=== PATIENT | male | born 1950 | race Caucasian/White ===

== ENCOUNTER → 2017-05-16 | Outpatient (CLI) | payer OTHER ==
[2016-06-11 16:04] VITALS: BP 134/67
--- NOTE | 2017-05-17 09:17 | MRI ---
STUDY: MRI OF THE LUMBAR SPINE HISTORY: Other intervertebral disc disorders lumbar region. Chronic low back pain. Comparison: None. Technique: Multiplanar multi-sequence MRI of the lumbar spine was performed. Sagittal T1, sagittal T 2, and STIR images, axial T1, and axial T2 images were obtained. Findings: Sagittal images: Vertebral body heights and alignment are within normal limits. Marrow signal is age-appropriate. Ther e is degenerative endplate change identified, with Modic type 1 change at the opposing endplates of L 5/S1. There is multilevel degenerative disc disease, most notable at L4/5 and L5/S1. The conus medul rachel is normal appearance terminating at the level of L1/2. Axial images: T12 -- L1: There is bilateral facet arthropathy and ligamentum flavum infolding. The central canal an d neural foramina are adequate. L1 -- L2: There is a shallow disc bulge, bilateral facet arthropathy and ligamentum flavum infolding. Central canal and neural foramina are adequate. L2 -- L3: There is a broad-based disc bulge, bilateral facet arthropathy and ligamentum flavum infold ing. The combination of these findings results in moderate central canal stenosis. There is moderate right neural foraminal stenosis. Left neural foramen is adequate. L3 -- L4: There is a broad-based disc bulge, bilateral facet arthropathy and ligamentum flavum infold ing. The combination of these findings results in mild central canal stenosis. There is moderate to s evere right neural foraminal stenosis. Left neural foramen is adequate. L4 -- L5: There is a broad-based disc bulge asymmetric to the left, with superimposed disc extrusion into the left lateral recess. There is bilateral facet arthropathy and ligamentum flavum infolding. O verall, this results in mild spinal stenosis. However, there is effacement of the left lateral recess , and likely contact with the traversing L5 nerve root in the left lateral recess. There is moderate right and moderate to severe left neural foraminal stenosis at this level. L5 -- S1: There is a shallow disc bulge, bilateral facet arthropathy and ligamentum flavum infolding. The central canal is adequate. There is moderate left neural foraminal stenosis. The right neural fo ramen is adequate. IMPRESSION: 1. Multilevel lumbar spondylosis, probably most severe at L4/5. 2. Disc bulge with extruded disc material in the left lateral recess at L4/5. 3. Moderate spinal stenosis at L2/3. 4. Mild spinal stenosis at L3/4 and L4/5. Effacement of the left lateral recess at L4/5. 5. Multilevel neural foraminal stenosis as described, probably most severe at L4/5 on the left. Reported By:
== END | disposition home or self-care (01) ==
LOC: RAD 09:19
PROVIDERS: ATTEND Internal Medicine
DX: M51.86 Other intervertebral disc disorders, lumbar region (principal); M47.896 Other spondylosis, lumbar region; M51.26 Other intervertebral disc displacement, lumbar region; M48.061 Spinal stenosis, lumbar region without neurogenic claudication
CPT/HCPCS: 72148

== ENCOUNTER 2017-06-30 10:50 | Day surgery (SDC) | payer OTHER ==
[2017-06-30] MEDS ORDERED: NS 1000 ML 1,000 ML ONE (11:32)
[2017-06-30] MEDS ORDERED: DIPRIVAN VIAL 20 ML ONE (11:53)
[2017-06-30] MEDS ORDERED: DIPRIVAN VIAL 10 ML ONE (12:05)
[2017-06-30 12:31] VITALS: BP 164/77
== END 2017-06-30 12:35 | disposition home or self-care (01) ==
LOC: SURG1 10:50
PROVIDERS: ATTEND Internal Medicine Gastroenterology
PROC: 0DBL8ZX Excision of Transverse Colon, Via Natural or Artificial Opening Endoscopic, Diagnostic (ICD-10-PCS; principal; 2017-06-30 14:15)
PROC: 0DJD8ZZ Inspection of Lower Intestinal Tract, Via Natural or Artificial Opening Endoscopic (ICD-10-PCS; principal; 2017-06-30 14:15)
PROC: 0DBM8ZX Excision of Descending Colon, Via Natural or Artificial Opening Endoscopic, Diagnostic (ICD-10-PCS; principal; 2017-06-30 14:15)
PROC: 0DBN8ZX Excision of Sigmoid Colon, Via Natural or Artificial Opening Endoscopic, Diagnostic (ICD-10-PCS; principal; 2017-06-30 14:15)
PROC: 0DBP8ZX Excision of Rectum, Via Natural or Artificial Opening Endoscopic, Diagnostic (ICD-10-PCS; principal; 2017-06-30 14:15)
DX: Z12.11 Encounter for screening for malignant neoplasm of colon (principal); Z80.0 Family history of malignant neoplasm of digestive organs; K63.5 Polyp of colon; K57.30 Diverticulosis of large intestine without perforation or abscess without bleeding; K64.0 First degree hemorrhoids; D12.5 Benign neoplasm of sigmoid colon; D12.4 Benign neoplasm of descending colon; D12.3 Benign neoplasm of transverse colon
CPT/HCPCS: A4217; J3490

== ENCOUNTER → 2017-08-30 | Outpatient (CLI) | payer OTHER ==
--- NOTE | 2017-08-30 12:38 | MRI ---
MRI SPINE CERVICAL WITHOUT CONTRAST CLINICAL HISTORY: 66-year-old male with chronic low back and neck pain. COMPARISON: None. Technique: Multiplanar, multisequence MRI images of the cervical spine were obtained without the adm inistration of intravenous contrast. FINDINGS: Straightening of the cervical lordosis as imaged. Subtle degenerative retrolisthesis C3 on C4 and C5 on C6. Encephalomalacia within the inferior aspect of the left cerebellar hemisphere. Verte bral body heights are preserved with mixed type 1 and type 2 endplate changes C5-C6. Loss of disc spa ce C5-C6 with associated signal loss. Remaining disc height and signal are preserved. Cord signal is normal. The visualized posterior fossa structures are normal. C2-C3: No significant central canal or neural foraminal stenosis. C3-C4: Broad-based disc osteophyte with a central and right central component narrows canal 9.6 mm. N o cord contour deformity or signal change. Uncovertebral and facet joint hypertrophy combine to produ ce mild bilateral neural foraminal stenosis. C4-C5: Broad-based disc osteophyte complex narrows canal at 10.4 mm. No cord contour deformity or sig nal change. Uncovertebral and facet joint hypertrophy combine to produce mild right neural foraminal stenosis. C5-C6: Large left central disc osteophyte complex produces partial effacement of the subarachnoid spa jose with flattening of the left ventral cord without cord signal change. Uncovertebral joint hypertro phy with spurring produces moderate to severe left neural foraminal stenosis. C6-C7: Large left central disc osteophyte complex with subtle flattening of the left ventral cord wit hout signal change. Central canal remains widely patent. Uncovertebral and facet joint hypertrophy co mbine to produce [id number] right and moderate to severe left neural foraminal stenosis. C7-T1: No central canal or neural foraminal stenosis. Abnormal loss of expected flow void within the left vertebral artery from C4-C5 intervertebral disc s pace distally. IMPRESSION: 1. Multilevel disc degeneration and spondyloarthropathy with cord contour deformity without signal ch ana at multiple levels. Multilevel significant neural foraminal stenosis. This is most severe from C 5-C7. 2. See level by level descriptions above. 3. Abnormal loss of the expected flow void within the left vertebral artery as described, further cor relation with CTA neck is recommended for definitive evaluation. Slow flowing blood can have this [place] earance. 4. Encephalomalacia inferior aspect left cerebral hemisphere. Reported By:
--- NOTE | 2017-08-30 15:49 | CT ---
HISTORY: Lower back pain, history chronic fracture Study: CT lumbar spine without contrast Comparison: Lumbar MRI 05/16/2017 Technique: Multiple axial images of the lumbar spine without the administration of IV contrast. Sag ittal and coronal reformats were performed and reviewed. Dose reduction techniques including Automat ed Exposure Control (AEC) and adjustment of mA and kV were utilized. Findings: Lumbar alignment is within normal limits. Multilevel spondylosis and degenerative disc space narrowin g is present with vacuum phenomenon at L4-L5. There is multilevel facet arthropathy also noted. There is broad-based disc bulge at L2 and L3 are moderate bilateral lateral recess narrowing and foraminal narrowing. There is a broad-based disc bulge facet hypertrophy changes at L3-L4 resulting in moderat e bilateral lateral recess and foraminal narrowing, worse on the right. There is a broad-based disc b ulge at L4-5 and facet hypertrophy resulting moderate to severe bilateral foraminal and lateral reces s stenosis. There is extruded disc material on the left inferiorly at this level. No evidence of acut e fracture. Extensive atherosclerotic plaque is seen in the aorta and branch vessels including segmen jennifer renal arteries bilaterally. The paraspinal soft tissues appear intact IMPRESSION: 1. Multilevel discogenic degenerative changes and facet arthropathy as described resulting in moderat e lateral recess and foraminal stenosis at L2-L3 and L3-L4 and moderate to severe lateral recess and foraminal stenosis at L4-5. Extruded disc material is seen inferiorly on the left at L4-5. Reported By:
== END | disposition home or self-care (01) | DRG 74 ==
LOC: RAD 08:31
PROVIDERS: ATTEND Neurological Surgery
DX: M54.12 Radiculopathy, cervical region (principal); M54.16 Radiculopathy, lumbar region; M50.322 Other cervical disc degeneration at C5-C6 level; M51.36 Other intervertebral disc degeneration, lumbar region; M48.061 Spinal stenosis, lumbar region without neurogenic claudication; M48.02 Spinal stenosis, cervical region; G93.89 Other specified disorders of brain
CPT/HCPCS: 72050; 72110; 72131; 72141

== ENCOUNTER 2019-07-25 08:30 | Inpatient (IN) ==
[2019-07-24 18:36] LABS: BILIRUBIN,URINE NEGATIVE (NEGATIVE); BLOOD/HEMOGLOBIN,URINE NEGATIVE (NEGATIVE); GLUCOSE, URINE NEGATIVE (NEGATIVE); KETONES,URINE NEGATIVE (NEGATIVE); LEUKOCYTE ESTERASE ,URINE NEGATIVE (NEGATIVE); NITRITES,URINE NEGATIVE (NEGATIVE); PROTEIN,URINE 1+ (NEGATIVE); UROBILINOGEN,URINE NORMAL (NORMAL)
[2019-07-24 18:40] LABS: AMORPHOUS SEDIMENT,UR TRACE /HPF (NEGATIVE); APPEARANCE,URINE CLEAR (CLEAR); BACTERIA,URINE NEGATIVE /HPF (NEGATIVE); COLOR,URINE YELLOW (YELLOW); RBC,URINE NONE SEEN /HPF (0-3); SQUAMOUS EPITHELIAL CELL,UR NEGATIVE /HPF (NEGATIVE)
[2019-07-24] MEDS: NS 1000 ML 1,000 ML IV SCH (18:50)
[2019-07-24 19:07] LABS: BASOPHILS # (AUTO) 0.2 X10^3/uL (0.0-0.1); BASOPHILS % (AUTO) 2.2 % (0.2-1.0); EOSINOPHILS # (AUTO) 0.2 x10^3/uL (0.0-0.2); EOSINOPHILS % (AUTO) 2.1 % (0.9-2.9); HEMATOCRIT 39.5 % (42.0-54.0); HEMOGLOBIN 13.3 g/dL (13.5-18.0); LYMPHOCYTES # (AUTO) 2.2 X10^3/uL (1.3-2.9); LYMPHOCYTES % (AUTO) 20.3 % (21.0-51.0); MEAN CORPUSCULAR HEMOGLOBIN 31.7 pg (27.0-34.0); MEAN CORPUSCULAR HGB CONC 33.7 g/dL (33.0-35.0); MEAN CORPUSCULAR VOLUME 94.1 fL (80.0-100.0); MEAN PLATELET VOLUME 8.5 fL (7.4-11.0); MONOCYTES # (AUTO) 0.7 x10^3/uL (0.3-0.8); MONOCYTES % (AUTO) 6.4 % (0.0-13.0); NEUTROPHILS # (AUTO) 7.4 x10^3/uL (2.2-4.8); PLATELET COUNT 343 X10^3/uL (150.0-450.0); RED CELL DISTRIBUTION WIDTH 15.7 % (11.6-16.5); WHITE BLOOD COUNT 10.7 X10^3/uL (3.6-10.0)
[2019-07-24 19:23] LABS: ALBUMIN 3.3 g/dL (3.4-5.0); CALCIUM 8.8 mg/dL (8.5-10.1); CARBON DIOXIDE 31.9 mmol/L (21-32); COR CA(FOR HYPOALB) 9.4 mg/dL (8.5-10.1); CREATININE 1.54 mg/dL (0.70-1.30); TOTAL PROTEIN 7.7 g/dL (6.4-8.2)
[2019-07-24 20:25] VITALS: BMI 30.5
[2019-07-24] MEDS: KLOR-CON PO PRN (21:46)
[2019-07-25] MEDS: NS 1000 ML 1,000 ML IV SCH ×3 (06:04→20:25)
--- NOTE | 2019-07-25 06:34 | RAD ---
HISTORYSOBSTUDYPortable AP chestCOMPARISONJanuary 2019FINDINGSThere is moderate cardiomegaly. There is a new infiltrate at the left lung base laterally with elevation of the left hemidiaphragm. There is been prior sternotomy for bypass grafting surgery with a prosthetic valve is well. The right lung is grossly clear. There ventral surgical traci over the anterior chest.IMPRESSION1. Increased heart size status post recent CABG and prosthetic valve surgery2. Infiltrate at the left lung base laterally that may represent a pneumoniaElectronically signed by: AZRA OCASIO (Jul 25, 2019 06:32:36)
[2019-07-25 06:38] LABS: BASOPHILS # (AUTO) 0.1 X10^3/uL (0.0-0.1); BASOPHILS % (AUTO) 0.7 % (0.2-1.0); EOSINOPHILS # (AUTO) 0.2 x10^3/uL (0.0-0.2); EOSINOPHILS % (AUTO) 2.6 % (0.9-2.9); HEMATOCRIT 35.8 % (42.0-54.0); HEMOGLOBIN 11.9 g/dL (13.5-18.0); LYMPHOCYTES % (AUTO) 23.1 % (21.0-51.0); MEAN CORPUSCULAR HEMOGLOBIN 31.6 pg (27.0-34.0); MEAN CORPUSCULAR HGB CONC 33.3 g/dL (33.0-35.0); MEAN CORPUSCULAR VOLUME 94.6 fL (80.0-100.0); MEAN PLATELET VOLUME 8.5 fL (7.4-11.0); MONOCYTES # (AUTO) 0.6 x10^3/uL (0.3-0.8); MONOCYTES % (AUTO) 7.4 % (0.0-13.0); NEUTROPHILS # (AUTO) 5.7 x10^3/uL (2.2-4.8); NEUTROPHILS % (AUTO) 66.2 % (42.0-75.0); PLATELET COUNT 290 X10^3/uL (150.0-450.0); RED BLOOD COUNT 3.78 X10^6/uL (4.7-6.0); RED CELL DISTRIBUTION WIDTH 15.8 % (11.6-16.5); WHITE BLOOD COUNT 8.6 X10^3/uL (3.6-10.0)
[2019-07-25 07:00] LABS: ALBUMIN 2.6 g/dL (3.4-5.0); CALCIUM 7.9 mg/dL (8.5-10.1); CARBON DIOXIDE 28.1 mmol/L (21-32); CREATININE 1.49 mg/dL (0.70-1.30); TOTAL PROTEIN 6.3 g/dL (6.4-8.2)
[~2019-07-25 08:30] MED LIST: K-RIDER 10 MEQ/NS 100 ML 10 MEQ/100 ML BAG IV PRN; MICRO K EXTEN CAP 10 MEQ PO PRN; POTASSIUM CHL 40 MEQ/NS 0.45% 500 ML IV PRN; POTASSIUM CHL 60 MEQ/NS 0.45% 500 ML IV PRN; POTASSIUM CHLORIDE LIQ 20 MEQ UDC PO PRN; ROXICODONE TAB 5 MG PO PRN
[2019-07-25] MEDS: ELIQUIS PO SCH ×2 (09:35→20:20)
[2019-07-25] MEDS: KLOR-CON PO PRN (09:35)
[2019-07-25] MEDS: LEVAQUIN PREMIX IV 750 MG 750 MG/150 ML BAG IV SCH (11:30)
[2019-07-25] MEDS: FORTAZ or TAZICEF VIAL INJ 1 G in NS 100 ML IV + SPIKE MINIBAG* 100 ML IV SCH ×3 (11:30→21:05)
--- NOTE | 2019-07-25 11:41 | DR.H&P ---
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 HE RETURNED HOME FROM THE HOSPITAL ON 07/23/19. SINCE RETURNING HOME, PATIENT REPORTS FEELING SEVERELY WEAK, SHORT OF BREATH, AND ALSO REPORTS A COUGH. THERE IS A SURGICAL DRESSING NOTED TO CHEST WITHOUT SIGNS OR SX INFECTION NOTED. ON ARRIVAL, VITALS WERE 98.9-86-18-99%-176/86. LABS WERE OBTAINED. ABNORMAL LAB VALUES INCLUDE THE FOLLOWING: WBC 10.7, RBC 4.20, HGB 13.3, HCT 39.5, POTASSIUM 3.0, CREATININE 1.54, GLUCOSE 119, TOTAL BILI 1.10, AST 69, ALT 100, ALK PHOS 133, ALBUMIN 3.3. URINALYSIS IS UNREMARKABLE. A CHEST XRAY WAS OBTAINED THIS MORNING AND REVEALED: 1. Increased heart size status post recent CABG and prosthetic valve surgery. 2. Infiltrate at the left lung base laterally that may represent a pneumonia. HE IS CURRENTLY RECEIVING NORMAL SALINE AT 50 ML/HR AND THE POTASSIUM AND MAGNESIUM PROTOCOLS. TODAY, WILL START IV FORTAZ, IV LEVAQUIN, AND RESPIRATORY TREATMENTS. PHYSICAL THERAPY WILL EVALUATE AND WORK WITH PATIENT TODAY. OTHERWISE, WE WILL FOLLOW UP WITH AM LABS AND CHEST XRAY AND CONTINUE TO MONITOR. - Past Medical History Past Medical History: Angina, NH, Hypertension, Dyslipidemia, Depression, Anxiety, Hypothyroidism, COPD, Asthma, GERD, Arthritis Additional Medical History: NH 2012 - Past Surgical History Surgical History: Angioplasty/Stents, Appendectomy, CABG/Valve Surgery Additional Surgical History: 7 CARDIAC STENTS - Family History Family Medical History: Diabetes Mellitus, Cancer, NH, Coronary Artery Disease, Sudden Cardiac , Hypertension - Social History Does patient currently use any type of tobacco product: No Have you used tobacco products in the last 12 months: No Type of Tobacco Use: None Alcohol Use: None Drug Use: None - Medications Home Medications: fluoxetine [From Prozac] Allergy (Verified 07/24/19 20:27) CONTINUE taking the following medications amiodarone 200 mg PO DAILY 07/24/19 [History] apixaban [Eliquis] 5 mg PO BID 02/04/20 [History] bumetanide 1 mg PO DAILY 07/24/19 [History] docusate sodium 100 mg PO BID 07/24/19 [History] - Review of Systems Constitutional: Weakness Eyes: No Symptoms Reported ENT: No Symptoms Reported Respiratory: Cough, Shortness of Breath, SOB with Excertion Cardiovascular: No Symptoms Reported Gastrointestinal: No Symptoms Reported Genitourinary: No Symptoms Reported Musculoskeletal: No Symptoms Reported Skin: Wound (DRESSING TO CHEST. NO SIGNS OR SX INFECTION NOTED ) Neurological: Weakness - Physical Exam Vital Signs: Temperature 99.4 F Pulse Rate [Left Brachial] 82 Respiratory Rate 22 Blood Pressure [Right Calf] 111/58 Blood Pressure [Left Arm] 176/86 Blood Pressure [Right Arm] 134/64 Blood Pressure 94/60 O2 Sat by Pulse Oximetry 96 Oriented: Normal Eyes: Normal Ear: Normal Nose: Normal Throat: Normal Respiratory: Diminished Throughout Cardiovascular: Normal. negative: S3, S4, Murmur : Normal Auscultation: Bowel Sounds: Normal Palpation: Normal Tenderness: Normal Skin: Wound (SURGICAL WOUND TO CHEST. DRESSING DRY AND INTACT WITH NO S/SX INFECTION NOTED ) Musculoskeletal: Normal Psychiatric: Normal Mood Description: Calm Affect: Normal Speech Pattern: Clear - Assessment/Plan (1) Pneumonia Qualifiers: Laterality: left Lung location: lower lobe of lung Status: Acute Plan: IV FORTAZ, IV LEVAQUIN, RESPIRATORY TX, SUPPLEMENTAL OXYGEN, CONTINUE TO MONITOR (2) Generalized weakness Status: Acute (3) Status post coronary artery bypass graft Status: Acute - Allergies Allergies/Adverse Reactions: Allergies Allergy/AdvReac Type Severity Reaction Status Date / Time fluoxetine [From Prozac] Allergy Verified 07/24/19 20:27
[2019-07-25] MEDS: XOPENEX 1.25 MG/3 ML NEBULE NEB SCH (17:08)
[2019-07-25] MEDS: CORDARONE TAB 200 MG PO SCH (18:35)
[2019-07-25] MEDS: COLACE CAP 100 MG PO SCH (20:20)
[2019-07-26] MEDS: XOPENEX 1.25 MG/3 ML NEBULE NEB SCH ×4 (00:39→16:50)
[2019-07-26] MEDS ORDERED: RESTORIL CAP 15 MG PO ONE (01:47)
[2019-07-26] MEDS: RESTORIL CAP 15 MG PO PRN ×2 (01:53→22:00)
[2019-07-26] MEDS: FORTAZ or TAZICEF VIAL INJ 1 G in NS 100 ML IV + SPIKE MINIBAG* 100 ML IV SCH ×4 (05:50→22:04)
[2019-07-26] MEDS: NS 1000 ML 1,000 ML IV SCH ×3 (05:51→22:02)
[2019-07-26 06:40] LABS: ALANINE AMINOTRANSFERASE 115 Units/L (12-78); ALBUMIN 2.3 g/dL (3.4-5.0); ALKALINE PHOSPHATASE 118 Units/L (46-116); ASPARTATE AMINO TRANSFERASE 72 Units/L (15-37); BLOOD UREA NITROGEN 11 mg/dL (7-18); CALCIUM 7.7 mg/dL (8.5-10.1); CARBON DIOXIDE 22.7 mmol/L (21-32); CHLORIDE 105 mmol/L (98-107); COR CA(FOR HYPOALB) 9.1 mg/dL (8.5-10.1); COR NA(FOR HYPERGLY) 137 mmol/L (136-145); CREATININE 1.24 mg/dL (0.70-1.30); SODIUM 137 mmol/L (136-145); TOTAL PROTEIN 5.9 g/dL (6.4-8.2); eGFR NON BLACK RACES > 60 (>60)
[2019-07-26 06:48] LABS: BASOPHILS % (AUTO) 0.5 % (0.2-1.0); EOSINOPHILS # (AUTO) 0.1 x10^3/uL (0.0-0.2); EOSINOPHILS % (AUTO) 1.4 % (0.9-2.9); HEMATOCRIT 32.3 % (42.0-54.0); HEMOGLOBIN 10.8 g/dL (13.5-18.0); LYMPHOCYTES # (AUTO) 1.4 X10^3/uL (1.3-2.9); LYMPHOCYTES % (AUTO) 16.3 % (21.0-51.0); MEAN CORPUSCULAR HEMOGLOBIN 31.6 pg (27.0-34.0); MEAN CORPUSCULAR HGB CONC 33.3 g/dL (33.0-35.0); MEAN CORPUSCULAR VOLUME 94.6 fL (80.0-100.0); MEAN PLATELET VOLUME 8.7 fL (7.4-11.0); MONOCYTES # (AUTO) 0.7 x10^3/uL (0.3-0.8); MONOCYTES % (AUTO) 7.9 % (0.0-13.0); NEUTROPHILS # (AUTO) 6.3 x10^3/uL (2.2-4.8); NEUTROPHILS % (AUTO) 73.9 % (42.0-75.0); PLATELET COUNT 254 X10^3/uL (150.0-450.0); RED BLOOD COUNT 3.42 X10^6/uL (4.7-6.0); RED CELL DISTRIBUTION WIDTH 15.5 % (11.6-16.5); WHITE BLOOD COUNT 8.6 X10^3/uL (3.6-10.0)
--- NOTE | 2019-07-26 07:25 | RAD ---
HISTORYsob, generalized weakness, post cabgSTUDYPortable AP chestCOMPARISONYesterday July 25FINDINGSThere is unchanged cardiomegaly status post CABG and prostatic valve. The previously demonstrated infiltrate at the left lung base laterally has improved. There is minimal vascular congestion. No effusion is suggested.IMPRESSIONUnchanged cardiomegaly and minimal vascular congestionImproving infiltrate at the left lung baseElectronically signed by: AZRA OCASIO (Jul 26, 2019 07:24:37)
[2019-07-26] MEDS: ELIQUIS PO SCH ×2 (09:42→22:01)
[2019-07-26] MEDS: COLACE CAP 100 MG PO SCH ×2 (09:42→22:00)
[2019-07-26] MEDS: BUMEX TAB 1 MG PO SCH (09:42)
[2019-07-26] MEDS: CORDARONE TAB 200 MG PO SCH (09:43)
[2019-07-26] MEDS: K-DUR TAB 20 MEQ PO PRN (09:43)
[2019-07-26] MEDS: LEVAQUIN PREMIX IV 750 MG 750 MG/150 ML BAG IV SCH (09:43)
[2019-07-26] MEDS ORDERED: TYLENOL 325 MG TAB PO PRN (16:17)
[2019-07-26] MEDS ORDERED: ULTRAM ONE (16:46)
[2019-07-26] MEDS: ULTRAM PO PRN (17:01)
--- NOTE | 2019-07-26 18:46 | PCM.PROG ---
Progress Note - Progress Note for Day of Date of Exam: 07/26/19 - Subjective Subjective: IS BEING TREATED FOR PNEUMONIA AND GENERALIZED WEAKNESS. HE IS STATUS POST CABG. TODAY, HE IS ALERT AND ORIENTED, LYING IN BED ON MORNING ROUNDS. HE REPORTS SHORTNESS OF BREATH AND COUGH THIS MORNING. HE DENIES CHEST PAIN. ON EXAMIANTION, HEART IS REGULAR IN RATE AND RHYTHM. BILATERAL LUNGS ARE NOTED WITH DIMINISHED LUNG SOUNDS THROUGHOUT. ABDOMEN IS ROUND, SOFT, AND NON- TENDER WITH NORMAL BOWEL SOUNDS NOTED IN ALL QUADRANTS. THERE IS A DRESSING NOTED TO CHEST. DRESSING IS DRY AND INTACT WITH NO SIGNS OR SX INFECTION NOTED. HIS VITALS THIS MORNING ARE: 98.0-84-18-97%-139/74. LABS WERE OBTAINED. ABNORMAL LAB VALUES INCLUDE THE FOLLOWING: RBC 3.42, HGB 10.8, HCT 32.3, POTASSIUM 3.4, GLUCOSE 114, CALCIUM 7.7, AST 72, ALT 115, ALK PHOS 118, TOTAL PROTEIN 5.9, ALBUMIN 2.3. BLOOD AND SPUTUM CULTURES ARE PENDING. A CHEST XRAY WAS OBTAINED THIS MORNING AND REVEALED: Unchanged cardiomegaly and minimal vascular congestion. Improving infiltrate at the left lung base. HE IS CURRENTLY RECEIVING IV FORTAZ, IV LEVAQUIN, RESPIRATORY TX, SUPPLEMENTAL OXYGEN, THE POTASSIUM AND MAGNESIUM PROTOCOLS, AND HOME MEDICATIONS WERE RESUMED. WE WILL CONTINUE WITH CURRENT PLAN OF CARE TODAY. OTHERWISE, WE WILL FOLLOW UP WITH AM LABS AND CONTINUE TO MONITOR. - Past Medical Family Social History Past Med/Fam/Surg Hx: No changes since H&P Allergies: Allergies fluoxetine [From Prozac] Allergy (Verified 07/24/19 20:27) - Review of Systems ROS: No change since H&P - Vital Signs and I&O's Vital Signs: Temperature 99.1 F Pulse Rate [Right Brachial] 94 Pulse Rate [Left Brachial] 87 Pulse Rate 90 Respiratory Rate 18 Blood Pressure [Right Calf] 111/58 Blood Pressure [Left Arm] 176/86 Blood Pressure [Right Arm] 152/81 Blood Pressure 94/60 O2 Sat by Pulse Oximetry 100 Intake and Output: Intake & Output 07/24/19 07/25/19 07/26/19 07/27/19 11:59 11:59 11:59 11:59 Intake Total 890 / 890 1950 / 1950 1100 / 1100 Output Total 150 / 150 425 / 425 Balance 740 / 740 1525 / 1525 1100 / 1100 - Physical Exam Oriented: Normal Eyes: Normal Ear: Normal Nose: Normal Throat: Normal Respiratory: Generalized, Diminished Cardiovascular: Normal. negative: S3, S4, Murmur : Normal Auscultation: Bowel Sounds: Normal Palpation: Normal Tenderness: Normal Skin: Wound (SURGICAL WOUND TO CHEST. DRESSING DRY AND INTACT WITH NO S/SX INFECTION NOTED ) Musculoskeletal: Normal Psychiatric: Normal Mood Description: Calm Affect: Normal Speech Pattern: Clear, Appropriate - Laboratory and Diagnostics Result Diagrams: 07/26/19 05:53 07/26/19 05:53 Labs: 07/25/19 11:19 Sputum - Expectorated Sputum Sputum Culture - Preliminary 07/25/19 11:19 Sputum - Expectorated Sputum - Final Laboratory WBC 8.6 X10^3/uL (3.6-10.0) 07/26/19 05:53 RBC 3.42 X10^6/uL (4.7-6.0) L 07/26/19 05:53 Hgb 10.8 g/dL (13.5-18.0) L 07/26/19 05:53 Hct 32.3 % (42.0-54.0) L 07/26/19 05:53 MCV 94.6 fL (80.0-100.0) 07/26/19 05:53 MCH 31.6 pg (27.0-34.0) 07/26/19 05:53 MCHC 33.3 g/dL (33.0-35.0) 07/26/19 05:53 RDW 15.5 % (11.6-16.5) 07/26/19 05:53 Plt Count 254 X10^3/uL (150.0-450.0) 07/26/19 05:53 MPV 8.7 fL (7.4-11.0) 07/26/19 05:53 Neut % (Auto) 73.9 % (42.0-75.0) 07/26/19 05:53 Lymph % (Auto) 16.3 % (21.0-51.0) L 07/26/19 05:53 [place] % (Auto) 7.9 % (0.0-13.0) 07/26/19 05:53 Eos % (Auto) 1.4 % (0.9-2.9) 07/26/19 05:53 Baso % (Auto) 0.5 % (0.2-1.0) 07/26/19 05:53 Neut # (Auto) 6.3 x10^3/uL (2.2-4.8) H 07/26/19 05:53 Lymph # (Auto) 1.4 X10^3/uL (1.3-2.9) 07/26/19 05:53 [place] # (Auto) 0.7 x10^3/uL (0.3-0.8) 07/26/19 05:53 Eos # (Auto) 0.1 x10^3/uL (0.0-0.2) 07/26/19 05:53 Baso # (Auto) 0.0 X10^3/uL (0.0-0.1) 07/26/19 05:53 Absolute Nucleated RBC 0.0 /100WBC 07/26/19 05:53 Sodium 137 mmol/L (136-145) 07/26/19 05:53 Corrected Sodium 137 mmol/L (136-145) 07/26/19 05:53 Potassium 3.4 mmol/L (3.5-5.1) L 07/26/19 05:53 Chloride 105 mmol/L (98-107) 07/26/19 05:53 Carbon Dioxide 22.7 mmol/L (21-32) 07/26/19 05:53 BUN 11 mg/dL (7-18) 07/26/19 05:53 Creatinine 1.24 mg/dL (0.70-1.30) 07/26/19 05:53 Est GFR (MDRD) Af Amer > 60 (>60) 07/26/19 05:53 Est GFR (MDRD) Non-Af > 60 (>60) 07/26/19 05:53 Glucose 114 mg/dL (65-99) H 07/26/19 05:53 Calcium 7.7 mg/dL (8.5-10.1) L 07/26/19 05:53 Corrected Calcium 9.1 mg/dL (8.5-10.1) 07/26/19 05:53 Magnesium 2.1 mg/dL (1.7-2.9) 07/24/19 18:48 Total Bilirubin 0.60 mg/dL (0.2-1.0) 07/26/19 05:53 AST 72 Units/L (15-37) H 07/26/19 05:53 ALT 115 Units/L (12-78) H 07/26/19 05:53 Alkaline Phosphatase 118 Units/L (46-116) H 07/26/19 05:53 Total Protein 5.9 g/dL (6.4-8.2) L 07/26/19 05:53 Albumin 2.3 g/dL (3.4-5.0) L 07/26/19 05:53 Globulin 3.6 g/dL (2.5-4.5) 07/26/19 05:53 Albumin/Globulin Ratio 0.6 Ratio (1.1-2.1) L 07/26/19 05:53 Specimen Type Clean catch urine 07/24/19 18:20 Urine Color Yellow (YELLOW) 07/24/19 18:20 Urine Appearance Clear (CLEAR) 07/24/19 18:20 Urine pH 7.0 (5.0 - 8.0) 07/24/19 18:20 Ur Specific [place] 1.010 (1.000-1.030) 07/24/19 18:20 Urine Protein 1+ (NEGATIVE) 07/24/19 18:20 Urine Glucose (UA) Negative (NEGATIVE) 07/24/19 18:20 Urine Ketones Negative (NEGATIVE) 07/24/19 18:20 Urine Occult Blood Negative (NEGATIVE) 07/24/19 18:20 Urine Nitrite Negative (NEGATIVE) 07/24/19 18:20 Urine Bilirubin Negative (NEGATIVE) 07/24/19 18:20 Urine Urobilinogen Normal (NORMAL) 07/24/19 18:20 Ur Leukocyte Esterase Negative (NEGATIVE) 07/24/19 18:20 Urine RBC None seen /HPF (0-3) 07/24/19 18:20 Urine WBC None seen /HPF (0-5) 07/24/19 18:20 Ur Squamous Epith Cells Negative /HPF (NEGATIVE) 07/24/19 18:20 Amorphous Sediment Trace /HPF (NEGATIVE) 07/24/19 18:20 Urine Bacteria Negative /HPF (NEGATIVE) 07/24/19 18:20 Ur Culture Indicated? No/not indicated 07/24/19 18:20 - Plan (1) Pneumonia Status: Acute Qualifiers: Laterality: left Lung location: lower lobe of lung Plan: IV FORTAZ, IV LEVAQUIN, RESPIRATORY TX, SUPPLEMENTAL OXYGEN, CONTINUE TO MONITOR (2) Generalized weakness Status: Acute (3) Status post coronary artery bypass graft Status: Acute
[2019-07-27] MEDS: XOPENEX 1.25 MG/3 ML NEBULE NEB SCH ×4 (01:10→17:47)
[2019-07-27] MEDS: FORTAZ or TAZICEF VIAL INJ 1 G in NS 100 ML IV + SPIKE MINIBAG* 100 ML IV SCH ×3 (05:47→21:36)
[2019-07-27 06:31] LABS: BASOPHILS % (AUTO) 0.5 % (0.2-1.0); EOSINOPHILS # (AUTO) 0.2 x10^3/uL (0.0-0.2); EOSINOPHILS % (AUTO) 2.5 % (0.9-2.9); HEMATOCRIT 32.7 % (42.0-54.0); LYMPHOCYTES # (AUTO) 1.8 X10^3/uL (1.3-2.9); LYMPHOCYTES % (AUTO) 21.7 % (21.0-51.0); MEAN CORPUSCULAR HEMOGLOBIN 31.7 pg (27.0-34.0); MEAN CORPUSCULAR HGB CONC 33.5 g/dL (33.0-35.0); MEAN CORPUSCULAR VOLUME 94.4 fL (80.0-100.0); MEAN PLATELET VOLUME 8.3 fL (7.4-11.0); MONOCYTES # (AUTO) 0.8 x10^3/uL (0.3-0.8); MONOCYTES % (AUTO) 9.2 % (0.0-13.0); NEUTROPHILS # (AUTO) 5.5 x10^3/uL (2.2-4.8); NEUTROPHILS % (AUTO) 66.1 % (42.0-75.0); PLATELET COUNT 230 X10^3/uL (150.0-450.0); RED BLOOD COUNT 3.46 X10^6/uL (4.7-6.0); RED CELL DISTRIBUTION WIDTH 15.2 % (11.6-16.5); WHITE BLOOD COUNT 8.3 X10^3/uL (3.6-10.0)
[2019-07-27 06:38] LABS: ALANINE AMINOTRANSFERASE 87 Units/L (12-78); ALBUMIN 2.3 g/dL (3.4-5.0); ALKALINE PHOSPHATASE 118 Units/L (46-116); ASPARTATE AMINO TRANSFERASE 40 Units/L (15-37); BLOOD UREA NITROGEN 8 mg/dL (7-18); CALCIUM 7.7 mg/dL (8.5-10.1); CARBON DIOXIDE 23.5 mmol/L (21-32); CHLORIDE 104 mmol/L (98-107); COR CA(FOR HYPOALB) 9.1 mg/dL (8.5-10.1); COR NA(FOR HYPERGLY) 138 mmol/L (136-145); CREATININE 1.17 mg/dL (0.70-1.30); SODIUM 137 mmol/L (136-145); TOTAL PROTEIN 5.9 g/dL (6.4-8.2); eGFR NON BLACK RACES > 60 (>60)
--- NOTE | 2019-07-27 07:30 | RAD ---
HISTORYsobSTUDYPortable AP chestCOMPARISONFebruary 2019FINDINGSThere is moderate cardiomegaly status post CABG as before. The right lung is grossly clear. The left hemidiaphragm remains obscured with increased retrocardiac density at the left lower lobe.IMPRESSIONPersistent cardiomegaly. Persistent impression of left lower lobe retrocardiac density.Electronically signed by: AZRA OCASIO (Jul 27, 2019 07:28:34)
[2019-07-27] MEDS: COLACE CAP 100 MG PO SCH ×2 (09:53→20:04)
[2019-07-27] MEDS: BUMEX TAB 1 MG PO SCH (09:53)
[2019-07-27] MEDS: LEVAQUIN PREMIX IV 750 MG 750 MG/150 ML BAG IV SCH (09:53)
[2019-07-27] MEDS: CORDARONE TAB 200 MG PO SCH (09:54)
[2019-07-27] MEDS: ELIQUIS PO SCH ×2 (09:54→20:04)
--- NOTE | 2019-07-27 10:56 | PCM.PROG ---
Progress Note - Progress Note for Day of Date of Exam: 07/27/19 - Subjective Subjective: IS BEING TREATED FOR PNEUMONIA AND GENERALIZED WEAKNESS. HE IS STATUS POST CABG. TODAY, HE IS ALERT AND ORIENTED, LYING IN BED ON MORNING ROUNDS. HE REPORTS SHORTNESS OF BREATH AND COUGH THIS MORNING. HE DENIES CHEST PAIN. ON EXAMIANTION, HEART IS REGULAR IN RATE AND RHYTHM. BILATERAL LUNGS ARE NOTED WITH DIMINISHED LUNG SOUNDS THROUGHOUT. ABDOMEN IS ROUND, SOFT, AND NON- TENDER WITH NORMAL BOWEL SOUNDS NOTED IN ALL QUADRANTS. THERE IS A DRESSING NOTED TO CHEST. DRESSING IS DRY AND INTACT WITH NO SIGNS OR SX INFECTION NOTED. HIS VITALS THIS MORNING ARE: 98.9-92-20-95%-136/72. LABS WERE OBTAINED. ABNORMAL LAB VALUES INCLUDE THE FOLLOWING: RBC 3.46, HGB 11.0, HCT 32.7, POTASSIUM 3.1, GLUCOSE 122, CALCIUM 7.7, AST 40, ALT 87, ALK PHOS 118, TOTAL PROTEIN 5.9, ALBUMIN 2.3. BLOOD AND SPUTUM CULTURES ARE PENDING. A CHEST XRAY WAS OBTAINED THIS MORNING AND REVEALED: Persistent cardiomegaly. Persistent impression of left lower lobe retrocardiac density. HE IS CURRENTLY RECEIVING IV FORTAZ, IV LEVAQUIN, RESPIRATORY TX, SUPPLEMENTAL OXYGEN, THE POTASSIUM AND MAGNESIUM PROTOCOLS, AND HOME MEDICATIONS WERE RESUMED. WE WILL CONTINUE WITH CURRENT PLAN OF CARE TODAY. OTHERWISE, WE WILL FOLLOW UP WITH AM LABS AND CONTINUE TO MONITOR. - Past Medical Family Social History Past Med/Fam/Surg Hx: No changes since H&P Allergies: Allergies fluoxetine [From Prozac] Allergy (Verified 07/24/19 20:27) - Review of Systems ROS: No change since H&P - Vital Signs and I&O's Vital Signs: Temperature 98.9 F Pulse Rate [Right Brachial] 92 Pulse Rate [Left Brachial] 87 Pulse Rate 90 Respiratory Rate 20 Blood Pressure [Right Calf] 111/58 Blood Pressure [Left Arm] 176/86 Blood Pressure [Right Arm] 136/72 Blood Pressure 94/60 O2 Sat by Pulse Oximetry 95 Intake and Output: Intake & Output 07/24/19 07/25/19 07/26/19 07/27/19 11:59 11:59 11:59 11:59 Intake Total 890 / 890 1950 / 1950 1530 / 1530 Output Total 150 / 150 425 / 425 700 / 700 Balance 740 / 740 1525 / 1525 830 / 830 - Physical Exam Oriented: Normal Eyes: Normal Ear: Normal Nose: Normal Throat: Normal Respiratory: Generalized, Diminished Cardiovascular: Normal. negative: S3, S4, Murmur : Normal Auscultation: Bowel Sounds: Normal Tenderness: Normal Skin: Wound (SURGICAL WOUND TO CHEST. DRESSING DRY AND INTACT WITH NO S/SX INFECTION NOTED ) Musculoskeletal: Normal Psychiatric: Normal Mood Description: Calm Affect: Normal Speech Pattern: Clear, Appropriate - Laboratory and Diagnostics Result Diagrams: 07/27/19 05:35 07/27/19 05:35 Labs: 07/25/19 10:51 Blood Blood Culture - Preliminary 07/25/19 10:45 Blood Blood Culture - Preliminary 07/25/19 11:19 Sputum - Expectorated Sputum Sputum Culture - Final 07/25/19 11:19 Sputum - Expectorated Sputum - Final Laboratory WBC 8.3 X10^3/uL (3.6-10.0) 07/27/19 05:35 RBC 3.46 X10^6/uL (4.7-6.0) L 07/27/19 05:35 Hgb 11.0 g/dL (13.5-18.0) L 07/27/19 05:35 Hct 32.7 % (42.0-54.0) L 07/27/19 05:35 MCV 94.4 fL (80.0-100.0) 07/27/19 05:35 MCH 31.7 pg (27.0-34.0) 07/27/19 05:35 MCHC 33.5 g/dL (33.0-35.0) 07/27/19 05:35 RDW 15.2 % (11.6-16.5) 07/27/19 05:35 Plt Count 230 X10^3/uL (150.0-450.0) 07/27/19 05:35 MPV 8.3 fL (7.4-11.0) 07/27/19 05:35 Neut % (Auto) 66.1 % (42.0-75.0) 07/27/19 05:35 Lymph % (Auto) 21.7 % (21.0-51.0) 07/27/19 05:35 [place] % (Auto) 9.2 % (0.0-13.0) 07/27/19 05:35 Eos % (Auto) 2.5 % (0.9-2.9) 07/27/19 05:35 Baso % (Auto) 0.5 % (0.2-1.0) 07/27/19 05:35 Neut # (Auto) 5.5 x10^3/uL (2.2-4.8) H 07/27/19 05:35 Lymph # (Auto) 1.8 X10^3/uL (1.3-2.9) 07/27/19 05:35 [place] # (Auto) 0.8 x10^3/uL (0.3-0.8) 07/27/19 05:35 Eos # (Auto) 0.2 x10^3/uL (0.0-0.2) 07/27/19 05:35 Baso # (Auto) 0.0 X10^3/uL (0.0-0.1) 07/27/19 05:35 Absolute Nucleated RBC 0.0 /100WBC 07/27/19 05:35 Sodium 137 mmol/L (136-145) 07/27/19 05:35 Corrected Sodium 138 mmol/L (136-145) 07/27/19 05:35 Potassium 3.1 mmol/L (3.5-5.1) L 07/27/19 05:35 Chloride 104 mmol/L (98-107) 07/27/19 05:35 Carbon Dioxide 23.5 mmol/L (21-32) 07/27/19 05:35 BUN 8 mg/dL (7-18) 07/27/19 05:35 Creatinine 1.17 mg/dL (0.70-1.30) 07/27/19 05:35 Est GFR (MDRD) Af Amer > 60 (>60) 07/27/19 05:35 Est GFR (MDRD) Non-Af > 60 (>60) 07/27/19 05:35 Glucose 122 mg/dL (65-99) H 07/27/19 05:35 Calcium 7.7 mg/dL (8.5-10.1) L 07/27/19 05:35 Corrected Calcium 9.1 mg/dL (8.5-10.1) 07/27/19 05:35 Magnesium 2.1 mg/dL (1.7-2.9) 07/24/19 18:48 Total Bilirubin 0.50 mg/dL (0.2-1.0) 07/27/19 05:35 AST 40 Units/L (15-37) H 07/27/19 05:35 ALT 87 Units/L (12-78) H 07/27/19 05:35 Alkaline Phosphatase 118 Units/L (46-116) H 07/27/19 05:35 Total Protein 5.9 g/dL (6.4-8.2) L 07/27/19 05:35 Albumin 2.3 g/dL (3.4-5.0) L 07/27/19 05:35 Globulin 3.6 g/dL (2.5-4.5) 07/27/19 05:35 Albumin/Globulin Ratio 0.6 Ratio (1.1-2.1) L 07/27/19 05:35 Specimen Type Clean catch urine 07/24/19 18:20 Urine Color Yellow (YELLOW) 07/24/19 18:20 Urine Appearance Clear (CLEAR) 07/24/19 18:20 Urine pH 7.0 (5.0 - 8.0) 07/24/19 18:20 Ur Specific [place] 1.010 (1.000-1.030) 07/24/19 18:20 Urine Protein 1+ (NEGATIVE) 07/24/19 18:20 Urine Glucose (UA) Negative (NEGATIVE) 07/24/19 18:20 Urine Ketones Negative (NEGATIVE) 07/24/19 18:20 Urine Occult Blood Negative (NEGATIVE) 07/24/19 18:20 Urine Nitrite Negative (NEGATIVE) 07/24/19 18:20 Urine Bilirubin Negative (NEGATIVE) 07/24/19 18:20 Urine Urobilinogen Normal (NORMAL) 07/24/19 18:20 Ur Leukocyte Esterase Negative (NEGATIVE) 07/24/19 18:20 Urine RBC None seen /HPF (0-3) 07/24/19 18:20 Urine WBC None seen /HPF (0-5) 07/24/19 18:20 Ur Squamous Epith Cells Negative /HPF (NEGATIVE) 07/24/19 18:20 Amorphous Sediment Trace /HPF (NEGATIVE) 07/24/19 18:20 Urine Bacteria Negative /HPF (NEGATIVE) 07/24/19 18:20 Ur Culture Indicated? No/not indicated 07/24/19 18:20 - Plan (1) Pneumonia Status: Acute Qualifiers: Laterality: left Lung location: lower lobe of lung Plan: IV FORTAZ, IV LEVAQUIN, RESPIRATORY TX, SUPPLEMENTAL OXYGEN, CONTINUE TO MONITOR (2) Generalized weakness Status: Acute (3) Status post coronary artery bypass graft Status: Acute
[2019-07-27] MEDS: NS 1000 ML 1,000 ML IV SCH (11:35)
[2019-07-27] MEDS: KLOR-CON PO PRN (18:06)
[2019-07-27] MEDS: RESTORIL CAP 15 MG PO PRN (22:53)
[2019-07-27] MEDS: ULTRAM PO PRN (22:53)
[2019-07-28] MEDS: NS 1000 ML 1,000 ML IV SCH ×3 (00:31→14:01)
[2019-07-28] MEDS: XOPENEX 1.25 MG/3 ML NEBULE NEB SCH ×4 (00:50→16:59)
[2019-07-28] MEDS: FORTAZ or TAZICEF VIAL INJ 1 G in NS 100 ML IV + SPIKE MINIBAG* 100 ML IV SCH ×3 (05:08→21:09)
--- NOTE | 2019-07-28 06:22 | RAD ---
HISTORYSOBSTUDYAP [id number]/2020FINDINGSContinued cardiomegaly with clear right lung. Persistent left lower lobe density consistent with airspace disease. There is no evidence for developing extrapulmonary air or large pleural effusion.IMPRESSIONNo change. Stable cardiomegaly and left lower lobe opacity consi stent with pneumonia/atelectasis.Electronically signed by: JEREMY OLGUIN (Jul 28, 2019 06:20:59)
[2019-07-28] MEDS ORDERED: MILK OF MAGNESIA PO PRN (06:44)
[2019-07-28 06:52] LABS: BASOPHILS % (AUTO) 0.6 % (0.2-1.0); EOSINOPHILS # (AUTO) 0.3 x10^3/uL (0.0-0.2); EOSINOPHILS % (AUTO) 3.7 % (0.9-2.9); HEMATOCRIT 33.5 % (42.0-54.0); HEMOGLOBIN 11.2 g/dL (13.5-18.0); LYMPHOCYTES # (AUTO) 2.1 X10^3/uL (1.3-2.9); LYMPHOCYTES % (AUTO) 27.1 % (21.0-51.0); MEAN CORPUSCULAR HEMOGLOBIN 31.6 pg (27.0-34.0); MEAN CORPUSCULAR HGB CONC 33.4 g/dL (33.0-35.0); MEAN CORPUSCULAR VOLUME 94.5 fL (80.0-100.0); MEAN PLATELET VOLUME 8.7 fL (7.4-11.0); MONOCYTES # (AUTO) 0.7 x10^3/uL (0.3-0.8); MONOCYTES % (AUTO) 8.7 % (0.0-13.0); NEUTROPHILS # (AUTO) 4.6 x10^3/uL (2.2-4.8); NEUTROPHILS % (AUTO) 59.9 % (42.0-75.0); PLATELET COUNT 249 X10^3/uL (150.0-450.0); RED BLOOD COUNT 3.55 X10^6/uL (4.7-6.0); RED CELL DISTRIBUTION WIDTH 15.4 % (11.6-16.5); WHITE BLOOD COUNT 7.7 X10^3/uL (3.6-10.0)
[2019-07-28 07:05] LABS: ALANINE AMINOTRANSFERASE 85 Units/L (12-78); ALBUMIN 2.2 g/dL (3.4-5.0); ALKALINE PHOSPHATASE 118 Units/L (46-116); ASPARTATE AMINO TRANSFERASE 43 Units/L (15-37); BLOOD UREA NITROGEN 8 mg/dL (7-18); CALCIUM 8.1 mg/dL (8.5-10.1); CHLORIDE 104 mmol/L (98-107); COR CA(FOR HYPOALB) 9.5 mg/dL (8.5-10.1); CREATININE 1.18 mg/dL (0.70-1.30); SODIUM 140 mmol/L (136-145); eGFR NON BLACK RACES > 60 (>60)
[2019-07-28] MEDS: BUMEX TAB 1 MG PO SCH (08:46)
[2019-07-28] MEDS: ELIQUIS PO SCH ×2 (08:46→20:23)
[2019-07-28] MEDS: CORDARONE TAB 200 MG PO SCH (08:46)
[2019-07-28] MEDS: COLACE CAP 100 MG PO SCH ×2 (08:46→20:23)
[2019-07-28] MEDS: LEVAQUIN PREMIX IV 750 MG 750 MG/150 ML BAG IV SCH (08:47)
[2019-07-28] MEDS: RESTORIL CAP 15 MG PO PRN (20:23)
[2019-07-28] MEDS: ULTRAM PO PRN (20:24)
[2019-07-29] MEDS: XOPENEX 1.25 MG/3 ML NEBULE NEB SCH ×4 (00:30→17:01)
[2019-07-29] MEDS: FORTAZ or TAZICEF VIAL INJ 1 G in NS 100 ML IV + SPIKE MINIBAG* 100 ML IV SCH ×3 (05:13→21:30)
[2019-07-29] MEDS: NS 1000 ML 1,000 ML IV SCH ×3 (05:14→20:36)
[2019-07-29] MEDS: ULTRAM PO PRN ×2 (05:30→20:34)
--- NOTE | 2019-07-29 06:10 | RAD ---
HISTORYPNEUMONIASTUDYCHEST, 1 [id number]/08/2020FINDINGSStable cardiomegaly and left base opacities with probable left pleural effusion. Right lung grossly clear. No visible pneumothorax.IMPRESSIONContinued left base opacity with probable developing left pleural effusion.Electronically signed by: Ezequiel Ellis (Jul 29, 2019 06:09:04)
[2019-07-29 07:16] LABS: BASOPHILS # (AUTO) 0.1 X10^3/uL (0.0-0.1); BASOPHILS % (AUTO) 0.7 % (0.2-1.0); EOSINOPHILS # (AUTO) 0.1 x10^3/uL (0.0-0.2); EOSINOPHILS % (AUTO) 1.7 % (0.9-2.9); HEMATOCRIT 34.8 % (42.0-54.0); HEMOGLOBIN 11.7 g/dL (13.5-18.0); LYMPHOCYTES # (AUTO) 1.4 X10^3/uL (1.3-2.9); LYMPHOCYTES % (AUTO) 18.2 % (21.0-51.0); MEAN CORPUSCULAR HGB CONC 33.7 g/dL (33.0-35.0); MEAN CORPUSCULAR VOLUME 95.1 fL (80.0-100.0); MEAN PLATELET VOLUME 8.5 fL (7.4-11.0); MONOCYTES # (AUTO) 0.5 x10^3/uL (0.3-0.8); MONOCYTES % (AUTO) 7.3 % (0.0-13.0); NEUTROPHILS # (AUTO) 5.3 x10^3/uL (2.2-4.8); NEUTROPHILS % (AUTO) 72.1 % (42.0-75.0); PLATELET COUNT 248 X10^3/uL (150.0-450.0); RED BLOOD COUNT 3.66 X10^6/uL (4.7-6.0); RED CELL DISTRIBUTION WIDTH 15.4 % (11.6-16.5); WHITE BLOOD COUNT 7.4 X10^3/uL (3.6-10.0)
[2019-07-29 07:30] LABS: ALANINE AMINOTRANSFERASE 76 Units/L (12-78); ALBUMIN 2.4 g/dL (3.4-5.0); ALKALINE PHOSPHATASE 128 Units/L (46-116); ASPARTATE AMINO TRANSFERASE 36 Units/L (15-37); BLOOD UREA NITROGEN 9 mg/dL (7-18); CALCIUM 8.4 mg/dL (8.5-10.1); CARBON DIOXIDE 27.6 mmol/L (21-32); CHLORIDE 101 mmol/L (98-107); COR CA(FOR HYPOALB) 9.7 mg/dL (8.5-10.1); COR NA(FOR HYPERGLY) 137 mmol/L (136-145); SODIUM 137 mmol/L (136-145); TOTAL PROTEIN 6.5 g/dL (6.4-8.2); eGFR NON BLACK RACES 58 (>60)
[2019-07-29] MEDS: LEVAQUIN PREMIX IV 750 MG 750 MG/150 ML BAG IV SCH (08:55)
[2019-07-29] MEDS: CORDARONE TAB 200 MG PO SCH (08:56)
[2019-07-29] MEDS: COLACE CAP 100 MG PO SCH ×2 (08:56→20:33)
[2019-07-29] MEDS: BUMEX TAB 1 MG PO SCH (08:57)
[2019-07-29] MEDS: ELIQUIS PO SCH ×2 (08:57→20:34)
[2019-07-29] MEDS: K-DUR TAB 20 MEQ PO PRN (08:57)
[2019-07-29] MEDS: MAGNESIUM SULFATE 1 GRAM/100 mL PREMIX 1 GM/100 ML BAG IV PRN ×2 (10:36→11:35)
--- NOTE | 2019-07-29 14:10 | PCM.PROG ---
Progress Note - Progress Note for Day of Date of Exam: 07/28/19 - Subjective Subjective: IS BEING TREATED FOR PNEUMONIA AND GENERALIZED WEAKNESS. HE IS STATUS POST CABG. TODAY, HE IS ALERT AND ORIENTED, LYING IN BED ON MORNING ROUNDS. HE REPORTS SHORTNESS OF BREATH AND COUGH THIS MORNING. HE DENIES CHEST PAIN. ON EXAMIANTION, HEART IS REGULAR IN RATE AND RHYTHM. BILATERAL LUNGS ARE NOTED WITH DIMINISHED LUNG SOUNDS THROUGHOUT. ABDOMEN IS ROUND, SOFT, AND NON- TENDER WITH NORMAL BOWEL SOUNDS NOTED IN ALL QUADRANTS. THERE IS A DRESSING NOTED TO CHEST. DRESSING IS DRY AND INTACT WITH NO SIGNS OR SX INFECTION NOTED. HIS VITALS THIS MORNING ARE: 99.8-90-20-94%-122/61. LABS WERE OBTAINED. ABNORMAL LAB VALUES INCLUDE THE FOLLOWING: RBC 3.55, HGB 11.2, HCT 33.5, POTASSIUM 3.3, GLUCOSE 104, CALCIUM 8.1, AST 43, ALT 85, ALK PHOS 118, TOTAL PROTEIN 6.0, ALBUMIN 2.2. BLOOD AND SPUTUM CULTURES ARE PENDING. A CHEST XRAY WAS OBTAINED THIS MORNING AND REVEALED: No change. Stable cardiomegaly and left lower lobe opacity consistent with pneumonia/atelectasis. HE IS CURRENTLY RECEIVING IV FORTAZ, IV LEVAQUIN, RESPIRATORY TX, SUPPLEMENTAL OXYGEN, THE POTASSIUM AND MAGNESIUM PROTOCOLS, AND HOME MEDICATIONS WERE RESUMED. WE WILL CONTINUE WITH CURRENT PLAN OF CARE TODAY. OTHERWISE, WE WILL FOLLOW UP WITH AM LABS AND CONTINUE TO MONITOR. - Past Medical Family Social History Past Med/Fam/Surg Hx: No changes since H&P Allergies: Allergies fluoxetine [From Prozac] Allergy (Verified 07/24/19 20:27) - Review of Systems ROS: No change since H&P - Vital Signs and I&O's Vital Signs: Temperature 98.4 F Pulse Rate [Right Brachial] 87 Pulse Rate [Left Brachial] 87 Pulse Rate 85 Respiratory Rate 20 Blood Pressure [Right Calf] 111/58 Blood Pressure [Left Arm] 130/69 Blood Pressure [Right Arm] 124/71 Blood Pressure 94/60 O2 Sat by Pulse Oximetry 95 Intake and Output: Intake & Output 07/27/19 07/28/19 07/29/19 07/30/19 11:59 11:59 11:59 11:59 Intake Total 1530 / 1530 1700 / 1700 1540 / 1540 Output Total 700 / 700 2420 / 2420 1974 Balance 830 / 830 -720 / -720 -435 / -435 - Physical Exam Oriented: Normal Eyes: Normal Ear: Normal Nose: Normal Throat: Normal Respiratory: Generalized, Diminished Cardiovascular: Normal. negative: S3, S4, Murmur : Normal Auscultation: Bowel Sounds: Normal Tenderness: Normal Skin: Wound (SURGICAL WOUND TO CHEST. DRESSING DRY AND INTACT WITH NO S/SX INFECTION NOTED ) Musculoskeletal: Normal Psychiatric: Normal Mood Description: Calm Affect: Normal Speech Pattern: Clear, Appropriate - Laboratory and Diagnostics Result Diagrams: 07/29/19 06:05 07/29/19 06:05 Labs: 07/25/19 10:51 Blood Blood Culture - Preliminary 07/25/19 10:45 Blood Blood Culture - Preliminary 07/25/19 11:19 Sputum - Expectorated Sputum Sputum Culture - Final 07/25/19 11:19 Sputum - Expectorated Sputum - Final Laboratory WBC 7.4 X10^3/uL (3.6-10.0) 07/29/19 06:05 RBC 3.66 X10^6/uL (4.7-6.0) L 07/29/19 06:05 Hgb 11.7 g/dL (13.5-18.0) L 07/29/19 06:05 Hct 34.8 % (42.0-54.0) L 07/29/19 06:05 MCV 95.1 fL (80.0-100.0) 07/29/19 06:05 MCH 32.0 pg (27.0-34.0) 07/29/19 06:05 MCHC 33.7 g/dL (33.0-35.0) 07/29/19 06:05 RDW 15.4 % (11.6-16.5) 07/29/19 06:05 Plt Count 248 X10^3/uL (150.0-450.0) 07/29/19 06:05 MPV 8.5 fL (7.4-11.0) 07/29/19 06:05 Neut % (Auto) 72.1 % (42.0-75.0) 07/29/19 06:05 Lymph % (Auto) 18.2 % (21.0-51.0) L 07/29/19 06:05 [place] % (Auto) 7.3 % (0.0-13.0) 07/29/19 06:05 Eos % (Auto) 1.7 % (0.9-2.9) 07/29/19 06:05 Baso % (Auto) 0.7 % (0.2-1.0) 07/29/19 06:05 Neut # (Auto) 5.3 x10^3/uL (2.2-4.8) H 07/29/19 06:05 Lymph # (Auto) 1.4 X10^3/uL (1.3-2.9) 07/29/19 06:05 [place] # (Auto) 0.5 x10^3/uL (0.3-0.8) 07/29/19 06:05 Eos # (Auto) 0.1 x10^3/uL (0.0-0.2) 07/29/19 06:05 Baso # (Auto) 0.1 X10^3/uL (0.0-0.1) 07/29/19 06:05 Absolute Nucleated RBC 0.0 /100WBC 07/29/19 06:05 Sodium 137 mmol/L (136-145) 07/29/19 06:05 Corrected Sodium 137 mmol/L (136-145) 07/29/19 06:05 Potassium 3.9 mmol/L (3.5-5.1) 07/29/19 06:05 Chloride 101 mmol/L (98-107) 07/29/19 06:05 Carbon Dioxide 27.6 mmol/L (21-32) 07/29/19 06:05 BUN 9 mg/dL (7-18) 07/29/19 06:05 Creatinine 1.30 mg/dL (0.70-1.30) 07/29/19 06:05 Est GFR (MDRD) Af Amer > 60 (>60) 07/29/19 06:05 Est GFR (MDRD) Non-Af 58 (>60) L 07/29/19 06:05 Glucose 118 mg/dL (65-99) H 07/29/19 06:05 Calcium 8.4 mg/dL (8.5-10.1) L 07/29/19 06:05 Corrected Calcium 9.7 mg/dL (8.5-10.1) 07/29/19 06:05 Magnesium 1.7 mg/dL (1.7-2.9) 07/29/19 06:05 Total Bilirubin 0.70 mg/dL (0.2-1.0) 07/29/19 06:05 AST 36 Units/L (15-37) 07/29/19 06:05 ALT 76 Units/L (12-78) 07/29/19 06:05 Alkaline Phosphatase 128 Units/L (46-116) H 07/29/19 06:05 Total Protein 6.5 g/dL (6.4-8.2) 07/29/19 06:05 Albumin 2.4 g/dL (3.4-5.0) L 07/29/19 06:05 Globulin 4.1 g/dL (2.5-4.5) 07/29/19 06:05 Albumin/Globulin Ratio 0.6 Ratio (1.1-2.1) L 07/29/19 06:05 Specimen Type Clean catch urine 07/24/19 18:20 Urine Color Yellow (YELLOW) 07/24/19 18:20 Urine Appearance Clear (CLEAR) 07/24/19 18:20 Urine pH 7.0 (5.0 - 8.0) 07/24/19 18:20 Ur Specific [place] 1.010 (1.000-1.030) 07/24/19 18:20 Urine Protein 1+ (NEGATIVE) 07/24/19 18:20 Urine Glucose (UA) Negative (NEGATIVE) 07/24/19 18:20 Urine Ketones Negative (NEGATIVE) 07/24/19 18:20 Urine Occult Blood Negative (NEGATIVE) 07/24/19 18:20 Urine Nitrite Negative (NEGATIVE) 07/24/19 18:20 Urine Bilirubin Negative (NEGATIVE) 07/24/19 18:20 Urine Urobilinogen Normal (NORMAL) 07/24/19 18:20 Ur Leukocyte Esterase Negative (NEGATIVE) 07/24/19 18:20 Urine RBC None seen /HPF (0-3) 07/24/19 18:20 Urine WBC None seen /HPF (0-5) 07/24/19 18:20 Ur Squamous Epith Cells Negative /HPF (NEGATIVE) 07/24/19 18:20 Amorphous Sediment Trace /HPF (NEGATIVE) 07/24/19 18:20 Urine Bacteria Negative /HPF (NEGATIVE) 07/24/19 18:20 Ur Culture Indicated? No/not indicated 07/24/19 18:20 - Plan (1) Pneumonia Status: Acute Qualifiers: Laterality: left Lung location: lower lobe of lung Plan: IV FORTAZ, IV LEVAQUIN, RESPIRATORY TX, SUPPLEMENTAL OXYGEN, CONTINUE TO MONITOR (2) Generalized weakness Status: Acute (3) Status post coronary artery bypass graft Status: Acute
[2019-07-29] MEDS: RESTORIL CAP 15 MG PO PRN (20:34)
[2019-07-29] MEDS: MILK OF MAGNESIA PO SCH (20:34)
--- NOTE | 2019-07-29 22:33 | PCM.PROG ---
Progress Note - Progress Note for Day of Date of Exam: 07/29/19 - Subjective Subjective: IS BEING TREATED FOR PNEUMONIA AND GENERALIZED WEAKNESS. HE IS STATUS POST CABG. TODAY, HE IS ALERT AND ORIENTED, LYING IN BED ON MORNING ROUNDS. HE REPORTS SHORTNESS OF BREATH AND COUGH THIS MORNING. HE DENIES CHEST PAIN. ON EXAMIANTION, HEART IS REGULAR IN RATE AND RHYTHM. BILATERAL LUNGS ARE NOTED WITH DIMINISHED LUNG SOUNDS THROUGHOUT. ABDOMEN IS ROUND, SOFT, AND NON- TENDER WITH NORMAL BOWEL SOUNDS NOTED IN ALL QUADRANTS. THERE IS A DRESSING NOTED TO CHEST. DRESSING IS DRY AND INTACT WITH NO SIGNS OR SX INFECTION NOTED. HIS VITALS THIS MORNING ARE: 99.6-90-20-94%-121/75. LABS WERE OBTAINED. ABNORMAL LAB VALUES INCLUDE THE FOLLOWING: RBC 3.66, HGB 11.7, HCT 34.8, GLUCOSE 118, CALCIUM 8.4, ALK PHOS 128, ALBUMIN 2.4. BLOOD AND SPUTUM CULTURES ARE PENDING. A CHEST XRAY WAS OBTAINED THIS MORNING AND REVEALED: Continued left base opacity with probable developing left pleural effusion. HE IS CURRENTLY RECEIVING IV FORTAZ, IV LEVAQUIN, RESPIRATORY TX, SUPPLEMENTAL OXYGEN, THE POTASSIUM AND MAGNESIUM PROTOCOLS, AND HOME MEDICATIONS WERE RESUMED. WE WILL CONTINUE WITH RRENT PLAN OF CARE TODAY. OTHERWISE, WE WILL FOLLOW UP WITH AM LABS AND CONTINUE TO MONITOR. - Past Medical Family Social History Past Med/Fam/Surg Hx: No changes since H&P Allergies: Allergies fluoxetine [From Prozac] Allergy (Verified 07/24/19 20:27) - Review of Systems ROS: No change since H&P - Vital Signs and I&O's Vital Signs: Temperature 99.1 F Pulse Rate [Right Brachial] 91 Pulse Rate [Left Brachial] 87 Pulse Rate 87 Respiratory Rate 18 Blood Pressure [Right Calf] 111/58 Blood Pressure [Left Arm] 130/69 Blood Pressure [Right Arm] 124/70 Blood Pressure 94/60 O2 Sat by Pulse Oximetry 95 Intake and Output: Intake & Output 07/27/19 07/28/19 07/29/19 07/30/19 11:59 11:59 11:59 11:59 Intake Total 1530 / 1530 1700 / 1700 1540 / 1540 600 / 600 Output Total 700 / 700 2420 / 2420 1974 / 1974 1575 / 1575 Balance 830 / 830 -720 / -720 -435 / -435 -975 / -975 - Physical Exam Oriented: Normal Eyes: Normal Ear: Normal Nose: Normal Throat: Normal Respiratory: Generalized, Diminished Cardiovascular: Normal. negative: S3, S4, Murmur : Normal Auscultation: Bowel Sounds: Normal Tenderness: Normal Skin: Wound (SURGICAL WOUND TO CHEST. DRESSING DRY AND INTACT WITH NO S/SX INFECTION NOTED ) Musculoskeletal: Normal Psychiatric: Normal Mood Description: Calm Affect: Normal Speech Pattern: Clear, Appropriate - Laboratory and Diagnostics Result Diagrams: 07/29/19 06:05 07/29/19 06:05 Labs: 07/25/19 10:51 Blood Blood Culture - Preliminary 07/25/19 10:45 Blood Blood Culture - Preliminary 07/25/19 11:19 Sputum - Expectorated Sputum Sputum Culture - Final 07/25/19 11:19 Sputum - Expectorated Sputum - Final Laboratory WBC 7.4 X10^3/uL (3.6-10.0) 07/29/19 06:05 RBC 3.66 X10^6/uL (4.7-6.0) L 07/29/19 06:05 Hgb 11.7 g/dL (13.5-18.0) L 07/29/19 06:05 Hct 34.8 % (42.0-54.0) L 07/29/19 06:05 MCV 95.1 fL (80.0-100.0) 07/29/19 06:05 MCH 32.0 pg (27.0-34.0) 07/29/19 06:05 MCHC 33.7 g/dL (33.0-35.0) 07/29/19 06:05 RDW 15.4 % (11.6-16.5) 07/29/19 06:05 Plt Count 248 X10^3/uL (150.0-450.0) 07/29/19 06:05 MPV 8.5 fL (7.4-11.0) 07/29/19 06:05 Neut % (Auto) 72.1 % (42.0-75.0) 07/29/19 06:05 Lymph % (Auto) 18.2 % (21.0-51.0) L 07/29/19 06:05 [place] % (Auto) 7.3 % (0.0-13.0) 07/29/19 06:05 Eos % (Auto) 1.7 % (0.9-2.9) 07/29/19 06:05 Baso % (Auto) 0.7 % (0.2-1.0) 07/29/19 06:05 Neut # (Auto) 5.3 x10^3/uL (2.2-4.8) H 07/29/19 06:05 Lymph # (Auto) 1.4 X10^3/uL (1.3-2.9) 07/29/19 06:05 [place] # (Auto) 0.5 x10^3/uL (0.3-0.8) 07/29/19 06:05 Eos # (Auto) 0.1 x10^3/uL (0.0-0.2) 07/29/19 06:05 Baso # (Auto) 0.1 X10^3/uL (0.0-0.1) 07/29/19 06:05 Absolute Nucleated RBC 0.0 /100WBC 07/29/19 06:05 Sodium 137 mmol/L (136-145) 07/29/19 06:05 Corrected Sodium 137 mmol/L (136-145) 07/29/19 06:05 Potassium 3.9 mmol/L (3.5-5.1) 07/29/19 06:05 Chloride 101 mmol/L (98-107) 07/29/19 06:05 Carbon Dioxide 27.6 mmol/L (21-32) 07/29/19 06:05 BUN 9 mg/dL (7-18) 07/29/19 06:05 Creatinine 1.30 mg/dL (0.70-1.30) 07/29/19 06:05 Est GFR (MDRD) Af Amer > 60 (>60) 07/29/19 06:05 Est GFR (MDRD) Non-Af 58 (>60) L 07/29/19 06:05 Glucose 118 mg/dL (65-99) H 07/29/19 06:05 Calcium 8.4 mg/dL (8.5-10.1) L 07/29/19 06:05 Corrected Calcium 9.7 mg/dL (8.5-10.1) 07/29/19 06:05 Magnesium 1.7 mg/dL (1.7-2.9) 07/29/19 06:05 Total Bilirubin 0.70 mg/dL (0.2-1.0) 07/29/19 06:05 AST 36 Units/L (15-37) 07/29/19 06:05 ALT 76 Units/L (12-78) 07/29/19 06:05 Alkaline Phosphatase 128 Units/L (46-116) H 07/29/19 06:05 Total Protein 6.5 g/dL (6.4-8.2) 07/29/19 06:05 Albumin 2.4 g/dL (3.4-5.0) L 07/29/19 06:05 Globulin 4.1 g/dL (2.5-4.5) 07/29/19 06:05 Albumin/Globulin Ratio 0.6 Ratio (1.1-2.1) L 07/29/19 06:05 Specimen Type Clean catch urine 07/24/19 18:20 Urine Color Yellow (YELLOW) 07/24/19 18:20 Urine Appearance Clear (CLEAR) 07/24/19 18:20 Urine pH 7.0 (5.0 - 8.0) 07/24/19 18:20 Ur Specific [place] 1.010 (1.000-1.030) 07/24/19 18:20 Urine Protein 1+ (NEGATIVE) 07/24/19 18:20 Urine Glucose (UA) Negative (NEGATIVE) 07/24/19 18:20 Urine Ketones Negative (NEGATIVE) 07/24/19 18:20 Urine Occult Blood Negative (NEGATIVE) 07/24/19 18:20 Urine Nitrite Negative (NEGATIVE) 07/24/19 18:20 Urine Bilirubin Negative (NEGATIVE) 07/24/19 18:20 Urine Urobilinogen Normal (NORMAL) 07/24/19 18:20 Ur Leukocyte Esterase Negative (NEGATIVE) 07/24/19 18:20 Urine RBC None seen /HPF (0-3) 07/24/19 18:20 Urine WBC None seen /HPF (0-5) 07/24/19 18:20 Ur Squamous Epith Cells Negative /HPF (NEGATIVE) 07/24/19 18:20 Amorphous Sediment Trace /HPF (NEGATIVE) 07/24/19 18:20 Urine Bacteria Negative /HPF (NEGATIVE) 07/24/19 18:20 Ur Culture Indicated? No/not indicated 07/24/19 18:20 - Plan (1) Pneumonia Status: Acute Qualifiers: Laterality: left Lung location: lower lobe of lung Plan: IV FORTAZ, IV LEVAQUIN, RESPIRATORY TX, SUPPLEMENTAL OXYGEN, CONTINUE TO MONITOR (2) Generalized weakness Status: Acute (3) Status post coronary artery bypass graft Status: Acute
[2019-07-30] MEDS: XOPENEX 1.25 MG/3 ML NEBULE NEB SCH ×2 (00:30→05:15)
[2019-07-30] MEDS: FORTAZ or TAZICEF VIAL INJ 1 G in NS 100 ML IV + SPIKE MINIBAG* 100 ML IV SCH (05:06)
[2019-07-30] MEDS: NS 1000 ML 1,000 ML IV SCH (05:07)
[2019-07-30 06:14] LABS: BASOPHILS % (AUTO) 0.6 % (0.2-1.0); EOSINOPHILS # (AUTO) 0.1 x10^3/uL (0.0-0.2); EOSINOPHILS % (AUTO) 1.9 % (0.9-2.9); HEMATOCRIT 32.9 % (42.0-54.0); HEMOGLOBIN 11.2 g/dL (13.5-18.0); LYMPHOCYTES # (AUTO) 1.5 X10^3/uL (1.3-2.9); MEAN CORPUSCULAR HEMOGLOBIN 31.7 pg (27.0-34.0); MEAN CORPUSCULAR HGB CONC 33.9 g/dL (33.0-35.0); MEAN CORPUSCULAR VOLUME 93.6 fL (80.0-100.0); MEAN PLATELET VOLUME 8.2 fL (7.4-11.0); MONOCYTES # (AUTO) 0.6 x10^3/uL (0.3-0.8); MONOCYTES % (AUTO) 8.7 % (0.0-13.0); NEUTROPHILS # (AUTO) 4.5 x10^3/uL (2.2-4.8); NEUTROPHILS % (AUTO) 66.8 % (42.0-75.0); PLATELET COUNT 232 X10^3/uL (150.0-450.0); RED BLOOD COUNT 3.52 X10^6/uL (4.7-6.0); RED CELL DISTRIBUTION WIDTH 15.4 % (11.6-16.5); WHITE BLOOD COUNT 6.7 X10^3/uL (3.6-10.0)
--- NOTE | 2019-07-30 06:26 | RAD ---
HISTORYFollow-up pneumoniaSTUDYCHEST, 1 VIEWCOMPARISON07/29/2019FINDINGSPatient is status post median sternotomy, CABG, and valve replacement. The heart is enlarged. No congestive heart failure is noted. The right lung and left upper lung [place] are clear. There is slightly improved aeration of the left lower lobe but there is still persistent increased density in the left lower lobe obscuring the left hemidiaphragm. This could be on the basis of atelectasis, effusion, infiltrate or combination. Bony thorax is unremarkableIMPRESSIONContinued cardiomegaly without congestive heart failureContinued increased density retrocardiac area left lower lobe. Differential diagnosis as aboveElectronically signed by: HAYES WATSON (Jul 30, 2019 06:25:02)
[2019-07-30 06:31] LABS: ALANINE AMINOTRANSFERASE 55 Units/L (12-78); ALBUMIN 2.2 g/dL (3.4-5.0); ALKALINE PHOSPHATASE 117 Units/L (46-116); ASPARTATE AMINO TRANSFERASE 27 Units/L (15-37); BLOOD UREA NITROGEN 10 mg/dL (7-18); CALCIUM 8.1 mg/dL (8.5-10.1); CARBON DIOXIDE 25.5 mmol/L (21-32); CHLORIDE 101 mmol/L (98-107); COR CA(FOR HYPOALB) 9.5 mg/dL (8.5-10.1); COR NA(FOR HYPERGLY) 135 mmol/L (136-145); CREATININE 1.15 mg/dL (0.70-1.30); MAGNESIUM 2.1 mg/dL (1.7-2.9); SODIUM 134 mmol/L (136-145); TOTAL PROTEIN 6.1 g/dL (6.4-8.2); eGFR NON BLACK RACES > 60 (>60)
[2019-07-30] MEDS: LEVAQUIN PREMIX IV 750 MG 750 MG/150 ML BAG IV SCH (09:43)
[2019-07-30] MEDS: MILK OF MAGNESIA PO SCH (09:44)
[2019-07-30] MEDS: BUMEX TAB 1 MG PO SCH (09:44)
[2019-07-30] MEDS: ELIQUIS PO SCH (09:44)
[2019-07-30] MEDS: COLACE CAP 100 MG PO SCH (09:44)
[2019-07-30] MEDS: CORDARONE TAB 200 MG PO SCH (09:49)
[2019-07-30 12:20] VITALS: BP 135/72
== END 2019-07-30 13:40 | DRG 195 ==
LOC: MED/SURG
PROVIDERS: ADMIT Internal Medicine; ATTEND Internal Medicine
DX: Z95.1 Presence of aortocoronary bypass graft; J44.9 Chronic obstructive pulmonary disease, unspecified; I10 Essential (primary) hypertension; R06.02 Shortness of breath; J18.9 Pneumonia, unspecified organism; E78.2 Mixed hyperlipidemia; K21.9 Gastro-esophageal reflux disease without esophagitis; E03.8 Other specified hypothyroidism; R53.1 Weakness
CPT/HCPCS: 36415; 71010; 71045; 80053; 81001; 83735; 84132; 85025; 87040; 87070; 87205; 94640; 94760; 97110; 97112; 97162; 97166; 97530; 97535; A4216; A4222; G0378; J0713; J1956; J3475; J7030; J7050

== ENCOUNTER 2020-03-17 11:23 | Observation (INO) ==
--- NOTE | 2020-03-17 12:07 | DR.SOBA ---
HPI Time Seen Time Seen by Provider: 03/17/20 11:47 Primary Care Physician Primary Care Physician: VIKI Complaints Chief Complaint Doctors Comments: Significant cardiac History, CABG, Stent, [place],CHF Chief Complaint:: PT C/O INCREASING SHORTNESS OF BREATH OVER THAT PAST 3 DAYS, WITH FEVER AND COUGH. PT STATES HE IS HAVING PAIN IN HIS ABD EPIGASTRIC AREA COVID-19 Coronavirus risk:travel/contact w/high risk person: No Has patient experienced Coronavirus symptoms: Yes Coronavirus symptoms experienced: Fever, Coughing and Shortness of Breath Reviewed Nurses Notes Reviewed: Yes Source History Provided: Patient Mode of Arrival Mode of Arrival: Ambulatory Timing Onset of Chief Complaint: 03/14/20 Duration Duration: Days Context Onset:: At Rest PE Risk Factors:: None History of:: COPD, CHF and Anxiety Currently on:: Neither Prehospital Care:: Furosemide Modifying Factors Worsens:: Exertion and Anxiety Improves:: Nothing Associated Signs and Symptoms Associated Signs and Symptoms: Fever, Cough and Anxiety If Chest Pain Quality: denies Sharp, Stabbing, Squeezing, Pressure like, Heavy, Crushing, Burning, Aching, Pleuritic and Other If Cough Cough: Productive PMH PMH Past Medical History: Yes Past Medical History: Angina, Anxiety, Arthritis, Asthma, COPD, Depression, Dyslipidemia, GERD, Hypertension, Hypothyroidism and [place] Past Surgical History: Yes Surgical History: Angioplasty/Stents, Appendectomy and CABG/Valve Surgery Past Surgical History Comment: CHF Family History History of Family Medical Conditions: Yes Family Medical History: Diabetes Mellitus, Cancer, [place], Coronary Artery Disease, Sudden Cardiac and Hypertension Social History Does patient currently use any type of tobacco product: Yes Have you used tobacco products in the last 12 months: Yes Type of Tobacco Use: Cigarettes Does any household member use tobacco: Yes Alcohol Use: None Do you use any recreational Drugs:: No Lives With: Family Lives Where: Home Travel Risk Coronavirus risk:travel/contact w/high risk person: No Has patient experienced Coronavirus symptoms: Yes Coronavirus symptoms experienced: Fever, Coughing and Shortness of Breath Infectious screening In the last 2 months have you had wt loss of >10#?: NO Have you had fever, night sweats or hemotysis?: No Have you traveled outside the country in the last 6 months?: No Isolation: Droplet ROS Review of Systems Constitutional: No Symptoms Reported Eyes: No Symptoms Reported ENTM: No Symptoms Reported Respiratoy: Productive Cough and Short of Breath Cardiovascular: No Symptoms Reported Gastrointestinal/Abdominal: Abdominal Pain; negative Diarrhea and Vomiting Genitourinary: No Symptoms Reported Neurological: No Symptoms Reported Musculoskeletal: No Symptoms Reported Integumentary: No Symptoms Reported Hematologic/Lymphatic: No Symptoms Reported Psychiatric: Anxiety and Depression All Other Systems: Reviewed and Negative PE Vital Signs Vitals: Temperature 99.4 F Pulse Rate 100 Respiratory Rate 22 Blood Pressure [Right Calf] 111/58 Blood Pressure [Left Arm] 132/78 Blood Pressure 141/79 O2 Sat by Pulse Oximetry 93 General Limitations: No Limitations General Appearance: Alert, In No Apparent Distress and Anxious Head Head Exam: Normal Inspection, Atraumatic and Normocephalic Eyes Eye exam: Normal Appearance and EOMI ENT ENT Exam: Normal Exam and Normal Oropharynx Neck Neck Exam: Normal Inspection, Full ROM and Trachea Midline Chest Chest Inspection: Normal Inspection Respiratory Respiratory Exam: Normal Lung Sounds Bilat; negative Accessory Muscle Use Respiratory Exam: Bilateral: Clear to Auscultation Cardiovascular Cardiovascular Exam: Tachycardia Abdominal Exam Abdominal Exam: Normal Inspection, Normal Bowel Sounds, Soft and Distention; negative Tenderness and Guarding Extremities Extremities Exam: Normal Inspection and Full ROM Back Back Exam: Normal Inspection and Full ROM Neurologic Neurological Exam: Alert, Oriented X3, CN II-XII Intact and Normal Gait Psychiatric Psychiatric Exam: Normal Affect Skin Skin Exam: Normal Color COURSE Consultation Called: 13:46 Call Returned: 13:46 Consultation Comments: case discussed with DR. Araiza admit on Covid19 protocol with Remdesivir, Convalescent plasma and IV steroids ROR Labs Reviewed Result Diagrams: 03/17/20 12:20 03/17/20 12:20 Laboratory: WBC 6.9 X10^3/uL (3.6-10.0) 03/17/20 12:20 RBC 3.84 X10^6/uL (4.7-6.0) L 03/17/20 12:20 Hgb 12.2 g/dL (13.5-18.0) L 03/17/20 12:20 Hct 36.4 % (42.0-54.0) L 03/17/20 12:20 MCV 94.9 fL (80.0-100.0) 03/17/20 12:20 MCH 31.9 pg (27.0-34.0) 03/17/20 12:20 MCHC 33.6 g/dL (33.0-35.0) 03/17/20 12:20 RDW 13.4 % (11.6-16.5) 03/17/20 12:20 Plt Count 194 X10^3/uL (150.0-450.0) 03/17/20 12:20 MPV 8.0 fL (7.4-11.0) 03/17/20 12:20 Neut % (Auto) 64.3 % (42.0-75.0) 03/17/20 12:20 Lymph % (Auto) 23.3 % (21.0-51.0) 03/17/20 12:20 [place] % (Auto) 8.1 % (0.0-13.0) 03/17/20 12:20 Eos % (Auto) 3.8 % (0.9-2.9) H 03/17/20 12:20 Baso % (Auto) 0.5 % (0.2-1.0) 03/17/20 12:20 Neut # (Auto) 4.5 x10^3/uL (2.2-4.8) 03/17/20 12:20 Lymph # (Auto) 1.6 X10^3/uL (1.3-2.9) 03/17/20 12:20 [place] # (Auto) 0.6 x10^3/uL (0.3-0.8) 03/17/20 12:20 Eos # (Auto) 0.3 x10^3/uL (0.0-0.2) H 03/17/20 12:20 Baso # (Auto) 0.0 X10^3/uL (0.0-0.1) 03/17/20 12:20 Absolute Nucleated RBC 0.0 /100WBC 03/17/20 12:20 Sodium 137 mmol/L (136-145) 03/17/20 12:20 Corrected Sodium TNP 03/17/20 12:20 Potassium 3.6 mmol/L (3.5-5.1) 03/17/20 12:20 Chloride 101 mmol/L (98-107) 03/17/20 12:20 Carbon Dioxide 29.9 mmol/L (21-32) 03/17/20 12:20 BUN 9 mg/dL (7-18) 03/17/20 12:20 Creatinine 1.20 mg/dL (0.70-1.30) 03/17/20 12:20 Est GFR (MDRD) Af Amer > 60 (>60) 03/17/20 12:20 Est GFR (MDRD) Non-Af > 60 (>60) 03/17/20 12:20 Glucose 109 mg/dL (65-99) H 03/17/20 12:20 Calcium 9.1 mg/dL (8.5-10.1) 03/17/20 12:20 Corrected Calcium 9.8 mg/dL (8.5-10.1) 03/17/20 12:20 Ferritin 125 ng/mL (26-388) 03/17/20 12:12 Total Bilirubin 1.00 mg/dL (0.2-1.0) 03/17/20 12:20 AST 16 Units/L (15-37) 03/17/20 12:20 ALT 17 Units/L (12-78) 03/17/20 12:20 Alkaline Phosphatase 149 Units/L (46-116) H 03/17/20 12:20 Creatine Kinase 25 Units/L (39-308) L 03/17/20 12:20 CK-MB (CK-2) < 1.0 ng/mL (0-4.0) 03/17/20 12:20 CK/CKMB % Calc 4.0 % (<4) 03/17/20 12:20 Troponin I < 0.02 ng/mL (0-1.5) 03/17/20 12:20 C-Reactive Protein 53.60 mg/L (0-3.0) H 03/17/20 12:12 B-Natriuretic Peptide 508 pg/mL (0-79) H* 03/17/20 12:20 Total Protein 7.7 g/dL (6.4-8.2) 03/17/20 12:20 Albumin 3.1 g/dL (3.4-5.0) L 03/17/20 12:20 Globulin 4.6 g/dL (2.5-4.5) H 03/17/20 12:20 Albumin/Globulin Ratio 0.7 Ratio (1.1-2.1) L 03/17/20 12:20 SARS-CoV-2 (PCR) Negative (NEGATIVE) 03/17/20 13:57 XRAY XRAY Interpreted by: Radiologist X-ray Results: chest: borderline cardiomegaly, interstitial opacities Opioid Opioid Risk Tool Age (Jensen box if 16-45): No History of Preadolescent Sexual Abuse: No Total: 0 Total Score Risk Category: Low Risk Copyright: Jose CANO predicting aberrant behaviors
[2020-03-17 12:31] LABS: BASOPHILS % (AUTO) 0.5 % (0.2-1.0); EOSINOPHILS # (AUTO) 0.3 x10^3/uL (0.0-0.2); EOSINOPHILS % (AUTO) 3.8 % (0.9-2.9); HEMATOCRIT 36.4 % (42.0-54.0); HEMOGLOBIN 12.2 g/dL (13.5-18.0); LYMPHOCYTES # (AUTO) 1.6 X10^3/uL (1.3-2.9); LYMPHOCYTES % (AUTO) 23.3 % (21.0-51.0); MEAN CORPUSCULAR HEMOGLOBIN 31.9 pg (27.0-34.0); MEAN CORPUSCULAR HGB CONC 33.6 g/dL (33.0-35.0); MEAN CORPUSCULAR VOLUME 94.9 fL (80.0-100.0); MONOCYTES # (AUTO) 0.6 x10^3/uL (0.3-0.8); MONOCYTES % (AUTO) 8.1 % (0.0-13.0); NEUTROPHILS # (AUTO) 4.5 x10^3/uL (2.2-4.8); NEUTROPHILS % (AUTO) 64.3 % (42.0-75.0); PLATELET COUNT 194 X10^3/uL (150.0-450.0); RED BLOOD COUNT 3.84 X10^6/uL (4.7-6.0); RED CELL DISTRIBUTION WIDTH 13.4 % (11.6-16.5); WHITE BLOOD COUNT 6.9 X10^3/uL (3.6-10.0)
--- NOTE | 2020-03-17 12:41 | RAD ---
HISTORYSOB, FEVER/COUGHSTUDYCHEST, 1 [id number] view of the chestFINDINGSPost median sternotomy and valve replacement. Cardiac silhouette is borderline in size. There are bilateral interstitial opacities with lower lobe airspace opacities. Small pleural effusions. No pneumothorax.IMPRESSIONBorderline cardiomegaly with airspace and interstitial opacities that may represent atypical pneumonia given the indication. Small pleural effusions.Electronically signed by: Rashad Herring (Mar 17, 2020 12:40:38)
[2020-03-17 12:48] LABS: BLOOD UREA NITROGEN 9 mg/dL (7-18); CALCIUM 9.1 mg/dL (8.5-10.1); CARBON DIOXIDE 29.9 mmol/L (21-32); CHLORIDE 101 mmol/L (98-107); SODIUM 137 mmol/L (136-145); TROPONIN I < 0.02 ng/mL (0-1.5); eGFR NON BLACK RACES > 60 (>60)
[2020-03-17 12:53] LABS: ALANINE AMINOTRANSFERASE 17 Units/L (12-78); ALBUMIN 3.1 g/dL (3.4-5.0); ALKALINE PHOSPHATASE 149 Units/L (46-116); ASPARTATE AMINO TRANSFERASE 16 Units/L (15-37); COR CA(FOR HYPOALB) 9.8 mg/dL (8.5-10.1); CREATINE KINASE 25 Units/L (39-308); CREATINE KINASE MB < 1.0 ng/mL (0-4.0); TOTAL PROTEIN 7.7 g/dL (6.4-8.2)
[2020-03-17] MEDS ORDERED: TUSSIONEX PENNKINETIC SUSP PO PRN (15:24)
[2020-03-17] MEDS ORDERED: NS 1/2 1000 ML IV 1,000 ML IV ONE (15:51)
[2020-03-17] MEDS ORDERED: LEVAQUIN PREMIX IV 750 MG 750 MG/150 ML BAG IV ONE (15:52)
[2020-03-17] MEDS: NS 1/2 1000 ML IV 1,000 ML IV SCH (16:01)
[2020-03-17] MEDS: LEVAQUIN PREMIX IV 750 MG 750 MG/150 ML BAG IV SCH (16:01)
[2020-03-17] MEDS ORDERED: LASIX IVP ONE (16:06)
[2020-03-17 17:06] VITALS: BMI 27.1
[2020-03-17] MEDS: DUONEB 0.5 MG/3 MG (3 mL) NEB SCH (17:19)
[2020-03-17] MEDS: ROBITUSSIN DM PO SCH ×2 (17:48→21:13)
[2020-03-17] MEDS ORDERED: XANAX PO PRN (17:57)
[2020-03-17] MEDS ORDERED: DUONEB 0.5 MG/3 MG (3 mL) NEB SCH (18:00)
[2020-03-17] MEDS: PERCOCET TAB 5/325 MG PO SCH (21:15)
[2020-03-18] MEDS ORDERED: SALINE 0.9% 3 ML NEB TX ONE (00:01)
[2020-03-18] MEDS: DUONEB 0.5 MG/3 MG (3 mL) NEB SCH ×4 (00:28→18:15)
[2020-03-18] MEDS ORDERED: NS 1/2 1000 ML IV 1,000 ML IV ONE (06:19)
[2020-03-18 06:36] LABS: BASOPHILS % (AUTO) 0.5 % (0.2-1.0); EOSINOPHILS # (AUTO) 0.2 x10^3/uL (0.0-0.2); EOSINOPHILS % (AUTO) 2.6 % (0.9-2.9); HEMATOCRIT 34.1 % (42.0-54.0); HEMOGLOBIN 11.7 g/dL (13.5-18.0); LYMPHOCYTES % (AUTO) 25.7 % (21.0-51.0); MEAN CORPUSCULAR HEMOGLOBIN 32.2 pg (27.0-34.0); MEAN CORPUSCULAR HGB CONC 34.4 g/dL (33.0-35.0); MEAN CORPUSCULAR VOLUME 93.5 fL (80.0-100.0); MEAN PLATELET VOLUME 7.8 fL (7.4-11.0); MONOCYTES # (AUTO) 0.6 x10^3/uL (0.3-0.8); MONOCYTES % (AUTO) 8.3 % (0.0-13.0); NEUTROPHILS # (AUTO) 4.9 x10^3/uL (2.2-4.8); NEUTROPHILS % (AUTO) 62.9 % (42.0-75.0); PLATELET COUNT 186 X10^3/uL (150.0-450.0); RED BLOOD COUNT 3.65 X10^6/uL (4.7-6.0); RED CELL DISTRIBUTION WIDTH 13.4 % (11.6-16.5); WHITE BLOOD COUNT 7.8 X10^3/uL (3.6-10.0)
[2020-03-18 06:54] LABS: ALANINE AMINOTRANSFERASE 14 Units/L (12-78); ALBUMIN 2.8 g/dL (3.4-5.0); ALKALINE PHOSPHATASE 131 Units/L (46-116); ASPARTATE AMINO TRANSFERASE 17 Units/L (15-37); BLOOD UREA NITROGEN 10 mg/dL (7-18); CALCIUM 8.7 mg/dL (8.5-10.1); CARBON DIOXIDE 26.6 mmol/L (21-32); CHLORIDE 101 mmol/L (98-107); COR CA(FOR HYPOALB) 9.7 mg/dL (8.5-10.1); CREATININE 1.04 mg/dL (0.70-1.30); SODIUM 136 mmol/L (136-145); TOTAL PROTEIN 7.1 g/dL (6.4-8.2); eGFR NON BLACK RACES > 60 (>60)
[2020-03-18] MEDS ORDERED: K-DUR TAB 20 MEQ PO PRN (07:36)
[2020-03-18] MEDS ORDERED: POTASSIUM CHL 60 MEQ/NS 0.45% 500 ML IV PRN (07:36)
[2020-03-18] MEDS ORDERED: KLOR-CON PO PRN (07:36)
[2020-03-18] MEDS ORDERED: MAGNESIUM SULFATE 1 GRAM/100 mL PREMIX 1 GM/100 ML BAG IV PRN (07:36)
[2020-03-18] MEDS ORDERED: POTASSIUM CHLORIDE LIQ 20 MEQ UDC PO PRN (07:36)
[2020-03-18] MEDS ORDERED: MICRO K EXTEN CAP 10 MEQ PO PRN (07:36)
[2020-03-18] MEDS ORDERED: K-RIDER 10 MEQ/NS 100 ML 10 MEQ/100 ML BAG IV PRN (07:36)
[2020-03-18] MEDS ORDERED: POTASSIUM CHL 40 MEQ/NS 0.45% 500 ML IV PRN (07:36)
[2020-03-18] MEDS: NS 1/2 1000 ML IV 1,000 ML IV SCH (08:49)
[2020-03-18] MEDS: LEVAQUIN PREMIX IV 750 MG 750 MG/150 ML BAG IV SCH (08:50)
[2020-03-18] MEDS: PERCOCET TAB 5/325 MG PO SCH ×2 (08:50→21:17)
[2020-03-18] MEDS: ROBITUSSIN DM PO SCH ×4 (08:51→21:19)
[2020-03-18] MEDS: VSL#3 PO SCH (08:51)
--- NOTE | 2020-03-18 11:19 | DR.H&P ---
H&P - History & Physical for Day of: H&P Date: 03/17/20 - Chief Complaint Chief Complaint: SOB, FEVER, COUGH, EPIGASTRIC PAIN - History of Present Illness History of Present Illness: IS A 69 YEAR OLD PATIENT OF OURS. HE PRESENTED TO THE ER WITH COMPLAINTS OF INCREASING SHORTNESS OF BREATH, FEVER, COUGH, AND EPIGASTRIC PAIN. PATIENT REPORTED THAT SYMPTOMS STARTED 3-4 DAYS PRIOR TO ARRIVAL AND HAVE PROGRESSIVELY GOTTEN WORSE. HE REPORTS THAT FEVER HAS GOTTEN HIGH 102 DEGREES. HE DENIES CHEST PAIN, NAUSEA, VOMITING, OR DIARRHEA. EPIGASTRIC PAIN IS DESCRIBED DULL. HE REPORTS THAT COUGH HAS BEEN PRODUCTIVE WITH THICK, YELLOW SPUTUM. HE DENIES OUTPATIENT TREATMENT FOR THESE SYMPTOMS. HIS PAST MEDICAL HISTORY INCLUDES CAD, CABG, STENT, TX, COPD, DYSLIPIDEMIA, GERD, HTN, CHF, AND ANXIETY/DEPRESSION. ON EXAMINATION, AUSC ULTATION OF LUNG RUEDA REVEALED SCATTERED WHEEZING. ON ARRIVAL TO THE ER, VITALS WERE 99.4-100-22-93%-141/79. LABS WERE OBTAINED. ABNORMAL LAB VALUES INCLUDE THE FOLLOWING: RBC 3.84, HGB 12.2, HCT 36.4, CRP 53.60, GLUCOSE 109, ALK PHOS 149, CREATINE KINASE 25, BNP 508, ALBUMIN 3.1, GLOBULIN 4.6. COVID-19 NEGATIVE. BLOOD CULTURES WERE SET UP. A CHEST XRAY WAS OBTAINED AND REVEALED: Borderline cardiomegaly with airspace and interstitial opacities that may represent atypical pneumonia given the indication. Small pleural effusions. AN EKG WAS OBTAINED AND REVEALED: ATRIAL FIBRILLATION WITH HR 90. HE WAS GIVEN A DUONEB IN THE ER WITHOUT SIGNIFICANT IMPROVEMENT IN SYMPTOMS. HE WAS ADMITTED TO THE HOSPITAL FOR FURTHER EVALUATION AND TREATMENT OF PNEUMONIA. HE WAS STARTED ON 1/2NS AT 75 ML/HR, LEVAQUIN 750MG IV DAILY, DUONEBS Q6H, TUSSIONEX 5ML PO Q12H PRN, SUPPLEMENTAL OXYGEN, THE POTASSIUM AND MAGNESIUM PROTOCOLS, AND HIS HOME MEDICATIONS WERE RESUMED. OTHERWISE, WE PLAN TO FOLLOW UP WITH AM LABS AND CHEST XRAY AND CONTINUE TO MONITOR. TIME SPENT ON CLINICAL ASSESSMENT, REVIEWING LABS AND IMAGING, DECISION MAKING, AND DOCUMENTATION GREATER THAN 74 MINUTES. - Past Medical History Past Medical History: Angina, [place], Hypertension, Dyslipidemia, Depression, Anxiety, Hypothyroidism, COPD, Asthma, GERD, Arthritis Additional Medical History: [place] 2012 - Past Surgical History Surgical History: Angioplasty/Stents, Appendectomy, CABG/Valve Surgery Additional Surgical History: 7 CARDIAC STENTS - Family History Family Medical History: Diabetes Mellitus, Cancer, [place], Coronary Artery Disease, Sudden Cardiac , Hypertension - Social History Does patient currently use any type of tobacco product: Yes Have you used tobacco products in the last 12 months: Yes Type of Tobacco Use: Cigarettes Does any household member use tobacco: Yes Alcohol Use: None Drug Use: None - Medications Home Medications: fluoxetine [From Prozac] Allergy (Verified 07/24/19 20:27) CONTINUE taking the following medications alprazolam [Xanax] 1 mg PO QID 03/17/20 [History] furosemide [Lasix] 20 mg PO BID 03/17/20 [History] levothyroxine 88 mcg PO DAILY 03/17/20 [History] oxycodone 10 mg PO BID PRN 03/17/20 [History] phentermine 37.5 mg PO QAM 03/17/20 [History] potassium chloride 20 meq PO DAILY 03/17/20 [History] - Review of Systems Constitutional: See HPI, Fever, Chills, Weakness Eyes: No Symptoms Reported ENT: No Symptoms Reported Respiratory: See HPI, Cough, Shortness of Breath, Sputum, Wheezing Cardiovascular: No Symptoms Reported Gastrointestinal: No Symptoms Reported Genitourinary: No Symptoms Reported Musculoskeletal: No Symptoms Reported Skin: No Symptoms Reported Neurological: Weakness - Physical Exam Vital Signs: Temperature 98.2 F Pulse Rate [Left Brachial] 98 Pulse Rate 95 Respiratory Rate 21 Blood Pressure [Right Calf] 111/58 Blood Pressure [Left Arm] 116/74 Blood Pressure 141/79 O2 Sat by Pulse Oximetry 94 Oriented: Normal Eyes: Normal Ear: Normal Nose: Normal Throat: Normal Respiratory: Wheezes Throughout Cardiovascular: Normal : Normal Auscultation: Bowel Sounds: Normal Palpation: Normal Tenderness: Normal Skin: Normal Musculoskeletal: Normal Psychiatric: Normal Mood Description: Calm Affect: Normal Speech Pattern: Clear - Assessment/Plan (1) Pneumonia Qualifiers: Pneumonia type: due to unspecified organism Laterality: unspecified laterality Lung location: unspecified part of lung Qualified Code(s): J18.9 - Pneumonia, unspecified organism Status: Acute Plan: ADMIT, 1/2NS AT 75 ML/HR, LEVAQUIN 750MG IV DAILY, DUONEBS Q6H, TUSSIONEX 5ML PO Q12H PRN, SUPPLEMENTAL OXYGEN, THE POTASSIUM AND MAGNESIUM PROTOCOLS, AND HIS HOME MEDICATIONS WERE RESUMED - Allergies Allergies/Adverse Reactions: Allergies Allergy/AdvReac Type Severity Reaction Status Date / Time fluoxetine [From [facility]] Allergy Verified 07/24/19 20:27
[2020-03-18] MEDS: ELIQUIS PO SCH ×2 (11:22→21:18)
[2020-03-18] MEDS: COREG TAB 6.25 MG PO SCH ×2 (11:22→21:18)
[2020-03-18] MEDS: CYMBALTA PO SCH (11:22)
[2020-03-18] MEDS: LASIX PO SCH ×2 (11:23→21:18)
[2020-03-18] MEDS: SYNTHROID 88 mcg TAB PO SCH (11:23)
[2020-03-18] MEDS: NEURONTIN CAP 300 MG PO SCH ×2 (13:42→21:19)
[2020-03-19] MEDS: DUONEB 0.5 MG/3 MG (3 mL) NEB SCH ×3 (00:20→12:00)
[2020-03-19] MEDS ORDERED: NS 1/2 1000 ML IV 1,000 ML IV ONE (02:12)
[2020-03-19] MEDS: NS 1/2 1000 ML IV 1,000 ML IV SCH ×2 (02:19→10:55)
[2020-03-19] MEDS: NEURONTIN CAP 300 MG PO SCH (05:07)
--- NOTE | 2020-03-19 05:23 | RAD ---
HISTORYSOBSTUDYCHEST, 1 [id number] trachea is midline. The cardiac silhouette is stable accounting for difference in inspiration. Medial right lung base airspace opacity more pronounced on current exam. No pneumothorax.. The bony thorax is unchanged.IMPRESSIONMore confluent medial right lung base airspace opacities, concerning for infiltrate/pneumonia.Electronically signed by: Loretta Badillo (Mar 19, 2020 05:23:10)
[2020-03-19 06:00] LABS: ABG ALLEN TEST POS; ABG BASE EXCESS 4.5 mmol/L (-2.0-2.0); ABG HCO3 29.2 mmol/L (22-26); FRACTIONATED INSPIRED OXYGEN 28
[2020-03-19 06:42] LABS: BASOPHILS % (AUTO) 0.6 % (0.2-1.0); EOSINOPHILS # (AUTO) 0.3 x10^3/uL (0.0-0.2); EOSINOPHILS % (AUTO) 5.2 % (0.9-2.9); HEMATOCRIT 32.8 % (42.0-54.0); HEMOGLOBIN 11.3 g/dL (13.5-18.0); LYMPHOCYTES # (AUTO) 1.6 X10^3/uL (1.3-2.9); LYMPHOCYTES % (AUTO) 25.1 % (21.0-51.0); MEAN CORPUSCULAR HEMOGLOBIN 32.1 pg (27.0-34.0); MEAN CORPUSCULAR HGB CONC 34.5 g/dL (33.0-35.0); MEAN PLATELET VOLUME 8.2 fL (7.4-11.0); MONOCYTES # (AUTO) 0.6 x10^3/uL (0.3-0.8); MONOCYTES % (AUTO) 8.8 % (0.0-13.0); NEUTROPHILS # (AUTO) 3.8 x10^3/uL (2.2-4.8); NEUTROPHILS % (AUTO) 60.3 % (42.0-75.0); PLATELET COUNT 175 X10^3/uL (150.0-450.0); RED BLOOD COUNT 3.53 X10^6/uL (4.7-6.0); RED CELL DISTRIBUTION WIDTH 13.2 % (11.6-16.5); WHITE BLOOD COUNT 6.4 X10^3/uL (3.6-10.0)
[2020-03-19 06:56] LABS: ALANINE AMINOTRANSFERASE 14 Units/L (12-78); ALBUMIN 2.8 g/dL (3.4-5.0); ALKALINE PHOSPHATASE 123 Units/L (46-116); ASPARTATE AMINO TRANSFERASE 12 Units/L (15-37); BLOOD UREA NITROGEN 10 mg/dL (7-18); CALCIUM 8.5 mg/dL (8.5-10.1); CARBON DIOXIDE 26.1 mmol/L (21-32); CHLORIDE 101 mmol/L (98-107); COR CA(FOR HYPOALB) 9.5 mg/dL (8.5-10.1); CREATININE 1.08 mg/dL (0.70-1.30); SODIUM 137 mmol/L (136-145); TOTAL PROTEIN 7.3 g/dL (6.4-8.2); eGFR NON BLACK RACES > 60 (>60)
[2020-03-19 08:27] VITALS: BP 128/70
[2020-03-19] MEDS ORDERED: MICRO K EXTEN CAP 10 MEQ PO SCH (09:00)
[2020-03-19] MEDS: LEVAQUIN PREMIX IV 750 MG 750 MG/150 ML BAG IV SCH (09:29)
[2020-03-19] MEDS: VSL#3 PO SCH (09:30)
[2020-03-19] MEDS: LASIX PO SCH (09:30)
[2020-03-19] MEDS: SYNTHROID 88 mcg TAB PO SCH (09:31)
[2020-03-19] MEDS: PERCOCET TAB 5/325 MG PO SCH (09:32)
[2020-03-19] MEDS: ROBITUSSIN DM PO SCH (09:32)
[2020-03-19] MEDS: CYMBALTA PO SCH (09:33)
[2020-03-19] MEDS: ELIQUIS PO SCH (09:33)
[2020-03-19] MEDS: COREG TAB 6.25 MG PO SCH (09:33)
== END 2020-03-19 16:30 | disposition home or self-care (01) ==
LOC: MED/SURG 11:30 → ER 11:30 → MED/SURG 16:22
PROVIDERS: ADMIT Internal Medicine; ATTEND Internal Medicine
DX: F41.8 Other specified anxiety disorders; R13.11 Dysphagia, oral phase; K21.9 Gastro-esophageal reflux disease without esophagitis; Z20.828 Contact with and (suspected) exposure to other viral communicable diseases; I25.10 Atherosclerotic heart disease of native coronary artery without angina pectoris; E03.8 Other specified hypothyroidism; E78.2 Mixed hyperlipidemia; J90 Pleural effusion, not elsewhere classified; J18.8 Other pneumonia, unspecified organism; R10.13 Epigastric pain; R79.82 Elevated C-reactive protein (CRP); R06.02 Shortness of breath; J44.9 Chronic obstructive pulmonary disease, unspecified; I10 Essential (primary) hypertension; I48.91 Unspecified atrial fibrillation

== ENCOUNTER 2022-07-17 09:25 | Observation (INO) ==
--- NOTE | 2022-07-17 09:42 | DR.GENAD ---
HPI Time Seen Time Seen by Provider: 07/17/22 09:40 HPI Comment HPI Comment: PATIENT IS 71YR OLD MALE IN ER WITH SOB, CHEST PAIN THAT STARTED TIMES 2 DAYS. HISTORY CHF, CAD, COPD, HTN AND DM. PMH PMH Past Medical History: COPD, Coronary Artery Disease, Dyslipidemia, Hypertension and [place] Past Surgical History: Yes Surgical History: Angioplasty/Stents, Appendectomy and CABG/Valve Surgery Family History Family Medical History: Diabetes Mellitus, Cancer, [place] and Coronary Artery Disease Social History Do you use any recreational Drugs:: No ROS Review of Systems Constitutional: Weakness and Fatigue; negative Fever Eyes: Other (LIGALLY BLIND RIGHT EYE.) ENTM: Nose Congestion; negative Nose Discharge Respiratoy: Moist Cough and Short of Breath; negative Wheezing Cardiovascular: Chest Pain Gastrointestinal/Abdominal: negative Abdominal Pain, Diarrhea or Vomiting Genitourinary: No Symptoms Reported; negative Dysuria Neurological: Weakness; negative Headache or Dizziness Musculoskeletal: negative No Symptoms Reported or Muscle Pain Integumentary: No Symptoms Reported; negative Rash or Juandice Hematologic/Lymphatic: No Symptoms Reported and Easy Bruising Endocrine: Increased Thirst and Increased Urine Psychiatric: No Symptoms Reported All Other Systems: Reviewed and Negative PE Vital Signs Vitals: Temperature 98.3 F Pulse Rate 86 Respiratory Rate 26 Blood Pressure [Right Calf] 111/58 Blood Pressure [Left Arm] 176/82 Blood Pressure [Right Arm] 135/72 Blood Pressure 161/89 O2 Sat by Pulse Oximetry 99 General Limitations: No Limitations General Appearance: Alert and In Distress Head Head Exam: Normal Inspection, Atraumatic and Normocephalic Eyes Eye exam: PERRL, EOMI and Other (BLINDNESS RIGHT EYE.); negative Scleral Icterus or Conjunctival Injection ENT ENT Exam: Normal Exam, Normal Oropharynx, Normal External Ear Exam and TM's Normal Bilaterally TM/Canal Exam: Bilateral: Normal Throat Exam: negative Tonsillar Erythema, Tonsillomegaly or Tonsillar Exudate Neck Neck Exam: Normal Inspection and Trachea Midline; negative Tenderness Chest Chest Inspection: Normal Inspection and Symmetric Chest Wall Rise; negative Tenderness Respiratory Respiratory Exam: Respiratory Distress (ON EXERTION.); negative Accessory Muscle Use or Chest Wall Tenderness Respiratory Exam: Bilateral: Rhonchi Cardiovascular Cardiovascular Exam: Regular Rate, Normal Rhythm and Normal Heart Sounds; negative Systolic Murmur or Diastolic Murmur Abdominal Exam Abdominal Exam: Normal Inspection, Normal Bowel Sounds and Soft; negative Tenderness Extremities Extremities Exam: Normal Inspection and Normal Capillary Refill Back Back Exam: Normal Inspection; negative (R) CVA Tenderness or (L) CVA Tenderness Neurologic Neurological Exam: Alert and Oriented X3; negative Motor Sensory Deficit Psychiatric Psychiatric Exam: Normal Affect and Normal Mood Skin Skin Exam: Intact MDM Differential Diagnosis Differential Diagnosis: CHEST PAIN, HYPERGLYCEMIA, DKA, CHF, PNEUMONIA COURSE Treatment Treatment: SEE ORDERS DONE WHILE PATIENT WAS IN ER. Education/Counseling Education/Counseling: Patient Educated On: Diagnosis ROR Labs Reviewed Result Diagrams: 07/17/22 10:26 07/17/22 10: Laboratory: WBC 5.8 X10^3/uL (3.6-10.0) 07/17/22 10: RBC 3.39 X10^6/uL (4.7-6.0) L 07/17/22 10: Hgb 8.3 g/dL (13.5-18.0) L 07/17/22 10: Hct 26.5 % (42.0-54.0) L 07/17/22 10: MCV 78.2 fL (80.0-100.0) L 07/17/22 10: MCH 24.6 pg (27.0-34.0) L 07/17/22 10: MCHC 31.5 g/dL (33.0-35.0) L 07/17/22 10: RDW 18.3 % (11.6-16.5) H 07/17/22 10: Plt Count 295 X10^3/uL (150.0-450.0) 07/17/22 10: MPV 7.8 fL (7.4-11.0) 07/17/22 10: Neut % (Auto) 73.3 % (42.0-75.0) 07/17/22 10: Lymph % (Auto) 18.2 % (21.0-51.0) L 07/17/22 10: [place] % (Auto) 6.9 % (0.0-13.0) 07/17/22 10: Eos % (Auto) 0.7 % (0.9-2.9) L 07/17/22 10: Baso % (Auto) 0.9 % (0.2-1.0) 07/17/22 10: Neut # (Auto) 4.2 x10^3/uL (2.2-4.8) 07/17/22 10:26 Lymph # (Auto) 1.1 X10^3/uL (1.3-2.9) L 07/17/22 10:26 [place] # (Auto) 0.4 x10^3/uL (0.3-0.8) 07/17/22 10:26 Eos # (Auto) 0.0 x10^3/uL (0.0-0.2) 07/17/22 10:26 Baso # (Auto) 0.1 X10^3/uL (0.0-0.1) 07/17/22 10:26 Absolute Nucleated RBC 0.0 /100WBC 07/17/22 10:26 Sodium 134 mmol/L (136-145) L 07/17/22 10:26 Corrected Sodium 139 mmol/L (136-145) 07/17/22 10:26 Potassium 4.5 mmol/L (3.5-5.1) 07/17/22 10:26 Chloride 99 mmol/L (98-107) 07/17/22 10:26 Carbon Dioxide 29.4 mmol/L (21-32) 07/17/22 10:26 BUN 21 mg/dL (7-18) H 07/17/22 10:26 Creatinine 1.13 mg/dL (0.70-1.30) 07/17/22 10:26 Est GFR (MDRD) Af Amer > 60 (>60) 07/17/22 10:26 Est GFR (MDRD) Non-Af > 60 (>60) 07/17/22 10:26 Glucose 305 mg/dL (65-99) H 07/17/22 10:26 Calcium 8.3 mg/dL (8.5-10.1) L 07/17/22 10:26 Corrected Calcium 9.3 mg/dL (8.5-10.1) 07/17/22 10:26 Total Bilirubin 1.10 mg/dL (0.2-1.0) H 07/17/22 10:26 AST 28 Units/L (15-37) 07/17/22 10:26 ALT 27 Units/L (12-78) 07/17/22 10:26 Alkaline Phosphatase 151 Units/L (46-116) H 07/17/22 10:26 Creatine Kinase 31 Units/L (39-308) L 07/17/22 10:26 Troponin I High Sens 22.5 ng/L (4.0-60.0) 07/17/22 10:26 B-Natriuretic Peptide 3070 pg/mL (0-79) H* 07/17/22 10:26 Total Protein 7.2 g/dL (6.4-8.2) 07/17/22 10:26 Albumin 2.8 g/dL (3.4-5.0) L 07/17/22 10:26 Globulin 4.4 g/dL (2.5-4.5) 07/17/22 10:26 Albumin/Globulin Ratio 0.6 Ratio (1.1-2.1) L 07/17/22 10:26 Acetone, Semi-Quant Negative (NEGATIVE) 07/17/22 10:26 EKG Rate: 86 [place]: Normal Rhythm: NSR Block: None Hypertrophy: LVH ST: Nonsp (PROLONG QT.) Opioid Opioid Risk Tool Age (Jensen box if 16-45): No History of Preadolescent Sexual Abuse: No Total: 0 Total Score Risk Category: Low Risk Copyright: Jose CANO predicting aberrant behaviors Discharge Plan Diagnosis Discharge Problem: CHF (congestive heart failure), Chest pain, SOB (shortness of breath), Hyperglycemia, Anemia Discharge Plan Patient Disposition: 09 ADMITTED INPATIENT Condition: Stable Orders to Discharge Patient Discharge Orders: Transfer (Routine); Ordered 07/17/22 Ordered By: SCOTT DE JESUS
--- NOTE | 2022-07-17 09:50 | EKG ---
Test Reason : chest pain Blood Pressure : */* mmHG Vent. Rate : 86 BPM Atrial Rate : 86 BPM P-R Int : 214 ms QRS Dur : 94 ms QT Int : 402 ms P-R-T Axes : 51 68 38 degrees QTc Int : 481 ms Sinus rhythm with 1st degree AV block Minimal voltage criteria for LVH, may be normal variant ( [place] product ) Nonspecific T wave abnormality Prolonged QT Abnormal ECG When compared with ECG of 09-MAY-2022 15:48, [place] interval has increased Nonspecific T wave abnormality has replaced inverted T waves in Inferior leads Nonspecific T wave abnormality has replaced inverted T waves in Lateral leads QT has lengthened Confirmed by Jean Yanez ([id number]) on 07/17/2022 3:11:47 PM Referred By: Confirmed By: Jean Yanez
[2022-07-17 09:51] VITALS: BMI 20.2
[2022-07-17 10:37] LABS: BASOPHILS # (AUTO) 0.1 X10^3/uL (0.0-0.1); BASOPHILS % (AUTO) 0.9 % (0.2-1.0); EOSINOPHILS % (AUTO) 0.7 % (0.9-2.9); HEMATOCRIT 26.5 % (42.0-54.0); HEMOGLOBIN 8.3 g/dL (13.5-18.0); LYMPHOCYTES # (AUTO) 1.1 X10^3/uL (1.3-2.9); LYMPHOCYTES % (AUTO) 18.2 % (21.0-51.0); MEAN CORPUSCULAR HEMOGLOBIN 24.6 pg (27.0-34.0); MEAN CORPUSCULAR HGB CONC 31.5 g/dL (33.0-35.0); MEAN CORPUSCULAR VOLUME 78.2 fL (80.0-100.0); MEAN PLATELET VOLUME 7.8 fL (7.4-11.0); MONOCYTES # (AUTO) 0.4 x10^3/uL (0.3-0.8); MONOCYTES % (AUTO) 6.9 % (0.0-13.0); NEUTROPHILS # (AUTO) 4.2 x10^3/uL (2.2-4.8); NEUTROPHILS % (AUTO) 73.3 % (42.0-75.0); RED BLOOD COUNT 3.39 X10^6/uL (4.7-6.0); RED CELL DISTRIBUTION WIDTH 18.3 % (11.6-16.5); WHITE BLOOD COUNT 5.8 X10^3/uL (3.6-10.0)
--- NOTE | 2022-07-17 10:45 | RAD ---
HISTORYsob, chest pain substernal epigastric copd chf, diabetes, dyslipidemia, htn, [place].brstents x 7, appendix, CABG/valve replacementSTUDYChest one viewCOMPARISONChest one view from 05/09/2022.FINDINGSSupport devices: None.Heart/mediastinum: There is mild cardiomegaly with sternotomy changes and a prosthetic mitral valve.Lungs: Generalized bilateral pulmonary opacities are seen. No significant pleural effusion. No pneumothorax.Additional findings: None.IMPRESSIONMild cardiomegaly with probable pulmonary edema/atelectasis.Electronically signed by: Marty Mooney (Jul 17, 2022 10:43:52)
[2022-07-17 10:51] LABS: ALANINE AMINOTRANSFERASE 27 Units/L (12-78); ALBUMIN 2.8 g/dL (3.4-5.0); ALKALINE PHOSPHATASE 151 Units/L (46-116); ASPARTATE AMINO TRANSFERASE 28 Units/L (15-37); BLOOD UREA NITROGEN 21 mg/dL (7-18); CALCIUM 8.3 mg/dL (8.5-10.1); CARBON DIOXIDE 29.4 mmol/L (21-32); CHLORIDE 99 mmol/L (98-107); COR CA(FOR HYPOALB) 9.3 mg/dL (8.5-10.1); COR NA(FOR HYPERGLY) 139 mmol/L (136-145); CREATINE KINASE 31 Units/L (39-308); CREATININE 1.13 mg/dL (0.70-1.30); SODIUM 134 mmol/L (136-145); TOTAL PROTEIN 7.2 g/dL (6.4-8.2); eGFR NON BLACK RACES > 60 (>60)
[2022-07-17 10:52] LABS: SERUM ACETONE NEGATIVE (NEGATIVE)
[2022-07-17] MEDS ORDERED: LASIX IVP ONE ×2 (12:05→12:10)
[2022-07-17] MEDS: MICRO K EXTEN CAP 10 MEQ PO SCH (15:00)
[2022-07-17] MEDS: NovoLIN R (or HumuLIN R) SC PRN (15:36)
[2022-07-17] MEDS: LASIX IVP SCH (17:20)
[2022-07-17] MEDS: DIAMOX PO SCH (20:15)
[2022-07-17] MEDS: ELIQUIS PO SCH (20:16)
[2022-07-17] MEDS: ZANAFLEX PO SCH (20:16)
[2022-07-17] MEDS: BUSPAR PO SCH (20:16)
[2022-07-17] MEDS: COREG TAB 12.5 MG PO SCH (20:16)
[2022-07-17] MEDS: LANTUS SC SCH (20:17)
[2022-07-17] MEDS: SNACK - Diabetic Appropriate PO SCH (20:17)
[2022-07-17] MEDS: XALATAN OP SCH (20:18)
[2022-07-17] MEDS: ROXICODONE TAB 5 MG PO PRN (20:20)
[2022-07-17] MEDS ORDERED: LANTUS SC SCH (21:00)
[2022-07-18 05:17] LABS: BASOPHILS % (AUTO) 0.7 % (0.2-1.0); EOSINOPHILS # (AUTO) 0.3 x10^3/uL (0.0-0.2); EOSINOPHILS % (AUTO) 4.9 % (0.9-2.9); HEMATOCRIT 26.3 % (42.0-54.0); HEMOGLOBIN 8.3 g/dL (13.5-18.0); LYMPHOCYTES % (AUTO) 30.5 % (21.0-51.0); MEAN CORPUSCULAR HEMOGLOBIN 24.3 pg (27.0-34.0); MEAN CORPUSCULAR HGB CONC 31.4 g/dL (33.0-35.0); MEAN CORPUSCULAR VOLUME 77.5 fL (80.0-100.0); MEAN PLATELET VOLUME 8.3 fL (7.4-11.0); MONOCYTES # (AUTO) 0.5 x10^3/uL (0.3-0.8); NEUTROPHILS # (AUTO) 3.7 x10^3/uL (2.2-4.8); NEUTROPHILS % (AUTO) 56.9 % (42.0-75.0); WHITE BLOOD COUNT 6.5 X10^3/uL (3.6-10.0)
[2022-07-18 05:31] LABS: ALANINE AMINOTRANSFERASE 25 Units/L (12-78); ALBUMIN 2.6 g/dL (3.4-5.0); ALKALINE PHOSPHATASE 127 Units/L (46-116); ASPARTATE AMINO TRANSFERASE 22 Units/L (15-37); BLOOD UREA NITROGEN 23 mg/dL (7-18); CALCIUM 8.1 mg/dL (8.5-10.1); CARBON DIOXIDE 33.3 mmol/L (21-32); CHLORIDE 100 mmol/L (98-107); COR CA(FOR HYPOALB) 9.2 mg/dL (8.5-10.1); CREATININE 1.29 mg/dL (0.70-1.30); MAGNESIUM 1.9 mg/dL (2.0-2.9); SODIUM 140 mmol/L (136-145); TOTAL PROTEIN 6.9 g/dL (6.4-8.2); eGFR NON BLACK RACES 58 (>60)
[2022-07-18] MEDS ORDERED: K-RIDER 10 MEQ/NS 100 ML 10 MEQ/100 ML BAG IV PRN (05:52)
[2022-07-18] MEDS ORDERED: POTASSIUM CHL 40 MEQ/NS 0.45% 500 ML IV PRN (05:52)
[2022-07-18] MEDS ORDERED: MICRO K EXTEN CAP 10 MEQ PO PRN (05:52)
[2022-07-18] MEDS ORDERED: KLOR-CON PO PRN (05:52)
[2022-07-18] MEDS ORDERED: POTASSIUM CHL 60 MEQ/NS 0.45% 500 ML IV PRN (05:52)
[2022-07-18] MEDS ORDERED: POTASSIUM CHLORIDE LIQ 20 MEQ UDC PO PRN (05:52)
[2022-07-18] MEDS: MAGNESIUM SULFATE 1 GRAM/100 mL PREMIX 1 G/100 ML BAG IV PRN ×2 (06:34→12:06)
[2022-07-18] MEDS: MICRO K EXTEN CAP 10 MEQ PO SCH (08:34)
[2022-07-18] MEDS: SYNTHROID 50 mcg TAB PO SCH (08:34)
[2022-07-18] MEDS: CYMBALTA PO SCH (08:34)
[2022-07-18] MEDS: DIAMOX PO SCH ×2 (08:35→20:27)
[2022-07-18] MEDS: ELIQUIS PO SCH ×2 (08:35→20:26)
[2022-07-18] MEDS: BUSPAR PO SCH ×2 (08:36→20:26)
[2022-07-18] MEDS: ZANAFLEX PO SCH ×2 (08:36→20:26)
[2022-07-18] MEDS: MOBIC TAB 15 MG PO SCH (08:36)
[2022-07-18] MEDS: COREG TAB 12.5 MG PO SCH ×2 (08:37→20:26)
[2022-07-18] MEDS: HumaLOG SC SCH (08:38)
[2022-07-18] MEDS: LASIX IVP SCH ×2 (08:39→16:38)
[2022-07-18] MEDS: LANTUS SC SCH ×2 (08:39→20:27)
[2022-07-18] MEDS: ALPHAGAN 0.2% OPHTH SOLN OP SCH ×2 (08:43→13:11)
[2022-07-18] MEDS ORDERED: PATIENT'S HOME MEDICATION (Meloxicam 7.5 mg tablet) PO SCH (09:00)
[2022-07-18] MEDS ORDERED: HumaLOG SC SCH (09:00)
[2022-07-18] MEDS: K-DUR TAB 20 MEQ PO PRN (12:05)
[2022-07-18] MEDS: NovoLIN R (or HumuLIN R) SC PRN (16:48)
[2022-07-18] MEDS: SNACK - Diabetic Appropriate PO SCH (20:25)
[2022-07-18] MEDS: XALATAN OP SCH (20:28)
[2022-07-19 06:13] LABS: BASOPHILS % (AUTO) 0.8 % (0.2-1.0); EOSINOPHILS # (AUTO) 0.3 x10^3/uL (0.0-0.2); EOSINOPHILS % (AUTO) 6.6 % (0.9-2.9); HEMATOCRIT 23.9 % (42.0-54.0); HEMOGLOBIN 7.4 g/dL (13.5-18.0); LYMPHOCYTES # (AUTO) 1.7 X10^3/uL (1.3-2.9); LYMPHOCYTES % (AUTO) 31.6 % (21.0-51.0); MEAN CORPUSCULAR HEMOGLOBIN 24.4 pg (27.0-34.0); MEAN CORPUSCULAR HGB CONC 30.9 g/dL (33.0-35.0); MEAN CORPUSCULAR VOLUME 79.1 fL (80.0-100.0); MEAN PLATELET VOLUME 8.1 fL (7.4-11.0); MONOCYTES # (AUTO) 0.5 x10^3/uL (0.3-0.8); NEUTROPHILS # (AUTO) 2.7 x10^3/uL (2.2-4.8); RED BLOOD COUNT 3.02 X10^6/uL (4.7-6.0); RED CELL DISTRIBUTION WIDTH 17.6 % (11.6-16.5); WHITE BLOOD COUNT 5.2 X10^3/uL (3.6-10.0)
[2022-07-19 06:25] LABS: ALANINE AMINOTRANSFERASE 26 Units/L (12-78); ALBUMIN 2.5 g/dL (3.4-5.0); ALKALINE PHOSPHATASE 123 Units/L (46-116); ASPARTATE AMINO TRANSFERASE 24 Units/L (15-37); BLOOD UREA NITROGEN 24 mg/dL (7-18); CALCIUM 7.8 mg/dL (8.5-10.1); CARBON DIOXIDE 28.5 mmol/L (21-32); CHLORIDE 103 mmol/L (98-107); CREATININE 1.29 mg/dL (0.70-1.30); SODIUM 137 mmol/L (136-145); TOTAL PROTEIN 6.3 g/dL (6.4-8.2); eGFR NON BLACK RACES 58 (>60)
[2022-07-19] MEDS: SYNTHROID 50 mcg TAB PO SCH (09:16)
[2022-07-19] MEDS: K-DUR TAB 20 MEQ PO PRN (09:16)
[2022-07-19] MEDS: CYMBALTA PO SCH (09:16)
[2022-07-19] MEDS: BUSPAR PO SCH ×2 (09:17→20:49)
[2022-07-19] MEDS: ZANAFLEX PO SCH ×2 (09:17→20:49)
[2022-07-19] MEDS: COREG TAB 12.5 MG PO SCH ×2 (09:17→20:50)
[2022-07-19] MEDS: MOBIC TAB 15 MG PO SCH (09:17)
[2022-07-19] MEDS: DIAMOX PO SCH ×2 (09:17→21:37)
[2022-07-19] MEDS: ELIQUIS PO SCH ×2 (09:17→20:50)
[2022-07-19] MEDS: LASIX IVP SCH ×2 (09:17→16:45)
[2022-07-19] MEDS: HumaLOG SC SCH (09:18)
[2022-07-19] MEDS: LANTUS SC SCH ×2 (09:19→21:48)
[2022-07-19] MEDS: MICRO K EXTEN CAP 10 MEQ PO SCH (09:20)
[2022-07-19] MEDS: ALPHAGAN 0.2% OPHTH SOLN OP SCH (09:20)
[2022-07-19] MEDS: PROVENTIL NEB TX 0.083% 2.5MG/ 3ML NEB PRN ×2 (09:30→20:20)
--- NOTE | 2022-07-19 11:34 | DR.H&P ---
H&P - History & Physical for Day of: H&P Date: 07/17/22 - Chief Complaint Chief Complaint: SHORTNESS OF BREATH, CHEST PAIN, WEAKNESS - History of Present Illness History of Present Illness: IS A 71 YEAR OLD PATIENT OF OURS. HE PRESENTED TO THE EMERGENCY ROOM WITH COMPLAINTS OF WORSENING SHORTNESS OF BREATH, CHEST PAIN, AND GENERALIZED WEAKNESS. PATIENT REPORTS THAT SYMPTOMS STARTED TWO DAYS PRIOR TO ARRIVAL. HE DESCRIBES CHEST PAIN PRESSURE-LIKE, INTERMITTENT, AND RATED IT A 3/10 ON ARRIVAL. HE REPORTS THAT SHORTNESS OF BREATH IS PRESENT AT REST, BUT GETS WORSE WITH EXERTION. HIS PMH INCLUDES: CHF, CAD, COPD, HTN, DM II, DYSLIPIDEMIA, AR, CARDIAC STENTS, APPENDECTOMY, CABG. HE IS ALSO BLIND IN THE RIGHT EYE. ON ARRIVAL TO THE ER, HIS VITALS WERE: 98.3-88-21-93%-189/92. HE WAS PLACED ON OXYGEN VIA NASAL CANNULA AT 2 LPM. LABS WERE OBTAINED. WBC 5.8, RBC 3.39, HGB 8.3, HCT 26.5, PLT COUNT 295, SODIUM 134, POTASSIUM 4.5, CHLORIDE 99, BUN 21, CREATININE 1.13, GLUCOSE 305, CALCIUM 8.3, IRON 26, TRANSFERRIN 327, FERRITIN 93, TOTAL BILI 1.10, AST 28, ALT 27, ALK PHOS 151, CREATINE KINASE 31, BNP 3070, TOTAL PROTEIN 7.2, ALBUMIN 2.8, B12 645, FOLATE 15.9. SERUM ACETONES NEGATIVE. A CHEST XRAY WAS OBTAINED AND REVEALED: Mild cardiomegaly with probable pulmonary edema/atelectasis. EKG REVEALED: SINUS RHYTHM WITH 1ST DEGREE AV BLOCK. HR 86 BPM. IN THE ER, HE WAS GIVEN LASIX 40MG IV X 1 DOSE. HE WAS ADMITTED TO THE HOSPITAL OBSERVATION STATUS FOR FURTHER EVALUATION AND TREATMENT OF CHF, CHEST PAIN, SHORTNESS OF BREATH, HYPERGLYCEMIA, AND ANEMIA. HE WAS STARTED ON LASIX 20MG IV BID, OTBS ACHS, HUMULIN R SLIDING SCALE, THE POTASSIUM AND MAGNESIUM PROTOCOLS. HIS HOME MEDICATIONS OF DIAMOX, PROVENTIL NEBS PRN, ELIQUIS, ALPHAGAN, BUSPAR, COREG, CYMBALTA, XALATAN EYE DROPS, SYNTHROID, ROXICODONE PRN, LYRICA, AND ZANAFLEX WERE RESUMED. WE PLAN TO FOLLOW-UP WITH AM LABS AND CHEST XRAY AND CONTINUE TO MONITOR. TIME SPENT ON CLINICAL ASSESSMENT, REVIWING LABS AND IMAGING, DECISION MAKING, AND DOCUMENTATION GREATER THAN 75 MINUTES. - Past Medical History Past Medical History: CHF, COPD, Coronary Artery Disease, Diabetes, Dyslipidemia, Hypertension, AR Additional Medical History: AR 2012 - Past Surgical History Surgical History: Appendectomy, CABG/Valve Surgery Additional Surgical History: 7 CARDIAC STENTS - Family History Family Medical History: Diabetes Mellitus, Cancer, AR, Coronary Artery Disease, Heart Failure, Sudden Cardiac , Hypertension - Social History Does patient currently use any type of tobacco product: Yes Have you used tobacco products in the last 12 months: Yes Type of Tobacco Use: Cigarettes How many years tobacco product used: 50 Does any household member use tobacco: Yes Alcohol Use: None Drug Use: None - Medications Home Medications: fluoxetine [From Prozac] Allergy (Verified 07/17/22 09:52) CONTINUE taking the following medications acetazolamide 250 mg tablet 1 tab PO BID 07/17/22 [History] brimonidine 0.2 % eye drops 1 drp ophthalmic (eye) DAILY 07/17/22 [History] buspirone 15 mg tablet 2 tab PO BID 07/17/22 [History] carvedilol 12.5 mg tablet 1 tab PO BID 07/17/22 [History] insulin glargine 100 unit/mL subcutaneous solution (Lantus U-100 Insulin) 15 unit subcut BID 07/17/22 [History] insulin lispro 100 unit/mL subcutaneous solution 4 unit subcut DAILY 07/17/22 [History] latanoprost 0.005 % eye drops 1 drp ophthalmic (eye) QPM 07/17/22 [History] levothyroxine 50 mcg tablet 1 tab PO QDAY 07/17/22 [History] meloxicam 7.5 mg tablet 1 tab PO QDAY 07/17/22 [History] oxycodone 10 mg tablet 1 tab PO TID PRN 07/17/22 [History] pregabalin 25 mg capsule 1 cap PO BID 07/17/22 [History] tizanidine 4 mg tablet 1 tab PO BID 07/17/22 [History] - Review of Systems Constitutional: Weakness Eyes: No Symptoms Reported ENT: No Symptoms Reported Respiratory: Shortness of Breath, SOB with Excertion Cardiovascular: [place]ness Gastrointestinal: No Symptoms Reported. denies: Nausea, Vomiting, Diarrhea, Constipation, Melena, Hematochezia Genitourinary: No Symptoms Reported Musculoskeletal: No Symptoms Reported Skin: No Symptoms Reported Neurological: Weakness - Physical Exam Vital Signs: Temperature 97.8 F Pulse Rate [Radial] 66 Pulse Rate 78 Respiratory Rate 16 Blood Pressure [Right Calf] 111/58 Blood Pressure [Left Arm] 138/70 Blood Pressure [Right Arm] 115/57 Blood Pressure 173/94 O2 Sat by Pulse Oximetry 98 Oriented: Normal Eyes: Normal Ear: Normal Nose: Normal Throat: Normal Respiratory: Diminished Throughout Cardiovascular: Normal : Normal Auscultation: Bowel Sounds: Normal Palpation: Normal Tenderness: Normal Skin: Normal Musculoskeletal: Normal Psychiatric: Normal Mood Description: Calm Affect: Normal Speech Pattern: Clear - Assessment/Plan (1) Congestive heart failure Qualifiers: Heart failure type: unspecified Heart failure chronicity: acute on chronic Qualified Code(s): I50.9 - Heart failure, unspecified Status: Acute Plan: ADMIT, SUPPLEMENTAL OXYGEN, LASIX 20MG IV BID, OTBS ACHS, HUMULIN R SLIDING SCALE, THE POTASSIUM AND MAGNESIUM PROTOCOLS. RESUME HOME MEDS. MONITOR LABS AND CHEST XRAY (2) Chest pain Qualifiers: Chest pain type: unspecified Qualified Code(s): R07.9 - Chest pain, unspecified Status: Acute (3) SOB (shortness of breath) Status: Acute (4) Hyperglycemia Status: Acute (5) Anemia Qualifiers: Anemia type: iron deficiency Iron deficiency anemia type: unspecified iron deficiency Qualified Code(s): D50.9 - Iron deficiency anemia, unspecified Status: Acute (6) Generalized weakness Status: Acute (7) CAD (coronary artery disease) Qualifiers: Coronary Disease-Associated Artery/Lesion type: [place] artery [place] vs. transplanted heart: [place] heart Associated angina: with stable angina Qualified Code(s): I25.118 - Atherosclerotic heart disease of [place] coronary artery with other forms of angina pectoris Status: Chronic (8) GERD (gastroesophageal reflux disease) Qualifiers: Esophagitis presence: esophagitis presence not specified Qualified Code(s): K21.9 - Gastro-esophageal reflux disease without esophagitis Status: Chronic (9) HTN (hypertension) Qualifiers: Hypertension type: primary hypertension Qualified Code(s): I10 - Essential (primary) hypertension Status: Chronic (10) Hyperlipidemia Qualifiers: Hyperlipidemia type: mixed hyperlipidemia Qualified Code(s): E78.2 - Mixed hyperlipidemia Status: Chronic - Allergies Allergies/Adverse Reactions: Allergies Allergy/AdvReac Type Severity Reaction Status Date / Time fluoxetine [From Prozac] Allergy Verified 07/17/22 09:52
[2022-07-19] MEDS ORDERED: GLUTOSE 15 GEL ORAL PO ONE (13:13)
[2022-07-19] MEDS: GLUTOSE 15 GEL ORAL PO PRN (13:18)
--- NOTE | 2022-07-19 15:35 | RAD ---
HISTORYCOPD EXACERBATIONSTUDYCHEST x-ray, 1 VIEWCOMPARISONX-ray 07/17/2022FINDINGSWorsening moderate bilateral pleural effusions are seen. There is persistent cardiomegaly but pulmonary vasculature appears less prominent than prior study. No pulmonary edema is seen. No evidence of pneumothorax is seen.IMPRESSIONWorsening moderate pleural effusions are seen. Persistent cardiomegaly is seen.Electronically signed by: Denver Mc (Jul 19, 2022 15:34:40)
[2022-07-19] MEDS: SNACK - Diabetic Appropriate PO SCH (20:48)
[2022-07-19] MEDS: XALATAN OP SCH (20:53)
[2022-07-19] MEDS: ROXICODONE TAB 5 MG PO PRN (22:43)
[2022-07-20 06:22] LABS: BASOPHILS % (AUTO) 0.5 % (0.2-1.0); EOSINOPHILS # (AUTO) 0.4 x10^3/uL (0.0-0.2); EOSINOPHILS % (AUTO) 4.9 % (0.9-2.9); HEMATOCRIT 27.8 % (42.0-54.0); HEMOGLOBIN 8.5 g/dL (13.5-18.0); LYMPHOCYTES # (AUTO) 1.6 X10^3/uL (1.3-2.9); LYMPHOCYTES % (AUTO) 20.6 % (21.0-51.0); MEAN CORPUSCULAR HEMOGLOBIN 24.3 pg (27.0-34.0); MEAN CORPUSCULAR HGB CONC 30.5 g/dL (33.0-35.0); MEAN CORPUSCULAR VOLUME 79.7 fL (80.0-100.0); MONOCYTES # (AUTO) 0.6 x10^3/uL (0.3-0.8); MONOCYTES % (AUTO) 7.6 % (0.0-13.0); NEUTROPHILS # (AUTO) 5.3 x10^3/uL (2.2-4.8); NEUTROPHILS % (AUTO) 66.4 % (42.0-75.0); RED BLOOD COUNT 3.49 X10^6/uL (4.7-6.0); RED CELL DISTRIBUTION WIDTH 17.7 % (11.6-16.5)
[2022-07-20 06:28] LABS: ALANINE AMINOTRANSFERASE 28 Units/L (12-78); ALBUMIN 2.9 g/dL (3.4-5.0); ALKALINE PHOSPHATASE 135 Units/L (46-116); ASPARTATE AMINO TRANSFERASE 29 Units/L (15-37); BLOOD UREA NITROGEN 25 mg/dL (7-18); CALCIUM 8.2 mg/dL (8.5-10.1); CARBON DIOXIDE 25.3 mmol/L (21-32); CHLORIDE 103 mmol/L (98-107); COR CA(FOR HYPOALB) 9.1 mg/dL (8.5-10.1); CREATININE 1.29 mg/dL (0.70-1.30); SODIUM 136 mmol/L (136-145); TOTAL PROTEIN 7.2 g/dL (6.4-8.2); eGFR NON BLACK RACES 58 (>60)
--- NOTE | 2022-07-20 08:13 | RAD ---
HISTORYCHF, CHEST PAIN, SOBSTUDYSingle-view [id number] trachea is midline. The cardiac silhouette is enlarged with a tortuous thoracic aorta. Prior changes of median sternotomy and valvular replacement are noted. The lungs are clear without focal infiltrate or effusion. The bony thorax is unremarkable.IMPRESSIONNo acute cardiopulmonary disease.Electronically signed by: BECK HERNANDEZ (Jul 20, 2022 08:11:33)
[2022-07-20] MEDS: COREG TAB 12.5 MG PO SCH ×2 (08:54→21:27)
[2022-07-20] MEDS: MICRO K EXTEN CAP 10 MEQ PO SCH (08:54)
[2022-07-20] MEDS: ELIQUIS PO SCH ×2 (08:56→21:27)
[2022-07-20] MEDS: CYMBALTA PO SCH (08:56)
[2022-07-20] MEDS: LASIX IVP SCH ×2 (08:59→16:29)
[2022-07-20] MEDS: ALPHAGAN 0.2% OPHTH SOLN OP SCH (09:03)
[2022-07-20] MEDS: DIAMOX PO SCH ×2 (09:03→21:35)
[2022-07-20] MEDS: BUSPAR PO SCH ×2 (09:03→21:27)
[2022-07-20] MEDS: SYNTHROID 50 mcg TAB PO SCH (09:03)
[2022-07-20] MEDS: LANTUS SC SCH ×2 (09:04→21:30)
[2022-07-20] MEDS: ZANAFLEX PO SCH ×2 (09:04→21:29)
--- NOTE | 2022-07-20 12:06 | PCM.PROG ---
Progress Note - Progress Note for Day of Date of Exam: 07/18/22 - Subjective Subjective: IS CURRENTLY OBSERVATION STATUS FOR TREATMENT OF CONGESTIVE HEART FAILURE, CHEST PAIN RULE OUT ACUTE [place], SHORTNESS OF BREATH, ANEMIA, AND GENERALIZED WEAKNESS. HE HAS A PMH OF DM II, CAD, GERD, HTN, AND HYPERLIPIDEMIA. ON EXAMINATION TODAY, PATIENT IS ALERT AND ORIENTED, LYING IN B ED ON MORNING ROUNDS. HE DENIES CHEST PAIN THIS MORNING, BUT CONTINUES WITH COMPLAINTS OF SHORTNESS OF BREATH AND GENERALIZED WEAKNESS. ON EXAMINATION, HEART IS REGULAR IN RATE AND RHYTHM. BILATERAL LUNGS ARE NOTED WITH DIMINISHED LUNG SOUNDS THROUGHOUT. ABDOMEN IS FLAT, SOFT, AND NON-TENDER WITH NORMAL BOWEL SOUNDS NOTED IN ALL QUADRANTS. TRACE LOWER EXTREMITY EDEMA NOTED. HIS VITALS THIS MORNING ARE: 97.9-67-18-99%-116/58. HE IS CURRENTLY UTILIZING OXYGEN VIA NASAL CANNULA AT 2 LPM. LABS WERE OBTAINED. WBC 6.5, RBC 3.40, HGB 8.3, HCT 26.3, PLT COUNT 299, SODIUM 140, POTASSIUM 3.1, CHLORIDE 100, CARBON DIOXIDE 33.3, BUN 23, CREATININE 1.29, GLUCOSE 86, CALCIUM 8.1, MAGNESIUM 1.9, TOTAL BILI 0.80, AST 22, ALT 25, ALK PHOS 127, BNP 2200, TOTAL PROTEIN 6.9, ALBUMIN 2.6. CARDIAC ENZYMES HAVE BEEN WITHIN NORMAL LIMITS. HE IS CURRENTLY RECEIVING LASIX 20MG IV BID, OTBS ACHS, HUMULIN R SLIDING SCALE, THE POTASSIUM AND MAGNESIUM PROTOCOLS. HIS HOME MEDICATIONS OF DIAMOX, PROVENTIL NEBS PRN, E LIQUIS, ALPHAGAN, BUSPAR, COREG, CYMBALTA, XALATAN EYE DROPS, SYNTHROID, ROXICODONE PRN, LYRICA, AND ZANAFLEX WERE RESUMED. WE WILL CONTINUE WITH CURRENT PLAN OF CARE TODAY. OTHERWISE, WE WILL FOLLOW-UP WITH AM LABS AND CHEST XRAY AND CONTINUE TO MONITOR. TIME SPENT ON CLINICAL ASSESSMENT, REVIWING LABS AND IMAGING, DECISION MAKING, AND DOCUMENTATION GREATER THAN 45 MINUTES. - Past Medical Family Social History Past Med/Fam/Surg Hx: No changes since H&P Allergies: Allergies fluoxetine [From Prozac] Allergy (Verified 07/17/22 09:52) - Review of Systems ROS: No change since H&P - Vital Signs and I&O's Vital Signs: Temperature 97.7 F Pulse Rate [Radial] 68 Pulse Rate 59 Respiratory Rate 20 Blood Pressure [Right Calf] 111/58 Blood Pressure [Left Arm] 127/63 Blood Pressure [Right Arm] 141/66 Blood Pressure 173/94 O2 Sat by Pulse Oximetry 100 Intake and Output: Intake & Output 07/18/22 07/19/22 07/20/22 07/21/22 11:59 11:59 11:59 11:59 Intake Total 652 / 652 1505 / 1505 830 / 830 Output Total 300 / 300 2250 / 2250 1999 / 1999 Balance 352 / 352 -745 / -745 -1170 / -1170 - Physical Exam Oriented: Normal Eyes: Normal Ear: Normal Nose: Normal Throat: Normal Respiratory: Generalized, Diminished Cardiovascular: Edema (TRACE LOWER EXTREMITY EDEMA ) : Normal Auscultation: Bowel Sounds: Normal Palpation: Normal Tenderness: Normal Skin: Normal Musculoskeletal: Normal Psychiatric: Normal Mood Description: Calm Affect: Normal Speech Pattern: Clear, Appropriate - Laboratory and Diagnostics Result Diagrams: 07/20/22 05:51 07/20/22 05:51 Labs: Laboratory WBC 8.0 X10^3/uL (3.6-10.0) 07/20/22 05:51 RBC 3.49 X10^6/uL (4.7-6.0) L 07/20/22 05:51 Hgb 8.5 g/dL (13.5-18.0) L 07/20/22 05:51 Hct 27.8 % (42.0-54.0) L 07/20/22 05:51 MCV 79.7 fL (80.0-100.0) L 07/20/22 05:51 MCH 24.3 pg (27.0-34.0) L 07/20/22 05:51 MCHC 30.5 g/dL (33.0-35.0) L 07/20/22 05:51 RDW 17.7 % (11.6-16.5) H 07/20/22 05:51 Plt Count 258 X10^3/uL (150.0-450.0) 07/20/22 05:51 MPV 8.0 fL (7.4-11.0) 07/20/22 05:51 Neut % (Auto) 66.4 % (42.0-75.0) 07/20/22 05:51 Lymph % (Auto) 20.6 % (21.0-51.0) L 07/20/22 05:51 [place] % (Auto) 7.6 % (0.0-13.0) 07/20/22 05:51 Eos % (Auto) 4.9 % (0.9-2.9) H 07/20/22 05:51 Baso % (Auto) 0.5 % (0.2-1.0) 07/20/22 05:51 Neut # (Auto) 5.3 x10^3/uL (2.2-4.8) H 07/20/22 05:51 Lymph # (Auto) 1.6 X10^3/uL (1.3-2.9) 07/20/22 05:51 [place] # (Auto) 0.6 x10^3/uL (0.3-0.8) 07/20/22 05:51 Eos # (Auto) 0.4 x10^3/uL (0.0-0.2) H 07/20/22 05:51 Baso # (Auto) 0.0 X10^3/uL (0.0-0.1) 07/20/22 05:51 Absolute Nucleated RBC 0.0 /100WBC 07/20/22 05:51 Sodium 136 mmol/L (136-145) 07/20/22 05:51 Corrected Sodium TNP 07/20/22 05:51 Potassium 3.5 mmol/L (3.5-5.1) 07/20/22 05:51 Chloride 103 mmol/L (98-107) 07/20/22 05:51 Carbon Dioxide 25.3 mmol/L (21-32) 07/20/22 05:51 BUN 25 mg/dL (7-18) H 07/20/22 05:51 Creatinine 1.29 mg/dL (0.70-1.30) 07/20/22 05:51 Est GFR (MDRD) Af Amer > 60 (>60) 07/20/22 05:51 Est GFR (MDRD) Non-Af 58 (>60) L 07/20/22 05:51 Glucose 53 mg/dL (65-99) L 07/20/22 05:51 POC Glucose (mg/dL) 231 mg/dL (65-99) H 07/20/22 11:38 Calcium 8.2 mg/dL (8.5-10.1) L 07/20/22 05:51 Corrected Calcium 9.1 mg/dL (8.5-10.1) 07/20/22 05:51 Magnesium 2.3 mg/dL (2.0-2.9) 07/19/22 05:39 Iron 26 ug/dL (50-175) L 07/17/22 12:36 Transferrin 327 mg/dL (202-364) 07/17/22 12:36 Ferritin 93 ng/mL (26-388) 07/17/22 12:36 Total Bilirubin 0.50 mg/dL (0.2-1.0) 07/20/22 05:51 AST 29 Units/L (15-37) 07/20/22 05:51 ALT 28 Units/L (12-78) 07/20/22 05:51 Alkaline Phosphatase 135 Units/L (46-116) H 07/20/22 05:51 Creatine Kinase 32 Units/L (39-308) L 07/17/22 22:10 Troponin I High Sens 30.8 ng/L (4.0-60.0) 07/17/22 22:10 B-Natriuretic Peptide 741 pg/mL (0-79) H* 07/20/22 05:51 Total Protein 7.2 g/dL (6.4-8.2) 07/20/22 05:51 Albumin 2.9 g/dL (3.4-5.0) L 07/20/22 05:51 Globulin 4.3 g/dL (2.5-4.5) 07/20/22 05:51 Albumin/Globulin Ratio 0.7 Ratio (1.1-2.1) L 07/20/22 05:51 Vitamin B12 645 pg/mL (193-986) 07/17/22 12:36 Folate 15.9 ng/mL (>8.6) 07/17/22 12:36 Acetone, Semi-Quant Negative (NEGATIVE) 07/17/22 10:26 - Plan (1) Congestive heart failure Status: Acute Qualifiers: Heart failure type: unspecified Heart failure chronicity: acute on chronic Qualified Code(s): I50.9 - Heart failure, unspecified Plan: SUPPLEMENTAL OXYGEN, LASIX 20MG IV BID, OTBS ACHS, HUMULIN R SLIDING SCALE, THE POTASSIUM AND MAGNESIUM PROTOCOLS. RESUME HOME MEDS. MONITOR LABS AND CHEST XRAY (2) Chest pain Status: Acute Qualifiers: Chest pain type: unspecified Qualified Code(s): R07.9 - Chest pain, unspecified (3) SOB (shortness of breath) Status: Acute (4) Hyperglycemia Status: Acute (5) Anemia Status: Acute Qualifiers: Anemia type: iron deficiency Iron deficiency anemia type: unspecified iron deficiency Qualified Code(s): D50.9 - Iron deficiency anemia, unspecified (6) Generalized weakness Status: Acute (7) CAD (coronary artery disease) Status: Chronic Qualifiers: Coronary Disease-Associated Artery/Lesion type: [place] artery [place] vs. transplanted heart: [place] heart Associated angina: with stable angina Qualified Code(s): I25.118 - Atherosclerotic heart disease of [place] coronary artery with other forms of angina pectoris (8) GERD (gastroesophageal reflux disease) Status: Chronic Qualifiers: Esophagitis presence: esophagitis presence not specified Qualified Code(s): K21.9 - Gastro-esophageal reflux disease without esophagitis (9) HTN (hypertension) Status: Chronic Qualifiers: Hypertension type: primary hypertension Qualified Code(s): I10 - Essential (primary) hypertension (10) Hyperlipidemia Status: Chronic Qualifiers: Hyperlipidemia type: mixed hyperlipidemia Qualified Code(s): E78.2 - Mixed hyperlipidemia
--- NOTE | 2022-07-20 12:40 | PCM.PROG ---
Progress Note - Progress Note for Day of Date of Exam: 07/19/22 - Subjective Subjective: IS CURRENTLY OBSERVATION STATUS FOR TREATMENT OF CONGESTIVE HEART FAILURE, CHEST PAIN RULE OUT ACUTE [place], SHORTNESS OF BREATH, ANEMIA, AND GENERALIZED WEAKNESS. HE HAS A PMH OF DM II, CAD, GERD, HTN, AND HYPERLIPIDEMIA. ON EXAMINATION TODAY, PATIENT IS ALERT AND ORIENTED, LYING IN B ED ON MORNING ROUNDS. HE DENIES CHEST PAIN THIS MORNING, BUT CONTINUES WITH COMPLAINTS OF SHORTNESS OF BREATH AND GENERALIZED WEAKNESS. ON EXAMINATION, HEART IS REGULAR IN RATE AND RHYTHM. BILATERAL LUNGS ARE NOTED WITH DIMINISHED LUNG SOUNDS THROUGHOUT. ABDOMEN IS FLAT, SOFT, AND NON-TENDER WITH NORMAL BOWEL SOUNDS NOTED IN ALL QUADRANTS. TRACE LOWER EXTREMITY EDEMA NOTED. HIS VITALS THIS MORNING ARE: 97.8-66-16-100%-138/70. HE IS CURRENTLY UTILIZING OXYGEN VIA NASAL CANNULA AT 2 LPM. LABS WERE OBTAINED. WBC 5.2, RBC 3.02, HGB 7.4, HCT 23.9, PLT COUNT 247, SODIUM 137, POTASSIUM 3.3, CHLORIDE 103, BUN 24, CREATININE 1.29, GLUCOSE 107, CALCIUM 7.8, TOTAL BILI 0.5, AST 24, ALT 26, ALK PHOS 123, BNP 616, TOTAL PROTEIN 6.3, ALBUMIN 2.5. HE IS CURRENTLY RECEIVING LASIX 20MG IV BID, OTBS ACHS, HUMULIN R SLIDING SCALE, THE POTASSIUM AND MAGNESIUM PROTOCOLS. HIS HOME MEDICATIONS OF DIAMOX, PROVENTIL NEBS PRN, ELIQUIS, ALPHAGAN, BUSPAR, COREG, CYMBALTA, XALATAN EYE DROPS, SYNTHROID, ROXICODONE PRN, LYRICA, AND ZANAFLEX WERE RESUMED. WE WILL CONTINUE WITH CURRENT PLAN OF CARE TODAY AND OBTAIN A STOOL FOR OCCULT BLOOD. OTHERWISE, WE WILL FOLLOW-UP WITH AM LABS AND CHEST XRAY AND CONTINUE TO MONITOR. TIME SPENT ON CLINICAL ASSESSMENT, REVIWING LABS AND IMAGING, DECISION MAKING, AND DOCUMENTATION GREATER THAN 45 MINUTES. - Past Medical Family Social History Past Med/Fam/Surg Hx: No changes since H&P Allergies: Allergies fluoxetine [From Prozac] Allergy (Verified 07/17/22 09:52) - Review of Systems ROS: No change since H&P - Vital Signs and I&O's Vital Signs: Temperature 97.9 F Pulse Rate [Radial] 69 Pulse Rate 59 Respiratory Rate 18 Blood Pressure [Right Calf] 111/58 Blood Pressure [Left Arm] 127/63 Blood Pressure [Right Arm] 126/59 Blood Pressure 173/94 O2 Sat by Pulse Oximetry 100 Intake and Output: Intake & Output 07/18/22 07/19/22 07/20/22 07/21/22 11:59 11:59 11:59 11:59 Intake Total 652 / 652 1505 / 1505 830 / 830 Output Total 300 / 300 2250 / 2250 1999 Balance 352 / 352 -745 / -745 -1170 / -1170 - Physical Exam Oriented: Normal Eyes: Normal Ear: Normal Nose: Normal Throat: Normal Respiratory: Generalized, Diminished Cardiovascular: Edema (TRACE LOWER EXTREMITY EDEMA ) : Normal Auscultation: Bowel Sounds: Normal Tenderness: Normal Skin: Normal Musculoskeletal: Normal Psychiatric: Normal Mood Description: Calm Affect: Normal Speech Pattern: Clear, Appropriate - Laboratory and Diagnostics Result Diagrams: 07/20/22 05:51 07/20/22 05:51 Labs: Laboratory WBC 8.0 X10^3/uL (3.6-10.0) 07/20/22 05:51 RBC 3.49 X10^6/uL (4.7-6.0) L 07/20/22 05:51 Hgb 8.5 g/dL (13.5-18.0) L 07/20/22 05:51 Hct 27.8 % (42.0-54.0) L 07/20/22 05:51 MCV 79.7 fL (80.0-100.0) L 07/20/22 05:51 MCH 24.3 pg (27.0-34.0) L 07/20/22 05:51 MCHC 30.5 g/dL (33.0-35.0) L 07/20/22 05:51 RDW 17.7 % (11.6-16.5) H 07/20/22 05:51 Plt Count 258 X10^3/uL (150.0-450.0) 07/20/22 05:51 MPV 8.0 fL (7.4-11.0) 07/20/22 05:51 Neut % (Auto) 66.4 % (42.0-75.0) 07/20/22 05:51 Lymph % (Auto) 20.6 % (21.0-51.0) L 07/20/22 05:51 [place] % (Auto) 7.6 % (0.0-13.0) 07/20/22 05:51 Eos % (Auto) 4.9 % (0.9-2.9) H 07/20/22 05:51 Baso % (Auto) 0.5 % (0.2-1.0) 07/20/22 05:51 Neut # (Auto) 5.3 x10^3/uL (2.2-4.8) H 07/20/22 05:51 Lymph # (Auto) 1.6 X10^3/uL (1.3-2.9) 07/20/22 05:51 [place] # (Auto) 0.6 x10^3/uL (0.3-0.8) 07/20/22 05:51 Eos # (Auto) 0.4 x10^3/uL (0.0-0.2) H 07/20/22 05:51 Baso # (Auto) 0.0 X10^3/uL (0.0-0.1) 07/20/22 05:51 Absolute Nucleated RBC 0.0 /100WBC 07/20/22 05:51 Sodium 136 mmol/L (136-145) 07/20/22 05:51 Corrected Sodium TNP 07/20/22 05:51 Potassium 3.5 mmol/L (3.5-5.1) 07/20/22 05:51 Chloride 103 mmol/L (98-107) 07/20/22 05:51 Carbon Dioxide 25.3 mmol/L (21-32) 07/20/22 05:51 BUN 25 mg/dL (7-18) H 07/20/22 05:51 Creatinine 1.29 mg/dL (0.70-1.30) 07/20/22 05:51 Est GFR (MDRD) Af Amer > 60 (>60) 07/20/22 05:51 Est GFR (MDRD) Non-Af 58 (>60) L 07/20/22 05:51 Glucose 53 mg/dL (65-99) L 07/20/22 05:51 POC Glucose (mg/dL) 231 mg/dL (65-99) H 07/20/22 11:38 Calcium 8.2 mg/dL (8.5-10.1) L 07/20/22 05:51 Corrected Calcium 9.1 mg/dL (8.5-10.1) 07/20/22 05:51 Magnesium 2.3 mg/dL (2.0-2.9) 07/19/22 05:39 Iron 26 ug/dL (50-175) L 07/17/22 12:36 Transferrin 327 mg/dL (202-364) 07/17/22 12:36 Ferritin 93 ng/mL (26-388) 07/17/22 12:36 Total Bilirubin 0.50 mg/dL (0.2-1.0) 07/20/22 05:51 AST 29 Units/L (15-37) 07/20/22 05:51 ALT 28 Units/L (12-78) 07/20/22 05:51 Alkaline Phosphatase 135 Units/L (46-116) H 07/20/22 05:51 Creatine Kinase 32 Units/L (39-308) L 07/17/22 22:10 Troponin I High Sens 30.8 ng/L (4.0-60.0) 07/17/22 22:10 B-Natriuretic Peptide 741 pg/mL (0-79) H* 07/20/22 05:51 Total Protein 7.2 g/dL (6.4-8.2) 07/20/22 05:51 Albumin 2.9 g/dL (3.4-5.0) L 07/20/22 05:51 Globulin 4.3 g/dL (2.5-4.5) 07/20/22 05:51 Albumin/Globulin Ratio 0.7 Ratio (1.1-2.1) L 07/20/22 05:51 Vitamin B12 645 pg/mL (193-986) 07/17/22 12:36 Folate 15.9 ng/mL (>8.6) 07/17/22 12:36 Acetone, Semi-Quant Negative (NEGATIVE) 07/17/22 10:26 - Plan (1) Congestive heart failure Status: Acute Qualifiers: Heart failure type: unspecified Heart failure chronicity: acute on chronic Qualified Code(s): I50.9 - Heart failure, unspecified Plan: SUPPLEMENTAL OXYGEN, LASIX 20MG IV BID, OTBS ACHS, HUMULIN R SLIDING SCALE, THE POTASSIUM AND MAGNESIUM PROTOCOLS. RESUME HOME MEDS. MONITOR LABS AND CHEST XRAY (2) Chest pain Status: Acute Qualifiers: Chest pain type: unspecified Qualified Code(s): R07.9 - Chest pain, unspecified (3) SOB (shortness of breath) Status: Acute (4) Hyperglycemia Status: Acute (5) Anemia Status: Acute Qualifiers: Anemia type: iron deficiency Iron deficiency anemia type: unspecified iron deficiency Qualified Code(s): D50.9 - Iron deficiency anemia, unspecified (6) Generalized weakness Status: Acute (7) CAD (coronary artery disease) Status: Chronic Qualifiers: Coronary Disease-Associated Artery/Lesion type: [place] artery [place] vs. transplanted heart: [place] heart Associated angina: with stable angina Qualified Code(s): I25.118 - Atherosclerotic heart disease of [place] coronary artery with other forms of angina pectoris (8) GERD (gastroesophageal reflux disease) Status: Chronic Qualifiers: Esophagitis presence: esophagitis presence not specified Qualified Code(s): K21.9 - Gastro-esophageal reflux disease without esophagitis (9) HTN (hypertension) Status: Chronic Qualifiers: Hypertension type: primary hypertension Qualified Code(s): I10 - Essential (primary) hypertension (10) Hyperlipidemia Status: Chronic Qualifiers: Hyperlipidemia type: mixed hyperlipidemia Qualified Code(s): E78.2 - Mixed hyperlipidemia
[2022-07-20] MEDS: SNACK - Diabetic Appropriate PO SCH (20:00)
[2022-07-20] MEDS: PROVENTIL NEB TX 0.083% 2.5MG/ 3ML NEB PRN (20:55)
[2022-07-20] MEDS: ROXICODONE TAB 5 MG PO PRN (21:26)
[2022-07-20] MEDS: FLOMAX PO SCH (21:27)
[2022-07-20] MEDS: XALATAN OP SCH (21:30)
[2022-07-21] MEDS: GLUTOSE 15 GEL ORAL PO PRN (04:29)
[2022-07-21 04:49] LABS: BASOPHILS # (AUTO) 0.1 X10^3/uL (0.0-0.1); BASOPHILS % (AUTO) 1.5 % (0.2-1.0); EOSINOPHILS # (AUTO) 0.3 x10^3/uL (0.0-0.2); EOSINOPHILS % (AUTO) 3.9 % (0.9-2.9); HEMATOCRIT 27.2 % (42.0-54.0); HEMOGLOBIN 8.3 g/dL (13.5-18.0); LYMPHOCYTES # (AUTO) 1.7 X10^3/uL (1.3-2.9); MEAN CORPUSCULAR HEMOGLOBIN 24.2 pg (27.0-34.0); MEAN CORPUSCULAR HGB CONC 30.6 g/dL (33.0-35.0); MEAN CORPUSCULAR VOLUME 79.2 fL (80.0-100.0); MEAN PLATELET VOLUME 7.9 fL (7.4-11.0); MONOCYTES # (AUTO) 0.5 x10^3/uL (0.3-0.8); MONOCYTES % (AUTO) 7.1 % (0.0-13.0); NEUTROPHILS # (AUTO) 4.1 x10^3/uL (2.2-4.8); NEUTROPHILS % (AUTO) 61.5 % (42.0-75.0); RED BLOOD COUNT 3.43 X10^6/uL (4.7-6.0); RED CELL DISTRIBUTION WIDTH 17.8 % (11.6-16.5); WHITE BLOOD COUNT 6.6 X10^3/uL (3.6-10.0)
[2022-07-21 05:03] LABS: ALANINE AMINOTRANSFERASE 28 Units/L (12-78); ALBUMIN 2.9 g/dL (3.4-5.0); ALKALINE PHOSPHATASE 134 Units/L (46-116); ASPARTATE AMINO TRANSFERASE 21 Units/L (15-37); BLOOD UREA NITROGEN 23 mg/dL (7-18); CALCIUM 8.1 mg/dL (8.5-10.1); CARBON DIOXIDE 29.2 mmol/L (21-32); CHLORIDE 104 mmol/L (98-107); SODIUM 140 mmol/L (136-145); TOTAL PROTEIN 7.2 g/dL (6.4-8.2); eGFR NON BLACK RACES 53 (>60)
[2022-07-21] MEDS: PROVENTIL NEB TX 0.083% 2.5MG/ 3ML NEB PRN (08:35)
[2022-07-21] MEDS: LASIX IVP SCH ×2 (08:59→16:30)
[2022-07-21] MEDS: K-DUR TAB 20 MEQ PO PRN (09:00)
[2022-07-21] MEDS: CYMBALTA PO SCH (09:00)
[2022-07-21] MEDS: ELIQUIS PO SCH ×2 (09:00→21:03)
[2022-07-21] MEDS: BUSPAR PO SCH ×2 (09:01→21:00)
[2022-07-21] MEDS: COREG TAB 12.5 MG PO SCH ×2 (09:01→21:03)
[2022-07-21] MEDS: SYNTHROID 50 mcg TAB PO SCH (09:01)
[2022-07-21] MEDS: MICRO K EXTEN CAP 10 MEQ PO SCH (09:01)
[2022-07-21] MEDS: ZANAFLEX PO SCH ×2 (09:01→21:04)
[2022-07-21] MEDS: ALPHAGAN 0.2% OPHTH SOLN OP SCH (09:02)
[2022-07-21] MEDS: DIAMOX PO SCH ×2 (09:07→21:05)
[2022-07-21] MEDS: NovoLIN R (or HumuLIN R) SC PRN (11:38)
--- NOTE | 2022-07-21 12:36 | PCM.PROG ---
Progress Note - Progress Note for Day of Date of Exam: 07/20/22 - Subjective Subjective: IS CURRENTLY OBSERVATION STATUS FOR TREATMENT OF CONGESTIVE HEART FAILURE, CHEST PAIN RULE OUT ACUTE CT, SHORTNESS OF BREATH, ANEMIA, AND GENERALIZED WEAKNESS. HE HAS A PMH OF DM II, CAD, GERD, HTN, AND HYPERLIPIDEMIA. ON EXAMINATION TODAY, PATIENT IS ALERT AND ORIENTED, LYING IN B ED ON MORNING ROUNDS. HE DENIES CHEST PAIN AT THE PRESENT TIME, BUT DOES REPORT HAVING AN EPISODE EARLIER THIS MORNING. HE CONTINUES WITH COMPLAINTS OF SHORTNESS OF BREATH AND GENERALIZED WEAKNESS, BUT DOES REPORT SLIGHT IMPROVEMENT IN SYMPTOMS TODAY. HE REPORTS DIFFICULTY URINATING THIS MORNING. ON EXAMINATION, HEART IS REGULAR IN RATE AND RHYTHM. BILATERAL LUNGS ARE NOTED WITH DIMINISHED LUNG SOUNDS THROUGHOUT. ABDOMEN IS FLAT, SOFT, AND NON-TENDER WITH NORMAL BOWEL SOUNDS NOTED IN ALL QUADRANTS. TRACE LOWER EXTREMITY EDEMA NOTED. HIS VITALS THIS MORNING ARE: 97.7-68-20-100%-141/66. HE IS CURRENTLY UTILIZING OXYGEN VIA NASAL CANNULA AT 2 LPM. LABS WERE OBTAINED. WBC 8.0, RBC 3.49, HGB 8.5, HCT 27.8, PLT COUNT 258, SODIUM 136, POTASSIUM 3.5, CHLORIDE 103, BUN 25, CREATININE 1.29, GLUCOSE 53, CALCIUM 8.2, AST 29, ALT 28, ALK PHOS 135, BNP 741, TOTAL PROTEIN 7.2, ALBUMIN 2.9. HE IS CURRENTLY RECEIVING LASIX 20MG IV BID, OTBS ACHS, HUMULIN R SLIDING SCALE, THE POTASSIUM AND MAGNESIUM PROTOCOLS. HIS HOME MEDICATIONS OF DIAMOX, PROVENTIL NEBS PRN, ELIQUIS, ALPHAGAN, BUSPAR, COREG, CYMBALTA, XALATAN EYE DROPS, SYNTHROID, ROXICODONE PRN, LYRICA, AND ZANAFLEX WERE RESUMED. WE WILL CONTINUE WITH CURRENT PLAN OF CARE TODAY AND ADD FLOMAX 0.4MG PO HS. OTHERWISE, WE WILL FOLLOW-UP WITH AM LABS AND CHEST XRAY AND CONTINUE TO MONITOR. TIME SPENT ON CLINICAL ASSESSMENT, REVIWING LABS AND LUCI GING, DECISION MAKING, AND DOCUMENTATION GREATER THAN 45 MINUTES. - Past Medical Family Social History Past Med/Fam/Surg Hx: No changes since H&P Allergies: Allergies fluoxetine [From Prozac] Allergy (Verified 07/17/22 09:52) - Review of Systems ROS: No change since H&P - Vital Signs and I&O's Vital Signs: Temperature 97.9 F Pulse Rate [Radial] 65 Pulse Rate 70 Respiratory Rate 18 Blood Pressure [Right Calf] 111/58 Blood Pressure [Left Arm] 127/63 Blood Pressure [Right Arm] 120/60 Blood Pressure 173/94 O2 Sat by Pulse Oximetry 100 Intake and Output: Intake & Output 07/19/22 07/20/22 07/21/22 07/22/22 11:59 11:59 11:59 11:59 Intake Total 1505 / 1505 830 / 830 1540 / 1540 Output Total 2250 / 2250 1999 2340 / 2340 Balance -745 / -745 -1170 / -1170 -800 / -800 - Physical Exam Oriented: Normal Eyes: Normal Ear: Normal Nose: Normal Throat: Normal Respiratory: Generalized, Diminished Cardiovascular: Edema (TRACE LOWER EXTREMITY EDEMA ) : Normal Auscultation: Bowel Sounds: Normal Palpation: Normal Tenderness: Normal Skin: Normal Musculoskeletal: Normal Psychiatric: Normal Mood Description: Calm Affect: Normal Speech Pattern: Clear, Appropriate - Laboratory and Diagnostics Result Diagrams: 07/21/22 04:30 07/21/22 04:30 Labs: Laboratory WBC 6.6 X10^3/uL (3.6-10.0) 07/21/22 04:30 RBC 3.43 X10^6/uL (4.7-6.0) L 07/21/22 04:30 Hgb 8.3 g/dL (13.5-18.0) L 07/21/22 04:30 Hct 27.2 % (42.0-54.0) L 07/21/22 04:30 MCV 79.2 fL (80.0-100.0) L 07/21/22 04:30 MCH 24.2 pg (27.0-34.0) L 07/21/22 04:30 MCHC 30.6 g/dL (33.0-35.0) L 07/21/22 04:30 RDW 17.8 % (11.6-16.5) H 07/21/22 04:30 Plt Count 308 X10^3/uL (150.0-450.0) 07/21/22 04:30 MPV 7.9 fL (7.4-11.0) 07/21/22 04:30 Neut % (Auto) 61.5 % (42.0-75.0) 07/21/22 04:30 Lymph % (Auto) 26.0 % (21.0-51.0) 07/21/22 04:30 [place] % (Auto) 7.1 % (0.0-13.0) 07/21/22 04:30 Eos % (Auto) 3.9 % (0.9-2.9) H 07/21/22 04:30 Baso % (Auto) 1.5 % (0.2-1.0) H 07/21/22 04:30 Neut # (Auto) 4.1 x10^3/uL (2.2-4.8) 07/21/22 04:30 Lymph # (Auto) 1.7 X10^3/uL (1.3-2.9) 07/21/22 04:30 [place] # (Auto) 0.5 x10^3/uL (0.3-0.8) 07/21/22 04:30 Eos # (Auto) 0.3 x10^3/uL (0.0-0.2) H 07/21/22 04:30 Baso # (Auto) 0.1 X10^3/uL (0.0-0.1) 07/21/22 04:30 Absolute Nucleated RBC 0.0 /100WBC 07/21/22 04:30 Sodium 140 mmol/L (136-145) 07/21/22 04:30 Corrected Sodium TNP 07/21/22 04:30 Potassium 3.3 mmol/L (3.5-5.1) L 07/21/22 04:30 Chloride 104 mmol/L (98-107) 07/21/22 04:30 Carbon Dioxide 29.2 mmol/L (21-32) 07/21/22 04:30 BUN 23 mg/dL (7-18) H 07/21/22 04:30 Creatinine 1.40 mg/dL (0.70-1.30) H 07/21/22 04:30 Est GFR (MDRD) Af Amer > 60 (>60) 07/21/22 04:30 Est GFR (MDRD) Non-Af 53 (>60) L 07/21/22 04:30 Glucose 41 mg/dL (65-99) L* 07/21/22 04:30 POC Glucose (mg/dL) 244 mg/dL (65-99) H 07/21/22 11:03 Calcium 8.1 mg/dL (8.5-10.1) L 07/21/22 04:30 Corrected Calcium 9.0 mg/dL (8.5-10.1) 07/21/22 04:30 Magnesium 2.3 mg/dL (2.0-2.9) 07/19/22 05:39 Iron 26 ug/dL (50-175) L 07/17/22 12:36 Transferrin 327 mg/dL (202-364) 07/17/22 12:36 Ferritin 93 ng/mL (26-388) 07/17/22 12:36 Total Bilirubin 0.50 mg/dL (0.2-1.0) 07/21/22 04:30 AST 21 Units/L (15-37) 07/21/22 04:30 ALT 28 Units/L (12-78) 07/21/22 04:30 Alkaline Phosphatase 134 Units/L (46-116) H 07/21/22 04:30 Creatine Kinase 32 Units/L (39-308) L 07/17/22 22:10 Troponin I High Sens 30.8 ng/L (4.0-60.0) 07/17/22 22:10 B-Natriuretic Peptide 1270 pg/mL (0-79) H* 07/21/22 04:30 Total Protein 7.2 g/dL (6.4-8.2) 07/21/22 04:30 Albumin 2.9 g/dL (3.4-5.0) L 07/21/22 04:30 Globulin 4.3 g/dL (2.5-4.5) 07/21/22 04:30 Albumin/Globulin Ratio 0.7 Ratio (1.1-2.1) L 07/21/22 04:30 Vitamin B12 645 pg/mL (193-986) 07/17/22 12:36 Folate 15.9 ng/mL (>8.6) 07/17/22 12:36 Acetone, Semi-Quant Negative (NEGATIVE) 07/17/22 10:26 - Plan (1) Congestive heart failure Status: Acute Qualifiers: Heart failure type: unspecified Heart failure chronicity: acute on chronic Qualified Code(s): I50.9 - Heart failure, unspecified Plan: SUPPLEMENTAL OXYGEN, LASIX 20MG IV BID, FLOMAX 0.4MG PO HS, OTBS ACHS, HUMULIN R SLIDING SCALE, THE POTASSIUM AND MAGNESIUM PROTOCOLS. RESUME HOME MEDS. MONITOR LABS AND CHEST XRAY (2) Chest pain Status: Acute Qualifiers: Chest pain type: unspecified Qualified Code(s): R07.9 - Chest pain, unspecified (3) SOB (shortness of breath) Status: Acute (4) Hyperglycemia Status: Acute (5) Anemia Status: Acute Qualifiers: Anemia type: iron deficiency Iron deficiency anemia type: unspecified iron deficiency Qualified Code(s): D50.9 - Iron deficiency anemia, unspecified (6) Generalized weakness Status: Acute (7) CAD (coronary artery disease) Status: Chronic Qualifiers: Coronary Disease-Associated Artery/Lesion type: [place] artery [place] vs. transplanted heart: [place] heart Associated angina: with stable angina Qualified Code(s): I25.118 - Atherosclerotic heart disease of [place] coronary artery with other forms of angina pectoris (8) GERD (gastroesophageal reflux disease) Status: Chronic Qualifiers: Esophagitis presence: esophagitis presence not specified Qualified Code(s): K21.9 - Gastro-esophageal reflux disease without esophagitis (9) HTN (hypertension) Status: Chronic Qualifiers: Hypertension type: primary hypertension Qualified Code(s): I10 - Essential (primary) hypertension (10) Hyperlipidemia Status: Chronic Qualifiers: Hyperlipidemia type: mixed hyperlipidemia Qualified Code(s): E78.2 - Mixed hyperlipidemia
--- NOTE | 2022-07-21 14:23 | RAD ---
HISTORYCHEST PAIN, SOB, CHFSTUDYCHEST, 1 VIEWCOMPARISONChest x-ray 07/20/2022FINDINGSThere are post sternotomy surgical changes with CABG and valvular replacement. The heart is stable in size. The pulmonary vasculature is within normal limits. The lungs appear clear. No pneumothorax, pleural effusion, or focal consolidation. No acute osseous abnormality.IMPRESSIONNo acute cardiopulmonary findings .Electronically signed by: Derrell Narvaez (Jul 21, 2022 14:21:52)
[2022-07-21] MEDS: FLOMAX PO SCH (21:05)
[2022-07-21] MEDS: XALATAN OP SCH (22:26)
[2022-07-21] MEDS: SNACK - Diabetic Appropriate PO SCH (22:27)
[2022-07-22 06:44] LABS: BASOPHILS % (AUTO) 0.8 % (0.2-1.0); EOSINOPHILS # (AUTO) 0.4 x10^3/uL (0.0-0.2); HEMATOCRIT 25.8 % (42.0-54.0); HEMOGLOBIN 8.2 g/dL (13.5-18.0); LYMPHOCYTES # (AUTO) 1.8 X10^3/uL (1.3-2.9); LYMPHOCYTES % (AUTO) 31.8 % (21.0-51.0); MEAN CORPUSCULAR HEMOGLOBIN 24.7 pg (27.0-34.0); MEAN CORPUSCULAR HGB CONC 31.6 g/dL (33.0-35.0); MEAN PLATELET VOLUME 7.9 fL (7.4-11.0); MONOCYTES # (AUTO) 0.6 x10^3/uL (0.3-0.8); MONOCYTES % (AUTO) 10.5 % (0.0-13.0); NEUTROPHILS # (AUTO) 2.8 x10^3/uL (2.2-4.8); NEUTROPHILS % (AUTO) 49.9 % (42.0-75.0); RED CELL DISTRIBUTION WIDTH 17.6 % (11.6-16.5); WHITE BLOOD COUNT 5.5 X10^3/uL (3.6-10.0)
--- NOTE | 2022-07-22 06:58 | RAD ---
HISTORYCHF, SOBSTUDYCHEST, 1 [id number]/01/2023.TECHNIQUEPA or AP view of the chestFINDINGSCardiac valve noted. Status post median sternotomy and CABG. External wires noted. Cardiac and mediastinal contours are within normal limits. No consolidation or segmental lung collapse. Blunted costophrenic sulci. No pneumothorax.IMPRESSIONBlunted costophrenic sulci can be seen with small pleural effusions or pleuro-parynchemal scarring.Electronically signed by: Rashad Herring (Jul 22, 2022 06:57:11)
[2022-07-22 07:18] LABS: ALANINE AMINOTRANSFERASE 29 Units/L (12-78); ALKALINE PHOSPHATASE 140 Units/L (46-116); ASPARTATE AMINO TRANSFERASE 28 Units/L (15-37); BLOOD UREA NITROGEN 23 mg/dL (7-18); CALCIUM 8.3 mg/dL (8.5-10.1); CARBON DIOXIDE 24.9 mmol/L (21-32); CHLORIDE 104 mmol/L (98-107); COR CA(FOR HYPOALB) 9.1 mg/dL (8.5-10.1); CREATININE 1.33 mg/dL (0.70-1.30); SODIUM 139 mmol/L (136-145); TOTAL PROTEIN 7.4 g/dL (6.4-8.2); eGFR NON BLACK RACES 56 (>60)
[2022-07-22] MEDS ORDERED: LANTUS SC SCH (09:00)
[2022-07-22 09:35] VITALS: BP 141/70
[2022-07-22] MEDS: SYNTHROID 50 mcg TAB PO SCH (09:44)
[2022-07-22] MEDS: COREG TAB 12.5 MG PO SCH (09:46)
[2022-07-22] MEDS: ALPHAGAN 0.2% OPHTH SOLN OP SCH (09:46)
[2022-07-22] MEDS: BUSPAR PO SCH (09:47)
[2022-07-22] MEDS: ZANAFLEX PO SCH (09:47)
[2022-07-22] MEDS: CYMBALTA PO SCH (09:47)
[2022-07-22] MEDS: DIAMOX PO SCH (09:48)
[2022-07-22] MEDS: MICRO K EXTEN CAP 10 MEQ PO SCH (09:48)
[2022-07-22] MEDS: ELIQUIS PO SCH (09:48)
[2022-07-22] MEDS: LASIX IVP SCH (09:48)
--- NOTE | 2022-07-22 12:29 | PCM.PROG ---
Progress Note - Progress Note for Day of Date of Exam: 07/21/22 - Subjective Subjective: IS CURRENTLY OBSERVATION STATUS FOR TREATMENT OF CONGESTIVE HEART FAILURE, CHEST PAIN RULE OUT ACUTE [place], SHORTNESS OF BREATH, ANEMIA, AND GENERALIZED WEAKNESS. HE HAS A PMH OF DM II, CAD, GERD, HTN, AND HYPERLIPIDEMIA. ON EXAMINATION TODAY, PATIENT IS ALERT AND ORIENTED, LYING IN B ED ON MORNING ROUNDS. HE DENIES CHEST PAIN AT THE PRESENT TIME. HE CONTINUES WITH COMPLAINTS OF SHORTNESS OF BREATH AND GENERALIZED WEAKNESS, BUT DOES REPORT SLIGHT IMPROVEMENT IN SYMPTOMS TODAY. STAFF REPORTS THAT PATIENT HAS HAD A FEW RUNS OF V-TACH ON THE [employer]. ON EXAMINATION, HEART IS REGULAR IN RATE AND RHYTHM. BILATERAL LUNGS ARE NOTED WITH DIMINISHED LUNG SOUNDS THROUGHOUT. ABDOMEN IS FLAT, SOFT, AND NON-TENDER WITH NORMAL BOWEL SOUNDS NOTED IN ALL QUADRANTS. TRACE LOWER EXTREMITY EDEMA NOTED. HIS VITALS THIS MORNING ARE: 98.1-68-18-100%-136/64. HE IS CURRENTLY UTILIZING OXYGEN VIA NASAL CANNULA AT 3 LPM. LABS WERE OBTAINED. WBC 6.6, RBC 3.43, HGB 8.3, HCT 27.2, SODIUM 140, POTASSIUM 3.3, BUN 23, CREATININE 1.40, GLUCOSE 41, AST 21, ALT 28, ALK PHOS 134, BNP 1270, TOTAL PROTEIN 7.2, ALBUMIN 2.9. HE WAS GIVEN GLUCOSE GEL AND GLUCOSE INCREASED TO 86g/dL. A CHEST XRAY WAS OBTAINED AND REVEALED: There are post sternotomy surgical changes with CABG and valvular replacement. The heart is stable in size. The pulmonary vasculature is within normal limits. The lungs appear clear. No pneumothorax, pleural effusion, or focal consolidation. No acute osseous abnormality. 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 HE IS CURRENTLY RECEIVING LASIX 20MG IV BID, FLOMAX 0.4MG HS, OTBS ACHS, HUMULIN R SLIDING SCALE, THE POTASSIUM AND MAGNESIUM PROTOCOLS. HIS HOME MEDICATIONS OF DIAMOX, PROVENTIL NEBS PRN, ELIQUIS, ALPHAGAN, BUSPAR, COREG, CYMBALTA, XALATAN EYE DROPS, SYNTHROID, ROXICODONE PRN, LYRICA, AND ZANAFLEX WERE RESUMED. WE WILL HOLD HIS LANTUS DUE TO HYPOGLYCEMIA. OTHERWISE, WE WILL CONTINUE WITH CURRENT PLAN OF CARE. WE WILL FOLLOW-UP WITH AM LABS AND CHEST XRAY AND CONTINUE TO MONITOR. TIME SPENT ON CLINICAL ASSESSMENT, REVIWING LABS AND IMAGING, DECISION MAKING, AND DOCUMENTATION GREATER THAN 45 MINUTES. - Past Medical Family Social History Past Med/Fam/Surg Hx: No changes since H&P Allergies: Allergies fluoxetine [From Prozac] Allergy (Verified 07/17/22 09:52) - Review of Systems ROS: No change since H&P - Vital Signs and I&O's Vital Signs: Temperature 99.1 F Pulse Rate [Radial] 76 Pulse Rate 80 Respiratory Rate 18 Blood Pressure [Right Calf] 111/58 Blood Pressure [Left Arm] 127/63 Blood Pressure [Right Arm] 141/70 Blood Pressure 173/94 O2 Sat by Pulse Oximetry 97 Intake and Output: Intake & Output 07/20/22 07/21/22 07/22/22 07/23/22 11:59 11:59 11:59 11:59 Intake Total 830 / 830 1540 / 1540 1030 / 1030 Output Total 1999 2340 / 2340 1400 / 1400 Balance -1170 / -1170 -800 / -800 -370 / -370 - Physical Exam Oriented: Normal Eyes: Normal Ear: Normal Nose: Normal Throat: Normal Respiratory: Generalized, Diminished Cardiovascular: Edema (TRACE LOWER EXTREMITY EDEMA ) : Normal Auscultation: Bowel Sounds: Normal Palpation: Normal Tenderness: Normal Skin: Normal Musculoskeletal: Normal Psychiatric: Normal Mood Description: Calm Affect: Normal Speech Pattern: Clear, Appropriate - Laboratory and Diagnostics Result Diagrams: 07/22/22 06:14 07/22/22 06:14 Labs: Laboratory WBC 5.5 X10^3/uL (3.6-10.0) 07/22/22 06:14 RBC 3.30 X10^6/uL (4.7-6.0) L 07/22/22 06:14 Hgb 8.2 g/dL (13.5-18.0) L 07/22/22 06:14 Hct 25.8 % (42.0-54.0) L 07/22/22 06:14 MCV 78.0 fL (80.0-100.0) L 07/22/22 06:14 MCH 24.7 pg (27.0-34.0) L 07/22/22 06:14 MCHC 31.6 g/dL (33.0-35.0) L 07/22/22 06:14 RDW 17.6 % (11.6-16.5) H 07/22/22 06:14 Plt Count 247 X10^3/uL (150.0-450.0) 07/22/22 06:14 MPV 7.9 fL (7.4-11.0) 07/22/22 06:14 Neut % (Auto) 49.9 % (42.0-75.0) 07/22/22 06:14 Lymph % (Auto) 31.8 % (21.0-51.0) 07/22/22 06:14 [place] % (Auto) 10.5 % (0.0-13.0) 07/22/22 06:14 Eos % (Auto) 7.0 % (0.9-2.9) H 07/22/22 06:14 Baso % (Auto) 0.8 % (0.2-1.0) 07/22/22 06:14 Neut # (Auto) 2.8 x10^3/uL (2.2-4.8) 07/22/22 06:14 Lymph # (Auto) 1.8 X10^3/uL (1.3-2.9) 07/22/22 06:14 [place] # (Auto) 0.6 x10^3/uL (0.3-0.8) 07/22/22 06:14 Eos # (Auto) 0.4 x10^3/uL (0.0-0.2) H 07/22/22 06:14 Baso # (Auto) 0.0 X10^3/uL (0.0-0.1) 07/22/22 06:14 Absolute Nucleated RBC 0.0 /100WBC 07/22/22 06:14 Sodium 139 mmol/L (136-145) 07/22/22 06:14 Corrected Sodium TNP 07/22/22 06:14 Potassium 4.0 mmol/L (3.5-5.1) 07/22/22 06:14 Chloride 104 mmol/L (98-107) 07/22/22 06:14 Carbon Dioxide 24.9 mmol/L (21-32) 07/22/22 06:14 BUN 23 mg/dL (7-18) H 07/22/22 06:14 Creatinine 1.33 mg/dL (0.70-1.30) H 07/22/22 06:14 Est GFR (MDRD) Af Amer > 60 (>60) 07/22/22 06:14 Est GFR (MDRD) Non-Af 56 (>60) L 07/22/22 06:14 Glucose 70 mg/dL (65-99) 07/22/22 06:14 POC Glucose (mg/dL) 109 mg/dL (65-99) H 07/22/22 04:19 Calcium 8.3 mg/dL (8.5-10.1) L 07/22/22 06:14 Corrected Calcium 9.1 mg/dL (8.5-10.1) 07/22/22 06:14 Magnesium 1.9 mg/dL (2.0-2.9) L 07/22/22 06:14 Iron 26 ug/dL (50-175) L 07/17/22 12:36 Transferrin 327 mg/dL (202-364) 07/17/22 12:36 Ferritin 93 ng/mL (26-388) 07/17/22 12:36 Total Bilirubin 0.60 mg/dL (0.2-1.0) 07/22/22 06:14 AST 28 Units/L (15-37) 07/22/22 06:14 ALT 29 Units/L (12-78) 07/22/22 06:14 Alkaline Phosphatase 140 Units/L (46-116) H 07/22/22 06:14 Creatine Kinase 32 Units/L (39-308) L 07/17/22 22:10 Troponin I High Sens 30.8 ng/L (4.0-60.0) 07/17/22 22:10 B-Natriuretic Peptide 1130 pg/mL (0-79) H* 07/22/22 06:14 Total Protein 7.4 g/dL (6.4-8.2) 07/22/22 06:14 Albumin 3.0 g/dL (3.4-5.0) L 07/22/22 06:14 Globulin 4.4 g/dL (2.5-4.5) 07/22/22 06:14 Albumin/Globulin Ratio 0.7 Ratio (1.1-2.1) L 07/22/22 06:14 Vitamin B12 645 pg/mL (193-986) 07/17/22 12:36 Folate 15.9 ng/mL (>8.6) 07/17/22 12:36 Acetone, Semi-Quant Negative (NEGATIVE) 07/17/22 10:26 - Plan (1) Congestive heart failure Status: Acute Qualifiers: Heart failure type: unspecified Heart failure chronicity: acute on chronic Qualified Code(s): I50.9 - Heart failure, unspecified Plan: SUPPLEMENTAL OXYGEN, LASIX 20MG IV BID, FLOMAX 0.4MG PO HS, OTBS ACHS, HUMULIN R SLIDING SCALE, THE POTASSIUM AND MAGNESIUM PROTOCOLS. RESUME HOME MEDS. MONITOR LABS AND CHEST XRAY (2) Chest pain Status: Acute Qualifiers: Chest pain type: unspecified Qualified Code(s): R07.9 - Chest pain, unspecified (3) SOB (shortness of breath) Status: Acute (4) Hyperglycemia Status: Acute (5) Anemia Status: Acute Qualifiers: Anemia type: iron deficiency Iron deficiency anemia type: unspecified iron deficiency Qualified Code(s): D50.9 - Iron deficiency anemia, unspecified (6) Generalized weakness Status: Acute (7) CAD (coronary artery disease) Status: Chronic Qualifiers: Coronary Disease-Associated Artery/Lesion type: [place] artery [place] vs. transplanted heart: [place] heart Associated angina: with stable angina Qualified Code(s): I25.118 - Atherosclerotic heart disease of [place] coronary artery with other forms of angina pectoris (8) GERD (gastroesophageal reflux disease) Status: Chronic Qualifiers: Esophagitis presence: esophagitis presence not specified Qualified Code(s): K21.9 - Gastro-esophageal reflux disease without esophagitis (9) HTN (hypertension) Status: Chronic Qualifiers: Hypertension type: primary hypertension Qualified Code(s): I10 - Essential (primary) hypertension (10) Hyperlipidemia Status: Chronic Qualifiers: Hyperlipidemia type: mixed hyperlipidemia Qualified Code(s): E78.2 - Mixed hyperlipidemia
== END 2022-07-22 11:30 | disposition home health service (06) ==
LOC: ER 09:25 → MED/SURG 09:25
PROVIDERS: ADMIT Family Medicine; ATTEND Internal Medicine

== ENCOUNTER 2022-08-06 07:41 | Observation (INO) ==
[2022-08-06 08:09] VITALS: BMI 20.7
--- NOTE | 2022-08-06 08:19 | DR.SOBA ---
HPI Time Seen Time Seen by Provider: 08/06/22 08:16 Primary Care Physician Primary Care Physician: VIKI Complaints Chief Complaint Doctors Comments: cough with occasional sob and epigastric pain when he coughs for 2-3 weeks. Was seen by pcp yesterday and stated that he was supposed to get oxygen delivered to his home yesterday. Chief Complaint:: PT C/O SHORTNESS OF BREATH. PATIENT STATES HE HAS BEEN HAVING EPISODES OF SOB ON AND OFF OVER THE PAST FEW WEEKS, BUT THIS MORNING HE SEEMED IF HE COUD NOT CATCH HIS BREATH. PATIENT WAS SEEN BY PCP YESTERDAY. PATIENTS COLOR IS NOTED TO YELLOW. O2 IN PLACE AT 2LPM COVID-19 Coronavirus risk:travel/contact w/high risk person: No Has patient experienced Coronavirus symptoms: No Source History Provided: Patient and EMS Mode of Arrival Mode of Arrival: EMS Timing Onset of Chief Complaint: 08/06/22 PMH PMH Past Medical History: Yes Past Medical History: CHF, COPD, Coronary Artery Disease, Diabetes, Dyslipidemia, Hypertension and GA Past Surgical History: Yes Surgical History: Appendectomy and CABG/Valve Surgery Family History History of Family Medical Conditions: Yes Family Medical History: Diabetes Mellitus, Cancer, [place], Coronary Artery Disease, Heart Failure, Sudden Cardiac and Hypertension Social History Does patient currently use any type of tobacco product: Yes Have you used tobacco products in the last 12 months: Yes Type of Tobacco Use: Cigarettes Does any household member use tobacco: Yes Alcohol Use: None Do you use any recreational Drugs:: No Lives With: Family Lives Where: Home Travel Risk Coronavirus risk:travel/contact w/high risk person: No Has patient experienced Coronavirus symptoms: No Infectious screening In the last 2 months have you had wt loss of >10#?: NO Have you had fever, night sweats or hemotysis?: No Have you traveled outside the country in the last 6 months?: No Isolation: Standard ROS Review of Systems Constitutional: Malaise and Other (SOB WITH HYPOXIA FOR 2 WEEKS) Eyes: No Symptoms Reported ENTM: No Symptoms Reported Respiratoy: Non-Productive Cough and Short of Breath Cardiovascular: No Symptoms Reported Gastrointestinal/Abdominal: Abdominal Pain (EPIGASTRIUM) Genitourinary: No Symptoms Reported Neurological: No Symptoms Reported Musculoskeletal: No Symptoms Reported Integumentary: No Symptoms Reported Hematologic/Lymphatic: No Symptoms Reported Endocrine: No Symptoms Reported Psychiatric: No Symptoms Reported PE Vital Signs Vitals: Temperature 98.0 F Pulse Rate 97 Respiratory Rate 23 Blood Pressure [Right Calf] 111/58 Blood Pressure [Left Arm] 127/63 Blood Pressure [Right Arm] 141/70 Blood Pressure 180/96 O2 Sat by Pulse Oximetry 100 General Limitations: No Limitations General Appearance: Lethargic and In Distress (MILD DISTRESS) Head Head Exam: Normal Inspection, Atraumatic and Normocephalic Eyes Eye exam: Normal Appearance, PERRL and EOMI ENT ENT Exam: Normal Exam Neck Neck Exam: Normal Inspection, Full ROM and Trachea Midline Chest Chest Inspection: Normal Inspection and Symmetric Chest Wall Rise Respiratory Respiratory Exam: Normal Lung Sounds Bilat Respiratory Exam: Bilateral: Clear to Auscultation Cardiovascular Cardiovascular Exam: Regular Rate and Normal Rhythm Abdominal Exam Abdominal Exam: Normal Inspection and Normal Bowel Sounds Extremities Extremities Exam: Normal Inspection and Full ROM Back Back Exam: Normal Inspection and Full ROM Neurologic Neurological Exam: Alert, Oriented X3 and CN II-XII Intact Psychiatric Psychiatric Exam: Normal Affect Skin Skin Exam: Warm and Dry MDM Differential Diagnosis Differential Diagnosis: CHF, Pneumonia, URI and Other (PE) COURSE Treatment Treatment: PATIENT HAD LABS DONE AND HAD LOW H/H 8.2/26.3 BUT OTHE LABS WERE NORMAL EXCEPT D-DIMER OF 1.04 THAT WAS ELEVTED. HAD CTA OF CHEST THAT SHOWED BILATER PLEURAL EFFUSIONS AND SMALL PE'S IN FIGHT LOWER LOBE. DR DREW WAS CALLED AND HE WANTED THE THE PATIENT ADMITTED ON HEPARIN PROTOCHOL. ROR Labs Reviewed Laboratory Results Reviewed?: Yes Result Diagrams: 08/06/22 08:33 08/06/22 08:33 Laboratory: WBC 7.5 X10^3/uL (3.6-10.0) 08/06/22 08:33 RBC 3.41 X10^6/uL (4.7-6.0) L 08/06/22 08:33 Hgb 8.2 g/dL (13.5-18.0) L 08/06/22 08:33 Hct 26.3 % (42.0-54.0) L 08/06/22 08:33 MCV 77.3 fL (80.0-100.0) L 08/06/22 08:33 MCH 24.0 pg (27.0-34.0) L 08/06/22 08:33 MCHC 31.0 g/dL (33.0-35.0) L 08/06/22 08:33 RDW 18.3 % (11.6-16.5) H 08/06/22 08:33 Plt Count 232 X10^3/uL (150.0-450.0) 08/06/22 08:33 MPV 8.3 fL (7.4-11.0) 08/06/22 08:33 Neut % (Auto) 70.8 % (42.0-75.0) 08/06/22 08:33 Lymph % (Auto) 18.9 % (21.0-51.0) L 08/06/22 08:33 [place] % (Auto) 7.7 % (0.0-13.0) 08/06/22 08:33 Eos % (Auto) 1.6 % (0.9-2.9) 08/06/22 08:33 Baso % (Auto) 1.0 % (0.2-1.0) 08/06/22 08:33 Neut # (Auto) 5.3 x10^3/uL (2.2-4.8) H 08/06/22 08:33 Lymph # (Auto) 1.4 X10^3/uL (1.3-2.9) 08/06/22 08:33 [place] # (Auto) 0.6 x10^3/uL (0.3-0.8) 08/06/22 08:33 Eos # (Auto) 0.1 x10^3/uL (0.0-0.2) 08/06/22 08:33 Baso # (Auto) 0.1 X10^3/uL (0.0-0.1) 08/06/22 08:33 Absolute Nucleated RBC 0.0 /100WBC 08/06/22 08:33 PT 19.9 SECONDS (11.8-14.3) 08/06/22 08:33 INR Target Range - 08/06/22 08:33 INR 1.76 (0.8-1.3) H 08/06/22 08:33 APTT 34.3 SECONDS (22.9-36.5) 08/06/22 08:33 PTT Comment - 08/06/22 08:33 D-Dimer 1.04 ug/ml (0.0-0.57) H 08/06/22 08:33 Sample Site Rbra 08/06/22 09:03 ABG pH 7.470 (7.35-7.45) H 08/06/22 09:03 ABG pCO2 33.0 mmHg (35.0-45.0) L 08/06/22 09:03 ABG pO2 71.0 mmHg (80.0-100.0) L 08/06/22 09:03 ABG HCO3 24.0 mmol/L (22-26) 08/06/22 09:03 ABG O2 Saturation 95.0 % (90-100) 08/06/22 09:03 ABG Base Excess 0.8 mmol/L (-2.0-2.0) 08/06/22 09:03 [place] Test N/a 08/06/22 09:03 A-a Gradient 37.0 mmHg 08/06/22 09:03 FiO2 21.0 08/06/22 09:03 Blood Gas Comments Pt ciera well elj 08/06/22 09:03 Sodium 134 mmol/L (136-145) L 08/06/22 08:33 Corrected Sodium 137 mmol/L (136-145) 08/06/22 08:33 Potassium 4.9 mmol/L (3.5-5.1) 08/06/22 08:33 Chloride 101 mmol/L (98-107) 08/06/22 08:33 Carbon Dioxide 23.4 mmol/L (21-32) 08/06/22 08:33 BUN 29 mg/dL (7-18) H 08/06/22 08:33 Creatinine 1.30 mg/dL (0.70-1.30) 08/06/22 08:33 Est GFR (MDRD) Af Amer > 60 (>60) 08/06/22 08:33 Est GFR (MDRD) Non-Af 58 (>60) L 08/06/22 08:33 Glucose 224 mg/dL (65-99) H 08/06/22 08:33 Calcium 9.1 mg/dL (8.5-10.1) 08/06/22 08:33 Corrected Calcium 9.7 mg/dL (8.5-10.1) 08/06/22 08:33 Total Bilirubin 1.00 mg/dL (0.2-1.0) 08/06/22 08:33 AST 41 Units/L (15-37) H 08/06/22 08:33 ALT 57 Units/L (12-78) 08/06/22 08:33 Alkaline Phosphatase 146 Units/L (46-116) H 08/06/22 08:33 Total Protein 7.1 g/dL (6.4-8.2) 08/06/22 08:33 Albumin 3.2 g/dL (3.4-5.0) L 08/06/22 08:33 Globulin 3.9 g/dL (2.5-4.5) 08/06/22 08:33 Albumin/Globulin Ratio 0.8 Ratio (1.1-2.1) L 08/06/22 08:33 Amylase 33 Units/L (25-115) 08/06/22 08:33 Lipase 27 Units/L (73-393) L 08/06/22 08:33 Opioid Opioid Risk Tool Age (Jensen box if 16-45): No History of Preadolescent Sexual Abuse: No Total: 0 Total Score Risk Category: Low Risk Copyright: Jose CANO predicting aberrant behaviors Discharge Plan Diagnosis Discharge Problem: Pulmonary embolism, Pleural effusion Discharge Plan Patient Disposition: 09 ADMITTED INPATIENT Condition: Stable Prescriptions: No Action latanoprost 0.005 % drops 1 drp OPHTHALMIC (EYE) QPM carvedilol 12.5 mg tablet 1 tab PO BID insulin glargine [Lantus U-100 Insulin] 100 unit/mL solution 15 unit SUBCUT BID Label Comments: [NO ORIGINAL SIG] tizanidine 4 mg tablet 1 tab PO BID acetazolamide 250 mg tablet 1 tab PO BID meloxicam 7.5 mg tablet 1 tab PO QDAY levothyroxine 50 mcg tablet 1 tab PO QDAY brimonidine 0.2 % drops 1 drp OPHTHALMIC (EYE) DAILY Label Comments: [NO ORIGINAL SIG] insulin lispro 100 unit/mL solution 4 unit subcut AC Label Comments: PT STATES THAT SOMETIMES HE TAKES THIS AND SOMETIMES HE DOESNT buspirone 15 mg tablet 2 tab PO BID pregabalin 25 mg capsule 1 cap PO BID oxycodone 10 mg tablet 1 tab PO TID PRN tamsulosin 0.4 mg Capsule 0.4 mg PO QPM Qty: 30 3RF Rx Instructions: TAKE ONE CAPSULE AT BEDTIME potassium chloride 20 mEq Tablet Extended Release 20 meq PO QDAY Qty: 30 3RF Rx Instructions: TAKE ONE TABLET DAILY furosemide 40 mg tablet 40 mg PO BID PRN Rx Instructions: TAKE ONE TABLET TWICE A DAY aspirin 81 mg Tablet,Delayed Release (Dr/Ec) 81 mg PO QDAY dorzolamide-timolol 22.3-6.8 mg/mL drops 1 drp OPHTHALMIC (EYE) TID Label Comments: [NO ORIGINAL SIG] zolpidem 5 mg tablet 1 tab PO QPM PRN Eliquis 5 mg Tablet 5 mg PO BID duloxetine 30 mg Capsule,Delayed Release(Dr/Ec) 30 mg PO DAILY Health Concerns: Post Hospitalization: new medications and changes needed to prevent readmission or further decline. Pt educated and given instructions on all concerns. Plan of Treatment: Continue with present treatment and follow up plan. Pt is to keep follow up appointment as instructed and take medications as ordered. Orders to Discharge Patient Discharge Orders: Transfer (Routine); Ordered 08/06/22 Ordered By: Sage Roy Follow ups/Referrals Follow ups/Referrals: Derian Drew [Primary Care Provider] - 3 days
[2022-08-06 08:41] LABS: BASOPHILS # (AUTO) 0.1 X10^3/uL (0.0-0.1); HEMOGLOBIN 8.2 g/dL (13.5-18.0); MEAN CORPUSCULAR VOLUME 77.3 fL (80.0-100.0)
[2022-08-06 08:44] LABS: EOSINOPHILS # (AUTO) 0.1 x10^3/uL (0.0-0.2); EOSINOPHILS % (AUTO) 1.6 % (0.9-2.9); HEMATOCRIT 26.3 % (42.0-54.0); LYMPHOCYTES # (AUTO) 1.4 X10^3/uL (1.3-2.9); LYMPHOCYTES % (AUTO) 18.9 % (21.0-51.0); MEAN PLATELET VOLUME 8.3 fL (7.4-11.0); MONOCYTES # (AUTO) 0.6 x10^3/uL (0.3-0.8); MONOCYTES % (AUTO) 7.7 % (0.0-13.0); NEUTROPHILS # (AUTO) 5.3 x10^3/uL (2.2-4.8); NEUTROPHILS % (AUTO) 70.8 % (42.0-75.0); RED BLOOD COUNT 3.41 X10^6/uL (4.7-6.0); RED CELL DISTRIBUTION WIDTH 18.3 % (11.6-16.5); WHITE BLOOD COUNT 7.5 X10^3/uL (3.6-10.0)
[2022-08-06 08:52] LABS: ALANINE AMINOTRANSFERASE 57 Units/L (12-78); ALBUMIN 3.2 g/dL (3.4-5.0); ALKALINE PHOSPHATASE 146 Units/L (46-116); AMYLASE 33 Units/L (25-115); ASPARTATE AMINO TRANSFERASE 41 Units/L (15-37); BLOOD UREA NITROGEN 29 mg/dL (7-18); CALCIUM 9.1 mg/dL (8.5-10.1); CARBON DIOXIDE 23.4 mmol/L (21-32); CHLORIDE 101 mmol/L (98-107); COR CA(FOR HYPOALB) 9.7 mg/dL (8.5-10.1); COR NA(FOR HYPERGLY) 137 mmol/L (136-145); LIPASE 27 Units/L (73-393); SODIUM 134 mmol/L (136-145); TOTAL PROTEIN 7.1 g/dL (6.4-8.2); eGFR NON BLACK RACES 58 (>60)
[2022-08-06 09:11] LABS: ABG BASE EXCESS 0.8 mmol/L (-2.0-2.0)
--- NOTE | 2022-08-06 09:51 | RAD ---
HISTORYSOB WITH COUGHSTUDYCHEST, 1 [id number]/10/2023.TECHNIQUEPA or AP view of the chestFINDINGSStatus post median sternotomy and CABG. Cardiac valve prosthesis noted cardiac silhouette the within normal limits. Multiple external wires noted. There are hazy and interstitial right worse than left base pulmonary opacities blunted costophrenic sulci. No pneumothorax.IMPRESSIONHazy and interstitial bibasilar opacities may represent pulmonary edema or pneumonia. Recommend follow up imaging to document resolution after appropriate treatment.blunted costophrenic sulci can be seen with small pleural effusions or pleuro-parynchemal scarring.Electronically signed by: Rashad Herring (Aug 06, 2022 09:50:27)
--- NOTE | 2022-08-06 10:15 | CT ---
CTA CHESTCLINICAL INDICATION: SOBPROCEDURE: Non gated axial images of the chest were obtained with intravenous contrast according to pulmonary embolism protocol. MIPS were reconstructed Dose reduction techniques including Automated Exposure Control (AEC) and adjustment of mA and kV were utlized.COMPARISON:February 19, 2022FINDINGS:Filling defects can be seen within right lower lobe pulmonary arteries posteriorly no evidence of right heart strain. Severe coronary calcification.The heart is normal in size . No pericardial effusion. Extensive mediastinal adenopathy. Severe emphysema. Moderate sized bilateral pleural effusions..Airways are patent . No suspicious pulmonary nodules or masses .Limited images of the upper abdomen are unremarkable.No aggressive osseous lesions.IMPRESSION:1. Small PEs in the right lower lobe without evidence of right heart strain.2. Moderate-sized bilateral pleural effusions.3. Extensive mediastinal adenopathy appears to be unchanged from prior. Correlate with history.Electronically signed by: PUNEET WOODS (Aug 06, 2022 10:13:23)
[2022-08-06] MEDS ORDERED: HEPARIN SODIUM INJ 5000 UNITS IVP ONE (11:50)
[2022-08-06] MEDS ORDERED: HEPARIN SODIUM INJ 5000 UNITS ONE (11:57)
[2022-08-06] MEDS ORDERED: HEPARIN SODIUM IN D5W 25,000 UNITS/500 ML BAG ONE (11:58)
[2022-08-06 12:01] LABS: INR 1.76 (0.8-1.3)
[2022-08-06] MEDS: HEPARIN SODIUM IN D5W 25,000 UNITS/500 ML BAG IV PRN (12:21)
[2022-08-06] MEDS ORDERED: AMBIEN PO PRN (13:13)
[2022-08-06] MEDS ORDERED: LASIX PO PRN (13:13)
[2022-08-06] MEDS: COSOPT OPTH OP SCH ×2 (14:15→21:12)
[2022-08-06] MEDS: HumaLOG SC SCH (17:26)
[2022-08-06 20:10] LABS: BILIRUBIN,URINE NEGATIVE (NEGATIVE); BLOOD/HEMOGLOBIN,URINE 1+ (NEGATIVE); GLUCOSE, URINE 3+ (NEGATIVE); KETONES,URINE NEGATIVE (NEGATIVE); LEUKOCYTE ESTERASE ,URINE NEGATIVE (NEGATIVE); NITRITES,URINE NEGATIVE (NEGATIVE); PROTEIN,URINE 3+ (NEGATIVE); UROBILINOGEN,URINE NORMAL (NORMAL)
[2022-08-06 20:18] LABS: APPEARANCE,URINE CLEAR (CLEAR); COLOR,URINE YELLOW (YELLOW)
[2022-08-06 20:19] LABS: BACTERIA,URINE TRACE /HPF (NEGATIVE); HYALINE CASTS, URINE FEW /LPF (NEGATIVE); RBC,URINE 0-2 /HPF (0-3); SQUAMOUS EPITHELIAL CELL,UR RARE /HPF (NEGATIVE); TRANSITIONAL EPI CELLS,URINE FEW /HPF (NEGATIVE)
[2022-08-06] MEDS: BUSPAR PO SCH (21:10)
[2022-08-06] MEDS: COREG TAB 12.5 MG PO SCH (21:11)
[2022-08-06] MEDS: FLOMAX PO SCH (21:11)
[2022-08-06] MEDS: XALATAN OP SCH (21:11)
[2022-08-06] MEDS: SNACK - Diabetic Appropriate PO SCH (21:13)
[2022-08-06] MEDS: LANTUS SC SCH (21:17)
[2022-08-07] MEDS ORDERED: HEPARIN SODIUM INJ 5000 UNITS IVP ONE (01:47)
[2022-08-07] MEDS ORDERED: HEPARIN SODIUM INJ 5000 UNITS ONE (01:49)
[2022-08-07 05:24] LABS: BASOPHILS % (AUTO) 0.6 % (0.2-1.0); EOSINOPHILS # (AUTO) 0.1 x10^3/uL (0.0-0.2); EOSINOPHILS % (AUTO) 1.8 % (0.9-2.9); HEMATOCRIT 23.5 % (42.0-54.0); HEMOGLOBIN 7.3 g/dL (13.5-18.0); LYMPHOCYTES # (AUTO) 1.4 X10^3/uL (1.3-2.9); LYMPHOCYTES % (AUTO) 19.8 % (21.0-51.0); MEAN CORPUSCULAR HGB CONC 31.1 g/dL (33.0-35.0); MEAN PLATELET VOLUME 8.5 fL (7.4-11.0); MONOCYTES # (AUTO) 0.4 x10^3/uL (0.3-0.8); MONOCYTES % (AUTO) 6.4 % (0.0-13.0); NEUTROPHILS % (AUTO) 71.4 % (42.0-75.0); RED BLOOD COUNT 3.05 X10^6/uL (4.7-6.0); RED CELL DISTRIBUTION WIDTH 18.2 % (11.6-16.5); WHITE BLOOD COUNT 6.9 X10^3/uL (3.6-10.0)
[2022-08-07 05:37] LABS: ALANINE AMINOTRANSFERASE 52 Units/L (12-78); ALBUMIN 2.7 g/dL (3.4-5.0); ALKALINE PHOSPHATASE 115 Units/L (46-116); ASPARTATE AMINO TRANSFERASE 31 Units/L (15-37); BLOOD UREA NITROGEN 24 mg/dL (7-18); CALCIUM 8.4 mg/dL (8.5-10.1); CARBON DIOXIDE 27.2 mmol/L (21-32); CHLORIDE 105 mmol/L (98-107); COR CA(FOR HYPOALB) 9.4 mg/dL (8.5-10.1); COR NA(FOR HYPERGLY) 140 mmol/L (136-145); CREATININE 1.16 mg/dL (0.70-1.30); SODIUM 139 mmol/L (136-145); TOTAL PROTEIN 6.1 g/dL (6.4-8.2); eGFR NON BLACK RACES > 60 (>60)
[2022-08-07] MEDS: COSOPT OPTH OP SCH ×3 (05:55→21:01)
[2022-08-07] MEDS: HumaLOG SC SCH ×3 (06:18→16:32)
[2022-08-07] MEDS: CYMBALTA PO SCH (08:11)
[2022-08-07] MEDS: BUSPAR PO SCH ×2 (08:11→21:00)
[2022-08-07] MEDS: K-DUR TAB 20 MEQ PO SCH (08:11)
[2022-08-07] MEDS: COREG TAB 12.5 MG PO SCH ×2 (08:12→20:58)
[2022-08-07] MEDS: SYNTHROID 50 mcg TAB PO SCH (08:12)
[2022-08-07] MEDS: LANTUS SC SCH ×2 (08:12→20:59)
[2022-08-07] MEDS: ALPHAGAN 0.2% OPHTH SOLN OP SCH (08:13)
[2022-08-07] MEDS: FLOMAX PO SCH (20:58)
[2022-08-07] MEDS: XALATAN OP SCH (20:58)
[2022-08-07] MEDS: HEPARIN SODIUM IN D5W 25,000 UNITS/500 ML BAG IV PRN (21:00)
[2022-08-07] MEDS: SNACK - Diabetic Appropriate PO SCH (21:01)
[2022-08-07] MEDS: ROXICODONE TAB 5 MG PO PRN (23:58)
[2022-08-08 03:24] LABS: BASOPHILS % (AUTO) 0.4 % (0.2-1.0); EOSINOPHILS # (AUTO) 0.2 x10^3/uL (0.0-0.2); EOSINOPHILS % (AUTO) 2.4 % (0.9-2.9); HEMATOCRIT 22.8 % (42.0-54.0); HEMOGLOBIN 7.2 g/dL (13.5-18.0); LYMPHOCYTES # (AUTO) 1.1 X10^3/uL (1.3-2.9); MEAN CORPUSCULAR HEMOGLOBIN 24.1 pg (27.0-34.0); MEAN CORPUSCULAR HGB CONC 31.5 g/dL (33.0-35.0); MEAN CORPUSCULAR VOLUME 76.3 fL (80.0-100.0); MEAN PLATELET VOLUME 8.4 fL (7.4-11.0); MONOCYTES # (AUTO) 0.6 x10^3/uL (0.3-0.8); MONOCYTES % (AUTO) 9.2 % (0.0-13.0); RED BLOOD COUNT 2.99 X10^6/uL (4.7-6.0); RED CELL DISTRIBUTION WIDTH 18.5 % (11.6-16.5)
[2022-08-08 03:31] LABS: ALANINE AMINOTRANSFERASE 64 Units/L (12-78); ALBUMIN 2.7 g/dL (3.4-5.0); ALKALINE PHOSPHATASE 119 Units/L (46-116); ASPARTATE AMINO TRANSFERASE 39 Units/L (15-37); BLOOD UREA NITROGEN 21 mg/dL (7-18); CALCIUM 8.1 mg/dL (8.5-10.1); CARBON DIOXIDE 25.6 mmol/L (21-32); CHLORIDE 103 mmol/L (98-107); COR CA(FOR HYPOALB) 9.1 mg/dL (8.5-10.1); COR NA(FOR HYPERGLY) 137 mmol/L (136-145); CREATININE 1.13 mg/dL (0.70-1.30); SODIUM 135 mmol/L (136-145); TOTAL PROTEIN 6.1 g/dL (6.4-8.2); eGFR NON BLACK RACES > 60 (>60)
[2022-08-08] MEDS: HumaLOG SC SCH ×3 (06:09→17:11)
[2022-08-08] MEDS: COSOPT OPTH OP SCH ×3 (06:10→22:01)
[2022-08-08] MEDS: CYMBALTA PO SCH (08:20)
[2022-08-08] MEDS: SYNTHROID 50 mcg TAB PO SCH (08:20)
[2022-08-08] MEDS: BUSPAR PO SCH ×2 (08:20→21:53)
[2022-08-08] MEDS: K-DUR TAB 20 MEQ PO SCH (08:20)
[2022-08-08] MEDS: COREG TAB 12.5 MG PO SCH ×2 (08:20→21:54)
[2022-08-08] MEDS: LANTUS SC SCH ×2 (08:21→21:59)
[2022-08-08] MEDS: ALPHAGAN 0.2% OPHTH SOLN OP SCH (08:25)
[2022-08-08] MEDS ORDERED: NS 100 ML IV 100 ML with VENOFER 400 MG IV ONE ×2 (10:09)
[2022-08-08] MEDS: ELIQUIS PO SCH ×2 (10:32→21:54)
[2022-08-08] MEDS ORDERED: NS 100 ML IV 100 ML ONE (10:40)
[2022-08-08] MEDS ORDERED: NS 250 ML IV 250 ML IV ONE (10:42)
[2022-08-08] MEDS: SNACK - Diabetic Appropriate PO SCH (20:25)
[2022-08-08] MEDS: FLOMAX PO SCH (21:54)
[2022-08-08] MEDS: XALATAN OP SCH (21:56)
[2022-08-08] MEDS ORDERED: D50W ABBOJECT SYR ONE (23:55)
[2022-08-09] MEDS ORDERED: D50W ABBOJECT SYR IV ONE ×2 (00:08→01:11)
[2022-08-09] MEDS ORDERED: D50W ABBOJECT SYR ONE (01:12)
[2022-08-09] MEDS: COSOPT OPTH OP SCH ×3 (05:47→21:00)
[2022-08-09] MEDS: HumaLOG SC SCH (05:49)
[2022-08-09 06:03] LABS: BASOPHILS % (AUTO) 0.3 % (0.2-1.0); EOSINOPHILS # (AUTO) 0.1 x10^3/uL (0.0-0.2); EOSINOPHILS % (AUTO) 0.9 % (0.9-2.9); HEMATOCRIT 24.7 % (42.0-54.0); HEMOGLOBIN 7.6 g/dL (13.5-18.0); LYMPHOCYTES # (AUTO) 0.9 X10^3/uL (1.3-2.9); LYMPHOCYTES % (AUTO) 15.3 % (21.0-51.0); MEAN CORPUSCULAR HEMOGLOBIN 23.9 pg (27.0-34.0); MEAN CORPUSCULAR HGB CONC 30.7 g/dL (33.0-35.0); MEAN CORPUSCULAR VOLUME 77.8 fL (80.0-100.0); MEAN PLATELET VOLUME 8.6 fL (7.4-11.0); MONOCYTES # (AUTO) 0.5 x10^3/uL (0.3-0.8); MONOCYTES % (AUTO) 8.6 % (0.0-13.0); NEUTROPHILS # (AUTO) 4.6 x10^3/uL (2.2-4.8); NEUTROPHILS % (AUTO) 74.9 % (42.0-75.0); RED BLOOD COUNT 3.17 X10^6/uL (4.7-6.0); RED CELL DISTRIBUTION WIDTH 18.2 % (11.6-16.5); WHITE BLOOD COUNT 6.2 X10^3/uL (3.6-10.0)
[2022-08-09 06:22] LABS: ALANINE AMINOTRANSFERASE 92 Units/L (12-78); ALBUMIN 2.9 g/dL (3.4-5.0); ALKALINE PHOSPHATASE 126 Units/L (46-116); ASPARTATE AMINO TRANSFERASE 52 Units/L (15-37); BLOOD UREA NITROGEN 18 mg/dL (7-18); CALCIUM 8.4 mg/dL (8.5-10.1); CHLORIDE 104 mmol/L (98-107); COR CA(FOR HYPOALB) 9.3 mg/dL (8.5-10.1); CREATININE 1.12 mg/dL (0.70-1.30); SODIUM 137 mmol/L (136-145); TOTAL PROTEIN 6.5 g/dL (6.4-8.2); eGFR NON BLACK RACES > 60 (>60)
[2022-08-09] MEDS: SYNTHROID 50 mcg TAB PO SCH (08:47)
[2022-08-09] MEDS: CYMBALTA PO SCH (08:48)
[2022-08-09] MEDS: ELIQUIS PO SCH ×2 (08:48→20:49)
[2022-08-09] MEDS: K-DUR TAB 20 MEQ PO SCH (08:48)
[2022-08-09] MEDS: COREG TAB 12.5 MG PO SCH ×2 (08:48→20:51)
[2022-08-09] MEDS: BUSPAR PO SCH ×2 (08:48→20:50)
[2022-08-09] MEDS: LANTUS SC SCH ×3 (08:51→21:00)
[2022-08-09] MEDS ORDERED: NovoLIN R (or HumuLIN R) SUBCUT PRN (08:55)
[2022-08-09] MEDS: ALPHAGAN 0.2% OPHTH SOLN OP SCH (09:27)
[2022-08-09] MEDS: LASIX IVP SCH ×2 (10:22→17:29)
--- NOTE | 2022-08-09 10:54 | DR.H&P ---
H&P - History & Physical for Day of: H&P Date: 08/06/22 - Chief Complaint Chief Complaint: SHORTNESS OF BREATH, COUGH, EPIGASTRIC PAIN WITH COUGH - History of Present Illness History of Present Illness: IS A 71 YEAR OLD PATIENT OF OURS. HE PRESENTED TO THE EMERGENCY ROOM WITH COMPLAINTS OF WORSENING SHORTNESS OF BREATH, COUGH, AND EPIGASTRIC PAIN. HE REPORTS THAT EPIGASTRIC PAIN HAS BEEN WORSE WHEN HE COUGHS FOR THE PAST 2-3 WEEKS. HE WAS SEEN IN THE OFFICE LAST WEEK AND HOME OXYGEN WAS SET UP. HE DENIES CHEST PAIN. HE DESCRIBES EPIGASTRIC PAIN PRESSURE. HE RATED PAIN A 4/10. HE REPORTS THAT SHORTNESS OF BREATH IS PRESENT AT REST, BUT GETS WORSE WITH EXERTION. HIS PMH INCLUDES: CHF, CAD, COPD, HTN, DM II, DYSLIPIDEMIA, UT, CARDIAC STENTS, APPENDECTOMY, CABG. HE IS ALSO BLIND IN THE RIGHT EYE. ON ARRIVAL TO THE ER, HIS VITALS WERE: 98.0-99-22-98%-165/82. LABS WERE OBTAINED. WBC 7.5, RBC 3.41, HGB 8.2, HCT 26.3, PLT COUNT 232, D-DIMER 1.04, INR 1.76, PTT 74.4, SODIUM 134, POTASSIUM 4.9, CHLORIDE 101, CARBON DIOXIDE 23.4, BUN 29, CREATININE 1.30, GLUCOSE 224, CALCIUM 9.1, TOTAL BILI 1.00, AST 41, ALT 57, ALK PHOS 146, TOTAL PROTEIN 7.1, ALBUMIN 3.2, AMYLASE 33, LIPASE 27. AN ABG WAS OBTAINED AND REVEALED: PH 7.470, PC02 33, P02 71, HC03 24.0, 02 SAT 95, BASE EXCESS 0.8, A-A GRADIENT 37.0, FI02 21.0. URINALYSIS WAS UNREMARKABLE. A CHEST XRAY WAS OBTAINED AND REVEALED: Hazy and interstitial bibasilar opacities may represent pulmonary edema or pneumonia. Recommend follow up imaging to document resolution after appropriate treatment.blunted costophrenic sulci can be seen with small pleural effusions or pleuro-parynchemal scarring. A CHEST CTA WAS OBTAINED AND REVEALED: 1. Small PEs in the right lower lobe without evidence of right heart strain. 2. Moderate- sized bilateral pleural effusions. 3. Extensive mediastinal adenopathy appears to be unchanged from prior. Correlate with history. PATIENT HAD BEEN ON ELIQUIS 5MG BID AT HOME. IN THE ER, HE WAS STARTED ON A HEPARIN DRIP. PRIOR TO DRIP, HE WAS GIVEN A BOLUS OF 3800 UNITS. HE WAS ADMITTED TO THE HOSPITAL OBSERVATION STATUS FOR FURTHER EVALUATION AND TREATMENT OF PULMONARY EMBOLISM, PULMONARY EDEMA, BILATERAL PLEURAL EFFUSIONS, HYPONATREMIA, AND ANEMIA. IN ADDITION TO THE HEPARIN DRIP, HE WAS STARTED ON OTBS ACHS, HUMULIN R SLIDING SCALE, LANTUS 12 UNITS BID, HUMALOG, AND HIS HOME MEDICATIONS WERE RESUMED. HOME MEDICATIONS INCLUDE: AMBIEN 5MG AT HS PRN, FLOMAX, LYRICA, K-DUR, ROXICODONE TID PRN, SYNTHROID, XALATAN, LASIX 40MG BID PRN, CYMBALTA, COSOPT DROPS, COREG, BUSPAR, AND ALPHAGAN. OTHERWISE, WE PLAN TO FOLLOW-UP WITH AM LABS AND CONTINUE TO MONITOR. TIME SPENT ON CLINICAL ASSESSMENT, REVIWING LABS AND IMAGING, DECISION MAKING, AND DOCUMENTATION GREATER THAN 75 MINUTES. - Past Medical History Past Medical History: UT, Coronary Artery Disease, Hypertension, Dyslipidemia, Diabetes, COPD, CHF Additional Medical History: UT 2012 - Past Surgical History Surgical History: Appendectomy, CABG/Valve Surgery Additional Surgical History: 7 CARDIAC STENTS - Family History Family Medical History: Diabetes Mellitus, Cancer, [place], Coronary Artery Disease, Hypertension - Social History Does patient currently use any type of tobacco product: Yes Have you used tobacco products in the last 12 months: Yes Type of Tobacco Use: Cigarettes How many years tobacco product used: 60 Does any household member use tobacco: Yes Alcohol Use: None Drug Use: None - Medications Home Medications: fluoxetine [From Prozac] Allergy (Verified 07/17/22 09:52) CONTINUE taking the following medications apixaban 5 mg tablet (Eliquis) 5 mg PO BID 08/06/22 [History] aspirin 81 mg tablet,delayed release 81 mg PO QDAY 08/06/22 [History] dorzolamide 22.3 mg-timolol 6.8 mg/mL eye drops 1 drp ophthalmic (eye) TID 08/06/22 [History] furosemide 40 mg tablet 40 mg PO BID PRN 08/06/22 [History] zolpidem 5 mg tablet 1 tab PO QPM PRN 08/06/22 [History] - Review of Systems Constitutional: Weakness Eyes: No Symptoms Reported ENT: No Symptoms Reported Respiratory: See HPI, Cough, Shortness of Breath, SOB with Excertion Cardiovascular: No Symptoms Reported Gastrointestinal: Abdominal Pain (EPIGASTRIC PAIN ) Genitourinary: No Symptoms Reported Musculoskeletal: No Symptoms Reported Skin: No Symptoms Reported Neurological: Weakness - Physical Exam Vital Signs: Temperature 97.6 F Pulse Rate [Left Radial] 69 Pulse Rate 66 Respiratory Rate 18 Blood Pressure [Right Calf] 111/58 Blood Pressure [Left Arm] 127/63 Blood Pressure [Right Arm] 117/65 Blood Pressure 156/78 O2 Sat by Pulse Oximetry 100 Oriented: Normal Eyes: Normal Ear: Normal Nose: Normal Throat: Normal Respiratory: Diminished Throughout Cardiovascular: Normal : Normal Auscultation: Bowel Sounds: Normal Palpation: Normal Tenderness: Epigastric, Mild. negative: Rebound, Guarding, Rigidity Skin: Normal Musculoskeletal: Normal Psychiatric: Normal Mood Description: Calm Affect: Normal Speech Pattern: Clear - Assessment/Plan (1) Pulmonary embolism Qualifiers: Pulmonary embolism type: unspecified Chronicity: acute Acute cor pulmonale presence: without acute cor pulmonale Qualified Code(s): I26.99 - Other pulmonary embolism without acute cor pulmonale Status: Acute Plan: ADMIT, SUPPLEMENTAL OXYGEN, HEPARIN DRIP, OTBS ACHS, HUMULIN R SLIDING SCALE, LANTUS 12 UNITS BID, HUMALOG, AND HIS HOME MEDICATIONS WERE RESUMED. (2) Pleural effusion Status: Acute (3) Pulmonary edema Qualifiers: Chronicity: acute Qualified Code(s): J81.0 - Acute pulmonary edema Status: Acute (4) Anemia Qualifiers: Anemia type: iron deficiency Iron deficiency anemia type: unspecified iron deficiency Qualified Code(s): D50.9 - Iron deficiency anemia, unspecified Status: Acute (5) Acute hyponatremia Status: Acute (6) DM II (diabetes mellitus, type II), controlled Qualifiers: Diabetes mellitus [employer] insulin use: without half-way use Diabetes mellitus complication status: with hyperglycemia Qualified Code(s): E11.65 - Type 2 diabetes mellitus with hyperglycemia Status: Chronic (7) CAD (coronary artery disease) Qualifiers: Coronary Disease-Associated Artery/Lesion type: [place] artery [place] vs. transplanted heart: [place] heart Associated angina: with stable angina Qualified Code(s): I25.118 - Atherosclerotic heart disease of [place] coronary artery with other forms of angina pectoris Status: Chronic (8) CHF (congestive heart failure) Qualifiers: Heart failure type: unspecified Heart failure chronicity: unspecified Qualified Code(s): I50.9 - Heart failure, unspecified Status: Chronic (9) Depression Qualifiers: Depression Type: major depressive disorder Major depression recurrence: single episode Active/Remission status: currently active Major depression episode severity: moderate Qualified Code(s): F32.1 - Major depressive disorder, single episode, moderate Status: Chronic (10) Hypothyroidism Qualifiers: Hypothyroidism type: acquired Qualified Code(s): E03.9 - Hypothyroidism, unspecified Status: Chronic (11) GERD (gastroesophageal reflux disease) Qualifiers: Esophagitis presence: esophagitis presence not specified Qualified Code(s): K21.9 - Gastro-esophageal reflux disease without esophagitis Status: Chronic (12) HTN (hypertension) Qualifiers: Hypertension type: primary hypertension Qualified Code(s): I10 - Essential (primary) hypertension Status: Chronic - Allergies Allergies/Adverse Reactions: Allergies Allergy/AdvReac Type Severity Reaction Status Date / Time fluoxetine [From Prozac] Allergy Verified 07/17/22 09:52
[2022-08-09] MEDS: ROXICODONE TAB 5 MG PO PRN (18:48)
[2022-08-09] MEDS: FLOMAX PO SCH (20:49)
[2022-08-09] MEDS: SNACK - Diabetic Appropriate PO SCH (20:53)
[2022-08-09] MEDS: XALATAN OP SCH (20:53)
[2022-08-10] MEDS ORDERED: ZOFRAN INJ 4 MG VIAL IVP PRN (04:46)
[2022-08-10] MEDS: COSOPT OPTH OP SCH ×3 (05:08→21:08)
[2022-08-10 05:32] LABS: BASOPHILS # (AUTO) 0.1 X10^3/uL (0.0-0.1); EOSINOPHILS # (AUTO) 0.4 x10^3/uL (0.0-0.2); EOSINOPHILS % (AUTO) 4.9 % (0.9-2.9); HEMATOCRIT 25.8 % (42.0-54.0); LYMPHOCYTES # (AUTO) 1.8 X10^3/uL (1.3-2.9); MEAN CORPUSCULAR HEMOGLOBIN 23.9 pg (27.0-34.0); MEAN CORPUSCULAR VOLUME 77.2 fL (80.0-100.0); MEAN PLATELET VOLUME 8.5 fL (7.4-11.0); MONOCYTES # (AUTO) 0.9 x10^3/uL (0.3-0.8); MONOCYTES % (AUTO) 9.8 % (0.0-13.0); NEUTROPHILS # (AUTO) 5.7 x10^3/uL (2.2-4.8); NEUTROPHILS % (AUTO) 64.3 % (42.0-75.0); RED BLOOD COUNT 3.35 X10^6/uL (4.7-6.0); RED CELL DISTRIBUTION WIDTH 18.4 % (11.6-16.5); WHITE BLOOD COUNT 8.9 X10^3/uL (3.6-10.0)
[2022-08-10 05:37] LABS: ALANINE AMINOTRANSFERASE 85 Units/L (12-78); ALBUMIN 3.1 g/dL (3.4-5.0); ALKALINE PHOSPHATASE 139 Units/L (46-116); ASPARTATE AMINO TRANSFERASE 47 Units/L (15-37); BLOOD UREA NITROGEN 16 mg/dL (7-18); CALCIUM 8.4 mg/dL (8.5-10.1); CARBON DIOXIDE 33.2 mmol/L (21-32); CHLORIDE 102 mmol/L (98-107); COR CA(FOR HYPOALB) 9.1 mg/dL (8.5-10.1); CREATININE 1.23 mg/dL (0.70-1.30); SODIUM 138 mmol/L (136-145); TOTAL PROTEIN 7.1 g/dL (6.4-8.2); eGFR NON BLACK RACES > 60 (>60)
--- NOTE | 2022-08-10 06:09 | RAD ---
HISTORYSOB, PULMONARY EMBOLISM, PULMONARY EDEMASTUDYCHEST, 1 [id number]/17/2023FINDINGSThe cardiomediastinal silhouette is stable. Similar post sternotomy and valve replacement changes. Bilateral airspace opacities and effusions. No pneumothorax or effusion. The bony thorax appears intact.IMPRESSIONBilateral pleural parenchymal opacities. Continued follow-up recommended.Electronically signed by: HAYES WATSON (Aug 10, 2022 06:08:56)
--- NOTE | 2022-08-10 08:31 | RAD ---
HISTORYShortness of breath, pulmonary embolusSTUDYChest AP [id number]/20/23, CTA chest 06 August 2022FINDINGSPatient is rotated to the left. Patient is status post median sternotomy, CABG and valve replacement. The heart is enlarged. No congestive heart failure is noted. Lungs appear free of acute infiltrates. Left pleural effusion is likely present. Bony thorax is unremarkable.IMPRESSIONCardiomegaly without congestive heart failureNo definite acute infiltratesLeft pleural effusion unchangedElectronically signed by: HAYES WATSON (Aug 10, 2022 08:29:57)
[2022-08-10] MEDS: ELIQUIS PO SCH ×2 (08:56→20:33)
[2022-08-10] MEDS: LASIX IVP SCH ×2 (08:56→16:36)
[2022-08-10] MEDS: COREG TAB 12.5 MG PO SCH ×2 (08:57→20:32)
[2022-08-10] MEDS: CYMBALTA PO SCH (08:57)
[2022-08-10] MEDS: SYNTHROID 50 mcg TAB PO SCH (08:57)
[2022-08-10] MEDS: BUSPAR PO SCH ×2 (08:57→20:33)
[2022-08-10] MEDS: K-DUR TAB 20 MEQ PO SCH (08:57)
[2022-08-10] MEDS: ALPHAGAN 0.2% OPHTH SOLN OP SCH (09:00)
--- NOTE | 2022-08-10 19:49 | PCM.PROG ---
Progress Note - Progress Note for Day of Date of Exam: 08/09/22 - Subjective Subjective: IS CURRENTLY OBSERVATION STATUS FOR TREATMENT OF PULMONARY EMBOLISM, PLEURAL EFFUSION, PULMONARY EDEMA, ANEMIA, ACUTE HYPONATREMIA, DM II. HE HAS A PMH OF DM II, CHF, DEPRESSION, HYPOTHYROIDISM, GERD, HTN. TODAY, HE IS ALERT AND ORIENTED, LYING IN BED ON MORNING ROUNDS. HE CONTINUES TO COMPLAIN OF SHORTNESS OF BREATH, COUGH, FATIGUE, AND WEAKNESS. HE DENIES EPIGASTRIC PAIN THIS MORNING. HE WAS PLACED ON A HEPARIN DRIP ON ADMISSION, BUT WAS TRANSITIONED TO ELIQUIS OVER THE WEEKEND. HIS BLOOD GLUCOSE DROPPED TO 58 g/dL THIS MORNING. ON EXAMINATION, HE IS UTILIZING OXYGEN VIA NA YIN CANNULA AT 2-3 LPM. SATURATIONS HAVE REMAINED IN THE 90s. HEART IS REGULAR IN RATE AND RHYTHM. BILATERAL LUNGS ARE NOTED WITH DIMINISHED LUNG SOUNDS THROUGHOUT. ABDOMEN IS FLAT, SOFT, AND NON-TENDER WITH NORMAL BOWEL SOUNDS NOTED IN ALL QUADRANTS. TRACE LOWER EXTREMITY EDEMA IS NOTED. HIS VITALS THIS MORNING ARE: 97.6-69-18-100%-117/65. LABS WERE OBTAINED. WBC 6.2, RBC 3.17, HGB 7.6, HCT 24.7, PLT COUNT 164, SODIUM 137, POTASSIUM 4.0, CHLORIDE 104, BUN 18, CREATININE 1.12, GLUCOSE 85, CALCIUM 8.4, AST 52, ALT 92, ALK PHOS 126, BNP 2710, TOTAL PROTEIN 6.5, ALBUMIN 2.9. A CHEST XRAY WAS OBTAINED AND REVEALED: The cardiomediastinal silhouette is stable. Similar post sternotomy and valve rep lacement changes. Bilateral airspace opacities and effusions. No pneumothorax or effusion. The bony thorax appears intact. HE IS CURRENTLY RECEIVING ELIQUIS OTBS ACHS, HUMULIN R SLIDING SCALE, LANTUS 12 UNITS BID, MG BID, HUMALOG, AND HIS HOME MEDICATIONS WERE RESUMED. HOME MEDICATIONS INCLUDE: AMBIEN 5MG AT HS PRN, FLOMAX, LYRICA, K-DUR, ROXICODONE TID PRN, SYNTHROID, XALATAN, LASIX 40MG BID PRN, CYMBALTA, COSOPT DROPS, COREG, BUSPAR, AND ALPHAGAN. TODAY, WE WILL CHANGE LASIX TO 40MG IV BID. WE WILL DECREASE LANTUS TO 9 UNITS BID AND CHANGE HUMALOG TO HUMULIN R SLIDING SCALE. OTHERWISE, WE WILL CONTINUE WITH CURRENT PLAN OF CARE TODAY. WE WILL FOLLOW-UP WITH AM LABS AND CHEST XRAY AND CONTINUE TO MONITOR. TIME SPENT ON CLINICAL ASSESSMENT, REVIEWING LABS AND IMAGING, DECISION MAKING, AND DOCUMENTATION GREATER THAN 45 MINUTES. - Past Medical Family Social History Past Med/Fam/Surg Hx: No changes since H&P Allergies: Allergies fluoxetine [From Prozac] Allergy (Verified 07/17/22 09:52) - Review of Systems ROS: No change since H&P - Vital Signs and I&O's Vital Signs: Temperature 98.6 F Pulse Rate [Right Brachial] 73 Pulse Rate [Left Radial] 70 Pulse Rate 76 Respiratory Rate 20 Blood Pressure [Right Calf] 111/58 Blood Pressure [Left Arm] 127/63 Blood Pressure [Right Arm] 142/71 Blood Pressure 156/78 O2 Sat by Pulse Oximetry 98 Intake and Output: Intake & Output 08/08/22 08/09/22 08/10/22 08/11/22 11:59 11:59 11:59 11:59 Intake Total 1307 / 1307 1450 / 1450 1810 / 1810 700 / 700 Output Total 950 / 950 600 / 600 5825 / 5825 Balance 357 / 357 850 / 850 -4015 / -4015 700 / 700 - Physical Exam Oriented: Normal Eyes: Normal Ear: Normal Nose: Normal Throat: Normal Respiratory: Generalized, Diminished Cardiovascular: Normal : Normal Auscultation: Bowel Sounds: Normal Palpation: Normal Tenderness: Normal. negative: Rebound, Guarding, Rigidity Skin: Normal Musculoskeletal: Normal Psychiatric: Normal Mood Description: Calm Affect: Normal Speech Pattern: Clear, Appropriate - Laboratory and Diagnostics Result Diagrams: 08/10/22 05:13 08/10/22 05:13 Labs: Laboratory WBC 8.9 X10^3/uL (3.6-10.0) 08/10/22 05:13 RBC 3.35 X10^6/uL (4.7-6.0) L 08/10/22 05:13 Hgb 8.0 g/dL (13.5-18.0) L 08/10/22 05:13 Hct 25.8 % (42.0-54.0) L 08/10/22 05:13 MCV 77.2 fL (80.0-100.0) L 08/10/22 05:13 MCH 23.9 pg (27.0-34.0) L 08/10/22 05:13 MCHC 31.0 g/dL (33.0-35.0) L 08/10/22 05:13 RDW 18.4 % (11.6-16.5) H 08/10/22 05:13 Plt Count 232 X10^3/uL (150.0-450.0) 08/10/22 05:13 MPV 8.5 fL (7.4-11.0) 08/10/22 05:13 Neut % (Auto) 64.3 % (42.0-75.0) 08/10/22 05:13 Lymph % (Auto) 20.0 % (21.0-51.0) L 08/10/22 05:13 [place] % (Auto) 9.8 % (0.0-13.0) 08/10/22 05:13 Eos % (Auto) 4.9 % (0.9-2.9) H 08/10/22 05:13 Baso % (Auto) 1.0 % (0.2-1.0) 08/10/22 05:13 Neut # (Auto) 5.7 x10^3/uL (2.2-4.8) H 08/10/22 05:13 Lymph # (Auto) 1.8 X10^3/uL (1.3-2.9) 08/10/22 05:13 [place] # (Auto) 0.9 x10^3/uL (0.3-0.8) H 08/10/22 05:13 Eos # (Auto) 0.4 x10^3/uL (0.0-0.2) H 08/10/22 05:13 Baso # (Auto) 0.1 X10^3/uL (0.0-0.1) 08/10/22 05:13 Absolute Nucleated RBC 0.2 /100WBC 08/10/22 05:13 PT 19.9 SECONDS (11.8-14.3) 08/06/22 08:33 INR Target Range - 08/06/22 08:33 INR 1.76 (0.8-1.3) H 08/06/22 08:33 APTT 92.6 SECONDS (22.9-36.5) H 08/08/22 03:05 PTT Comment - 08/08/22 03:05 D-Dimer 1.04 ug/ml (0.0-0.57) H 08/06/22 08:33 Sample Site Rbra 08/06/22 09:03 ABG pH 7.470 (7.35-7.45) H 08/06/22 09:03 ABG pCO2 33.0 mmHg (35.0-45.0) L 08/06/22 09:03 ABG pO2 71.0 mmHg (80.0-100.0) L 08/06/22 09:03 ABG HCO3 24.0 mmol/L (22-26) 08/06/22 09:03 ABG O2 Saturation 95.0 % (90-100) 08/06/22 09:03 ABG Base Excess 0.8 mmol/L (-2.0-2.0) 08/06/22 09:03 [place] Test N/a 08/06/22 09:03 A-a Gradient 37.0 mmHg 08/06/22 09:03 FiO2 21.0 08/06/22 09:03 Blood Gas Comments Pt ciera well elj 08/06/22 09:03 Sodium 138 mmol/L (136-145) 08/10/22 05:13 Corrected Sodium TNP 08/10/22 05:13 Potassium 3.7 mmol/L (3.5-5.1) 08/10/22 05:13 Chloride 102 mmol/L (98-107) 08/10/22 05:13 Carbon Dioxide 33.2 mmol/L (21-32) H 08/10/22 05:13 BUN 16 mg/dL (7-18) 08/10/22 05:13 Creatinine 1.23 mg/dL (0.70-1.30) 08/10/22 05:13 Est GFR (MDRD) Af Amer > 60 (>60) 08/10/22 05:13 Est GFR (MDRD) Non-Af > 60 (>60) 08/10/22 05:13 Glucose 49 mg/dL (65-99) L* 08/10/22 05:13 POC Glucose (mg/dL) 105 mg/dL (65-99) H 08/10/22 19:21 Calcium 8.4 mg/dL (8.5-10.1) L 08/10/22 05:13 Corrected Calcium 9.1 mg/dL (8.5-10.1) 08/10/22 05:13 Iron 17 ug/dL (50-175) L 08/07/22 04:10 Transferrin 304 mg/dL (202-364) 08/07/22 04:10 Ferritin 59 ng/mL (26-388) 08/07/22 04:10 Total Bilirubin 0.70 mg/dL (0.2-1.0) 08/10/22 05:13 AST 47 Units/L (15-37) H 08/10/22 05:13 ALT 85 Units/L (12-78) H 08/10/22 05:13 Alkaline Phosphatase 139 Units/L (46-116) H 08/10/22 05:13 B-Natriuretic Peptide 2140 pg/mL (0-79) H* 08/10/22 05:13 Total Protein 7.1 g/dL (6.4-8.2) 08/10/22 05:13 Albumin 3.1 g/dL (3.4-5.0) L 08/10/22 05:13 Globulin 4.0 g/dL (2.5-4.5) 08/10/22 05:13 Albumin/Globulin Ratio 0.8 Ratio (1.1-2.1) L 08/10/22 05:13 Amylase 33 Units/L (25-115) 08/06/22 08:33 Lipase 27 Units/L (73-393) L 08/06/22 08:33 Vitamin B12 461 pg/mL (193-986) 08/07/22 04:10 Folate 15.1 ng/mL (>8.6) 08/07/22 04:10 Specimen Type Catherized urine 08/06/22 19:40 Urine Color Yellow (YELLOW) 08/06/22 19:40 Urine Appearance Clear (CLEAR) 08/06/22 19:40 Urine pH 5.0 (5.0 - 8.0) 08/06/22 19:40 Ur Specific [place] 1.020 (1.000-1.030) 08/06/22 19:40 Urine Protein 3+ (NEGATIVE) 08/06/22 19:40 Urine Glucose (UA) 3+ (NEGATIVE) 08/06/22 19:40 Urine Ketones Negative (NEGATIVE) 08/06/22 19:40 Urine Blood 1+ (NEGATIVE) 08/06/22 19:40 Urine Nitrite Negative (NEGATIVE) 08/06/22 19:40 Urine Bilirubin Negative (NEGATIVE) 08/06/22 19:40 Urine Urobilinogen Normal (NORMAL) 08/06/22 19:40 Ur Leukocyte Esterase Negative (NEGATIVE) 08/06/22 19:40 Urine RBC 0-2 /HPF (0-3) 08/06/22 19:40 Urine WBC 0-2 /HPF (0-5) 08/06/22 19:40 Ur Squamous Epith Cells Rare /HPF (NEGATIVE) 08/06/22 19:40 Ur Transition Epith Cell Few /HPF (NEGATIVE) 08/06/22 19:40 Amorphous Sediment Trace /HPF (NEGATIVE) 08/06/22 19:40 Urine Bacteria Trace /HPF (NEGATIVE) 08/06/22 19:40 Hyaline Casts Few /LPF (NEGATIVE) 08/06/22 19:40 Urine Mucus Few /HPF (NEGATIVE) 08/06/22 19:40 Ur Culture Indicated? No/not indicated 08/06/22 19:40 - Plan (1) Pulmonary embolism Status: Acute Qualifiers: Pulmonary embolism type: unspecified Chronicity: acute Acute cor pulmonale presence: without acute cor pulmonale Qualified Code(s): I26.99 - Other pulmonary embolism without acute cor pulmonale Plan: SUPPLEMENTAL OXYGEN, ELIQUIS 10MG BID, OTBS ACHS, HUMULIN R SLIDING SCALE, LANTUS 9 UNITS BID, LASIX 40MG IV BID, AND HIS HOME MEDICATIONS WERE RESUMED. HOME MEDICATIONS INCLUDE: AMBIEN 5MG AT HS PRN, FLOMAX, LYRICA, K-DUR, ROXICODONE TID PRN, SYNTHROID, XALATAN, CYMBALTA, COSOPT DROPS, COREG, BUSPAR, AND ALPHAGAN. (2) Pleural effusion Status: Acute (3) Pulmonary edema Status: Acute Qualifiers: Chronicity: acute Qualified Code(s): J81.0 - Acute pulmonary edema (4) Anemia Status: Acute Qualifiers: Anemia type: iron deficiency Iron deficiency anemia type: unspecified iron deficiency Qualified Code(s): D50.9 - Iron deficiency anemia, unspecified (5) Acute hyponatremia Status: Acute (6) DM II (diabetes mellitus, type II), controlled Status: Chronic Qualifiers: Diabetes mellitus terminal make up operator insulin use: without terminal make up operator use Diabetes mellitus complication status: with hyperglycemia Qualified Code(s): E11.65 - Type 2 diabetes mellitus with hyperglycemia (7) CAD (coronary artery disease) Status: Chronic Qualifiers: Coronary Disease-Associated Artery/Lesion type: [place] artery [place] vs. transplanted heart: [place] heart Associated angina: with stable angina Qualified Code(s): I25.118 - Atherosclerotic heart disease of [place] coronary artery with other forms of angina pectoris (8) CHF (congestive heart failure) Status: Chronic Qualifiers: Heart failure type: unspecified Heart failure chronicity: unspecified Qualified Code(s): I50.9 - Heart failure, unspecified (9) Depression Status: Chronic Qualifiers: Depression Type: major depressive disorder Major depression recurrence: single episode Active/Remission status: currently active Major depression episode severity: moderate Qualified Code(s): F32.1 - Major depressive disorder, single episode, moderate (10) Hypothyroidism Status: Chronic Qualifiers: Hypothyroidism type: acquired Qualified Code(s): E03.9 - Hypothyroidism, unspecified (11) GERD (gastroesophageal reflux disease) Status: Chronic Qualifiers: Esophagitis presence: esophagitis presence not specified Qualified Code(s): K21.9 - Gastro-esophageal reflux disease without esophagitis (12) HTN (hypertension) Status: Chronic Qualifiers: Hypertension type: primary hypertension Qualified Code(s): I10 - Essential (primary) hypertension
--- NOTE | 2022-08-10 20:00 | PCM.PROG ---
Progress Note - Progress Note for Day of Date of Exam: 08/10/22 - Subjective Subjective: IS CURRENTLY OBSERVATION STATUS FOR TREATMENT OF PULMONARY EMBOLISM, PLEURAL EFFUSION, PULMONARY EDEMA, ANEMIA, ACUTE HYPONATREMIA, DM II. HE HAS A PMH OF DM II, CHF, DEPRESSION, HYPOTHYROIDISM, GERD, HTN. TODAY, HE IS ALERT AND ORIENTED, LYING IN BED ON MORNING ROUNDS. HE CONTINUES TO COMPLAIN OF SHORTNESS OF BREATH AT TIMES, FATIGUE, AND WEAKNESS. HE ADMITS TO SLIGHT IMPROVEMENT IN SYMPTOMS SINCE ADMISSION. HE WAS PLACED ON A HEPARIN DRIP ON ADMISSION, BUT WAS TRANSITIONED TO ELIQUIS OVER THE WEEKEND. HIS BLOOD GLUCOSE HAD STABLILIZED THROUGHOUT THE DAY YESTERDAY, HOWEVER, IT DROPPED TO 43 THIS MORNING. ON EXAMINATION, HE IS UTILIZING OXYGEN VIA NASAL CANNULA AT 2-3 LPM. SATURATIONS HAVE REMAINED IN THE 90s. HEART IS REGULAR IN RATE AND RHYTHM. BILATERAL LUNGS ARE NOTED WITH DIMINISHED LUNG SOUNDS THROUGHOUT. ABDOMEN IS FLAT, SOFT, AND NON-TENDER WITH NORMAL BOWEL SOUNDS NOTED IN ALL QUADRANTS. TRACE LOWER EXTREMITY EDEMA IS NOTED. HIS VITALS THIS MORNING ARE: 98.4-74-18-99%-134/60. LABS WERE OBTAINED. WBC 8.9, RBC 3.35, HGB 8.0, HCT 25.8, PLT COUNT 232, SODIUM 138, POTASSIUM 3.7, CHLORIDE 102, CARBON DIOXIDE 33.2, BUN 16, CREATININE 1.23, GLUCOSE 49, CALCIUM 8.4, AST 47, ALT 85, ALK PHOS 139, BNP 2140, TOTAL PROTEIN 7.1, ALBUMIN 3.1. A CHEST XRAY WAS OBTAINED AND REVEALED: Cardiomegaly without congestive heart failure. No definite acute infiltrates. Left pleural effusion unchanged. HE IS CURRENTLY RECEIVING ELIQUIS 10MG BID, OTBS ACHS, HUMULIN R SLIDING SCALE, LANTUS 9 UNITS BID, LASIX 40MG IV BID, AND HIS HOME MEDICATIONS WERE RESUMED. HOME MEDICATIONS INCLUDE: AMBIEN 5MG AT HS PRN, FLOMAX, LYRICA, K-DUR, ROXICODONE TID PRN, SYNTHROID, XALATAN, CYMBALTA, COSOPT DROPS, COREG, BUSPAR, AND ALPHAGAN. WE WILL CONTINUE WITH CURRENT PLAN OF CARE TODAY AND DISCONTINUE HIS LANTUS. OTHERWISE, WE WILL FOLLOW-UP WITH AM LABS AND CHEST XRAY AND CONTINUE TO MONITOR. TIME SPENT ON CLINICAL ASSESSMENT, REVIEWING LABS AND IMAGING, DECISION MAKING, AND DOCUMENTATION GREATER THAN 45 MINUTES. - Past Medical Family Social History Past Med/Fam/Surg Hx: No changes since H&P Allergies: Allergies fluoxetine [From Prozac] Allergy (Verified 07/17/22 09:52) - Review of Systems ROS: No change since H&P - Vital Signs and I&O's Vital Signs: Temperature 98.6 F Pulse Rate [Right Brachial] 73 Pulse Rate [Left Radial] 70 Pulse Rate 76 Respiratory Rate 20 Blood Pressure [Right Calf] 111/58 Blood Pressure [Left Arm] 127/63 Blood Pressure [Right Arm] 142/71 Blood Pressure 156/78 O2 Sat by Pulse Oximetry 98 Intake and Output: Intake & Output 08/08/22 08/09/22 08/10/22 08/11/22 11:59 11:59 11:59 11:59 Intake Total 1307 / 1307 1450 / 1450 1810 / 1810 700 / 700 Output Total 950 / 950 600 / 600 5825 / 5825 Balance 357 / 357 850 / 850 -4015 / -4015 700 / 700 - Physical Exam Oriented: Normal Eyes: Normal Ear: Normal Nose: Normal Throat: Normal Respiratory: Generalized, Diminished Cardiovascular: Normal : Normal Auscultation: Bowel Sounds: Normal Palpation: Normal Tenderness: Normal. negative: Rebound, Guarding, Rigidity Skin: Normal Musculoskeletal: Normal Psychiatric: Normal Mood Description: Calm Affect: Normal Speech Pattern: Clear, Appropriate - Laboratory and Diagnostics Result Diagrams: 08/10/22 05:13 08/10/22 05:13 Labs: Laboratory WBC 8.9 X10^3/uL (3.6-10.0) 08/10/22 05:13 RBC 3.35 X10^6/uL (4.7-6.0) L 08/10/22 05:13 Hgb 8.0 g/dL (13.5-18.0) L 08/10/22 05:13 Hct 25.8 % (42.0-54.0) L 08/10/22 05:13 MCV 77.2 fL (80.0-100.0) L 08/10/22 05:13 MCH 23.9 pg (27.0-34.0) L 08/10/22 05:13 MCHC 31.0 g/dL (33.0-35.0) L 08/10/22 05:13 RDW 18.4 % (11.6-16.5) H 08/10/22 05:13 Plt Count 232 X10^3/uL (150.0-450.0) 08/10/22 05:13 MPV 8.5 fL (7.4-11.0) 08/10/22 05:13 Neut % (Auto) 64.3 % (42.0-75.0) 08/10/22 05:13 Lymph % (Auto) 20.0 % (21.0-51.0) L 08/10/22 05:13 [place] % (Auto) 9.8 % (0.0-13.0) 08/10/22 05:13 Eos % (Auto) 4.9 % (0.9-2.9) H 08/10/22 05:13 Baso % (Auto) 1.0 % (0.2-1.0) 08/10/22 05:13 Neut # (Auto) 5.7 x10^3/uL (2.2-4.8) H 08/10/22 05:13 Lymph # (Auto) 1.8 X10^3/uL (1.3-2.9) 08/10/22 05:13 [place] # (Auto) 0.9 x10^3/uL (0.3-0.8) H 08/10/22 05:13 Eos # (Auto) 0.4 x10^3/uL (0.0-0.2) H 08/10/22 05:13 Baso # (Auto) 0.1 X10^3/uL (0.0-0.1) 08/10/22 05:13 Absolute Nucleated RBC 0.2 /100WBC 08/10/22 05:13 PT 19.9 SECONDS (11.8-14.3) 08/06/22 08:33 INR Target Range - 08/06/22 08:33 INR 1.76 (0.8-1.3) H 08/06/22 08:33 APTT 92.6 SECONDS (22.9-36.5) H 08/08/22 03:05 PTT Comment - 08/08/22 03:05 D-Dimer 1.04 ug/ml (0.0-0.57) H 08/06/22 08:33 Sample Site Rbra 08/06/22 09:03 ABG pH 7.470 (7.35-7.45) H 08/06/22 09:03 ABG pCO2 33.0 mmHg (35.0-45.0) L 08/06/22 09:03 ABG pO2 71.0 mmHg (80.0-100.0) L 08/06/22 09:03 ABG HCO3 24.0 mmol/L (22-26) 08/06/22 09:03 ABG O2 Saturation 95.0 % (90-100) 08/06/22 09:03 ABG Base Excess 0.8 mmol/L (-2.0-2.0) 08/06/22 09:03 [place] Test N/a 08/06/22 09:03 A-a Gradient 37.0 mmHg 08/06/22 09:03 FiO2 21.0 08/06/22 09:03 Blood Gas Comments Pt ciera well elj 08/06/22 09:03 Sodium 138 mmol/L (136-145) 08/10/22 05:13 Corrected Sodium TNP 08/10/22 05:13 Potassium 3.7 mmol/L (3.5-5.1) 08/10/22 05:13 Chloride 102 mmol/L (98-107) 08/10/22 05:13 Carbon Dioxide 33.2 mmol/L (21-32) H 08/10/22 05:13 BUN 16 mg/dL (7-18) 08/10/22 05:13 Creatinine 1.23 mg/dL (0.70-1.30) 08/10/22 05:13 Est GFR (MDRD) Af Amer > 60 (>60) 08/10/22 05:13 Est GFR (MDRD) Non-Af > 60 (>60) 08/10/22 05:13 Glucose 49 mg/dL (65-99) L* 08/10/22 05:13 POC Glucose (mg/dL) 105 mg/dL (65-99) H 08/10/22 19:21 Calcium 8.4 mg/dL (8.5-10.1) L 08/10/22 05:13 Corrected Calcium 9.1 mg/dL (8.5-10.1) 08/10/22 05:13 Iron 17 ug/dL (50-175) L 08/07/22 04:10 Transferrin 304 mg/dL (202-364) 08/07/22 04:10 Ferritin 59 ng/mL (26-388) 08/07/22 04:10 Total Bilirubin 0.70 mg/dL (0.2-1.0) 08/10/22 05:13 AST 47 Units/L (15-37) H 08/10/22 05:13 ALT 85 Units/L (12-78) H 08/10/22 05:13 Alkaline Phosphatase 139 Units/L (46-116) H 08/10/22 05:13 B-Natriuretic Peptide 2140 pg/mL (0-79) H* 08/10/22 05:13 Total Protein 7.1 g/dL (6.4-8.2) 08/10/22 05:13 Albumin 3.1 g/dL (3.4-5.0) L 08/10/22 05:13 Globulin 4.0 g/dL (2.5-4.5) 08/10/22 05:13 Albumin/Globulin Ratio 0.8 Ratio (1.1-2.1) L 08/10/22 05:13 Amylase 33 Units/L (25-115) 08/06/22 08:33 Lipase 27 Units/L (73-393) L 08/06/22 08:33 Vitamin B12 461 pg/mL (193-986) 08/07/22 04:10 Folate 15.1 ng/mL (>8.6) 08/07/22 04:10 Specimen Type Catherized urine 08/06/22 19:40 Urine Color Yellow (YELLOW) 08/06/22 19:40 Urine Appearance Clear (CLEAR) 08/06/22 19:40 Urine pH 5.0 (5.0 - 8.0) 08/06/22 19:40 Ur Specific [place] 1.020 (1.000-1.030) 08/06/22 19:40 Urine Protein 3+ (NEGATIVE) 08/06/22 19:40 Urine Glucose (UA) 3+ (NEGATIVE) 08/06/22 19:40 Urine Ketones Negative (NEGATIVE) 08/06/22 19:40 Urine Blood 1+ (NEGATIVE) 08/06/22 19:40 Urine Nitrite Negative (NEGATIVE) 08/06/22 19:40 Urine Bilirubin Negative (NEGATIVE) 08/06/22 19:40 Urine Urobilinogen Normal (NORMAL) 08/06/22 19:40 Ur Leukocyte Esterase Negative (NEGATIVE) 08/06/22 19:40 Urine RBC 0-2 /HPF (0-3) 08/06/22 19:40 Urine WBC 0-2 /HPF (0-5) 08/06/22 19:40 Ur Squamous Epith Cells Rare /HPF (NEGATIVE) 08/06/22 19:40 Ur Transition Epith Cell Few /HPF (NEGATIVE) 08/06/22 19:40 Amorphous Sediment Trace /HPF (NEGATIVE) 08/06/22 19:40 Urine Bacteria Trace /HPF (NEGATIVE) 08/06/22 19:40 Hyaline Casts Few /LPF (NEGATIVE) 08/06/22 19:40 Urine Mucus Few /HPF (NEGATIVE) 08/06/22 19:40 Ur Culture Indicated? No/not indicated 08/06/22 19:40 - Plan (1) Pulmonary embolism Status: Acute Qualifiers: Pulmonary embolism type: unspecified Chronicity: acute Acute cor pulmonale presence: without acute cor pulmonale Qualified Code(s): I26.99 - Other pulmonary embolism without acute cor pulmonale Plan: SUPPLEMENTAL OXYGEN, ELIQUIS 10MG BID, OTBS ACHS, HUMULIN R SLIDING SCALE, LASIX 40MG IV BID, AND HIS HOME MEDICATIONS WERE RESUMED. HOME MEDICATIONS INCLUDE: AMBIEN 5MG AT HS PRN, FLOMAX, LYRICA, K-DUR, ROXICODONE TID PRN, SYNTHROID, XALATAN, CYMBALTA, COSOPT DROPS, COREG, BUSPAR, AND ALPHAGAN. (2) Pleural effusion Status: Acute (3) Pulmonary edema Status: Acute Qualifiers: Chronicity: acute Qualified Code(s): J81.0 - Acute pulmonary edema (4) Anemia Status: Acute Qualifiers: Anemia type: iron deficiency Iron deficiency anemia type: unspecified iron deficiency Qualified Code(s): D50.9 - Iron deficiency anemia, unspecified (5) Acute hyponatremia Status: Acute (6) DM II (diabetes mellitus, type II), controlled Status: Chronic Qualifiers: Diabetes mellitus long-term insulin use: without long-term use Diabetes mellitus complication status: with hyperglycemia Qualified Code(s): E11.65 - Type 2 diabetes mellitus with hyperglycemia (7) CAD (coronary artery disease) Status: Chronic Qualifiers: Coronary Disease-Associated Artery/Lesion type: [place] artery [place] vs. transplanted heart: [place] heart Associated angina: with stable angina Qualified Code(s): I25.118 - Atherosclerotic heart disease of [place] coronary artery with other forms of angina pectoris (8) CHF (congestive heart failure) Status: Chronic Qualifiers: Heart failure type: unspecified Heart failure chronicity: unspecified Qualified Code(s): I50.9 - Heart failure, unspecified (9) Depression Status: Chronic Qualifiers: Depression Type: major depressive disorder Major depression recurrence: single episode Active/Remission status: currently active Major depression episode severity: moderate Qualified Code(s): F32.1 - Major depressive disorder, single episode, moderate (10) Hypothyroidism Status: Chronic Qualifiers: Hypothyroidism type: acquired Qualified Code(s): E03.9 - Hypothyroidism, unspecified (11) GERD (gastroesophageal reflux disease) Status: Chronic Qualifiers: Esophagitis presence: esophagitis presence not specified Qualified Code(s): K21.9 - Gastro-esophageal reflux disease without esophagitis (12) HTN (hypertension) Status: Chronic Qualifiers: Hypertension type: primary hypertension Qualified Code(s): I10 - Essential (primary) hypertension
[2022-08-10] MEDS: FLOMAX PO SCH (20:32)
[2022-08-10] MEDS: ROXICODONE TAB 5 MG PO PRN (20:35)
[2022-08-10] MEDS: SNACK - Diabetic Appropriate PO SCH (21:08)
[2022-08-10] MEDS: XALATAN OP SCH (21:08)
[2022-08-11] MEDS: COSOPT OPTH OP SCH (05:09)
[2022-08-11 05:45] LABS: BASOPHILS % (AUTO) 0.6 % (0.2-1.0); EOSINOPHILS # (AUTO) 0.4 x10^3/uL (0.0-0.2); EOSINOPHILS % (AUTO) 6.4 % (0.9-2.9); HEMATOCRIT 24.8 % (42.0-54.0); HEMOGLOBIN 7.8 g/dL (13.5-18.0); LYMPHOCYTES # (AUTO) 1.6 X10^3/uL (1.3-2.9); LYMPHOCYTES % (AUTO) 23.5 % (21.0-51.0); MEAN CORPUSCULAR HEMOGLOBIN 24.2 pg (27.0-34.0); MEAN CORPUSCULAR HGB CONC 31.6 g/dL (33.0-35.0); MEAN CORPUSCULAR VOLUME 76.6 fL (80.0-100.0); MEAN PLATELET VOLUME 8.4 fL (7.4-11.0); MONOCYTES # (AUTO) 0.7 x10^3/uL (0.3-0.8); MONOCYTES % (AUTO) 9.8 % (0.0-13.0); NEUTROPHILS % (AUTO) 59.7 % (42.0-75.0); RED BLOOD COUNT 3.23 X10^6/uL (4.7-6.0); RED CELL DISTRIBUTION WIDTH 18.4 % (11.6-16.5); WHITE BLOOD COUNT 6.8 X10^3/uL (3.6-10.0)
[2022-08-11 06:00] LABS: ALANINE AMINOTRANSFERASE 63 Units/L (12-78); ALBUMIN 2.9 g/dL (3.4-5.0); ALKALINE PHOSPHATASE 139 Units/L (46-116); ASPARTATE AMINO TRANSFERASE 23 Units/L (15-37); BLOOD UREA NITROGEN 13 mg/dL (7-18); CALCIUM 8.3 mg/dL (8.5-10.1); CARBON DIOXIDE 33.7 mmol/L (21-32); CHLORIDE 97 mmol/L (98-107); COR CA(FOR HYPOALB) 9.2 mg/dL (8.5-10.1); COR NA(FOR HYPERGLY) 138 mmol/L (136-145); SODIUM 135 mmol/L (136-145); TOTAL PROTEIN 6.8 g/dL (6.4-8.2); eGFR NON BLACK RACES 58 (>60)
[2022-08-11] MEDS ORDERED: K-DUR TAB 20 MEQ PO PRN (07:03)
[2022-08-11] MEDS ORDERED: KLOR-CON PO PRN (07:03)
[2022-08-11] MEDS ORDERED: POTASSIUM CHLORIDE LIQ 20 MEQ UDC PO PRN (07:03)
[2022-08-11] MEDS ORDERED: POTASSIUM CHL 60 MEQ/NS 0.45% 500 ML IV PRN (07:03)
[2022-08-11] MEDS ORDERED: K-RIDER 10 MEQ/NS 100 ML 10 MEQ/100 ML BAG IV PRN (07:03)
[2022-08-11] MEDS ORDERED: POTASSIUM CHL 40 MEQ/NS 0.45% 500 ML IV PRN (07:03)
[2022-08-11] MEDS ORDERED: MICRO K EXTEN CAP 10 MEQ PO PRN (07:03)
--- NOTE | 2022-08-11 07:34 | RAD ---
HISTORYSOB, PULMONARY EMBOLISM F/USTUDYCHEST, 1 [id number]/21/2023.TECHNIQUEPA or AP view of the chestFINDINGSStatus post median sternotomy and CABG. Cardiac valve replacement noted. Cardiac silhouette is borderline in size. Mildly improved bibasilar airspace opacities. There is blunting of the costophrenic sulci worse on the left. No pneumothorax.IMPRESSIONImproved bibasilar airspace opacities may represent atelectasis or infiltrate. Small pleural effusions suspected.Electronically signed by: Rashad Herring (Aug 11, 2022 07:32:40)
[2022-08-11] MEDS: MAGNESIUM SULFATE 1 GRAM/100 mL PREMIX 1 G/100 ML BAG IV PRN ×2 (07:45→08:47)
[2022-08-11 08:46] VITALS: BP 147/70
[2022-08-11] MEDS: LASIX IVP SCH (08:47)
[2022-08-11] MEDS: K-DUR TAB 20 MEQ PO SCH (08:47)
[2022-08-11] MEDS: SYNTHROID 50 mcg TAB PO SCH (08:48)
[2022-08-11] MEDS: CYMBALTA PO SCH (08:48)
[2022-08-11] MEDS: ALPHAGAN 0.2% OPHTH SOLN OP SCH (08:50)
[2022-08-11] MEDS: COREG TAB 12.5 MG PO SCH (08:50)
[2022-08-11] MEDS: BUSPAR PO SCH (08:50)
[2022-08-11] MEDS: ELIQUIS PO SCH (08:51)
== END 2022-08-11 13:07 | disposition home health service (06) ==
LOC: ICU 07:41 → ER 07:41 → ICU 13:16 → MED/SURG 08-08 17:55 → UNDODISOB 08-10 13:30
PROVIDERS: ADMIT Internal Medicine; ATTEND Internal Medicine

== ENCOUNTER 2023-09-12 11:23 | Inpatient (IN) ==
--- NOTE | 2023-09-12 11:50 | DR.AMS ---
HPI Time Seen Time Seen by Provider: 09/12/23 11:50 COVID-19 Coronavirus risk:travel/contact w/high risk person: No Has patient experienced Coronavirus symptoms: No PMH PMH Past Medical History: CHF, COPD, Coronary Artery Disease, Diabetes, Dyslipidemia, Hypertension and OR Past Surgical History: Yes Surgical History: Appendectomy and CABG/Valve Surgery Family History Family Medical History: Diabetes Mellitus, Cancer, OR, Coronary Artery Disease and Hypertension Social History Do you use any recreational Drugs:: No Travel Risk Coronavirus risk:travel/contact w/high risk person: No Has patient experienced Coronavirus symptoms: No PE Vitals Vital Signs: Temp Pulse Resp BP Pulse Ox O2 Del Method 09/12/23 16:00 88 26 H 09/12/23 15:45 99.1 F 92 H 24 09/12/23 15:45 199/93 09/12/23 15:44 93 H 28 H 09/12/23 15:31 93 H 25 H 09/12/23 15:31 171/81 09/12/23 15:30 93 H 32 H 09/12/23 15:17 82 20 09/12/23 15:00 76 29 H 09/12/23 15:00 150/68 09/12/23 15:00 150/68 09/12/23 14:45 163/75 09/12/23 14:45 83 21 09/12/23 14:30 84 23 09/12/23 14:30 178/88 09/12/23 14:15 184/86 09/12/23 14:15 96.6 F L 184/86 09/12/23 14:15 78 20 09/12/23 14:15 184/86 09/12/23 14:15 184/86 09/12/23 14:15 78 20 09/12/23 14:00 80 24 09/12/23 14:00 200/94 09/12/23 13:45 71 26 H 09/12/23 13:45 205/81 09/12/23 13:31 81 22 99 09/12/23 13:31 189/92 09/12/23 13:30 201/93 09/12/23 13:30 81 25 H 99 09/12/23 13:30 81 25 H 99 09/12/23 13:15 190/99 09/12/23 13:15 190/99 03/25/24 13:15 79 22 99 09/12/23 13:04 201/95 09/12/23 13:04 70 26 H 97 09/12/23 13:00 74 24 98 09/12/23 12:50 69 19 97 09/12/23 11:45 203/93 09/12/23 11:45 62 22 09/12/23 11:44 195/90 09/12/23 11:44 62 23 09/12/23 11:42 90.9 F L 67 18 223/97 98 Room Air General Limitations: Altered Mental Status Head Head Exam: Normal Inspection Head Exam Physical: Other (None noted) Eyes Eye exam: Normal Appearance; negative Scleral Icterus or Conjunctival Injection Pupils: Regular, Round: Bilateral and Reactive: Bilateral ENT ENT Exam: Normal Exam, Normal Oropharynx, Normal External Ear Exam and TM's Nor mal Bilaterally Throat Exam: negative Tonsillar Erythema, Tonsillomegaly or Tonsillar Exudate Neck Neck Exam: Normal Inspection and Trachea Midline ROR Labs Reviewed 09/12/23 14:02 09/12/23 14:02 Laboratory: WBC 7.8 X10^3/uL (3.6-10.0) 09/12/23 14:02 RBC 4.33 X10^6/uL (4.7-6.0) L 09/12/23 14:02 Hgb 13.6 g/dL (13.5-18.0) 09/12/23 14:02 Hct 40.5 % (42.0-54.0) L 09/12/23 14:02 MCV 93.5 fL (80.0-100.0) 09/12/23 14:02 MCH 31.3 pg (27.0-34.0) 09/12/23 14:02 MCHC 33.5 g/dL (33.0-35.0) 09/12/23 14:02 RDW 14.9 % (11.6-16.5) 09/12/23 14:02 Plt Count 144 X10^3/uL (150.0-450.0) L 09/12/23 14:02 Plt Count Comment Decreased (ADEQUATE) 09/12/23 14:02 MPV 8.5 fL (7.4-11.0) 09/12/23 14:02 Neut % (Auto) 90.1 % (42.0-75.0) H 09/12/23 14:02 Lymph % (Auto) 6.2 % (21.0-51.0) L 09/12/23 14:02 [place] % (Auto) 3.6 % (0.0-13.0) 09/12/23 14:02 Eos % (Auto) 0.0 % (0.9-2.9) L 09/12/23 14:02 Baso % (Auto) 0.1 % (0.2-1.0) L 09/12/23 14:02 Neut # (Auto) 7.1 x10^3/uL (2.2-4.8) H 09/12/23 14:02 Lymph # (Auto) 0.5 X10^3/uL (1.3-2.9) L 09/12/23 14:02 [place] # (Auto) 0.3 x10^3/uL (0.3-0.8) 09/12/23 14:02 Eos # (Auto) 0.0 x10^3/uL (0.0-0.2) 09/12/23 14:02 Baso # (Auto) 0.0 X10^3/uL (0.0-0.1) 09/12/23 14:02 Absolute Nucleated RBC 0.0 /100WBC 09/12/23 14:02 Total Counted 100 09/12/23 14:02 Neutrophils % (Manual) 92 % (39-76) H 09/12/23 14:02 Lymphocytes % (Manual) 5 % (13-43) L 09/12/23 14:02 Monocytes % (Manual) 3 % (4-9) L 09/12/23 14:02 Plt Morphology Comment Normal (NORMAL) 09/12/23 14:02 RBC Morphology Normal (NORMAL) 09/12/23 14:02 PT 15.8 SECONDS (11.8-14.3) 09/12/23 14:29 INR Target Range - 09/12/23 14:29 INR 1.28 (0.8-1.3) 09/12/23 14:29 APTT 31.8 SECONDS (22.9-36.5) 09/12/23 14:29 PTT Comment - 09/12/23 14:29 Fibrinogen 315 mg/dL (239-489) 09/12/23 14:29 Sodium 134 mmol/L (136-145) L 09/12/23 14:02 Corrected Sodium 135 mmol/L (136-145) L 09/12/23 14:02 Potassium 4.1 mmol/L (3.5-5.1) 09/12/23 14:02 Chloride 102 mmol/L (98-107) 09/12/23 14:02 Carbon Dioxide 20.5 mmol/L (21-32) L 09/12/23 14:02 BUN 29 mg/dL (7-18) H 09/12/23 14:02 Creatinine 1.55 mg/dL (0.70-1.30) H 09/12/23 14:02 Est GFR (MDRD) Af Amer 57 (>60) L 09/12/23 14:02 Est GFR (MDRD) Non-Af 47 (>60) L 09/12/23 14:02 Glucose 148 mg/dL (65-99) H 09/12/23 14:02 Calcium 8.3 mg/dL (8.5-10.1) L 09/12/23 14:02 Corrected Calcium 8.9 mg/dL (8.5-10.1) 09/12/23 14:02 Total Bilirubin 1.20 mg/dL (0.2-1.0) H 09/12/23 14:02 AST 38 Units/L (15-37) H 09/12/23 14:02 ALT 41 Units/L (12-78) 09/12/23 14:02 Alkaline Phosphatase 133 Units/L (46-116) H 09/12/23 14:02 Creatine Kinase 182 Units/L (39-308) 09/12/23 14:02 Troponin I High Sens 32.6 ng/L (4.0-60.0) 09/12/23 14:02 B-Natriuretic Peptide 2820 pg/mL (0-79) H 09/12/23 14:29 Total Protein 7.0 g/dL (6.4-8.2) 09/12/23 14:02 Albumin 3.2 g/dL (3.4-5.0) L 09/12/23 14:02 Globulin 3.8 g/dL (2.5-4.5) 09/12/23 14:02 Albumin/Globulin Ratio 0.8 Ratio (1.1-2.1) L 09/12/23 14:02 Triglycerides 38 mg/dL (0-150) 09/12/23 14:02 Cholesterol 158 mg/dL (0-200) 09/12/23 14:02 LDL Cholesterol, Calc 85 mg/dL (0-100) 09/12/23 14:02 HDL Cholesterol 65 mg/dL (40-60) H 09/12/23 14:02 Cholesterol/HDL Ratio 2.4 (0.0-5.0) 09/12/23 14:02 Specimen Type Clean catch urine 09/12/23 13:53 Urine Color Yellow (YELLOW) 09/12/23 13:53 Urine Appearance Slightly hazy (CLEAR) 09/12/23 13:53 Urine pH 6.0 (5.0 - 8.0) 09/12/23 13:53 Ur Specific [place] 1.010 (1.000-1.030) 09/12/23 13:53 Urine Protein 3+ (NEGATIVE) 09/12/23 13:53 Urine Glucose (UA) 4+ (NEGATIVE) 09/12/23 13:53 Urine Ketones Negative (NEGATIVE) 09/12/23 13:53 Urine Blood 2+ (NEGATIVE) 09/12/23 13:53 Urine Nitrite Negative (NEGATIVE) 09/12/23 13:53 Urine Bilirubin Negative (NEGATIVE) 09/12/23 13:53 Urine Urobilinogen Normal (NORMAL) 09/12/23 13:53 Ur Leukocyte Esterase Negative (NEGATIVE) 09/12/23 13:53 Urine RBC 3-5 /HPF (0-3) A 09/12/23 13:53 Urine WBC None seen /HPF (0-5) 09/12/23 13:53 Ur Squamous Epith Cells Rare /HPF (NEGATIVE) 09/12/23 13:53 Urine Bacteria Negative /HPF (NEGATIVE) 09/12/23 13:53 Urine Mucus Few /HPF (NEGATIVE) 09/12/23 13:53 Ur Culture Indicated? No/not indicated 09/12/23 13:53 Blood Type O POSITIVE 09/12/23 14:29 Blood Type O POSITIVE 09/12/23 14:29 Antibody Screen Negative 09/12/23 14:29 Opioid Opioid Risk Tool Age (Jensen box if 16-45): No History of Preadolescent Sexual Abuse: No Total: 0 Total Score Risk Category: Low Risk Copyright: Jose CANO predicting aberrant behaviors Discharge Plan Diagnosis Discharge Problem: Acute alteration in mental status, Dysarthria, Hypoglycemia Hypothermia Qualifiers: Encounter type: initial encounter Qualified Code(s): T68.XXXA - Hypothermia, initial encounter Hypertension Qualifiers: Hypertension type: primary hypertension Qualified Code(s): I10 - Essential (primary) hypertension CHF (congestive heart failure) Qualifiers: Heart failure type: combined systolic and diastolic Heart failure chronicity: chronic Qualified Code(s): I50.42 - Chronic combined systolic (congestive) and diastolic (congestive) heart failure Discharge Plan Patient Disposition: 09 ADMITTED INPATIENT Condition: Stable Orders to Discharge Patient Discharge Orders: Transfer (Routine); Ordered 09/12/23 Ordered By: SCOTT DE JESUS
[2023-09-12 12:03] VITALS: BMI 20.7
[2023-09-12] MEDS: OMNIPAQUE 350 mg/mL 100 mL BTL 100 ML ONE (12:14)
--- NOTE | 2023-09-12 12:30 | RAD ---
EXAM: CHEST, 1 VIEW HISTORY: CONFUSED; STROKE PROTOCOL COMPARISON: Prior study or studies were utilized for comparison during interpretation with the most relevant carlito ed 07/28/2023 TECHNIQUE: CHEST, 1 VIEW FINDINGS: Chest: Lines and tubes: Cardiac leads overlie the chest. Mediastinum: Median sternotomy wires are present. The cardiac shadow is enlarged. Pulmonary vessels: No pulmonary vascular congestion. Lung milton: No suspicious airspace opacity. Pleura: No effusion. No pneumothorax. Bones and soft tissues: No acute osseous or soft tissue abnormality. IMPRESSION: 1. No acute cardiopulmonary abnormality THIS IS AN ELECTRONICALLY VERIFIED FINAL REPORT 09/12/2023 12:25 PM - Electronically signed by Mick Irby MD
--- NOTE | 2023-09-12 12:31 | CT ---
EXAM: BRAIN W/O CON HISTORY: CONFUSED; CAD, KS, HTN, DM, COPD COMPARISON: No relevant prior studies were available for comparison at the time of interpretation.. TECHNIQUE: CT images were obtained. Multiplanar reconstructions were created on a separate workstation and used during interpretation. All CT scans at this facility is dose modulation, iterative reconstruction, an d/or weight-based dosing as appropriate to reduce radiation to levels as low as reasonably achievable (ALARA). Postprocessing details, radiation dose, and contrast dose (if applicable) are recorded in t he patient's medical record. FINDINGS: Acute findings: There is no intracranial hemorrhage. No mass effect. No intra-axial or extra-axial fl uid collection. There is no mass. No tentorial, uncal, or tonsillar herniation. Brain volume and white matter: There is diffuse cortical atrophy. There is hypoattenuation in the sup ratentorial white matter consistent with chronic microvascular ischemic disease. Ventricles: No hydrocephalus Midline structures: Pituitary gland and corpus callosum are normal. Posterior fossa and skull base: Left cerebellar encephalomalacia is noted. Basal cisterns are not ef faced. Sinuses and mastoids: Scattered mucosal thickening is seen Globes and Orbits: Globes are intact. Bony orbits are intact. Orbital contents are unremarkable. Skull and soft tissues: No depressed skull fracture. Calvarium appears intact. No scalp injury is sadia ntified. IMPRESSION: 1. Left cerebellar encephalomalacia suggests remote infarct 2. No acute intracranial abnormality THIS IS AN ELECTRONICALLY VERIFIED FINAL REPORT 09/12/2023 12:27 PM - Electronically signed by Mick Irby MD
--- NOTE | 2023-09-12 12:46 | EKG ---
Test Reason : confused Blood Pressure : */* mmHG Vent. Rate : 73 BPM Atrial Rate : 73 BPM P-R Int : 214 ms QRS Dur : 92 ms QT Int : 442 ms P-R-T Axes : 44 67 40 degrees QTc Int : 486 ms Sinus rhythm with 1st degree AV block Minimal voltage criteria for LVH, may be normal variant ( Timothy product ) Nonspecific ST abnormality Prolonged QT Abnormal ECG When compared with ECG of 28-JUL-2023 10:02, ST now depressed in Lateral leads Nonspecific T wave abnormality now evident in Inferior leads Confirmed by Jean Yanez ([id number]) on 09/13/2023 12:53:08 PM Referred By: Confirmed By: Jean Yanez
--- NOTE | 2023-09-12 12:53 | TELESTROKE ---
[facility] Consult Date of Consult Date of Exam: 09/12/23 Time of Arrival to the ED: 11:23 Allergies Allergies Allergy/AdvReac Type Severity Reaction Status Date / Time fluoxetine [From Prozac] Allergy Verified 09/12/23 11:42 Vital Signs Vital Signs: Temp Pulse Resp BP Pulse Ox O2 Del Method 09/12/23 11:45 203/93 09/12/23 11:45 62 22 09/12/23 11:44 195/90 09/12/23 11:44 62 23 09/12/23 11:42 90.9 F L 67 18 223/97 98 Room Air History of Present Illness History of Present Illness: [facility] Patient Name: Karel Almendarez Date of : 1950 Identification Number: Date of Service: 09/12/2023 11:45:10 Diagnosis: R41.0 - Disorientation, unspecified Impression: This is a 72 year old man with history of anemia, COPD, coronary artery disease, atrial fibrillation, pulmonary embolism, depression, GERD, and diabetes here with altered mental status stroke alert called for the same. He is not a candidate for IV thrombolytics given last known well. Exam was very limited given mental status. The differential includes stroke, along with toxic metabolic encephalopathy Our recommendations are outlined below. Recommendations: Stroke/Telemetry Floor Neuro Checks Bedside Swallow Eval DVT Prophylaxis IV Fluids, Normal Saline Head of Bed 30 Degrees Euglycemia and Avoid Hyperthermia (PRN Acetaminophen) CTA head and neck If he is on aspirin- continue the same dose- otherwise start 81 mg (if not contraindicated) Can consider UA/B12/folate/TSH/ammonia if not done Can consider MRI brain if feasible SBP<185 Advanced Imaging: Advanced imaging has been ordered. Results pending. Metrics: Last Known Well: Unknown [facility] Notification Time: 09/12/2023 11:45:10 Arrival Time: 09/12/2023 11:23:00 Stamp Time: 09/12/2023 11:45:10 Initial Response Time: 09/12/2023 11:49:16 Symptoms: AMS. Initial patient interaction: 09/12/2023 11:52:00 NIHSS Assessment Completed: 09/12/2023 11:59:00 Patient is not a candidate for Thrombolytic. Thrombolytic Medical Decision: 09/12/2023 11:59:00 Patient was not deemed candidate for Thrombolytic because of following reasons: Last Well Known Above 4.[address] head showed no acute hemorrhage or acute core infarct. Primary Provider Notified of Diagnostic Impression and Management Plan on: 09/12/2023 12:27:49 History of Present Illness: Patient is a 72 year old Male. Patient was brought by EMS for symptoms of AMS. This is a 72 year old man with history of anemia, COPD, coronary artery disease, atrial fibrillation, pulmonary emolism, depression, GERD, and diabetes here with altered mental status stroke alert called for the same. His was reportedly awoken at around 5 am- by the patient; he was "clawing" at her- something which she reportedly attributed to the patient's PTSD. She went to check on him at about 11:30 and found him with a "needle in a vial." He appeared to be preparing to give himself insulin. EMS was activated. On their arrival blood glucose was 50 Past Medical History: Hypertension Diabetes Mellitus Atrial Fibrillation Coronary Artery Disease Othere PMH: anemia, COPD, coronary artery disease, atrial fibrillation, pulmonary embolism, depression, GERD, and diabetes unable to obtain due to: Patient Is Confused Medications: Anticoagulant use: Unknown Antiplatelet use: Unknown Reviewed EMR for current medications Other Medications Pertinent To Assessment Include: Does not seem to be on anticoagulation currently; unclear whether he is currently on antiplatelet Allergies: Allergies Unable To Obtain Due To: Patient Is Confused Social History: Unable To Obtain Due To Patient Status : Patient Is Confused Family History: Family History Cannot Be Obtained Because:Patient Is Confused ROS : ROS Cannot Be Obtained Because: Patient Is Confused Past Surgical History: Past Surgical History Cannot Be Obtained Because: Patient Is Confused There Is No Surgical History Contributory To Todays Visit Examination: BP(203/93), Pulse(62), 1A: Level of Consciousness - Arouses to minor stimulation + 1 1B: Ask Month and Age - Could Not Answer Either Question Correctly + 2 1C: Blink Eyes & Squeeze Hands - Performs 0 Tasks + 2 2: Test Horizontal Extraocular Movements - Normal + 0 3: Test Visual Small - No Visual Loss + 0 4: Test Facial Palsy (Use Grimace if Obtunded) - Normal symmetry + 0 5A: Test Left Arm Motor Drift - No Drift for 10 Seconds + 0 5B: Test Right Arm Motor Drift - No Drift for 10 Seconds + 0 6A: Test Left Leg Motor Drift - Some Effort Against [place] + 2 6B: Test Right Leg Motor Drift - Some Effort Against [place] + 2 7: Test Limb Ataxia (FNF/Heel-Stauffer) - Does Not Understand + 0 8: Test Sensation - Normal; No sensory loss + 0 9: Test Language/Aphasia - Mute/Global Aphasia: No Usable Speech/Auditory Comprehension + 3 10: Test Dysarthria - Severe Dysarthria: Unintelligble Slurring or Out of Proportion to Aphasia + 2 11: Test Extinction/Inattention - No abnormality + 0 NIHSS Score: 14 Pre-Morbid Modified [place] Scale: Unable to assess Spoke with : Dr Alonzo Patient/Family was informed the Neurology Consult would occur via TeleHealth consult by way of interactive audio and video telecommunications and consented to receiving care in this manner. Patient is being evaluated for possible acute neurologic impairment and high probability of imminent or life-threatening deterioration. I spent total of 45 minutes providing care to this patient, including time for face to face visit via telemedicine, review of medical records, imaging studies and discussion of findings with providers, the patient and/or family. Dr Chandrika Jiang [facility] For Inpatient follow-up with [facility] physician please call [facility] . This is not an outpatient service. Post hospital discharge, please contact hospital directly. Please call or reconsult our service if there are any clinical or diagnostic changes.
[2023-09-12] MEDS ORDERED: APRESOLINE INJ 20 MG VIAL ONE (13:05)
[2023-09-12] MEDS: APRESOLINE INJ 20 MG VIAL IVP ONE ×2 (13:08→15:53)
--- NOTE | 2023-09-12 13:50 | CT ---
EXAM: CAROTID CTA HISTORY: AMS LEFT SIDED SENSORY LOSS; COMPARISON: Head CT 09/12/2023 TECHNIQUE: Multiple CT axial images of the neck were obtained after using IV contrast. 3D reconstructions utiliz ing axial MIPS imaging was performed and reviewed. Dose reduction techniques including Automated Exp osure Control (AEC) and adjustment of mA and kV were utilized. Stenoses are measured using NASCET criteria. FINDINGS: A fair quality study was performed. Most of the contrast is still in the pulmonary circulation. There are calcifications in the arteries consistent with atherosclerosis. Aorta is nondilated. Ther e is no aneurysm or dissection. The usual three-vessel anatomy is present off the aortic arch. Ther e are calcified plaques at the origins of all 3 vessels but no significant stenosis. There is a mild stenosis in the main trunk left subclavian artery. Mild stenosis also present at the origin of the right subclavian artery. No significant proximal axillary artery stenosis. Right common carotid artery is widely patent but there are calcified plaques. Circumferential calcif ied and noncalcified plaque disease is present in the carotid bulb. Stenosis measures about 75% (0.11 /0.43). Cervical segment right internal carotid artery is patent to the skull base. Left common carotid artery is patent with calcified plaque disease measuring 50% stenosis at some loc ations in the mid segment. Carotid bulb plaque disease is calcified mostly along the posterior, medi al, and lateral small. Stenosis measures about 70% (0.14/0.43). Cervical segment left internal simpson tid artery is patent to the skull base. I do not identify a left vertebral artery. It could be occluded. It could be atretic which would be a normal congenital variant. Right vertebral artery is patent without significant occlusion. There are emphysematous changes in the lungs. Retained secretions are noted in the dependent trachea . Mediastinal lymphadenopathy is present measuring up to 1.6 cm. Small pleural effusions are presen t. Both of these findings were described on the CTA chest 08/06/2022. The thyroid has a normal size and configuration. IMPRESSION: 1. Bilateral carotid bulb plaque disease 2. (75%) right ICA stenosis 3. (70%) left ICA stenosis 4. Nonvisualization of the left vertebral artery THIS IS AN ELECTRONICALLY VERIFIED FINAL REPORT 09/12/2023 1:47 PM - Electronically signed by Zana Borrego MD
--- NOTE | 2023-09-12 13:59 | CT ---
EXAM: BRAIN CTA HISTORY: AMS LEFT SIDED SENSORY LOSS; COMPARISON: Head CT 09/12/2023 TECHNIQUE: Multiple CT axial images of the brain were obtained after using IV contrast. 3D reconstructions utili zing axial MIPS imaging was performed and reviewed. Dose reduction techniques including Automated Ex posure Control (AEC) and adjustment of mA and kV were utilized. Stenoses are measured using NASCET criteria. FINDINGS: The distal vertebral artery has a normal caliber and fills by reflux from the right side. This would suggest that the nonvisualization of the vertebral artery reported in the neck could be pathological occlusion rather than congenital variant. The CT shows wedge-shaped area of low-density in the left medial cerebellar hemisphere. This might b e acute or subacute. Consider MRI for further evaluation since this area has features of both acute and chronic abnormality. Basilar artery is widely patent and gives rise to large bilateral posterior cerebral arteries. Neither posterior communicating artery is identified. Anterior communicating artery probably normal. There is diffuse calcifications in the lacerum segments and the siphon segments of the carotid arteri es. This leads to moderate stenosis. Otherwise anterior cerebral and middle cerebral arteries are p atent. There is no large vessel occlusion. No arteriovenous malformation. Small protrusion of contrast is noted in the distal left internal carotid artery and could be an infu ndibulum or small aneurysm. It measures about 3.2 cm long and about 1 mm wide. Image 140 series 5. This is present protruding off the posterior lateral wall of the posterior carotid siphon. IMPRESSION: 1. Patent distal normal caliber left vertebral artery; the findings suggest occlusion of the more pro ximal left vertebral artery which was not identified in the neck CTA 2. Moderate lacerum and siphon segment stenosis 3. 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
[2023-09-12 14:26] LABS: BASOPHILS % (AUTO) 0.1 % (0.2-1.0); HEMATOCRIT 40.5 % (42.0-54.0); HEMOGLOBIN 13.6 g/dL (13.5-18.0); LYMPHOCYTES # (AUTO) 0.5 X10^3/uL (1.3-2.9); LYMPHOCYTES % (AUTO) 6.2 % (21.0-51.0); MEAN CORPUSCULAR HEMOGLOBIN 31.3 pg (27.0-34.0); MEAN CORPUSCULAR HGB CONC 33.5 g/dL (33.0-35.0); MEAN CORPUSCULAR VOLUME 93.5 fL (80.0-100.0); MEAN PLATELET VOLUME 8.5 fL (7.4-11.0); MONOCYTES # (AUTO) 0.3 x10^3/uL (0.3-0.8); MONOCYTES % (AUTO) 3.6 % (0.0-13.0); NEUTROPHILS # (AUTO) 7.1 x10^3/uL (2.2-4.8); NEUTROPHILS % (AUTO) 90.1 % (42.0-75.0); PLATELET COUNT 144 X10^3/uL (150.0-450.0); RED BLOOD COUNT 4.33 X10^6/uL (4.7-6.0); RED CELL DISTRIBUTION WIDTH 14.9 % (11.6-16.5); WHITE BLOOD COUNT 7.8 X10^3/uL (3.6-10.0)
[2023-09-12 14:34] LABS: ALBUMIN 3.2 g/dL (3.4-5.0); CALCIUM 8.3 mg/dL (8.5-10.1); CARBON DIOXIDE 20.5 mmol/L (21-32); CHOL/HDL RATIO 2.4 (0.0-5.0); COR CA(FOR HYPOALB) 8.9 mg/dL (8.5-10.1); CREATININE 1.55 mg/dL (0.70-1.30); POTASSIUM 4.1 mmol/L (3.5-5.1)
[2023-09-12 14:46] LABS: BILIRUBIN,URINE NEGATIVE (NEGATIVE); BLOOD/HEMOGLOBIN,URINE 2+ (NEGATIVE); GLUCOSE, URINE 4+ (NEGATIVE); KETONES,URINE NEGATIVE (NEGATIVE); LEUKOCYTE ESTERASE ,URINE NEGATIVE (NEGATIVE); NITRITES,URINE NEGATIVE (NEGATIVE); PROTEIN,URINE 3+ (NEGATIVE); UROBILINOGEN,URINE NORMAL (NORMAL)
[2023-09-12 14:50] LABS: INR 1.28 (0.8-1.3)
[2023-09-12 14:54] LABS: APPEARANCE,URINE SLIGHTLY HAZY (CLEAR); BACTERIA,URINE NEGATIVE /HPF (NEGATIVE); COLOR,URINE YELLOW (YELLOW); SQUAMOUS EPITHELIAL CELL,UR RARE /HPF (NEGATIVE)
[2023-09-12 14:57] LABS: PLATELET MORPHOLOGY COMMENT NORMAL (NORMAL)
[2023-09-12] MEDS: APRESOLINE INJ 20 MG VIAL ONE (16:03)
[2023-09-12] MEDS: ROCEPHIN VIAL 1 GRAM IV ONE (16:15)
[2023-09-12] MEDS: ROCEPHIN VIAL 1 GRAM ONE (16:20)
[2023-09-12] MEDS ORDERED: NS 1,000 ML IV 1,000 ML ONE (16:58)
[2023-09-12] MEDS: NS 1,000 ML IV 1,000 ML IV SCH (17:25)
[2023-09-13 05:51] LABS: BASOPHILS % (AUTO) 0.7 % (0.2-1.0); EOSINOPHILS % (AUTO) 0.5 % (0.9-2.9); HEMOGLOBIN 11.9 g/dL (13.5-18.0); LYMPHOCYTES # (AUTO) 0.7 X10^3/uL (1.3-2.9); LYMPHOCYTES % (AUTO) 10.8 % (21.0-51.0); MEAN CORPUSCULAR HEMOGLOBIN 31.2 pg (27.0-34.0); MEAN CORPUSCULAR VOLUME 91.8 fL (80.0-100.0); MONOCYTES # (AUTO) 0.6 x10^3/uL (0.3-0.8); NEUTROPHILS # (AUTO) 5.1 x10^3/uL (2.2-4.8); PLATELET COUNT 125 X10^3/uL (150.0-450.0); RED BLOOD COUNT 3.81 X10^6/uL (4.7-6.0); RED CELL DISTRIBUTION WIDTH 14.6 % (11.6-16.5); WHITE BLOOD COUNT 6.5 X10^3/uL (3.6-10.0)
[2023-09-13 06:03] LABS: ALANINE AMINOTRANSFERASE 31 Units/L (12-78); ALBUMIN 2.7 g/dL (3.4-5.0); ALKALINE PHOSPHATASE 104 Units/L (46-116); ASPARTATE AMINO TRANSFERASE 32 Units/L (15-37); BLOOD UREA NITROGEN 23 mg/dL (7-18); CALCIUM 7.9 mg/dL (8.5-10.1); CARBON DIOXIDE 18.4 mmol/L (21-32); CHLORIDE 107 mmol/L (98-107); COR CA(FOR HYPOALB) 8.9 mg/dL (8.5-10.1); COR NA(FOR HYPERGLY) 137 mmol/L (136-145); CREATININE 1.36 mg/dL (0.70-1.30); GLUCOSE 118 mg/dL (65-99); POTASSIUM 3.2 mmol/L (3.5-5.1); SODIUM 137 mmol/L (136-145); TOTAL PROTEIN 6.1 g/dL (6.4-8.2); eGFR NON BLACK RACES 55 (>60)
[2023-09-13] MEDS ORDERED: CONSULT PHARMACY - POTASSIUM & MAGNESIUM XX SCH (07:00)
[2023-09-13] MEDS ORDERED: ZANAFLEX PO PRN (08:27)
[2023-09-13] MEDS ORDERED: AMBIEN PO PRN (08:27)
[2023-09-13] MEDS: NS + KCL 20 MEQ/L 1,000 ML with MAGNESIUM SULFATE 50% INJ VIAL 1 G IV SCH (08:50)
[2023-09-13] MEDS: COREG TAB 12.5 MG PO SCH (08:51)
[2023-09-13] MEDS: LASIX PO SCH (08:51)
[2023-09-13] MEDS: BUSPAR PO SCH (08:51)
[2023-09-13] MEDS: LOVENOX INJ 40 MG SYR SC SCH (08:58)
[2023-09-13] MEDS: ROCEPHIN VIAL 1 GRAM 1 G in NS 100 ML IV 100 ML IV SCH (08:59)
[2023-09-13] MEDS ORDERED: K-DUR TAB 20 MEQ PO SCH (09:00)
--- NOTE | 2023-09-13 09:26 | DR.H&P ---
H&P History & Physical for Day of: H&P Date: 09/13/23 Allergies Allergies Allergy/AdvReac Type Severity Reaction Status Date / Time fluoxetine [From Prozac] Allergy Verified 09/12/23 11:42 History of Present Illness History of Present Illness: Mr Almendarez is a 72y/o male who presented with AMS, hypoglycemia and hypothermia. He was noted to be somnolent on admission. Tele- stroke protocol was initiated with neuro. EMS reported patient's glucose was in the 50s and there was an insulin syringe found next to him. Patient had CT- brain, CTA head and neck which did not show anything acute. Tele-neuro did not recommend any further intervention. Patient was noted to be back to his baseline shortly after. His temp was initially 90.9 and bear hugger was applied. Labs showed mild elevation in Creatinine. CXR was negative. Infectious work up was initiated, blood cx collected. RSV/FLU/COVID were negative. Patient was started on empiric antibiotics and admitted for further management. This morning, patient is alert and oriented. He does not recall what happened that brought him to the ER. He states he was not eating much for the past few days. Denies GI or URI symptoms. He has been taking his insulin. He states he is able to ambulate. Denies chest pain or SOB. Denies recent fall. Labs/imaging reviewed - Hgb 11.9 K:3.2 Ma.6 BUN/Cr:23/1.36 Trop: 54.9,73.2 - UA: negative -CXR: no acute process -CT-head: left cerebellar remote encephalomalacia -CTA head and neck: b/l ICA stenosis, unable to visualize left vertebral artery. Plan: Stat troponin ordered. Continue hydration, replace electrolytes. Continue empiric antibiotics, IV Rocephin. Follow blood Cx. Resume home medications. PT/OT as tolerated. Monitor glucose levels. Monitor AM labs/imaging. Time spent for clinical assessment, reviewing labs/imaging, physical exam, decision making and documentation greater than 45 mins. Past Medical History Past Medical History: CHF, COPD, Coronary Artery Disease, Diabetes, Dyslipidemia, Hypertension and [place] Additional Medical History: [place] 2012 Past Surgical History Surgical History: Appendectomy and CABG/Valve Surgery Additional Surgical History: 7 CARDIAC STENTS Family History Family Medical History: Diabetes Mellitus, Cancer, [place], Coronary Artery Disease and Hypertension Social History Does patient currently use any type of tobacco product: Yes Have you used tobacco products in the last 12 months: Yes Type of Tobacco Use: Cigarettes How many years tobacco product used: 1 Alcohol Use: None Medications Home Medications: Home Medications Medication Instructions Recorded Confirmed Type buspirone 15 mg tablet 15 mg PO QID 07/17/22 09/12/23 History insulin glargine 100 unit/mL 10 unit subcut DAILY 07/17/22 09/12/23 History subcutaneous solution (Lantus U-100 Insulin) oxycodone 10 mg tablet 1 tab PO TID PRN 07/17/22 09/12/23 History tizanidine 4 mg tablet 4 mg PO BID PRN 07/17/22 09/12/23 History zolpidem 5 mg tablet 5 mg PO QPM PRN 08/06/22 09/12/23 History carvedilol 12.5 mg tablet 12.5 mg PO BID 09/12/23 09/12/23 History furosemide 40 mg tablet 40 mg PO BID 09/12/23 09/12/23 History Labs 09/13/23 05:21 09/13/23 05:21 Labs: Laboratory WBC 6.5 X10^3/uL (3.6-10.0) 09/13/23 05:21 RBC 3.81 X10^6/uL (4.7-6.0) L 09/13/23 05:21 Hgb 11.9 g/dL (13.5-18.0) L 09/13/23 05:21 Hct 35.0 % (42.0-54.0) L 09/13/23 05:21 MCV 91.8 fL (80.0-100.0) 09/13/23 05:21 MCH 31.2 pg (27.0-34.0) 09/13/23 05:21 MCHC 34.0 g/dL (33.0-35.0) 09/13/23 05:21 RDW 14.6 % (11.6-16.5) 09/13/23 05:21 Plt Count 125 X10^3/uL (150.0-450.0) L 09/13/23 05:21 Plt Count Comment Decreased (ADEQUATE) 09/12/23 14:02 MPV 9.0 fL (7.4-11.0) 09/13/23 05:21 Neut % (Auto) 79.0 % (42.0-75.0) H 09/13/23 05:21 Lymph % (Auto) 10.8 % (21.0-51.0) L 09/13/23 05:21 [place] % (Auto) 9.0 % (0.0-13.0) 09/13/23 05:21 Eos % (Auto) 0.5 % (0.9-2.9) L 09/13/23 05:21 Baso % (Auto) 0.7 % (0.2-1.0) 09/13/23 05:21 Neut # (Auto) 5.1 x10^3/uL (2.2-4.8) H 09/13/23 05:21 Lymph # (Auto) 0.7 X10^3/uL (1.3-2.9) L 09/13/23 05:21 [place] # (Auto) 0.6 x10^3/uL (0.3-0.8) 09/13/23 05:21 Eos # (Auto) 0.0 x10^3/uL (0.0-0.2) 09/13/23 05:21 Baso # (Auto) 0.0 X10^3/uL (0.0-0.1) 09/13/23 05:21 Absolute Nucleated RBC 0.1 /100WBC 09/13/23 05:21 Total Counted 100 09/12/23 14:02 Neutrophils % (Manual) 92 % (39-76) H 09/12/23 14:02 Lymphocytes % (Manual) 5 % (13-43) L 09/12/23 14:02 Monocytes % (Manual) 3 % (4-9) L 09/12/23 14:02 Plt Morphology Comment Normal (NORMAL) 09/12/23 14:02 RBC Morphology Normal (NORMAL) 09/12/23 14:02 PT 15.8 SECONDS (11.8-14.3) 09/12/23 14:29 INR Target Range - 09/12/23 14:29 INR 1.28 (0.8-1.3) 09/12/23 14:29 APTT 31.8 SECONDS (22.9-36.5) 09/12/23 14:29 PTT Comment - 09/12/23 14:29 Fibrinogen 315 mg/dL (239-489) 09/12/23 14:29 Sodium 137 mmol/L (136-145) 09/13/23 05:21 Corrected Sodium 137 mmol/L (136-145) 09/13/23 05:21 Potassium 3.2 mmol/L (3.5-5.1) L 09/13/23 05:21 Chloride 107 mmol/L (98-107) 09/13/23 05:21 Carbon Dioxide 18.4 mmol/L (21-32) L 09/13/23 05:21 BUN 23 mg/dL (7-18) H 09/13/23 05:21 Creatinine 1.36 mg/dL (0.70-1.30) H 09/13/23 05:21 Est GFR (MDRD) Af Amer > 60 (>60) 09/13/23 05:21 Est GFR (MDRD) Non-Af 55 (>60) L 09/13/23 05:21 Glucose 118 mg/dL (65-99) H 09/13/23 05:21 Lactic Acid 0.9 mmol/L (0.4-2.0) 09/12/23 16:08 Calcium 7.9 mg/dL (8.5-10.1) L 09/13/23 05:21 Corrected Calcium 8.9 mg/dL (8.5-10.1) 09/13/23 05:21 Magnesium 1.6 mg/dL (2.0-2.9) L 09/13/23 05:21 Total Bilirubin 1.10 mg/dL (0.2-1.0) H 09/13/23 05:21 AST 32 Units/L (15-37) 09/13/23 05:21 ALT 31 Units/L (12-78) 09/13/23 05:21 Alkaline Phosphatase 104 Units/L (46-116) 09/13/23 05:21 Creatine Kinase 421 Units/L (39-308) H 09/13/23 02:12 Troponin I High Sens 73.2 ng/L (4.0-60.0) H* 09/13/23 02:12 B-Natriuretic Peptide 2820 pg/mL (0-79) H 09/12/23 14:29 Total Protein 6.1 g/dL (6.4-8.2) L 09/13/23 05:21 Albumin 2.7 g/dL (3.4-5.0) L 09/13/23 05:21 Globulin 3.4 g/dL (2.5-4.5) 09/13/23 05:21 Albumin/Globulin Ratio 0.8 Ratio (1.1-2.1) L 09/13/23 05:21 Triglycerides 38 mg/dL (0-150) 09/12/23 14:02 Cholesterol 158 mg/dL (0-200) 09/12/23 14:02 LDL Cholesterol, Calc 85 mg/dL (0-100) 09/12/23 14:02 HDL Cholesterol 65 mg/dL (40-60) H 09/12/23 14:02 Cholesterol/HDL Ratio 2.4 (0.0-5.0) 09/12/23 14:02 Specimen Type Clean catch urine 09/12/23 13:53 Urine Color Yellow (YELLOW) 09/12/23 13:53 Urine Appearance Slightly hazy (CLEAR) 09/12/23 13:53 Urine pH 6.0 (5.0 - 8.0) 09/12/23 13:53 Ur Specific [place] 1.010 (1.000-1.030) 09/12/23 13:53 Urine Protein 3+ (NEGATIVE) 09/12/23 13:53 Urine Glucose (UA) 4+ (NEGATIVE) 09/12/23 13:53 Urine Ketones Negative (NEGATIVE) 09/12/23 13:53 Urine Blood 2+ (NEGATIVE) 09/12/23 13:53 Urine Nitrite Negative (NEGATIVE) 09/12/23 13:53 Urine Bilirubin Negative (NEGATIVE) 09/12/23 13:53 Urine Urobilinogen Normal (NORMAL) 09/12/23 13:53 Ur Leukocyte Esterase Negative (NEGATIVE) 09/12/23 13:53 Urine RBC 3-5 /HPF (0-3) A 09/12/23 13:53 Urine WBC None seen /HPF (0-5) 09/12/23 13:53 Ur Squamous Epith Cells Rare /HPF (NEGATIVE) 09/12/23 13:53 Urine Bacteria Negative /HPF (NEGATIVE) 09/12/23 13:53 Urine Mucus Few /HPF (NEGATIVE) 09/12/23 13:53 Ur Culture Indicated? No/not indicated 09/12/23 13:53 SARS-CoV-2 (PCR) Negative (NEGATIVE) 09/12/23 16:02 Influenza Type A (PCR) Negative (NEGATIVE) 09/12/23 16:02 Influenza Type B (PCR) Negative (NEGATIVE) 09/12/23 16:02 RSV (PCR) Negative (NEGATIVE) 09/12/23 16:02 Blood Type O POSITIVE 09/12/23 14:29 Blood Type O POSITIVE 09/12/23 14:29 Antibody Screen Negative 09/12/23 14:29 Review of Systems Constitutional: Malaise Eyes: No Symptoms Reported ENT: No Symptoms Reported Respiratory: No Symptoms Reported Cardiovascular: No Symptoms Reported Gastrointestinal: No Symptoms Reported Genitourinary: No Symptoms Reported Musculoskeletal: No Symptoms Reported Skin: No Symptoms Reported Neurological: Confusion Physical Exam Vital Signs: Vital Signs Temperature 98.4 F Temperature 98.2 F Pulse Rate [Left Radial] 67 Pulse Rate [Left Radial] 63 Respiratory Rate 18 Respiratory Rate 18 Blood Pressure [Left Arm] 162/75 Blood Pressure [Left Arm] 165/74 O2 Sat by Pulse Oximetry 96 O2 Sat by Pulse Oximetry 100 Oriented: Normal Eyes: Normal Ear: Normal Nose: Normal Throat: Normal Respiratory: Diminished Throughout Cardiovascular: Normal Auscultation: Bowel Sounds: Normal Palpation: Normal Tenderness: Normal Skin: Normal Musculoskeletal: Normal Psychiatric: Normal Mood Description: Calm Affect: Normal Speech Pattern: Clear and Appropriate Assessment/Plan (1) Elevated troponin: Status: Acute (2) Hypothermia: Qualifiers: Encounter type: initial encounter Qualified Code(s): T68.XXXA - Hypothermia, initial encounter Status: Acute (3) Hypoglycemia: Status: Acute (4) Altered mental state: Qualifiers: Altered mental status type: transient alteration of awareness Qualified Code(s): R40.4 - Transient alteration of awareness Status: Acute (5) Hypokalemia: Status: Acute (6) Hypomagnesemia: Status: Acute (7) Generalized weakness: Status: Acute (8) Congestive heart failure: Qualifiers: Heart failure chronicity: acute on chronic Heart failure type: unspecified Qualified Code(s): I50.9 - Heart failure, unspecified Status: Acute (9) CAD (coronary artery disease): Qualifiers: Associated angina: with stable angina Coronary Disease-Associated Artery/Lesion type: [place] artery [place] vs. transplanted heart: [place] heart Qualified Code(s): I25.118 - Atherosclerotic heart disease of [place] coronary artery with other forms of angina pectoris Status: Chronic (10) Anemia: Qualifiers: Anemia type: iron deficiency Iron deficiency anemia type: unspecified iron deficiency Qualified Code(s): D50.9 - Iron deficiency anemia, unspecified Status: Acute (11) Carotid stenosis: Qualifiers: Laterality: bilateral Qualified Code(s): I65.23 - Occlusion and stenosis of bilateral carotid arteries Status: Acute Review H&P Reviewed: Yes Patient was examined?: Yes
--- NOTE | 2023-09-13 11:52 | DR.CONSULT ---
CONSULT Consultation for Day of: Date: 09/13/23 Chief Complaint Chief Complaint: AMS Allergies Allergies Allergy/AdvReac Type Severity Reaction Status Date / Time fluoxetine [From Prozac] Allergy Verified 09/12/23 11:42 History of Present Illness History of Present Illness: s/p cabg/mv repair/maze/SHARON ligation - last seen at [facility] year ago- still smokes- no statin??- ran out of eliis few weeks ago- admitted for AMS/hypothermic/possible hypoglycemia- no acute stroke on scans but B sign carotid disease (75% R bulb, 70% L ICA, L vert poss occluded as not seen- not most active minor but no sign CV sx, stable sob- BP >200 upon presentation- ekg: lvh/st abnl- no changes over 24 hours- trop 54-73-90 ( again no sx but AMS?)- last echo EF 40-45%- today 35%/mild mr Past Medical History Past Medical History: CHF, COPD, Coronary Artery Disease, Diabetes, Dyslipidemia, Hypertension and [place] Additional Medical History: [place] 2012 Past Surgical History Surgical History: Appendectomy and CABG/Valve Surgery Additional Surgical History: 7 CARDIAC STENTS Family History Family Medical History: Diabetes Mellitus, Cancer, [place], Coronary Artery Disease and Hypertension Social History Does patient currently use any type of tobacco product: Yes Have you used tobacco products in the last 12 months: Yes Type of Tobacco Use: Cigarettes How many years tobacco product used: 1 Alcohol Use: None Medications Home Medications: fluoxetine [From Prozac] Allergy (Verified 09/12/23 11:42) CONTINUE taking the following medications carvedilol 12.5 mg tablet 12.5 mg PO BID 09/12/23 [History] furosemide 40 mg tablet 40 mg PO BID 09/12/23 [History] Physical Exam Vital Signs: Vital Signs Temperature 98.4 F Temperature 98.2 F Pulse Rate [Left Radial] 67 Pulse Rate [Left Radial] 63 Respiratory Rate 18 Respiratory Rate 18 Blood Pressure [Left Arm] 162/75 Blood Pressure [Left Arm] 165/74 O2 Sat by Pulse Oximetry 96 O2 Sat by Pulse Oximetry 100 alert ox3 iker clear lungs B bruits neck, rrr 2/6 HSM apex/2/5 logan no edema , pulses palp but down feet labs:hct 35 plt 125 bun/cr 23/1.36 alb 2.7 cxr: nad Plan (1) Elevated troponin: Status: Acute Narrative Support Text: no cp/no evolutionary ekg changes (2) Congestive heart failure: Status: Acute Qualifiers: Heart failure chronicity: acute on chronic Heart failure type: unspecified Qualified Code(s): I50.9 - Heart failure, unspecified Narrative Support Text: ef down but bp high- lower bp (3) CAD (coronary artery disease): Status: Chronic Qualifiers: Associated angina: with stable angina Coronary Disease-Associated Artery/Lesion type: [place] artery [place] vs. transplanted heart: [place] heart Qualified Code(s): I25.118 - Atherosclerotic heart disease of [place] coronary artery with other forms of angina pectoris (4) Carotid stenosis: Status: Acute Qualifiers: Laterality: bilateral Qualified Code(s): I65.23 - Occlusion and stenosis of bilateral carotid arteries Narrative Support Text: needs surgery/stent in near future (5) Atrial fibrillation: Status: Acute Narrative Support Text: willl resume DOAC (6) Mitral regurgitation: Status: Acute Narrative Support Text: s/p repair w mild mr (7) Hyperlipidemia: Status: Chronic Qualifiers: Hyperlipidemia type: mixed hyperlipidemia Qualified Code(s): E78.2 - Mixed hyperlipidemia Narrative Support Text: bad vasc disease- check lipids and add statin!! (8) Hypertension: Status: Acute Qualifiers: Hypertension type: primary hypertension Qualified Code(s): I10 - Essential (primary) hypertension Narrative Support Text: push meds to help LV unload- will add arb
--- NOTE | 2023-09-13 11:57 | EKG ---
Test Reason : elevated troponin Blood Pressure : */* mmHG Vent. Rate : 60 BPM Atrial Rate : 60 BPM P-R Int : 196 ms QRS Dur : 98 ms QT Int : 424 ms P-R-T Axes : 113 35 212 degrees QTc Int : 424 ms Normal sinus rhythm Minimal voltage criteria for LVH, may be normal variant ( Parks product ) Nonspecific ST and T wave abnormality Abnormal ECG When compared with ECG of 12-SEP-2023 12:44, (Unconfirmed) QT has shortened Confirmed by Mookie Thompson MD ([id number]) on 09/13/2023 11:27:31 AM Referred By: Confirmed By: Mookie Thompson MD
[2023-09-13] MEDS: COZAAR PO SCH (12:35)
[2023-09-13] MEDS ORDERED: NORVASC TAB 2.5 MG ONE (17:31)
[2023-09-13] MEDS: NORVASC TAB 2.5 MG PO SCH (17:39)
[2023-09-13] MEDS: NovoLIN R (or HumuLIN R) SC PRN (17:40)
[2023-09-13] MEDS: FLOMAX PO SCH (21:10)
[2023-09-13] MEDS: ELIQUIS PO SCH (21:11)
[2023-09-14] MEDS ORDERED: D50W ABBOJECT SYR ONE (02:16)
[2023-09-14] MEDS: D50W ABBOJECT SYR IV ONE (02:20)
[2023-09-14 06:20] LABS: BASOPHILS % (AUTO) 0.3 % (0.2-1.0); EOSINOPHILS # (AUTO) 0.1 x10^3/uL (0.0-0.2); EOSINOPHILS % (AUTO) 1.1 % (0.9-2.9); HEMATOCRIT 37.5 % (42.0-54.0); HEMOGLOBIN 12.6 g/dL (13.5-18.0); LYMPHOCYTES # (AUTO) 0.7 X10^3/uL (1.3-2.9); LYMPHOCYTES % (AUTO) 12.3 % (21.0-51.0); MEAN CORPUSCULAR HGB CONC 33.5 g/dL (33.0-35.0); MEAN CORPUSCULAR VOLUME 92.5 fL (80.0-100.0); MEAN PLATELET VOLUME 9.2 fL (7.4-11.0); MONOCYTES # (AUTO) 0.4 x10^3/uL (0.3-0.8); MONOCYTES % (AUTO) 7.6 % (0.0-13.0); NEUTROPHILS # (AUTO) 4.6 x10^3/uL (2.2-4.8); NEUTROPHILS % (AUTO) 78.7 % (42.0-75.0); PLATELET COUNT 130 X10^3/uL (150.0-450.0); RED BLOOD COUNT 4.06 X10^6/uL (4.7-6.0); RED CELL DISTRIBUTION WIDTH 14.8 % (11.6-16.5); WHITE BLOOD COUNT 5.9 X10^3/uL (3.6-10.0)
[2023-09-14 06:34] LABS: ALANINE AMINOTRANSFERASE 31 Units/L (12-78); ALBUMIN 2.6 g/dL (3.4-5.0); ALKALINE PHOSPHATASE 102 Units/L (46-116); ASPARTATE AMINO TRANSFERASE 39 Units/L (15-37); BLOOD UREA NITROGEN 20 mg/dL (7-18); CALCIUM 7.7 mg/dL (8.5-10.1); CARBON DIOXIDE 21.7 mmol/L (21-32); CHLORIDE 106 mmol/L (98-107); CHOL/HDL RATIO 2.7 (0.0-5.0); CHOLESTEROL 144 mg/dL (0-200); COR CA(FOR HYPOALB) 8.8 mg/dL (8.5-10.1); COR NA(FOR HYPERGLY) 142 mmol/L (136-145); CREATININE 1.44 mg/dL (0.70-1.30); GLUCOSE 221 mg/dL (65-99); HDL CHOLESTEROL 54 mg/dL (40-60); MAGNESIUM 2.1 mg/dL (2.0-2.9); POTASSIUM 3.5 mmol/L (3.5-5.1); SODIUM 139 mmol/L (136-145); TOTAL PROTEIN 6.1 g/dL (6.4-8.2); TRIGLYCERIDES 26 mg/dL (0-150); eGFR NON BLACK RACES 51 (>60)
[2023-09-14] MEDS: COREG TAB 6.25 MG PO SCH (09:43)
--- NOTE | 2023-09-14 09:45 | PCM.PROG ---
Progress Note Progress Note for Day of Date of Exam: 09/14/23 Subjective Subjective: Patient seen at bedside, reports doing better. He was noted to have glucose of 36 earlier this morning, received D50 and improved. Patient reports eating well last night. He has only been receiving SSI. He received 4 units to cover glucose of 210 around bedtime. He is not on any long-acting insulin and oral hypoglycemics. He was seen by cardio yesterday, new cardiac medications were added. His HR has been in the 50s with addition of Coreg. He reports not ambulating much. Labs/imaging reviewed -Hgb 12.6 BUN/Cr:20.44 Glucose 221 -Blood Cx pending Plan: follow cardiology recommendations, add statin. Will decrease Coreg to 6.25 mg BID due to bradycardia. Continue amlodipine and losartan. Continue Eliquis. Continue SSI prior to meals, add bedtime snack. PT/OT as tolerated. Follow pending Cx. Monitor AM labs/imaging. Past Medical Family Social History Allergies: Allergies fluoxetine [From Prozac] Allergy (Verified 09/12/23 11:42) Vital Signs and I&O's Vital Signs: Vital Signs Temperature 98.2 F Temperature 97.6 F Pulse Rate [Left Radial] 58 Pulse Rate [Left Radial] 52 Respiratory Rate 18 Respiratory Rate 20 Blood Pressure [Left Arm] 174/77 Blood Pressure [Left Arm] 156/70 O2 Sat by Pulse Oximetry 100 O2 Sat by Pulse Oximetry 100 Intake and Output: Intake & Output 09/11/23 09/12/23 09/13/23 09/14/23 23:59 23:59 23:59 23:59 Intake Total 689 / 689 2969 / 2969 741 / 741 Output Total 1055 / 1055 1625 / 1625 600 / 600 Balance -366 / -366 1344 / 1344 141 / 141 Physical Exam Oriented: Normal Eyes: Normal Ear: Normal Nose: Normal Throat: Normal Respiratory: Generalized and Diminished Cardiovascular: Normal Auscultation: Bowel Sounds: Normal Palpation: Normal Tenderness: Normal Skin: Normal Musculoskeletal: Normal Psychiatric: Normal Mood Description: Calm Affect: Normal Speech Pattern: Clear and Appropriate Laboratory and Diagnostics 09/14/23 05:12 09/14/23 05:12 Labs: Laboratory WBC 5.9 X10^3/uL (3.6-10.0) 09/14/23 05:12 RBC 4.06 X10^6/uL (4.7-6.0) L 09/14/23 05:12 Hgb 12.6 g/dL (13.5-18.0) L 09/14/23 05:12 Hct 37.5 % (42.0-54.0) L 09/14/23 05:12 MCV 92.5 fL (80.0-100.0) 09/14/23 05:12 MCH 31.0 pg (27.0-34.0) 09/14/23 05:12 MCHC 33.5 g/dL (33.0-35.0) 09/14/23 05:12 RDW 14.8 % (11.6-16.5) 09/14/23 05:12 Plt Count 130 X10^3/uL (150.0-450.0) L 09/14/23 05:12 Plt Count Comment Decreased (ADEQUATE) 09/12/23 14:02 MPV 9.2 fL (7.4-11.0) 09/14/23 05:12 Neut % (Auto) 78.7 % (42.0-75.0) H 09/14/23 05:12 Lymph % (Auto) 12.3 % (21.0-51.0) L 09/14/23 05:12 [place] % (Auto) 7.6 % (0.0-13.0) 09/14/23 05:12 Eos % (Auto) 1.1 % (0.9-2.9) 09/14/23 05:12 Baso % (Auto) 0.3 % (0.2-1.0) 09/14/23 05:12 Neut # (Auto) 4.6 x10^3/uL (2.2-4.8) 09/14/23 05:12 Lymph # (Auto) 0.7 X10^3/uL (1.3-2.9) L 09/14/23 05:12 [place] # (Auto) 0.4 x10^3/uL (0.3-0.8) 09/14/23 05:12 Eos # (Auto) 0.1 x10^3/uL (0.0-0.2) 09/14/23 05:12 Baso # (Auto) 0.0 X10^3/uL (0.0-0.1) 09/14/23 05:12 Absolute Nucleated RBC 0.2 /100WBC 09/14/23 05:12 Total Counted 100 09/12/23 14:02 Neutrophils % (Manual) 92 % (39-76) H 09/12/23 14:02 Lymphocytes % (Manual) 5 % (13-43) L 09/12/23 14:02 Monocytes % (Manual) 3 % (4-9) L 09/12/23 14:02 Plt Morphology Comment Normal (NORMAL) 09/12/23 14:02 RBC Morphology Normal (NORMAL) 09/12/23 14:02 PT 15.8 SECONDS (11.8-14.3) 09/12/23 14:29 INR Target Range - 09/12/23 14:29 INR 1.28 (0.8-1.3) 09/12/23 14:29 APTT 31.8 SECONDS (22.9-36.5) 09/12/23 14:29 PTT Comment - 09/12/23 14:29 Fibrinogen 315 mg/dL (239-489) 09/12/23 14:29 Sodium 139 mmol/L (136-145) 09/14/23 05:12 Corrected Sodium 142 mmol/L (136-145) 09/14/23 05:12 Potassium 3.5 mmol/L (3.5-5.1) 09/14/23 05:12 Chloride 106 mmol/L (98-107) 09/14/23 05:12 Carbon Dioxide 21.7 mmol/L (21-32) 09/14/23 05:12 BUN 20 mg/dL (7-18) H 09/14/23 05:12 Creatinine 1.44 mg/dL (0.70-1.30) H 09/14/23 05:12 Est GFR (MDRD) Af Amer > 60 (>60) 09/14/23 05:12 Est GFR (MDRD) Non-Af 51 (>60) L 09/14/23 05:12 Glucose 221 mg/dL (65-99) H 09/14/23 05:12 POC Glucose (mg/dL) 221 mg/dL (65-99) H 09/14/23 05:12 Lactic Acid 0.9 mmol/L (0.4-2.0) 09/12/23 16:08 Calcium 7.7 mg/dL (8.5-10.1) L 09/14/23 05:12 Corrected Calcium 8.8 mg/dL (8.5-10.1) 09/14/23 05:12 Magnesium 2.1 mg/dL (2.0-2.9) 09/14/23 05:12 Total Bilirubin 1.10 mg/dL (0.2-1.0) H 09/14/23 05:12 AST 39 Units/L (15-37) H 09/14/23 05:12 ALT 31 Units/L (12-78) 09/14/23 05:12 Alkaline Phosphatase 102 Units/L (46-116) 09/14/23 05:12 Creatine Kinase 421 Units/L (39-308) H 09/13/23 02:12 Troponin I High Sens 90.9 ng/L (4.0-60.0) H* 09/13/23 09:06 B-Natriuretic Peptide 2820 pg/mL (0-79) H 09/12/23 14:29 Total Protein 6.1 g/dL (6.4-8.2) L 09/14/23 05:12 Albumin 2.6 g/dL (3.4-5.0) L 09/14/23 05:12 Globulin 3.5 g/dL (2.5-4.5) 09/14/23 05:12 Albumin/Globulin Ratio 0.7 Ratio (1.1-2.1) L 09/14/23 05:12 Triglycerides 26 mg/dL (0-150) 09/14/23 05:12 Cholesterol 144 mg/dL (0-200) 09/14/23 05:12 LDL Cholesterol, Calc 85 mg/dL (0-100) 09/14/23 05:12 HDL Cholesterol 54 mg/dL (40-60) 09/14/23 05:12 Cholesterol/HDL Ratio 2.7 (0.0-5.0) 09/14/23 05:12 Specimen Type Clean catch urine 09/12/23 13:53 Urine Color Yellow (YELLOW) 09/12/23 13:53 Urine Appearance Slightly hazy (CLEAR) 09/12/23 13:53 Urine pH 6.0 (5.0 - 8.0) 09/12/23 13:53 Ur Specific [place] 1.010 (1.000-1.030) 09/12/23 13:53 Urine Protein 3+ (NEGATIVE) 09/12/23 13:53 Urine Glucose (UA) 4+ (NEGATIVE) 09/12/23 13:53 Urine Ketones Negative (NEGATIVE) 09/12/23 13:53 Urine Blood 2+ (NEGATIVE) 09/12/23 13:53 Urine Nitrite Negative (NEGATIVE) 09/12/23 13:53 Urine Bilirubin Negative (NEGATIVE) 09/12/23 13:53 Urine Urobilinogen Normal (NORMAL) 09/12/23 13:53 Ur Leukocyte Esterase Negative (NEGATIVE) 09/12/23 13:53 Urine RBC 3-5 /HPF (0-3) A 09/12/23 13:53 Urine WBC None seen /HPF (0-5) 09/12/23 13:53 Ur Squamous Epith Cells Rare /HPF (NEGATIVE) 09/12/23 13:53 Urine Bacteria Negative /HPF (NEGATIVE) 09/12/23 13:53 Urine Mucus Few /HPF (NEGATIVE) 09/12/23 13:53 Ur Culture Indicated? No/not indicated 09/12/23 13:53 SARS-CoV-2 (PCR) Negative (NEGATIVE) 09/12/23 16:02 Influenza Type A (PCR) Negative (NEGATIVE) 09/12/23 16:02 Influenza Type B (PCR) Negative (NEGATIVE) 09/12/23 16:02 RSV (PCR) Negative (NEGATIVE) 09/12/23 16:02 Blood Type O POSITIVE 09/12/23 14:29 Blood Type O POSITIVE 09/12/23 14:29 Antibody Screen Negative 09/12/23 14:29 Plan (1) Generalized weakness: Status: Acute (2) Hypoglycemia: Status: Acute (3) Elevated troponin: Status: Acute (4) Congestive heart failure: Status: Acute Qualifiers: Heart failure chronicity: acute on chronic Heart failure type: unspecified Qualified Code(s): I50.9 - Heart failure, unspecified (5) CAD (coronary artery disease): Status: Chronic Qualifiers: Associated angina: with stable angina Coronary Disease-Associated Artery/Lesion type: [place] artery [place] vs. transplanted heart: [place] heart Qualified Code(s): I25.118 - Atherosclerotic heart disease of [place] coronary artery with other forms of angina pectoris (6) Carotid stenosis: Status: Acute Qualifiers: Laterality: bilateral Qualified Code(s): I65.23 - Occlusion and stenosis of bilateral carotid arteries (7) Atrial fibrillation: Status: Acute Qualifiers: Atrial fibrillation type: unspecified chronic Qualified Code(s): I48.20 - Chronic atrial fibrillation, unspecified (8) Mitral regurgitation: Status: Acute Qualifiers: Cardiac valve disease etiology: etiology unspecified Qualified Code(s): I34.0 - Nonrheumatic mitral (valve) insufficiency (9) Hyperlipidemia: Status: Chronic Qualifiers: Hyperlipidemia type: mixed hyperlipidemia Qualified Code(s): E78.2 - Mixed hyperlipidemia (10) Hypertension: Status: Acute Qualifiers: Hypertension type: primary hypertension Qualified Code(s): I10 - E ssential (primary) hypertension (11) Anemia: Status: Acute Qualifiers: Anemia type: iron deficiency Iron deficiency anemia type: unspecified iron deficiency Qualified Code(s): D50.9 - Iron deficiency anemia, unspecified (12) Hypothermia: Status: Acute Qualifiers: Encounter type: initial encounter Qualified Code(s): T68.XXXA - Hypothermia, initial encounter
[2023-09-14] MEDS: COLACE CAP 100 MG PO PRN (17:42)
[2023-09-14] MEDS: SNACK - Diabetic Appropriate PO SCH (20:30)
[2023-09-14] MEDS: LIPITOR TAB 40 MG PO SCH (21:08)
[2023-09-15 05:58] LABS: BASOPHILS % (AUTO) 0.4 % (0.2-1.0); EOSINOPHILS # (AUTO) 0.2 x10^3/uL (0.0-0.2); EOSINOPHILS % (AUTO) 2.8 % (0.9-2.9); HEMATOCRIT 35.3 % (42.0-54.0); LYMPHOCYTES # (AUTO) 0.8 X10^3/uL (1.3-2.9); LYMPHOCYTES % (AUTO) 13.2 % (21.0-51.0); MEAN CORPUSCULAR HEMOGLOBIN 31.3 pg (27.0-34.0); MEAN CORPUSCULAR HGB CONC 33.9 g/dL (33.0-35.0); MEAN CORPUSCULAR VOLUME 92.4 fL (80.0-100.0); MEAN PLATELET VOLUME 9.2 fL (7.4-11.0); MONOCYTES # (AUTO) 0.6 x10^3/uL (0.3-0.8); MONOCYTES % (AUTO) 10.7 % (0.0-13.0); NEUTROPHILS # (AUTO) 4.2 x10^3/uL (2.2-4.8); NEUTROPHILS % (AUTO) 72.9 % (42.0-75.0); PLATELET COUNT 131 X10^3/uL (150.0-450.0); RED BLOOD COUNT 3.82 X10^6/uL (4.7-6.0); RED CELL DISTRIBUTION WIDTH 14.8 % (11.6-16.5); WHITE BLOOD COUNT 5.8 X10^3/uL (3.6-10.0)
[2023-09-15 06:07] LABS: ALBUMIN 2.6 g/dL (3.4-5.0); CALCIUM 7.5 mg/dL (8.5-10.1); CARBON DIOXIDE 22.6 mmol/L (21-32); COR CA(FOR HYPOALB) 8.6 mg/dL (8.5-10.1); CREATININE 1.73 mg/dL (0.70-1.30); HEMOGLOBIN A1C 9.6 %; POTASSIUM 3.4 mmol/L (3.5-5.1); TOTAL PROTEIN 5.8 g/dL (6.4-8.2)
[2023-09-15] MEDS ORDERED: CONSULT PHARMACY - POTASSIUM & MAGNESIUM XX SCH (07:00)
--- NOTE | 2023-09-15 09:33 | PCM.PROG ---
Progress Note Progress Note for Day of Date of Exam: 09/15/23 Subjective Subjective: Patient is a 72 year old male admitted for CHF exacerbation, hypothermia, hypoglycemia. This morning he is resting in bed. No acute events overnight. He was seen by cardiology and new cardiac medications were added. This morning his pulse is within normal limits. He has had no hypoglycemic e pisodes. Labs/imaging reviewed -Wbc 5.8, Hgb 12, Plt 131, Na 139, K 3.4, Cr:1.73, Glucose 404, A1c 9.6, Echo EF 35-40% -Blood Cx negative Plan: Continue medications that cardiology had started. Decrease in Coreg to 6.25 mg BID has resolved bradycardia. Continue Eliquis. Will restart home lantus. Will order CXR to evaluate for fluid overload. Will discontinue IVF and monitor renal function. Continue SSI prior to meals. PT/OT as tolerated. Otherwise continue with current treatment plan. Continue to monitor and follow up labs/imaging. Past Medical Family Social History Allergies: Allergies fluoxetine [From Prozac] Allergy (Verified 09/12/23 11:42) Review of Systems ROS changes noted: see HPI Vital Signs and I&O's Vital Signs: Vital Signs Temperature 98.2 F Temperature 98.7 F Pulse Rate [Left Radial] 88 Pulse Rate [Left Radial] 64 Respiratory Rate 18 Respiratory Rate 18 Blood Pressure [Right Arm] 194/84 Blood Pressure [Right Arm] 167/77 O2 Sat by Pulse Oximetry 100 O2 Sat by Pulse Oximetry 94 Intake and Output: Intake & Output 09/12/23 09/13/23 09/14/23 09/15/23 23:59 23:59 23:59 23:59 Intake Total 689 / 689 2969 / 2969 2119 / 2119 754 / 754 Output Total 1055 / 1055 1625 / 1625 1920 / 1920 1470 / 1470 Balance -366 / -366 1344 / 1344 199 / 199 -716 / -716 Physical Exam Oriented: Normal Eyes: Normal Ear: Normal Nose: Normal Throat: Normal Respiratory: Generalized and Diminished Cardiovascular: Normal Auscultation: Bowel Sounds: Normal Tenderness: Normal Skin: Normal Musculoskeletal: Normal Psychiatric: Normal Mood Description: Calm Affect: Normal Speech Pattern: Clear and Appropriate Laboratory and Diagnostics 09/15/23 05:00 09/15/23 05:00 Labs: 09/12/23 16:08 Blood Blood Culture - Preliminary 09/12/23 16:00 Blood Blood Culture - Preliminary Laboratory WBC 5.8 X10^3/uL (3.6-10.0) 09/15/23 05:00 RBC 3.82 X10^6/uL (4.7-6.0) L 09/15/23 05:00 Hgb 12.0 g/dL (13.5-18.0) L 09/15/23 05:00 Hct 35.3 % (42.0-54.0) L 09/15/23 05:00 MCV 92.4 fL (80.0-100.0) 09/15/23 05:00 MCH 31.3 pg (27.0-34.0) 09/15/23 05:00 MCHC 33.9 g/dL (33.0-35.0) 09/15/23 05:00 RDW 14.8 % (11.6-16.5) 09/15/23 05:00 Plt Count 131 X10^3/uL (150.0-450.0) L 09/15/23 05:00 Plt Count Comment Decreased (ADEQUATE) 09/12/23 14:02 MPV 9.2 fL (7.4-11.0) 09/15/23 05:00 Neut % (Auto) 72.9 % (42.0-75.0) 09/15/23 05:00 Lymph % (Auto) 13.2 % (21.0-51.0) L 09/15/23 05:00 [place] % (Auto) 10.7 % (0.0-13.0) 09/15/23 05:00 Eos % (Auto) 2.8 % (0.9-2.9) 09/15/23 05:00 Baso % (Auto) 0.4 % (0.2-1.0) 09/15/23 05:00 Neut # (Auto) 4.2 x10^3/uL (2.2-4.8) 09/15/23 05:00 Lymph # (Auto) 0.8 X10^3/uL (1.3-2.9) L 09/15/23 05:00 [place] # (Auto) 0.6 x10^3/uL (0.3-0.8) 09/15/23 05:00 Eos # (Auto) 0.2 x10^3/uL (0.0-0.2) 09/15/23 05:00 Baso # (Auto) 0.0 X10^3/uL (0.0-0.1) 09/15/23 05:00 Absolute Nucleated RBC 0.0 /100WBC 09/15/23 05:00 Total Counted 100 09/12/23 14:02 Neutrophils % (Manual) 92 % (39-76) H 09/12/23 14:02 Lymphocytes % (Manual) 5 % (13-43) L 09/12/23 14:02 Monocytes % (Manual) 3 % (4-9) L 09/12/23 14:02 Plt Morphology Comment Normal (NORMAL) 09/12/23 14:02 RBC Morphology Normal (NORMAL) 09/12/23 14:02 PT 15.8 SECONDS (11.8-14.3) 09/12/23 14:29 INR Target Range - 09/12/23 14:29 INR 1.28 (0.8-1.3) 09/12/23 14:29 APTT 31.8 SECONDS (22.9-36.5) 09/12/23 14:29 PTT Comment - 09/12/23 14:29 Fibrinogen 315 mg/dL (239-489) 09/12/23 14:29 Sodium 139 mmol/L (136-145) 09/15/23 05:00 Corrected Sodium 146 mmol/L (136-145) H 09/15/23 05:00 Potassium 3.4 mmol/L (3.5-5.1) L 09/15/23 05:00 Chloride 107 mmol/L (98-107) 09/15/23 05:00 Carbon Dioxide 22.6 mmol/L (21-32) 09/15/23 05:00 BUN 22 mg/dL (7-18) H 09/15/23 05:00 Creatinine 1.73 mg/dL (0.70-1.30) H 09/15/23 05:00 Est GFR (MDRD) Af Amer 50 (>60) L 09/15/23 05:00 Est GFR (MDRD) Non-Af 41 (>60) L 09/15/23 05:00 Glucose 404 mg/dL (65-99) H 09/15/23 05:00 POC Glucose (mg/dL) 227 mg/dL (65-99) H 09/15/23 08:34 Hemoglobin A1c 9.6 % 09/15/23 05:00 Lactic Acid 0.9 mmol/L (0.4-2.0) 09/12/23 16:08 Calcium 7.5 mg/dL (8.5-10.1) L 09/15/23 05:00 Corrected Calcium 8.6 mg/dL (8.5-10.1) 09/15/23 05:00 Magnesium 2.1 mg/dL (2.0-2.9) 09/14/23 05:12 Total Bilirubin 0.60 mg/dL (0.2-1.0) 09/15/23 05:00 AST 24 Units/L (15-37) 09/15/23 05:00 ALT 26 Units/L (12-78) 09/15/23 05:00 Alkaline Phosphatase 147 Units/L (46-116) H 09/15/23 05:00 Creatine Kinase 421 Units/L (39-308) H 09/13/23 02:12 Troponin I High Sens 90.9 ng/L (4.0-60.0) H* 09/13/23 09:06 B-Natriuretic Peptide 2820 pg/mL (0-79) H 09/12/23 14:29 Total Protein 5.8 g/dL (6.4-8.2) L 09/15/23 05:00 Albumin 2.6 g/dL (3.4-5.0) L 09/15/23 05:00 Globulin 3.2 g/dL (2.5-4.5) 09/15/23 05:00 Albumin/Globulin Ratio 0.8 Ratio (1.1-2.1) L 09/15/23 05:00 Triglycerides 26 mg/dL (0-150) 09/14/23 05:12 Cholesterol 144 mg/dL (0-200) 09/14/23 05:12 LDL Cholesterol, Calc 85 mg/dL (0-100) 09/14/23 05:12 HDL Cholesterol 54 mg/dL (40-60) 09/14/23 05:12 Cholesterol/HDL Ratio 2.7 (0.0-5.0) 09/14/23 05:12 Specimen Type Clean catch urine 09/12/23 13:53 Urine Color Yellow (YELLOW) 09/12/23 13:53 Urine Appearance Slightly hazy (CLEAR) 09/12/23 13:53 Urine pH 6.0 (5.0 - 8.0) 09/12/23 13:53 Ur Specific Reading 1.010 (1.000-1.030) 09/12/23 13:53 Urine Protein 3+ (NEGATIVE) 09/12/23 13:53 Urine Glucose (UA) 4+ (NEGATIVE) 09/12/23 13:53 Urine Ketones Negative (NEGATIVE) 09/12/23 13:53 Urine Blood 2+ (NEGATIVE) 09/12/23 13:53 Urine Nitrite Negative (NEGATIVE) 09/12/23 13:53 Urine Bilirubin Negative (NEGATIVE) 09/12/23 13:53 Urine Urobilinogen Normal (NORMAL) 09/12/23 13:53 Ur Leukocyte Esterase Negative (NEGATIVE) 09/12/23 13:53 Urine RBC 3-5 /HPF (0-3) A 09/12/23 13:53 Urine WBC None seen /HPF (0-5) 09/12/23 13:53 Ur Squamous Epith Cells Rare /HPF (NEGATIVE) 09/12/23 13:53 Urine Bacteria Negative /HPF (NEGATIVE) 09/12/23 13:53 Urine Mucus Few /HPF (NEGATIVE) 09/12/23 13:53 Ur Culture Indicated? No/not indicated 09/12/23 13:53 SARS-CoV-2 (PCR) Negative (NEGATIVE) 09/12/23 16:02 Influenza Type A (PCR) Negative (NEGATIVE) 09/12/23 16:02 Influenza Type B (PCR) Negative (NEGATIVE) 09/12/23 16:02 RSV (PCR) Negative (NEGATIVE) 09/12/23 16:02 Blood Type O POSITIVE 09/12/23 14:29 Blood Type O POSITIVE 09/12/23 14:29 Antibody Screen Negative 09/12/23 14:29 Plan (1) Generalized weakness: Status: Acute (2) Hypoglycemia: Status: Acute (3) Elevated troponin: Status: Acute (4) Congestive heart failure: Status: Acute Qualifiers: Heart failure chronicity: acute on chronic Heart failure type: unspecified Qualified Code(s): I50.9 - Heart failure, unspecified (5) CAD (coronary artery disease): Status: Chronic Qualifiers: Associated angina: with stable angina Coronary Disease-Associated Artery/Lesion type: [place] artery [place] vs. transplanted heart: [place] heart Qualified Code(s): I25.118 - Atherosclerotic heart disease of [place] coronary artery with other forms of angina pectoris (6) Carotid stenosis: Status: Acute Qualifiers: Laterality: bilateral Qualified Code(s): I65.23 - Occlusion and stenosis of bilateral carotid arteries (7) Atrial fibrillation: Status: Acute Qualifiers: Atrial fibrillation type: unspecified chronic Qualified Code(s): I48.20 - Chronic atrial fibrillation, unspecified (8) Mitral regurgitation: Status: Acute Qualifiers: Cardiac valve disease etiology: etiology unspecified Qualified Code(s): I34.0 - Nonrheumatic mitral (valve) insufficiency (9) Hyperlipidemia: Status: Chronic Qualifiers: Hyperlipidemia type: mixed hyperlipidemia Qualified Code(s): E78.2 - Mixed hyperlipidemia (10) Hypertension: Status: Acute Qualifiers: Hypertension type: primary hypertension Qualified Code(s): I10 - Essential (primary) hypertension (11) Anemia: Status: Acute Qualifiers: Anemia type: iron deficiency Iron deficiency anemia type: unspecified iron deficiency Qualified Code(s): D50.9 - Iron deficiency anemia, unspecified (12) Hypothermia: Status: Acute Qualifiers: Encounter type: initial encounter Qualified Code(s): T68.XXXA - Hypothermia, initial encounter
--- NOTE | 2023-09-15 09:40 | RAD ---
EXAM:CHEST, 1 VIEWHISTORY:FOLLOW UP ; HX- CHF, COPD, DIABETIES, HTN SX- STENTS, APPECDECTOMY, VALVE SXCOMPARISON:Prior study or studies were utilized for comparison during interpretation with the most relevant dated 09/12/2023TECHNIQUE:CHEST, 1 VIEWFINDINGS:Chest:Lines and tubes: Cardiac leads overlie the chest.Mediastinum: Median sternotomy wires are present. Cardiac shadow is normal in size.Pulmonary vessels: No pulmonary vascular congestion.Lung [place]: No suspicious airspace opacity.Pleura: No effusion. No pneumothorax.Bones and soft tissues: No acute osseous or soft tissue abnormality.IMPRESSION:1. No acute cardiopulmonary abnormalityTHIS IS AN ELECTRONICALLY VERIFIED FINAL REPORT09/15/2023 9:31 AM - Electronically signed by Mick Irby MD
[2023-09-15] MEDS: MICRO K EXTEN CAP 10 MEQ PO SCH ×2 (10:30)
[2023-09-15] MEDS: LANTUS SC SCH (10:32)
[2023-09-15] MEDS: NORVASC TAB 2.5 MG ONE ×2 (19:51)
[2023-09-15] MEDS ORDERED: SNACK - Diabetic Appropriate PO SCH (20:00)
[2023-09-16] MEDS: D50W ABBOJECT SYR IV ONE ×2 (00:38→03:35)
[2023-09-16 06:21] LABS: BASOPHILS % (AUTO) 0.5 % (0.2-1.0); EOSINOPHILS % (AUTO) 0.7 % (0.9-2.9); HEMATOCRIT 40.9 % (42.0-54.0); HEMOGLOBIN 13.9 g/dL (13.5-18.0); LYMPHOCYTES # (AUTO) 0.7 X10^3/uL (1.3-2.9); LYMPHOCYTES % (AUTO) 10.4 % (21.0-51.0); MEAN CORPUSCULAR HEMOGLOBIN 31.5 pg (27.0-34.0); MEAN CORPUSCULAR VOLUME 92.4 fL (80.0-100.0); MEAN PLATELET VOLUME 8.5 fL (7.4-11.0); MONOCYTES # (AUTO) 0.6 x10^3/uL (0.3-0.8); MONOCYTES % (AUTO) 8.8 % (0.0-13.0); NEUTROPHILS # (AUTO) 5.2 x10^3/uL (2.2-4.8); NEUTROPHILS % (AUTO) 79.6 % (42.0-75.0); PLATELET COUNT 146 X10^3/uL (150.0-450.0); RED BLOOD COUNT 4.42 X10^6/uL (4.7-6.0); WHITE BLOOD COUNT 6.5 X10^3/uL (3.6-10.0)
[2023-09-16 06:31] LABS: ALANINE AMINOTRANSFERASE 25 Units/L (12-78); ALBUMIN 2.7 g/dL (3.4-5.0); ALKALINE PHOSPHATASE 119 Units/L (46-116); ASPARTATE AMINO TRANSFERASE 24 Units/L (15-37); BLOOD UREA NITROGEN 22 mg/dL (7-18); CHLORIDE 106 mmol/L (98-107); COR NA(FOR HYPERGLY) 145 mmol/L (136-145); CREATININE 1.45 mg/dL (0.70-1.30); GLUCOSE 235 mg/dL (65-99); MAGNESIUM 2.2 mg/dL (2.0-2.9); POTASSIUM 3.2 mmol/L (3.5-5.1); SODIUM 142 mmol/L (136-145); TOTAL PROTEIN 6.4 g/dL (6.4-8.2); eGFR NON BLACK RACES 51 (>60)
[2023-09-16] MEDS ORDERED: NORVASC TAB 2.5 MG ONE (08:37)
[2023-09-16] MEDS: K-DUR TAB 20 MEQ PO SCH (09:10)
[2023-09-16] MEDS: LANTUS SC SCH (09:30)
--- NOTE | 2023-09-16 11:51 | PCM.PROG ---
Progress Note Progress Note for Day of Date of Exam: 09/16/23 Subjective Subjective: Patient is a 72 year old male admitted for CHF exacerbation, hypothermia, hypoglycemia. This morning he is resting in bed. Overnight he had a hypoglycemic episode. He recovered once he was given an amp of D50. Reviewing chart it looks like he did receive short acting insulin around 8:30 P M. He was seen by cardiology and new cardiac medications were added. This morning his pulse is within normal limits. Labs/imaging reviewed -Wbc 6.5, Hgb 13.9, Plt 146, Na 142, K 3.2, Cr:1.45, Glucose 235, A1c 9.6, Echo EF 35-40% -Blood Cx negative Plan: Continue medications that cardiology had started. Will increase lantus to 20 units daily. And stop sliding scale insulin, nursing instructed to notify physician of blood glucose levels. Renal function has improved. PT/OT as tolerated. Otherwise continue with current treatment plan. Continue to monitor and follow up labs/imaging. Past Medical Family Social History Allergies: Allergies fluoxetine [From Prozac] Allergy (Verified 09/12/23 11:42) Review of Systems ROS changes noted: see HPI Vital Signs and I&O's Vital Signs: Vital Signs Temperature 97.7 F Temperature 93.3 F Pulse Rate [Left Radial] 60 Pulse Rate [Left Radial] 44 Respiratory Rate 18 Respiratory Rate 16 Blood Pressure [Left Arm] 175/79 Blood Pressure [Left Arm] 175/81 O2 Sat by Pulse Oximetry 99 O2 Sat by Pulse Oximetry 99 Intake and Output: Intake & Output 09/13/23 09/14/23 09/15/23 09/16/23 23:59 23:59 23:59 23:59 Intake Total 2969 / 2969 2119 / 2119 1274 / 1274 0 / 0 Output Total 1625 / 1625 1920 / 1920 2620 / 2620 480 / 480 Balance 1344 / 1344 199 / 199 -1346 / -1346 -480 / -480 Physical Exam Oriented: Normal Eyes: Normal Ear: Normal Nose: Normal Throat: Normal Respiratory: Generalized and Diminished Cardiovascular: Normal Auscultation: Bowel Sounds: Normal Tenderness: Normal Skin: Normal Musculoskeletal: Normal Psychiatric: Normal Mood Description: Calm Affect: Normal Speech Pattern: Clear and Appropriate Laboratory and Diagnostics 09/16/23 05:55 09/16/23 05:55 Labs: 09/12/23 16:08 Blood Blood Culture - Preliminary 09/12/23 16:00 Blood Blood Culture - Preliminary Laboratory WBC 6.5 X10^3/uL (3.6-10.0) 09/16/23 05:55 RBC 4.42 X10^6/uL (4.7-6.0) L 09/16/23 05:55 Hgb 13.9 g/dL (13.5-18.0) 09/16/23 05:55 Hct 40.9 % (42.0-54.0) L 09/16/23 05:55 MCV 92.4 fL (80.0-100.0) 09/16/23 05:55 MCH 31.5 pg (27.0-34.0) 09/16/23 05:55 MCHC 34.0 g/dL (33.0-35.0) 09/16/23 05:55 RDW 15.0 % (11.6-16.5) 09/16/23 05:55 Plt Count 146 X10^3/uL (150.0-450.0) L 09/16/23 05:55 Plt Count Comment Decreased (ADEQUATE) 09/12/23 14:02 MPV 8.5 fL (7.4-11.0) 09/16/23 05:55 Neut % (Auto) 79.6 % (42.0-75.0) H 09/16/23 05:55 Lymph % (Auto) 10.4 % (21.0-51.0) L 09/16/23 05:55 [place] % (Auto) 8.8 % (0.0-13.0) 09/16/23 05:55 Eos % (Auto) 0.7 % (0.9-2.9) L 09/16/23 05:55 Baso % (Auto) 0.5 % (0.2-1.0) 09/16/23 05:55 Neut # (Auto) 5.2 x10^3/uL (2.2-4.8) H 09/16/23 05:55 Lymph # (Auto) 0.7 X10^3/uL (1.3-2.9) L 09/16/23 05:55 [place] # (Auto) 0.6 x10^3/uL (0.3-0.8) 09/16/23 05:55 Eos # (Auto) 0.0 x10^3/uL (0.0-0.2) 09/16/23 05:55 Baso # (Auto) 0.0 X10^3/uL (0.0-0.1) 09/16/23 05:55 Absolute Nucleated RBC 0.0 /100WBC 09/16/23 05:55 Total Counted 100 09/12/23 14:02 Neutrophils % (Manual) 92 % (39-76) H 09/12/23 14:02 Lymphocytes % (Manual) 5 % (13-43) L 09/12/23 14:02 Monocytes % (Manual) 3 % (4-9) L 09/12/23 14:02 Plt Morphology Comment Normal (NORMAL) 09/12/23 14:02 RBC Morphology Normal (NORMAL) 09/12/23 14:02 PT 15.8 SECONDS (11.8-14.3) 09/12/23 14:29 INR Target Range - 09/12/23 14:29 INR 1.28 (0.8-1.3) 09/12/23 14:29 APTT 31.8 SECONDS (22.9-36.5) 09/12/23 14:29 PTT Comment - 09/12/23 14:29 Fibrinogen 315 mg/dL (239-489) 09/12/23 14:29 Sodium 142 mmol/L (136-145) 09/16/23 05:55 Corrected Sodium 145 mmol/L (136-145) 09/16/23 05:55 Potassium 3.2 mmol/L (3.5-5.1) L 09/16/23 05:55 Chloride 106 mmol/L (98-107) 09/16/23 05:55 Carbon Dioxide 26.0 mmol/L (21-32) 09/16/23 05:55 BUN 22 mg/dL (7-18) H 09/16/23 05:55 Creatinine 1.45 mg/dL (0.70-1.30) H 09/16/23 05:55 Est GFR (MDRD) Af Amer > 60 (>60) 09/16/23 05:55 Est GFR (MDRD) Non-Af 51 (>60) L 09/16/23 05:55 Glucose 235 mg/dL (65-99) H 09/16/23 05:55 POC Glucose (mg/dL) 351 mg/dL (65-99) H 09/16/23 11:28 Hemoglobin A1c 9.6 % 09/15/23 05:00 Lactic Acid 0.9 mmol/L (0.4-2.0) 09/12/23 16:08 Calcium 8.0 mg/dL (8.5-10.1) L 09/16/23 05:55 Corrected Calcium 9.0 mg/dL (8.5-10.1) 09/16/23 05:55 Magnesium 2.2 mg/dL (2.0-2.9) 09/16/23 05:55 Total Bilirubin 1.20 mg/dL (0.2-1.0) H 09/16/23 05:55 AST 24 Units/L (15-37) 09/16/23 05:55 ALT 25 Units/L (12-78) 09/16/23 05:55 Alkaline Phosphatase 119 Units/L (46-116) H 09/16/23 05:55 Creatine Kinase 421 Units/L (39-308) H 09/13/23 02:12 Troponin I High Sens 90.9 ng/L (4.0-60.0) H* 09/13/23 09:06 B-Natriuretic Peptide 2820 pg/mL (0-79) H 09/12/23 14:29 Total Protein 6.4 g/dL (6.4-8.2) 09/16/23 05:55 Albumin 2.7 g/dL (3.4-5.0) L 09/16/23 05:55 Globulin 3.7 g/dL (2.5-4.5) 09/16/23 05:55 Albumin/Globulin Ratio 0.7 Ratio (1.1-2.1) L 09/16/23 05:55 Triglycerides 26 mg/dL (0-150) 09/14/23 05:12 Cholesterol 144 mg/dL (0-200) 09/14/23 05:12 LDL Cholesterol, Calc 85 mg/dL (0-100) 09/14/23 05:12 HDL Cholesterol 54 mg/dL (40-60) 09/14/23 05:12 Cholesterol/HDL Ratio 2.7 (0.0-5.0) 09/14/23 05:12 Specimen Type Clean catch urine 09/12/23 13:53 Urine Color Yellow (YELLOW) 09/12/23 13:53 Urine Appearance Slightly hazy (CLEAR) 09/12/23 13:53 Urine pH 6.0 (5.0 - 8.0) 09/12/23 13:53 Ur Specific [place] 1.010 (1.000-1.030) 09/12/23 13:53 Urine Protein 3+ (NEGATIVE) 09/12/23 13:53 Urine Glucose (UA) 4+ (NEGATIVE) 09/12/23 13:53 Urine Ketones Negative (NEGATIVE) 09/12/23 13:53 Urine Blood 2+ (NEGATIVE) 09/12/23 13:53 Urine Nitrite Negative (NEGATIVE) 09/12/23 13:53 Urine Bilirubin Negative (NEGATIVE) 09/12/23 13:53 Urine Urobilinogen Normal (NORMAL) 09/12/23 13:53 Ur Leukocyte Esterase Negative (NEGATIVE) 09/12/23 13:53 Urine RBC 3-5 /HPF (0-3) A 09/12/23 13:53 Urine WBC None seen /HPF (0-5) 09/12/23 13:53 Ur Squamous Epith Cells Rare /HPF (NEGATIVE) 09/12/23 13:53 Urine Bacteria Negative /HPF (NEGATIVE) 09/12/23 13:53 Urine Mucus Few /HPF (NEGATIVE) 09/12/23 13:53 Ur Culture Indicated? No/not indicated 09/12/23 13:53 SARS-CoV-2 (PCR) Negative (NEGATIVE) 09/12/23 16:02 Influenza Type A (PCR) Negative (NEGATIVE) 09/12/23 16:02 Influenza Type B (PCR) Negative (NEGATIVE) 09/12/23 16:02 RSV (PCR) Negative (NEGATIVE) 09/12/23 16:02 Blood Type O POSITIVE 09/12/23 14:29 Blood Type O POSITIVE 09/12/23 14:29 Antibody Screen Negative 09/12/23 14:29 Plan (1) Generalized weakness: Status: Acute (2) Hypoglycemia: Status: Acute (3) Elevated troponin: Status: Acute (4) Congestive heart failure: Status: Acute Qualifiers: Heart failure chronicity: acute on chronic Heart failure type: unspecified Qualified Code(s): I50.9 - Heart failure, unspecified (5) CAD (coronary artery disease): Status: Chronic Qualifiers: Associated angina: with stable angina Coronary Disease-Associated Artery/Lesion type: [place] artery [place] vs. transplanted heart: [place] heart Qualified Code(s): I25.118 - Atherosclerotic heart disease of [place] coronary artery with other forms of angina pectoris (6) Carotid stenosis: Status: Acute Qualifiers: Laterality: bilateral Qualified Code(s): I65.23 - Occlusion and stenosis of bilateral carotid arteries (7) Atrial fibrillation: Status: Acute Qualifiers: Atrial fibrillation type: unspecified chronic Qualified Code(s): I48.20 - Chronic atrial fibrillation, unspecified (8) Mitral regurgitation: Status: Acute Qualifiers: Cardiac valve disease etiology: etiology unspecified Qualified Code(s): I34.0 - Nonrheumatic mitral (valve) insufficiency (9) Hyperlipidemia: Status: Chronic Qualifiers: Hyperlipidemia type: mixed hyperlipidemia Qualified Code(s): E78.2 - Mixed hyperlipidemia (10) Hypertension: Status: Acute Qualifiers: Hypertension type: primary hypertension Qualified Code(s): I10 - Essential (primary) hypertension (11) Anemia: Status: Acute Qualifiers: Anemia type: iron deficiency Iron deficiency anemia type: unspecified iron deficiency Qualified Code(s): D50.9 - Iron deficiency anemia, unspecified (12) Hypothermia: Status: Acute Qualifiers: Encounter type: initial encounter Qualified Code(s): T68.XXXA - Hypothermia, initial encounter
[2023-09-16] MEDS: NovoLIN R (or HumuLIN R) SUBCUT ONE ×2 (15:34→18:05)
[2023-09-16 23:58] VITALS: RESP 18
[2023-09-17] MEDS: ROXICODONE TAB 5 MG PO PRN (02:12)
[2023-09-17 05:12] LABS: BASOPHILS % (AUTO) 0.4 % (0.2-1.0); EOSINOPHILS # (AUTO) 0.2 x10^3/uL (0.0-0.2); EOSINOPHILS % (AUTO) 3.7 % (0.9-2.9); HEMATOCRIT 38.3 % (42.0-54.0); LYMPHOCYTES % (AUTO) 15.2 % (21.0-51.0); MEAN CORPUSCULAR HEMOGLOBIN 31.3 pg (27.0-34.0); MEAN CORPUSCULAR VOLUME 92.3 fL (80.0-100.0); MEAN PLATELET VOLUME 8.7 fL (7.4-11.0); MONOCYTES # (AUTO) 0.6 x10^3/uL (0.3-0.8); MONOCYTES % (AUTO) 8.5 % (0.0-13.0); NEUTROPHILS # (AUTO) 4.8 x10^3/uL (2.2-4.8); NEUTROPHILS % (AUTO) 72.2 % (42.0-75.0); PLATELET COUNT 173 X10^3/uL (150.0-450.0); RED BLOOD COUNT 4.16 X10^6/uL (4.7-6.0); RED CELL DISTRIBUTION WIDTH 14.9 % (11.6-16.5); WHITE BLOOD COUNT 6.6 X10^3/uL (3.6-10.0)
[2023-09-17 05:29] LABS: ALBUMIN 2.6 g/dL (3.4-5.0); CALCIUM 7.9 mg/dL (8.5-10.1); CARBON DIOXIDE 28.4 mmol/L (21-32); CREATININE 1.69 mg/dL (0.70-1.30); POTASSIUM 3.4 mmol/L (3.5-5.1); TOTAL PROTEIN 6.1 g/dL (6.4-8.2)
[2023-09-17] MEDS ORDERED: CONSULT PHARMACY - POTASSIUM & MAGNESIUM XX SCH (06:00)
[2023-09-17] MEDS ORDERED: NORVASC TAB 2.5 MG ONE (08:27)
[2023-09-17] MEDS: MICRO K EXTEN CAP 10 MEQ PO SCH (08:35)
[2023-09-17] MEDS ORDERED: LANTUS SC SCH (09:00)
[2023-09-17] MEDS: LANTUS SC SCH (09:28)
[2023-09-17 09:45] VITALS: BP 182/85; PULSE 65; TEMP 97.9; O2SAT 99
--- NOTE | 2023-09-19 09:31 | W.DIS.FURT ---
Summary of Discharge Discharge Summary of Date Date of Exam: 09/17/23 Admission Date Date of Admission: 09/12/23 Admission Diagnosis Patient Problems (Updated 09/18/23 @ 06:28 by Harry Adorno) Hypothermia (Acute) T68.XXXA Hypertension (Acute) I10 Hypoglycemia (Acute) E16.2 Hospital Course: Mr Almendarez is a 72y/o male who presented with AMS, hypoglycemia and hypothermia. He was noted to be somnolent on admission. Tele-stroke protocol was initiated with neuro. EMS reported patient's glucose was in the 50s and there was an insulin syringe found next to him. Patient had CT-brain, CTA head and neck which did not show anything acute. Tele-neuro did not recommend any further intervention. Patient was noted to be back to his baseline shortly after. His temp was initially 90.9 and bear hugger was applied. Labs showed mild elevation in Creatinine. CXR was negative. Infectious work up was initiated, blood cx collected. RSV/FLU/COVID were negative. Patient was started on empiric antibiotics and admitted for further management. His labs were monitored daily and electrolytes were replaced as needed. He was noted to have elevated troponin, cardiology was consulted. EKG did not show any acute changes, patient denied chest pain or chest pressure. Cardiology added amlodipine, losartan and carvedilol. Patient was also started on Lipitor. His vitals were monitored closely on telemetry. He was alert and oriented. His blood cultures were negative, antibiotics were discontinued. 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 His insulin was adjusted and bedtime snack was added. He was educated about taking Lantus in the morning and eating regular meals throughout the day. Physical therapy was also consulted and patient was able to ambulate on his own. He was advised to keep the glucose log and follow-up with PCP in 3 to 5 days. Patient was stable at discharge. Vital Signs: Vital Signs (72 hours) 09/14/23 11:22 09/14/23 16:00 09/14/23 19:00 Temperature 98.4 F 98.4 F Pulse Rate [Left Radial] 58 L 60 Respiratory Rate 18 18 Blood Pressure [Left Arm] 140/63 146/67 Blood Pressure [Right Arm] O2 Sat by Pulse Oximetry 98 97 Oxygen Delivery Method Nasal Cannula Nasal Cannula Room Air Oxygen Flow Rate 2 2 FIO2% 09/14/23 20:00 09/15/23 00:00 09/14/23 20:40 Temperature 98.4 F 98.2 F Pulse Rate [Left Radial] 67 62 Respiratory Rate 22 20 Blood Pressure [Left Arm] 120/74 Blood Pressure [Right Arm] 162/74 O2 Sat by Pulse Oximetry 98 98 Oxygen Delivery Method Nasal Cannula Nasal Cannula Nasal Cannula Oxygen Flow Rate 2 2 2 FIO2% 28 09/15/23 04:00 09/15/23 07:00 09/15/23 12:00 Temperature 98.7 F 98.3 F Pulse Rate [Left Radial] 64 63 Respiratory Rate 18 18 Blood Pressure [Left Arm] Blood Pressure [Right Arm] 167/77 150/70 O2 Sat by Pulse Oximetry 94 L 99 Oxygen Delivery Method Nasal Cannula Room Air Nasal Cannula Oxygen Flow Rate 2 2 FIO2% 09/15/23 08:00 09/15/23 09:53 09/15/23 16:00 Temperature 98.2 F 98.3 F Pulse Rate [Left Radial] 88 63 Respiratory Rate 18 16 Blood Pressure [Left Arm] Blood Pressure [Right Arm] 194/84 166/80 O2 Sat by Pulse Oximetry 100 97 Oxygen Delivery Method Nasal Cannula Nasal Cannula Nasal Cannula Oxygen Flow Rate 2 2 2 FIO2% 28 09/15/23 19:00 09/15/23 20:00 09/16/23 00:00 Temperature 98.3 F Pulse Rate [Left Radial] 63 72 Respiratory Rate 20 18 Blood Pressure [Left Arm] 163/73 160/100 Blood Pressure [Right Arm] O2 Sat by Pulse Oximetry 98 95 Oxygen Delivery Method Room Air Nasal Cannula Oxygen Flow Rate 2 FIO2% 09/15/23 20:35 09/16/23 04:00 09/16/23 08:00 Temperature 93.3 F L 97.7 F Pulse Rate [Left Radial] 44 L 60 Respiratory Rate 16 18 Blood Pressure [Left Arm] 175/81 175/79 Blood Pressure [Right Arm] O2 Sat by Pulse Oximetry 99 99 Oxygen Delivery Method Nasal Cannula Nasal Cannula Nasal Cannula Oxygen Flow Rate 2 2 2 FIO2% 28 09/16/23 07:00 09/16/23 12:00 09/16/23 16:00 Temperature 98.4 F 97.7 F Pulse Rate [Left Radial] 67 75 Respiratory Rate 18 18 Blood Pressure [Left Arm] 166/78 146/66 Blood Pressure [Right Arm] O2 Sat by Pulse Oximetry 100 95 Oxygen Delivery Method Room Air Nasal Cannula Nasal Cannula Oxygen Flow Rate 2 2 FIO2% 09/16/23 19:00 09/16/23 20:14 09/16/23 20:00 Temperature 98.5 F Pulse Rate [Left Radial] 72 Respiratory Rate 21 Blood Pressure [Left Arm] 139/66 Blood Pressure [Right Arm] O2 Sat by Pulse Oximetry 97 Oxygen Delivery Method Room Air Nasal Cannula Nasal Cannula Oxygen Flow Rate 2 2 FIO2% 28 09/16/23 23:57 09/17/23 02:12 09/17/23 04:00 Temperature 97.8 F 98.0 F Pulse Rate [Left Radial] 86 64 Respiratory Rate 18 18 18 Blood Pressure [Left Arm] 153/70 168/76 Blood Pressure [Right Arm] O2 Sat by Pulse Oximetry 98 98 Oxygen Delivery Method Room Air Room Air Oxygen Flow Rate FIO2% 09/17/23 03:12 09/17/23 07:00 09/17/23 08:00 Temperature 97.9 F Pulse Rate [Left Radial] 65 Respiratory Rate 21 18 Blood Pressure [Left Arm] 182/85 Blood Pressure [Right Arm] O2 Sat by Pulse Oximetry 99 Oxygen Delivery Method Room Air Room Air Oxygen Flow Rate FIO2% Labs: Laboratory Last Values WBC 6.6 X10^3/uL (3.6-10.0) 09/17/23 04:28 RBC 4.16 X10^6/uL (4.7-6.0) L 09/17/23 04:28 Hgb 13.0 g/dL (13.5-18.0) L 09/17/23 04:28 Hct 38.3 % (42.0-54.0) L 09/17/23 04:28 MCV 92.3 fL (80.0-100.0) 09/17/23 04:28 MCH 31.3 pg (27.0-34.0) 09/17/23 04:28 MCHC 34.0 g/dL (33.0-35.0) 09/17/23 04:28 RDW 14.9 % (11.6-16.5) 09/17/23 04:28 Plt Count 173 X10^3/uL (150.0-450.0) 09/17/23 04:28 Plt Count Comment Decreased (ADEQUATE) 09/12/23 14:02 MPV 8.7 fL (7.4-11.0) 09/17/23 04:28 Neut % (Auto) 72.2 % (42.0-75.0) 09/17/23 04:28 Lymph % (Auto) 15.2 % (21.0-51.0) L 09/17/23 04:28 [place] % (Auto) 8.5 % (0.0-13.0) 09/17/23 04:28 Eos % (Auto) 3.7 % (0.9-2.9) H 09/17/23 04:28 Baso % (Auto) 0.4 % (0.2-1.0) 09/17/23 04:28 Neut # (Auto) 4.8 x10^3/uL (2.2-4.8) 09/17/23 04:28 Lymph # (Auto) 1.0 X10^3/uL (1.3-2.9) L 09/17/23 04:28 [place]bot # (Auto) 0.6 x10^3/uL (0.3-0.8) 09/17/23 04:28 Eos # (Auto) 0.2 x10^3/uL (0.0-0.2) 09/17/23 04:28 Baso # (Auto) 0.0 X10^3/uL (0.0-0.1) 09/17/23 04:28 Absolute Nucleated RBC 0.0 /100WBC 09/17/23 04:28 Total Counted 100 09/12/23 14:02 Neutrophils % (Manual) 92 % (39-76) H 09/12/23 14:02 Lymphocytes % (Manual) 5 % (13-43) L 09/12/23 14:02 Monocytes % (Manual) 3 % (4-9) L 09/12/23 14:02 Plt Morphology Comment Normal (NORMAL) 09/12/23 14:02 RBC Morphology Normal (NORMAL) 09/12/23 14:02 PT 15.8 SECONDS (11.8-14.3) 09/12/23 14:29 INR Target Range - 09/12/23 14:29 INR 1.28 (0.8-1.3) 09/12/23 14:29 APTT 31.8 SECONDS (22.9-36.5) 09/12/23 14:29 PTT Comment - 09/12/23 14:29 Fibrinogen 315 mg/dL (239-489) 09/12/23 14:29 Sodium 140 mmol/L (136-145) 09/17/23 04:28 Corrected Sodium 142 mmol/L (136-145) 09/17/23 04:28 Potassium 3.4 mmol/L (3.5-5.1) L 09/17/23 04:28 Chloride 104 mmol/L (98-107) 09/17/23 04:28 Carbon Dioxide 28.4 mmol/L (21-32) 09/17/23 04:28 BUN 25 mg/dL (7-18) H 09/17/23 04:28 Creatinine 1.69 mg/dL (0.70-1.30) H 09/17/23 04:28 Est GFR (MDRD) Af Amer 52 (>60) L 09/17/23 04:28 Est GFR (MDRD) Non-Af 43 (>60) L 09/17/23 04:28 Glucose 187 mg/dL (65-99) H 09/17/23 04:28 POC Glucose (mg/dL) 151 mg/dL (65-99) H 09/17/23 06:04 Hemoglobin A1c 9.6 % 09/15/23 05:00 Lactic Acid 0.9 mmol/L (0.4-2.0) 09/12/23 16:08 Calcium 7.9 mg/dL (8.5-10.1) L 09/17/23 04:28 Corrected Calcium 9.0 mg/dL (8.5-10.1) 09/17/23 04:28 Magnesium 2.0 mg/dL (2.0-2.9) 09/17/23 04:28 Total Bilirubin 0.60 mg/dL (0.2-1.0) 09/17/23 04:28 AST 21 Units/L (15-37) 09/17/23 04:28 ALT 24 Units/L (12-78) 09/17/23 04:28 Alkaline Phosphatase 123 Units/L (46-116) H 09/17/23 04:28 Creatine Kinase 421 Units/L (39-308) H 09/13/23 02:12 Troponin I High Sens 90.9 ng/L (4.0-60.0) H* 09/13/23 09:06 B-Natriuretic Peptide 2820 pg/mL (0-79) H 09/12/23 14:29 Total Protein 6.1 g/dL (6.4-8.2) L 09/17/23 04:28 Albumin 2.6 g/dL (3.4-5.0) L 09/17/23 04:28 Globulin 3.5 g/dL (2.5-4.5) 09/17/23 04:28 Albumin/Globulin Ratio 0.7 Ratio (1.1-2.1) L 09/17/23 04:28 Triglycerides 26 mg/dL (0-150) 09/14/23 05:12 Cholesterol 144 mg/dL (0-200) 09/14/23 05:12 LDL Cholesterol, Calc 85 mg/dL (0-100) 09/14/23 05:12 HDL Cholesterol 54 mg/dL (40-60) 09/14/23 05:12 Cholesterol/HDL Ratio 2.7 (0.0-5.0) 09/14/23 05:12 Specimen Type Clean catch urine 09/12/23 13:53 Urine Color Yellow (YELLOW) 09/12/23 13:53 Urine Appearance Slightly hazy (CLEAR) 09/12/23 13:53 Urine pH 6.0 (5.0 - 8.0) 09/12/23 13:53 Ur Specific [place] 1.010 (1.000-1.030) 09/12/23 13:53 Urine Protein 3+ (NEGATIVE) 09/12/23 13:53 Urine Glucose (UA) 4+ (NEGATIVE) 09/12/23 13:53 Urine Ketones Negative (NEGATIVE) 09/12/23 13:53 Urine Blood 2+ (NEGATIVE) 09/12/23 13:53 Urine Nitrite Negative (NEGATIVE) 09/12/23 13:53 Urine Bilirubin Negative (NEGATIVE) 09/12/23 13:53 Urine Urobilinogen Normal (NORMAL) 09/12/23 13:53 Ur Leukocyte Esterase Negative (NEGATIVE) 09/12/23 13:53 Urine RBC 3-5 /HPF (0-3) A 09/12/23 13:53 Urine WBC None seen /HPF (0-5) 09/12/23 13:53 Ur Squamous Epith Cells Rare /HPF (NEGATIVE) 09/12/23 13:53 Urine Bacteria Negative /HPF (NEGATIVE) 09/12/23 13:53 Urine Mucus Few /HPF (NEGATIVE) 09/12/23 13:53 Ur Culture Indicated? No/not indicated 09/12/23 13:53 SARS-CoV-2 (PCR) Negative (NEGATIVE) 09/12/23 16:02 Influenza Type A (PCR) Negative (NEGATIVE) 09/12/23 16:02 Influenza Type B (PCR) Negative (NEGATIVE) 09/12/23 16:02 RSV (PCR) Negative (NEGATIVE) 09/12/23 16:02 Blood Type O POSITIVE 09/12/23 14:29 Blood Type O POSITIVE 09/12/23 14:29 Antibody Screen Negative 09/12/23 14:29 Reason For Visit: HYPOTHERMIA, AMS, DYSARTHRIA, HYPOGLYCEMIA Discharge Diagnosis All Active Problems (Updated 09/18/23 @ 06:28 by Harry Adorno) Hypoglycemia associated with diabetes (Acute) Acute renal failure superimposed on stage 3 chronic kidney disease (Acute) Mitral regurgitation (Acute) Atrial fibrillation (Acute) Elevated troponin (Acute) Hypomagnesemia (Acute) Hypokalemia (Acute) Carotid stenosis (Acute) Hx of heart artery stent (Chronic) Hx of myocardial infarction (Chronic) Generalized weakness (Acute) Status post coronary artery bypass graft (Acute) Congestive heart failure (Acute) CAD (coronary artery disease) (Chronic) Ambien use disorder, mild (Acute) Altered mental state (Acute) Anemia (Acute) Pulmonary embolism (Acute) DM II (diabetes mellitus, type II), controlled (Chronic) Hypothermia (Acute) Hypertension (Acute) Hypoglycemia (Acute) Depression (Chronic) Anxiety (Chronic) Hypothyroidism (Chronic) Arthritis (Chronic) GERD (gastroesophageal reflux disease) (Chronic) Hyperlipidemia (Chronic) Cataracts, bilateral (Chronic) Plan of Treatment: Continue with present treatment and follow up plan. Pt is to keep follow up appointment as instructed and take medications as ordered. Discharge Medications Discharge Medications: fluoxetine [From Prozac] Allergy (Verified 09/12/23 11:42) CONTINUE taking the following medications furosemide 40 mg tablet 40 mg PO BID 09/12/23 [History] New Prescriptions amlodipine 2.5 mg tablet 2.5 mg PO DAILY 30 days #30 tabs 09/17/23 [Rx] apixaban 5 mg tablet (Eliquis) 5 mg PO BID 30 days #60 tabs 09/17/23 [Rx] atorvastatin 40 mg tablet 40 mg PO HS 30 days #30 tabs 09/17/23 [Rx] carvedilol 6.25 mg tablet 6.25 mg PO BID 30 days #60 tabs 09/17/23 [Rx] insulin glargine 100 unit/mL subcutaneous solution (Lantus U-100 Insulin) 22 unit (0.22 mL) subcut DAILY 30 days #0 mL 09/17/23 [Rx] losartan 50 mg tablet 50 mg PO DAILY 30 days #30 tabs 09/17/23 [Rx] potassium chloride 20 mEq tablet,extended release(part/cryst) (Klor-Con M) 20 meq PO DAILY 30 days #30 tabs 09/17/23 [Rx] Discharge Disposition Discharge Disposition: To home Discharge Condition: Stable Discharge Plan Discharge Plan Hospital Course: Mr Almendarez is a 72y/o male who presented with AMS, hypoglycemia and hypothermia. He was noted to be somnolent on admission. Tele-stroke protocol was initiated with neuro. EMS reported patient's glucose was in the 50s and there was an insulin syringe found next to him. Patient had CT-brain, CTA head and neck which did not show anything acute. Tele-neuro did not recommend any further intervention. Patient was noted to be back to his baseline shortly after. His temp was initially 90.9 and bear hugger was applied. Labs showed mild elevation in Creatinine. CXR was negative. Infectious work up was initiated, blood cx collected. RSV/FLU/COVID were negative. Patient was started on empiric antibiotics and admitted for further management. His labs were monitored daily and electrolytes were replaced as needed. He was noted to have elevated troponin, cardiology was consulted. EKG did not show any acute changes, patient denied chest pain or chest pressure. Cardiology added amlodipine, losartan and carvedilol. Patient was also started on Lipitor. His vitals were monitored closely on telemetry. He was alert and oriented. His blood cultures were negative, antibiotics were discontinued. 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 His insulin was adjusted and bedtime snack was added. He was educated about taking Lantus in the morning and eating regular meals throughout the day. Physical therapy was also consulted and patient was able to ambulate on his own. He was advised to keep the glucose log and follow-up with PCP in 3 to 5 days. Patient was stable at discharge. Patient Disposition: 01 HOME, SELF-CARE Condition: Stable Health Concerns: Post Hospitalization: new medications and changes needed to prevent readmission or further decline. Pt educated and given instructions on all concerns. Care Plan Goals: Problem: Fluid Volume Deficit Goal: Maintain/Improved Adequate hydration. Instructions: Follow provided instructions. Follow up with primary physician as directed. Contact primary care physician or report to the closest Emergency Room if condition worsens. Plan of Treatment: Continue with present treatment and follow up plan. Pt is to keep follow up appointment as instructed and take medications as ordered. Prescription drug monitoring program results: PDMP reviewed and no concerns identified Prescriptions: New losartan 50 mg Tablet 50 mg PO DAILY 30 Days Qty: 30 0RF Eliquis 5 mg Tablet 5 mg PO BID 30 Days Qty: 60 0RF atorvastatin 40 mg Tablet 40 mg PO HS 30 Days Qty: 30 0RF amlodipine 2.5 mg Tablet 2.5 mg PO DAILY 30 Days Qty: 30 0RF carvedilol 6.25 mg Tablet 6.25 mg PO BID 30 Days Qty: 60 0RF Continued oxycodone 10 mg tablet 1 tab PO TID PRN tamsulosin 0.4 mg Capsule 0.4 mg PO QPM Qty: 30 3RF Rx Instructions: TAKE ONE CAPSULE AT BEDTIME zolpidem 5 mg tablet 5 mg PO QPM PRN Discontinued insulin glargine [Lantus U-100 Insulin] 100 unit/mL solution 10 unit subcut DAILY Patient Comments: [NO ORIGINAL SIG] Rx Instructions: with morning meal carvedilol 12.5 mg tablet 12.5 mg PO BID No Action insulin glargine [Lantus Solostar U-100 Insulin] 100 unit/mL (3 mL) insulin pen 9 unit subcut QPM Qty: 3 0RF Follow ups/Referrals Follow ups/Referrals: Derian Araiza [Primary Care Provider] - 1 WEEK Instructions Instructions: Confusion, Hypomagnesemia, Hypokalemia, Hypoglycemia, [id number], Diabetes Mellitus and Nutrition Activity Restrictions/Additional Instructions: Lantus insulin dose has been increased to 22 units once a day. Do not take the fast acting insulin at bedtime. Check blood sugar at each meal and at bedtime. Coreg dose has changed to 6.25mg twice a day. Do not take Coreg 12.5mg that you already have. Stand Alone Forms: Post Hospital Follow Up Care
== END 2023-09-17 11:50 | disposition home or self-care (01) | DRG 291 ==
LOC: ER 11:23 → MED/SURG 16:08
PROVIDERS: ADMIT Internal Medicine; ATTEND Internal Medicine

== ENCOUNTER 2023-09-22 07:37 | Observation (INO) ==
--- NOTE | 2023-09-22 08:20 | DR.HYPOGLY ---
HPI Time Seen Time Seen by Provider: 09/22/23 08:19 PCP Primary Care Physician: Jose G Complaint Chief Complaint Doctors Comments: 72 y/o male brought in via EMS for evaluation. Pt fell at home last pm, injured his R knee. Having pain of the right knee, does not radiate. Worse with movement. Better with rest. Denies head injury, neck pain, back pain. No loss consciousness. Patient with generalized weakness. Has not been taking his insulin. States he is slow makes him nauseous when he takes it. He has also not been taking his blood pressure medication. Denies fever, chills, chest pain. Denies bowel or bladder issues. EMS BS read "Hi" Chief Complaint:: Pt fell at home this AM and c/o right knee pain; he is unsure of how he fell. Pt was in bed on EMS arrival. Per EMS, pt BS read "high" on their monitor, pt slightly altered and is agitated; denies he took too much medication this AM. Pt states the last time he took any insulin was yesterday. EMS states pt in the home told them that "they need to admit him to the hospital because I'm going on vacation and I can't take care of him". COVID-19 Coronavirus risk:travel/contact w/high risk person: No Has patient experienced Coronavirus symptoms: No Nurses notes reviewed Nurses Notes Review: Yes Source History Provided: EMS Mode of Arrival Mode of Arrival: EMS Timing Onset of Chief Complaint: 09/22/23 PMH PMH Past Medical History: Yes Past Medical History: CHF, COPD, Coronary Artery Disease, Diabetes, Dyslipidemia, Hypertension and NM Past Surgical History: Yes Surgical History: Appendectomy and CABG/Valve Surgery Family History History of Family Medical Conditions: Yes Family Medical History: Diabetes Mellitus, Cancer, [place], Coronary Artery Disease and Hypertension Social History Type of Tobacco Use: Cigarettes Does any household member use tobacco: Yes Alcohol Use: None Do you use any recreational Drugs:: No Lives With: Spouse Lives Where: Home Travel Risk Coronavirus risk:travel/contact w/high risk person: No Has patient experienced Coronavirus symptoms: No Infectious screening In the last 2 months have you had wt loss of >10#?: NO Have you had fever, night sweats or hemotysis?: No Have you traveled outside the country in the last 6 months?: No Isolation: Standard ROS Review of Systems Constitutional: Weakness Eyes: No Symptoms Reported ENTM: No Symptoms Reported Respiratoy: No Symptoms Reported Cardiovascular: No Symptoms Reported Gastrointestinal/Abdominal: No Symptoms Reported Genitourinary: No Symptoms Reported Neurological: Weakness Musculoskeletal: Knee Integumentary: No Symptoms Reported Psychiatric: No Symptoms Reported All Other Systems: Reviewed and Negative PE Vital Signs Vitals: Vital Signs Temperature 98.5 F Pulse Rate 80 Pulse Rate 96 Pulse Rate 80 Pulse Rate 86 Pulse Rate 95 Pulse Rate 95 Pulse Rate 95 Pulse Rate 105 Pulse Rate 103 Pulse Rate 103 Pulse Rate 103 Pulse Rate 102 Pulse Rate 102 Pulse Rate 101 Pulse Rate 109 Pulse Rate 103 Pulse Rate 103 Respiratory Rate 27 Respiratory Rate 25 Respiratory Rate 26 Respiratory Rate 20 Respiratory Rate 20 Respiratory Rate 29 Respiratory Rate 29 Respiratory Rate 28 Respiratory Rate 18 Respiratory Rate 22 Respiratory Rate 23 Respiratory Rate 12 Respiratory Rate 24 Respiratory Rate 22 Respiratory Rate 34 Respiratory Rate 22 Respiratory Rate 19 Blood Pressure 187/84 Blood Pressure 187/92 Blood Pressure 228/102 Blood Pressure 228/102 Blood Pressure 215/122 Blood Pressure 215/122 Blood Pressure 223/112 Blood Pressure 192/108 Blood Pressure 185/100 Blood Pressure 218/112 O2 Sat by Pulse Oximetry 99 O2 Sat by Pulse Oximetry 97 O2 Sat by Pulse Oximetry 83 O2 Sat by Pulse Oximetry 98 O2 Sat by Pulse Oximetry 98 O2 Sat by Pulse Oximetry 98 O2 Sat by Pulse Oximetry 97 O2 Sat by Pulse Oximetry 98 O2 Sat by Pulse Oximetry 97 O2 Sat by Pulse Oximetry 98 O2 Sat by Pulse Oximetry 97 O2 Sat by Pulse Oximetry 94 O2 Sat by Pulse Oximetry 95 O2 Sat by Pulse Oximetry 95 General General Appearance: Alert and In No Apparent Distress Eyes Eye exam: PERRL and EOMI ENT ENT Exam: Normal Oropharynx and Mucous Membranes Moist Neck Neck Exam: Normal Inspection and Full ROM Respiratory Respiratory Exam: Normal Lung Sounds Bilat; negative Accessory Muscle Use or Respiratory Distress Cardiovascular Cardiovascular Exam: Regular Rate, Normal Rhythm and Systolic Murmur (3/6, cardiac apex, LSB) Abdominal Exam Abdominal Exam: Normal Bowel Sounds and Soft; negative Tenderness Extremities Extremities Exam: negative Edema Back Back Exam: Normal Inspection Neurologic Neurological Exam: Alert, Oriented X3 and CN II-XII Intact; negative Motor Sensory Deficit Skin Skin Exam: Warm and Dry Other Exam Other Exam: R knee - no effusion, good ROM, ligaments intact. COURSE Treatment Treatment: 72-year-old male fell last p.m., having right knee pain. Physical exam benign for that. Unfortunate patient has not been off his medications, for diabetes and hypertension, for some time. Workup initiated. Patient given IV fluids. Right knee x-ray obtained-no acute abnormalities evident. BP elevated, given IV metoprolol 5 mg. Glucose 859, K+ 6.1. Given IV regular insulin, 10 U. 1052 -CBC normal. Bicarb normal. Urinalysis with 4+ glucose, 1+ ketones. Serum acetone negative. Patient recently admitted for altered mental status, low glucose. Now noncompliant with his medications. Discussed with Dr. Nash, covering for Dr. Araiza, accepts the admission. 1120 - repeat glucose 567, given additional 6U regular insulin IV. ROR Labs Reviewed Laboratory Results Reviewed?: Yes 09/22/23 07:45 09/22/23 10:52 Laboratory: WBC 5.8 X10^3/uL (3.6-10.0) 09/22/23 07:45 RBC 4.10 X10^6/uL (4.7-6.0) L 09/22/23 07:45 Hgb 12.8 g/dL (13.5-18.0) L 09/22/23 07:45 Hct 39.9 % (42.0-54.0) L 09/22/23 07:45 MCV 97.3 fL (80.0-100.0) 09/22/23 07:45 MCH 31.2 pg (27.0-34.0) 09/22/23 07:45 MCHC 32.1 g/dL (33.0-35.0) L 09/22/23 07:45 RDW 14.5 % (11.6-16.5) 09/22/23 07:45 Plt Count 171 X10^3/uL (150.0-450.0) 09/22/23 07:45 MPV 9.0 fL (7.4-11.0) 09/22/23 07:45 Neut % (Auto) 81.9 % (42.0-75.0) H 09/22/23 07:45 Lymph % (Auto) 10.2 % (21.0-51.0) L 09/22/23 07:45 [place] % (Auto) 6.5 % (0.0-13.0) 09/22/23 07:45 Eos % (Auto) 0.6 % (0.9-2.9) L 09/22/23 07:45 Baso % (Auto) 0.8 % (0.2-1.0) 09/22/23 07:45 Neut # (Auto) 4.7 x10^3/uL (2.2-4.8) 09/22/23 07:45 Lymph # (Auto) 0.6 X10^3/uL (1.3-2.9) L 09/22/23 07:45 [place] # (Auto) 0.4 x10^3/uL (0.3-0.8) 09/22/23 07:45 Eos # (Auto) 0.0 x10^3/uL (0.0-0.2) 09/22/23 07:45 Baso # (Auto) 0.0 X10^3/uL (0.0-0.1) 09/22/23 07:45 Absolute Nucleated RBC 0.0 /100WBC 09/22/23 07:45 Sodium 129 mmol/L (136-145) L 09/22/23 09:02 Corrected Sodium 147 mmol/L (136-145) H 09/22/23 09:02 Potassium 6.1 mmol/L (3.5-5.1) H* 09/22/23 09:02 Chloride 94 mmol/L (98-107) L 09/22/23 09:02 Carbon Dioxide 24.6 mmol/L (21-32) 09/22/23 09:02 BUN 36 mg/dL (7-18) H 09/22/23 09:02 Creatinine 1.96 mg/dL (0.70-1.30) H 09/22/23 09:02 Est GFR (MDRD) Af Amer 43 (>60) L 09/22/23 09:02 Est GFR (MDRD) Non-Af 36 (>60) L 09/22/23 09:02 Glucose 567 mg/dL (65-99) H* 09/22/23 10:52 Calcium 8.8 mg/dL (8.5-10.1) 09/22/23 09:02 Corrected Calcium TNP 09/22/23 09:02 Total Bilirubin 1.70 mg/dL (0.2-1.0) H 09/22/23 09:02 AST 56 Units/L (15-37) H 09/22/23 09:02 ALT 58 Units/L (12-78) 09/22/23 09:02 Alkaline Phosphatase 218 Units/L (46-116) H 09/22/23 09:02 Troponin I High Sens 38.1 ng/L (4.0-60.0) 09/22/23 09:02 Total Protein 7.7 g/dL (6.4-8.2) 09/22/23 09:02 Albumin 3.5 g/dL (3.4-5.0) 09/22/23 09: Globulin 4.2 g/dL (2.5-4.5) 09/22/23 09:02 Albumin/Globulin Ratio 0.8 Ratio (1.1-2.1) L 09/22/23 09:02 Lipase 23 Units/L (16-77) 09/22/23 09:02 Specimen Type Clean catch urine 09/22/23 09:27 Urine Color Straw (YELLOW) 09/22/23 09: Urine Appearance Clear (CLEAR) 09/22/23 09: Urine pH 7.0 (5.0 - 8.0) 09/22/23 09:27 Ur Specific [place] 1.010 (1.000-1.030) 09/22/23 09:27 Urine Protein 2+ (NEGATIVE) 09/22/23 09: Urine Glucose (UA) 4+ (NEGATIVE) 09/22/23 09: Urine Ketones 1+ (NEGATIVE) 09/22/23 09: Urine Blood 1+ (NEGATIVE) 09/22/23 09: Urine Nitrite Negative (NEGATIVE) 09/22/23 09:27 Urine Bilirubin Negative (NEGATIVE) 09/22/23 09: Urine Urobilinogen Normal (NORMAL) 09/22/23 09: Ur Leukocyte Esterase Negative (NEGATIVE) 09/22/23 09:27 Urine RBC 0-2 /HPF (0-3) 09/22/23 09:27 Urine WBC 0-2 /HPF (0-5) 09/22/23 09:27 Ur Squamous Epith Cells Negative /HPF (NEGATIVE) 09/22/23 09:27 Amorphous Sediment Trace /HPF (NEGATIVE) 09/22/23 09:27 Urine Bacteria Negative /HPF (NEGATIVE) 09/22/23 09:27 Ur Culture Indicated? No/not indicated 09/22/23 09:27 Acetone, Semi-Quant Negative (NEGATIVE) 09/22/23 09:02 XRAY XRAY Interpreted by: Both X-ray Results: EXAM: CHEST, 1 VIEW HISTORY: weakness; COMPARISON: Prior study or studies were utilized for comparison during interpretation with the most relevant dated 09/15/2023 TECHNIQUE: CHEST, 1 VIEW FINDINGS: Chest: Lines and tubes: Cardiac leads overlie the chest. Mediastinum: Median sternotomy wires are present. The cardiac shadow is enlarged. Pulmonary vessels: No pulmonary vascular congestion. Lung [place]: No suspicious airspace opacity. Pleura: No effusion. No pneumothorax. Bones and soft tissues: No acute osseous or soft tissue abnormality. IMPRESSION: 1. No acute cardiopulmonary abnormality THIS IS AN ELECTRONICALLY VERIFIED FINAL REPORT 09/22/2023 9:26 AM - Electronically signed by Mick Irby MD EKG Rate: 96 [place]: LAD (-65) Rhythm: NSR ST: Normal Opioid Opioid Risk Tool Age (Jensen box if 16-45): No History of Preadolescent Sexual Abuse: No Total: 0 Total Score Risk Category: Low Risk Copyright: Jose CANO predicting aberrant behaviors Discharge Plan Diagnosis Discharge Problem: Poorly controlled diabetes mellitus, Medical non-compliance Discharge Plan Patient Disposition: ADMITTED INPATIENT Condition: Stable Prescriptions: No Action oxycodone 10 mg tablet 1 tab PO TID PRN tamsulosin 0.4 mg Capsule 0.4 mg PO QPM Qty: 30 3RF Rx Instructions: TAKE ONE CAPSULE AT BEDTIME zolpidem 5 mg tablet 5 mg PO QPM PRN insulin glargine [Lantus Solostar U-100 Insulin] 100 unit/mL (3 mL) insulin pen 9 unit subcut QPM Qty: 3 0RF losartan 50 mg Tablet 50 mg PO DAILY 30 Days Qty: 30 0RF Eliquis 5 mg Tablet 5 mg PO BID 30 Days Qty: 60 0RF atorvastatin 40 mg Tablet 40 mg PO HS 30 Days Qty: 30 0RF amlodipine 2.5 mg Tablet 2.5 mg PO DAILY 30 Days Qty: 30 0RF carvedilol 6.25 mg Tablet 6.25 mg PO BID 30 Days Qty: 60 0RF potassium chloride 20 mEq tablet,ER particles/crystals 20 meq PO QDAY buspirone 15 mg tablet 30 mg PO BID Health Concerns: Post Hospitalization: new medications and changes needed to prevent readmission or further decline. Pt educated and given instructions on all concerns. Plan of Treatment: Continue with present treatment and follow up plan. Pt is to keep follow up appointment as instructed and take medications as ordered. Orders to Discharge Patient Discharge Orders: Transfer (Routine); Ordered 09/22/23 Ordered By: Siddharth Martin Follow ups/Referrals Follow ups/Referrals: Derian Araiza [Primary Care Provider] - 3 days
[2023-09-22 08:34] LABS: BASOPHILS % (AUTO) 0.8 % (0.2-1.0); EOSINOPHILS % (AUTO) 0.6 % (0.9-2.9); HEMATOCRIT 39.9 % (42.0-54.0); HEMOGLOBIN 12.8 g/dL (13.5-18.0); LYMPHOCYTES # (AUTO) 0.6 X10^3/uL (1.3-2.9); LYMPHOCYTES % (AUTO) 10.2 % (21.0-51.0); MEAN CORPUSCULAR HEMOGLOBIN 31.2 pg (27.0-34.0); MEAN CORPUSCULAR HGB CONC 32.1 g/dL (33.0-35.0); MEAN CORPUSCULAR VOLUME 97.3 fL (80.0-100.0); MONOCYTES # (AUTO) 0.4 x10^3/uL (0.3-0.8); MONOCYTES % (AUTO) 6.5 % (0.0-13.0); NEUTROPHILS # (AUTO) 4.7 x10^3/uL (2.2-4.8); NEUTROPHILS % (AUTO) 81.9 % (42.0-75.0); PLATELET COUNT 171 X10^3/uL (150.0-450.0); RED CELL DISTRIBUTION WIDTH 14.5 % (11.6-16.5); WHITE BLOOD COUNT 5.8 X10^3/uL (3.6-10.0)
[2023-09-22] MEDS: NS 500 ML IV 500 ML IV ONE (08:35)
--- NOTE | 2023-09-22 08:39 | EKG ---
Test Reason : weakness Blood Pressure : */* mmHG Vent. Rate : 96 BPM Atrial Rate : 96 BPM P-R Int : 198 ms QRS Dur : 100 ms QT Int : 348 ms P-R-T Axes : 68 -65 85 degrees QTc Int : 439 ms Sinus rhythm with sinus arrhythmia with occasional premature ventricular complexes Left axis deviation Possible Lateral infarct , age undetermined Abnormal ECG When compared with ECG of 13-SEP-2023 11:12, Significant changes have occurred with marked loss of lateral r waves and new lateral q waves Confirmed by Mookie Thompson MD ([id number]) on 09/22/2023 10:28:00 AM Referred By: Confirmed By: Mookie Thompson MD
[2023-09-22 08:43] LABS: SERUM ACETONE NEGATIVE (NEGATIVE)
[2023-09-22 08:45] LABS: CALCIUM 8.8 mg/dL (8.5-10.1)
[2023-09-22] MEDS: LOPRESSOR INJ 5 MG AMP IVP ONE (09:23)
[2023-09-22 09:27] LABS: ALANINE AMINOTRANSFERASE 58 Units/L (12-78); ALBUMIN 3.5 g/dL (3.4-5.0); ALKALINE PHOSPHATASE 218 Units/L (46-116); ASPARTATE AMINO TRANSFERASE 56 Units/L (15-37); BLOOD UREA NITROGEN 36 mg/dL (7-18); CARBON DIOXIDE 24.6 mmol/L (21-32); CHLORIDE 94 mmol/L (98-107); CREATININE 1.96 mg/dL (0.70-1.30); LIPASE 23 Units/L (16-77); SODIUM 129 mmol/L (136-145); TOTAL PROTEIN 7.7 g/dL (6.4-8.2); eGFR NON BLACK RACES 36 (>60)
[2023-09-22 09:29] LABS: COR NA(FOR HYPERGLY) 147 mmol/L (136-145)
--- NOTE | 2023-09-22 09:30 | RAD ---
EXAM:CHEST, 1 VIEWHISTORY:weakness;COMPARISON:Prior study or studies were utilized for comparison during interpretation with the most relevant dated 09/15/2023TECHNIQUE:CHEST, 1 VIEWFINDINGS:Chest:Lines and tubes: Cardiac leads overlie the chest.Mediastinum: Median sternotomy wires are present. The cardiac shadow is enlarged.Pulmonary vessels: No pulmonary vascular congestion.Lung milton: No suspicious airspace opacity.Pleura: No effusion. No pneumothorax.Bones and soft tissues: No acute osseous or soft tissue abnormality.IMPRESSION:1. No acute cardiopulmonary abnormalityTHIS IS AN ELECTRONICALLY VERIFIED FINAL REPORT09/22/2023 9:26 AM - Electronically signed by Mick Irby MD
[2023-09-22 09:31] LABS: POTASSIUM 6.1 mmol/L (3.5-5.1)
[2023-09-22] MEDS ORDERED: NovoLIN R (or HumuLIN R) ONE ×2 (09:31→11:31)
--- NOTE | 2023-09-22 09:31 | RAD ---
EXAM:KNEE COMPLETE, RIGHTHISTORY:pain, s/p fall;COMPARISON:No relevant studies are available for comparison at the time of interpretation.TECHNIQUE:3 view(s)FINDINGS:The distal femur patella and proximal tibia and fibula are intact. No dislocation. No apparent soft tissue abnormality. There are degenerative changes including tricompartmental osteophytesIMPRESSION:1. No acute fracture or dislocationTHIS IS AN ELECTRONICALLY VERIFIED FINAL REPORT09/22/2023 9:27 AM - Electronically signed by Mick Irby MD
[2023-09-22 09:32] LABS: GLUCOSE 859 mg/dL (65-99)
[2023-09-22] MEDS: NovoLIN R (or HumuLIN R) IV ONE (09:34)
[2023-09-22 09:47] LABS: BILIRUBIN,URINE NEGATIVE (NEGATIVE); BLOOD/HEMOGLOBIN,URINE 1+ (NEGATIVE); GLUCOSE, URINE 4+ (NEGATIVE); KETONES,URINE 1+ (NEGATIVE); LEUKOCYTE ESTERASE ,URINE NEGATIVE (NEGATIVE); NITRITES,URINE NEGATIVE (NEGATIVE); PROTEIN,URINE 2+ (NEGATIVE); UROBILINOGEN,URINE NORMAL (NORMAL)
[2023-09-22 09:56] LABS: APPEARANCE,URINE CLEAR (CLEAR); COLOR,URINE STRAW (YELLOW)
[2023-09-22 09:57] LABS: BACTERIA,URINE NEGATIVE /HPF (NEGATIVE); RBC,URINE 0-2 /HPF (0-3); SQUAMOUS EPITHELIAL CELL,UR NEGATIVE /HPF (NEGATIVE)
[2023-09-22] MEDS: NovoLIN R (or HumuLIN R) SUBCUT ONE (11:34)
[2023-09-22] MEDS ORDERED: ROXICODONE TAB 5 MG PO PRN (11:55)
[2023-09-22] MEDS ORDERED: CONSULT PHARMACY - POTASSIUM & MAGNESIUM XX SCH (11:55)
[2023-09-22] MEDS: NS 1,000 ML IV 1,000 ML IV SCH (12:58)
[2023-09-22] MEDS: NovoLIN R (or HumuLIN R) SC PRN (13:22)
[2023-09-22] MEDS: NICOTINE PATCH TD SCH (15:24)
[2023-09-22] MEDS ORDERED: D50W ABBOJECT SYR ONE (16:59)
[2023-09-22] MEDS: D50W ABBOJECT SYR IV ONE (17:05)
--- NOTE | 2023-09-22 19:54 | DR.H&P ---
H&P History & Physical for Day of: H&P Date: 09/22/23 Chief Complaint Chief Complaint: fall, weakness Allergies Allergies Allergy/AdvReac Type Severity Reaction Status Date / Time fluoxetine [From Prozac] Allergy Verified 09/22/23 07:39 History of Present Illness History of Present Illness: Mr Almendarez is a 72y/o male with a PMH of CAD, HTN, Type 2 DM, Atrial fibrillation and HLD presented after having a fall at home. He also reported generalized weakness and unable to take care of himself. He presented covered in feces and urine. He was recently admitted for AMS and hypoglycemia. He has had recurrent ER visits for similar concerns. Today, he reported that he has not been taking his insulin or BP medications. EMS was called and patient's glucose was noted to be read as High on the glucometer. In the ER, patient has multiple lab abnormalities included elevated potassium, glucose and creatinine. His BP was also above 200 systolic. His glucose was 859. He was given regular insulin, fluids and IV metoprolol. Patient's BP improved. He was admitted for further evaluation and management. Labs/imaging reviewed -Hgb 12.8 K:6.1 BUN/Cr 36/1.96 Trop (-) - CXR: no acute process -Knee XR: no fracture Plan: admit to med surg, continue hydration. Patient was noted to be hypoglycemic in the evening. Will DC Lantus, start metformin 500mg BID and g lipizide 5mg daily. Continue SSI. Monitor electrolytes. Resume home medications as indicated. Monitor BP. PT/OT as tolerated. Patient will likely need placement if he is not able to take care of himself including taking medications at home. Monitor AM labs/imaging. Time spent on clinical assessment, reviewing labs and imaging, decision making, and documentation greater than 45 minutes. Past Medical History Past Medical History: CHF, COPD, Coronary Artery Disease, Diabetes, Dyslipidemia, Hypertension and ME Additional Medical History: ME 2012 Past Surgical History Surgical History: Appendectomy and CABG/Valve Surgery Additional Surgical History: 7 CARDIAC STENTS Family History Family Medical History: Diabetes Mellitus, Cancer, [place], Coronary Artery Disease and Hypertension Social History Does patient currently use any type of tobacco product: Yes Have you used tobacco products in the last 12 months: Yes Type of Tobacco Use: Cigarettes Does any household member use tobacco: Yes Alcohol Use: None Drug Use: None Medications Home Medications: Home Medications Medication Instructions Recorded Confirmed Type oxycodone 10 mg tablet 1 tab PO TID PRN 07/17/22 09/22/23 History zolpidem 5 mg tablet 5 mg PO QPM PRN 08/06/22 09/22/23 History buspirone 15 mg tablet 30 mg PO BID 09/22/23 09/22/23 History potassium chloride 20 mEq 20 meq PO QDAY 09/22/23 09/22/23 History tablet,extended release(part/cryst) Labs 09/22/23 07:45 09/22/23 17:03 Labs: Laboratory WBC 5.8 X10^3/uL (3.6-10.0) 09/22/23 07:45 RBC 4.10 X10^6/uL (4.7-6.0) L 09/22/23 07:45 Hgb 12.8 g/dL (13.5-18.0) L 09/22/23 07:45 Hct 39.9 % (42.0-54.0) L 09/22/23 07:45 MCV 97.3 fL (80.0-100.0) 09/22/23 07:45 MCH 31.2 pg (27.0-34.0) 09/22/23 07:45 MCHC 32.1 g/dL (33.0-35.0) L 09/22/23 07:45 RDW 14.5 % (11.6-16.5) 09/22/23 07:45 Plt Count 171 X10^3/uL (150.0-450.0) 09/22/23 07:45 MPV 9.0 fL (7.4-11.0) 09/22/23 07:45 Neut % (Auto) 81.9 % (42.0-75.0) H 09/22/23 07:45 Lymph % (Auto) 10.2 % (21.0-51.0) L 09/22/23 07:45 [place] % (Auto) 6.5 % (0.0-13.0) 09/22/23 07:45 Eos % (Auto) 0.6 % (0.9-2.9) L 09/22/23 07:45 Baso % (Auto) 0.8 % (0.2-1.0) 09/22/23 07:45 Neut # (Auto) 4.7 x10^3/uL (2.2-4.8) 09/22/23 07:45 Lymph # (Auto) 0.6 X10^3/uL (1.3-2.9) L 09/22/23 07:45 [place] # (Auto) 0.4 x10^3/uL (0.3-0.8) 09/22/23 07:45 Eos # (Auto) 0.0 x10^3/uL (0.0-0.2) 09/22/23 07:45 Baso # (Auto) 0.0 X10^3/uL (0.0-0.1) 09/22/23 07:45 Absolute Nucleated RBC 0.0 /100WBC 09/22/23 07:45 Sodium 129 mmol/L (136-145) L 09/22/23 09:02 Corrected Sodium 147 mmol/L (136-145) H 09/22/23 09:02 Potassium 6.1 mmol/L (3.5-5.1) H* 09/22/23 09:02 Chloride 94 mmol/L (98-107) L 09/22/23 09:02 Carbon Dioxide 24.6 mmol/L (21-32) 09/22/23 09:02 BUN 36 mg/dL (7-18) H 09/22/23 09:02 Creatinine 1.96 mg/dL (0.70-1.30) H 09/22/23 09:02 Est GFR (MDRD) Af Amer 43 (>60) L 09/22/23 09:02 Est GFR (MDRD) Non-Af 36 (>60) L 09/22/23 09:02 Glucose 42 mg/dL (65-99) L* 09/22/23 17:03 POC Glucose (mg/dL) 44 mg/dL (65-99) L* 09/22/23 16:55 Calcium 8.8 mg/dL (8.5-10.1) 09/22/23 09:02 Corrected Calcium TNP 09/22/23 09:02 Magnesium 2.3 mg/dL (2.0-2.9) 09/22/23 09:02 Total Bilirubin 1.70 mg/dL (0.2-1.0) H 09/22/23 09:02 AST 56 Units/L (15-37) H 09/22/23 09:02 ALT 58 Units/L (12-78) 09/22/23 09:02 Alkaline Phosphatase 218 Units/L (46-116) H 09/22/23 09:02 Troponin I High Sens 38.1 ng/L (4.0-60.0) 09/22/23 09:02 Total Protein 7.7 g/dL (6.4-8.2) 09/22/23 09:02 Albumin 3.5 g/dL (3.4-5.0) 09/22/23 09:02 Globulin 4.2 g/dL (2.5-4.5) 09/22/23 09:02 Albumin/Globulin Ratio 0.8 Ratio (1.1-2.1) L 09/22/23 09:02 Lipase 23 Units/L (16-77) 09/22/23 09:02 Specimen Type Clean catch urine 09/22/23 09:27 Urine Color Straw (YELLOW) 09/22/23 09:27 Urine Appearance Clear (CLEAR) 09/22/23 09:27 Urine pH 7.0 (5.0 - 8.0) 09/22/23 09:27 Ur Specific [place] 1.010 (1.000-1.030) 09/22/23 09:27 Urine Protein 2+ (NEGATIVE) 09/22/23 09:27 Urine Glucose (UA) 4+ (NEGATIVE) 09/22/23 09:27 Urine Ketones 1+ (NEGATIVE) 09/22/23 09: Urine Blood 1+ (NEGATIVE) 09/22/23 09:27 Urine Nitrite Negative (NEGATIVE) 09/22/23 09:27 Urine Bilirubin Negative (NEGATIVE) 09/22/23 09:27 Urine Urobilinogen Normal (NORMAL) 09/22/23 09:27 Ur Leukocyte Esterase Negative (NEGATIVE) 09/22/23 09:27 Urine RBC 0-2 /HPF (0-3) 09/22/23 09:27 Urine WBC 0-2 /HPF (0-5) 09/22/23 09:27 Ur Squamous Epith Cells Negative /HPF (NEGATIVE) 09/22/23 09:27 Amorphous Sediment Trace /HPF (NEGATIVE) 09/22/23 09:27 Urine Bacteria Negative /HPF (NEGATIVE) 09/22/23 09:27 Ur Culture Indicated? No/not indicated 09/22/23 09:27 Acetone, Semi-Quant Negative (NEGATIVE) 09/22/23 09:02 Review of Systems Constitutional: Weakness Eyes: No Symptoms Reported ENT: No Symptoms Reported Respiratory: No Symptoms Reported Cardiovascular: No Symptoms Reported Gastrointestinal: No Symptoms Reported Musculoskeletal: Shoulder Pain and Other (knee pain) Skin: No Symptoms Reported Neurological: Weakness Physical Exam Vital Signs: Vital Signs Temperature 98.8 F Temperature 98.8 F Temperature 98.5 F Temperature 98.5 F Pulse Rate [Left Brachial] 72 Pulse Rate [Left Brachial] 72 Pulse Rate [Left Brachial] 81 Pulse Rate [Left Brachial] 81 Respiratory Rate 15 Respiratory Rate 15 Respiratory Rate 16 Respiratory Rate 16 Blood Pressure [Left Arm] 164/81 Blood Pressure [Left Arm] 164/81 Blood Pressure [Left Arm] 188/87 Blood Pressure [Left Arm] 188/87 O2 Sat by Pulse Oximetry 99 O2 Sat by Pulse Oximetry 99 O2 Sat by Pulse Oximetry 97 O2 Sat by Pulse Oximetry 97 Oriented: Normal Eyes: Normal Ear: Normal Respiratory: Diminished Throughout Cardiovascular: Normal Auscultation: Bowel Sounds: Normal Palpation: Normal Tenderness: Normal Musculoskeletal: Shoulder, Knee and Leg Psychiatric: Normal Mood Description: Calm Affect: Normal Speech Pattern: Clear and Appropriate Assessment/Plan (1) Hyperglycemia: Status: Acute (2) Generalized weakness: Status: Acute (3) Hyperkalemia: Status: Acute (4) Acute renal failure superimposed on stage 3 chronic kidney disease: Status: Acute (5) Poorly controlled diabetes mellitus: Status: Acute (6) Medical non-compliance: Status: Acute (7) Atrial fibrillation: Qualifiers: Atrial fibrillation type: unspecified chronic Qualified Code(s): I48.20 - Chronic atrial fibrillation, unspecified Status: Acute (8) Hx of myocardial infarction: Status: Chronic (9) Congestive heart failure: Qualifiers: Heart failure chronicity: acute on chronic Heart failure type: unspecified Qualified Code(s): I50.9 - Heart failure, unspecified Status: Acute (10) Hypertension: Qualifiers: Hypertension type: primary hypertension Qualified Code(s): I10 - Essent ial (primary) hypertension Status: Acute
[2023-09-22] MEDS ORDERED: SNACK - Diabetic Appropriate PO SCH (20:00)
[2023-09-22] MEDS ORDERED: LANTUS SC SCH (21:00)
[2023-09-22] MEDS: COREG TAB 6.25 MG PO SCH (21:21)
[2023-09-22] MEDS: LIPITOR TAB 40 MG PO SCH (21:22)
[2023-09-22] MEDS: ELIQUIS PO SCH (21:22)
[2023-09-22] MEDS: FLOMAX PO SCH (21:22)
[2023-09-22] MEDS: SNACK - Diabetic Appropriate PO SCH ×2 (21:53→22:36)
[2023-09-22] MEDS: BUSPAR PO SCH (21:54)
[2023-09-23] MEDS ORDERED: GLUCOPHAGE ONE ×2 (06:08→16:28)
[2023-09-23 06:12] LABS: BASOPHILS % (AUTO) 0.5 % (0.2-1.0); EOSINOPHILS # (AUTO) 0.1 x10^3/uL (0.0-0.2); EOSINOPHILS % (AUTO) 1.7 % (0.9-2.9); HEMATOCRIT 32.1 % (42.0-54.0); LYMPHOCYTES # (AUTO) 1.3 X10^3/uL (1.3-2.9); LYMPHOCYTES % (AUTO) 22.8 % (21.0-51.0); MEAN CORPUSCULAR HEMOGLOBIN 31.5 pg (27.0-34.0); MEAN CORPUSCULAR HGB CONC 33.8 g/dL (33.0-35.0); MEAN PLATELET VOLUME 8.6 fL (7.4-11.0); MONOCYTES # (AUTO) 0.5 x10^3/uL (0.3-0.8); MONOCYTES % (AUTO) 8.2 % (0.0-13.0); NEUTROPHILS # (AUTO) 3.9 x10^3/uL (2.2-4.8); NEUTROPHILS % (AUTO) 66.8 % (42.0-75.0); PLATELET COUNT 151 X10^3/uL (150.0-450.0); RED BLOOD COUNT 3.45 X10^6/uL (4.7-6.0); RED CELL DISTRIBUTION WIDTH 14.2 % (11.6-16.5); WHITE BLOOD COUNT 5.8 X10^3/uL (3.6-10.0)
[2023-09-23] MEDS: GLUCOTROL XL 24-HR PO SCH (06:16)
[2023-09-23] MEDS: GLUCOPHAGE PO SCH ×2 (06:17→17:32)
[2023-09-23 06:23] LABS: ALANINE AMINOTRANSFERASE 41 Units/L (12-78); ALBUMIN 2.6 g/dL (3.4-5.0); ALKALINE PHOSPHATASE 115 Units/L (46-116); ASPARTATE AMINO TRANSFERASE 29 Units/L (15-37); BLOOD UREA NITROGEN 27 mg/dL (7-18); CALCIUM 8.1 mg/dL (8.5-10.1); CARBON DIOXIDE 25.4 mmol/L (21-32); CHLORIDE 105 mmol/L (98-107); COR CA(FOR HYPOALB) 9.2 mg/dL (8.5-10.1); COR NA(FOR HYPERGLY) 144 mmol/L (136-145); CREATININE 1.43 mg/dL (0.70-1.30); GLUCOSE 336 mg/dL (65-99); POTASSIUM 4.8 mmol/L (3.5-5.1); SODIUM 138 mmol/L (136-145); eGFR NON BLACK RACES 52 (>60)
[2023-09-23 06:34] LABS: HEMOGLOBIN 10.8 g/dL (13.5-18.0)
[2023-09-23] MEDS: LOPRESSOR INJ 5 MG AMP ONE (07:51)
[2023-09-23] MEDS: NS 500 ML IV 500 ML IV ONE (07:51)
[2023-09-23] MEDS ORDERED: NORVASC TAB 2.5 MG ONE (08:46)
[2023-09-23] MEDS ORDERED: LANTUS SC SCH (09:00)
--- NOTE | 2023-09-23 09:22 | PCM.PROG ---
Progress Note Progress Note for Day of Date of Exam: 09/23/23 Subjective Subjective: Mr Almendarez is a 72y/o male with a PMH of CAD, HTN, Type 2 DM, Atrial fibrillation and HLD admitted for hyperglycemia, electrolyte abnormalities, GUILLERMINA, generalized weakness, CHF, and hypertension. Pt was non-compliant with medications at home. This morning patient is resting comfortably in bed. Yesterday, he did have an episode of hypoglycemia that resolved after receiving amp of D50. We have started him this morning on oral hypoglycemics and he will be on SSI, will monitor his FSBG and adjust dosage on medications. Labs/imaging reviewed - Wbc 5.8, Hgb 10.8, Plt 151, - Na 138, K:4.8, Cr 1.43, Glucose 336 Plan: admit to med surg, continue hydration. Start metformin 500mg BID and glipizide 5mg daily. Continue SSI. Monitor electrolytes. Resume home medications as indicated. Monitor BP. PT/OT as tolerated. Patient will likely need placement if he is not able to take care of himself including taking medications at home. Monitor AM labs/imaging. Past Medical Family Social History Allergies: Allergies fluoxetine [From Prozac] Allergy (Verified 09/22/23 07:39) Review of Systems ROS changes noted: see HPI Vital Signs and I&O's Vital Signs: Vital Signs Temperature 97.7 F Pulse Rate [Left Brachial] 65 Respiratory Rate 20 Blood Pressure [Left Arm] 164/78 O2 Sat by Pulse Oximetry 100 Intake and Output: Intake & Output 09/20/23 09/21/23 09/22/23 09/23/23 23:59 23:59 23:59 23:59 Intake Total 1297 / 1297 350 / 350 Output Total 340 / 340 700 / 700 Balance 957 / 957 -350 / -350 Physical Exam Oriented: Normal Eyes: Normal Ear: Normal Respiratory: Normal Cardiovascular: Normal Auscultation: Bowel Sounds: Normal Tenderness: Normal Musculoskeletal: Shoulder, Knee and Leg Psychiatric: Normal Mood Description: Calm Affect: Normal Speech Pattern: Clear and Appropriate Laboratory and Diagnostics 09/23/23 05:45 09/23/23 05:45 Labs: Laboratory WBC 5.8 X10^3/uL (3.6-10.0) 09/23/23 05:45 RBC 3.45 X10^6/uL (4.7-6.0) L 09/23/23 05:45 Hgb 10.8 g/dL (13.5-18.0) L D 09/23/23 05:45 Hct 32.1 % (42.0-54.0) L 09/23/23 05:45 MCV 93.0 fL (80.0-100.0) 09/23/23 05:45 MCH 31.5 pg (27.0-34.0) 09/23/23 05:45 MCHC 33.8 g/dL (33.0-35.0) 09/23/23 05:45 RDW 14.2 % (11.6-16.5) 09/23/23 05:45 Plt Count 151 X10^3/uL (150.0-450.0) 09/23/23 05:45 MPV 8.6 fL (7.4-11.0) 09/23/23 05:45 Neut % (Auto) 66.8 % (42.0-75.0) 09/23/23 05:45 Lymph % (Auto) 22.8 % (21.0-51.0) 09/23/23 05:45 Dare % (Auto) 8.2 % (0.0-13.0) 09/23/23 05:45 Eos % (Auto) 1.7 % (0.9-2.9) 09/23/23 05:45 Baso % (Auto) 0.5 % (0.2-1.0) 09/23/23 05:45 Neut # (Auto) 3.9 x10^3/uL (2.2-4.8) 09/23/23 05:45 Lymph # (Auto) 1.3 X10^3/uL (1.3-2.9) 09/23/23 05:45 Dare # (Auto) 0.5 x10^3/uL (0.3-0.8) 09/23/23 05:45 Eos # (Auto) 0.1 x10^3/uL (0.0-0.2) 09/23/23 05:45 Baso # (Auto) 0.0 X10^3/uL (0.0-0.1) 09/23/23 05:45 Absolute Nucleated RBC 0.1 /100WBC 09/23/23 05:45 Sodium 138 mmol/L (136-145) 09/23/23 05:45 Corrected Sodium 144 mmol/L (136-145) 09/23/23 05:45 Potassium 4.8 mmol/L (3.5-5.1) 09/23/23 05:45 Chloride 105 mmol/L (98-107) 09/23/23 05:45 Carbon Dioxide 25.4 mmol/L (21-32) 09/23/23 05:45 BUN 27 mg/dL (7-18) H 09/23/23 05:45 Creatinine 1.43 mg/dL (0.70-1.30) H 09/23/23 05:45 Est GFR (MDRD) Af Amer > 60 (>60) 09/23/23 05:45 Est GFR (MDRD) Non-Af 52 (>60) L 09/23/23 05:45 Glucose 336 mg/dL (65-99) H 09/23/23 05:45 POC Glucose (mg/dL) 326 mg/dL (65-99) H 09/22/23 23:15 Calcium 8.1 mg/dL (8.5-10.1) L 09/23/23 05:45 Corrected Calcium 9.2 mg/dL (8.5-10.1) 09/23/23 05:45 Magnesium 2.3 mg/dL (2.0-2.9) 09/22/23 09:02 Total Bilirubin 1.10 mg/dL (0.2-1.0) H 09/23/23 05:45 AST 29 Units/L (15-37) 09/23/23 05:45 ALT 41 Units/L (12-78) 09/23/23 05:45 Alkaline Phosphatase 115 Units/L (46-116) 09/23/23 05:45 Troponin I High Sens 38.1 ng/L (4.0-60.0) 09/22/23 09:02 Total Protein 6.0 g/dL (6.4-8.2) L 09/23/23 05:45 Albumin 2.6 g/dL (3.4-5.0) L 09/23/23 05:45 Globulin 3.4 g/dL (2.5-4.5) 09/23/23 05:45 Albumin/Globulin Ratio 0.8 Ratio (1.1-2.1) L 09/23/23 05:45 Lipase 23 Units/L (16-77) 09/22/23 09:02 Specimen Type Clean catch urine 09/22/23 09:27 Urine Color Straw (YELLOW) 09/22/23 09:27 Urine Appearance Clear (CLEAR) 09/22/23 09:27 Urine pH 7.0 (5.0 - 8.0) 09/22/23 09:27 Ur Specific [place] 1.010 (1.000-1.030) 09/22/23 09:27 Urine Protein 2+ (NEGATIVE) 09/22/23 09:27 Urine Glucose (UA) 4+ (NEGATIVE) 09/22/23 09:27 Urine Ketones 1+ (NEGATIVE) 09/22/23 09:27 Urine Blood 1+ (NEGATIVE) 09/22/23 09:27 Urine Nitrite Negative (NEGATIVE) 09/22/23 09:27 Urine Bilirubin Negative (NEGATIVE) 09/22/23 09:27 Urine Urobilinogen Normal (NORMAL) 09/22/23 09:27 Ur Leukocyte Esterase Negative (NEGATIVE) 09/22/23 09:27 Urine RBC 0-2 /HPF (0-3) 09/22/23 09:27 Urine WBC 0-2 /HPF (0-5) 09/22/23 09:27 Ur Squamous Epith Cells Negative /HPF (NEGATIVE) 09/22/23 09:27 Amorphous Sediment Trace /HPF (NEGATIVE) 09/22/23 09:27 Urine Bacteria Negative /HPF (NEGATIVE) 09/22/23 09:27 Ur Culture Indicated? No/not indicated 09/22/23 09:27 Acetone, Semi-Quant Negative (NEGATIVE) 09/22/23 09:02 Plan (1) Hyperglycemia: Status: Acute (2) Generalized weakness: Status: Acute (3) Hyperkalemia: Status: Acute (4) Acute renal failure superimposed on stage 3 chronic kidney disease: Status: Acute (5) Poorly controlled diabetes mellitus: Status: Acute (6) Medical non-compliance: Status: Acute (7) Atrial fibrillation: Status: Acute Qualifiers: Atrial fibrillation type: unspecified chronic Qualified Code(s): I48.20 - Chronic atrial fibrillation, unspecified (8) Hx of myocardial infarction: Status: Chronic (9) Congestive heart failure: Status: Acute Qualifiers: Heart failure chronicity: acute on chronic Heart failure type: unspecified Qualified Code(s): I50.9 - Heart failure, unspecified (10) Hypertension: Status: Acute Qualifiers: Hypertension type: primary hypertension Qualified Code(s): I10 - Essential (primary) hypertension
[2023-09-23] MEDS: COZAAR PO SCH (09:39)
[2023-09-23] MEDS: ELIQUIS PO SCH (09:39)
[2023-09-23] MEDS: NORVASC TAB 2.5 MG PO SCH (09:40)
[2023-09-23] MEDS: AMBIEN PO PRN (23:35)
[2023-09-24] MEDS ORDERED: GLUCOPHAGE ONE ×2 (06:19→16:13)
[2023-09-24 07:12] LABS: BASOPHILS % (AUTO) 0.4 % (0.2-1.0); EOSINOPHILS # (AUTO) 0.2 x10^3/uL (0.0-0.2); EOSINOPHILS % (AUTO) 2.3 % (0.9-2.9); HEMATOCRIT 32.5 % (42.0-54.0); HEMOGLOBIN 10.8 g/dL (13.5-18.0); LYMPHOCYTES % (AUTO) 15.1 % (21.0-51.0); MEAN CORPUSCULAR HEMOGLOBIN 31.2 pg (27.0-34.0); MEAN CORPUSCULAR HGB CONC 33.1 g/dL (33.0-35.0); MEAN CORPUSCULAR VOLUME 94.2 fL (80.0-100.0); MONOCYTES # (AUTO) 0.4 x10^3/uL (0.3-0.8); MONOCYTES % (AUTO) 5.4 % (0.0-13.0); NEUTROPHILS # (AUTO) 5.1 x10^3/uL (2.2-4.8); NEUTROPHILS % (AUTO) 76.8 % (42.0-75.0); PLATELET COUNT 154 X10^3/uL (150.0-450.0); RED BLOOD COUNT 3.45 X10^6/uL (4.7-6.0); RED CELL DISTRIBUTION WIDTH 14.2 % (11.6-16.5); WHITE BLOOD COUNT 6.7 X10^3/uL (3.6-10.0)
[2023-09-24 07:30] LABS: ALANINE AMINOTRANSFERASE 34 Units/L (12-78); ALBUMIN 2.5 g/dL (3.4-5.0); ALKALINE PHOSPHATASE 138 Units/L (46-116); ASPARTATE AMINO TRANSFERASE 19 Units/L (15-37); BLOOD UREA NITROGEN 28 mg/dL (7-18); CALCIUM 8.1 mg/dL (8.5-10.1); CARBON DIOXIDE 23.6 mmol/L (21-32); CHLORIDE 106 mmol/L (98-107); COR CA(FOR HYPOALB) 9.3 mg/dL (8.5-10.1); COR NA(FOR HYPERGLY) 145 mmol/L (136-145); CREATININE 1.39 mg/dL (0.70-1.30); GLUCOSE 366 mg/dL (65-99); POTASSIUM 4.7 mmol/L (3.5-5.1); SODIUM 139 mmol/L (136-145); TOTAL PROTEIN 5.9 g/dL (6.4-8.2); eGFR NON BLACK RACES 53 (>60)
[2023-09-24] MEDS ORDERED: NORVASC TAB 2.5 MG ONE (09:35)
[2023-09-24] MEDS: COREG TAB 6.25 MG PO ONE (11:46)
[2023-09-24] MEDS: COZAAR PO ONE (11:47)
[2023-09-24] MEDS: ACTOS PO SCH (16:21)
[2023-09-24] MEDS: FARXIGA PO SCH (16:21)
[2023-09-24] MEDS: COREG TAB 6.25 MG PO SCH (21:07)
[2023-09-25 06:34] LABS: BASOPHILS % (AUTO) 0.3 % (0.2-1.0); EOSINOPHILS # (AUTO) 0.1 x10^3/uL (0.0-0.2); EOSINOPHILS % (AUTO) 2.3 % (0.9-2.9); HEMATOCRIT 33.2 % (42.0-54.0); HEMOGLOBIN 11.2 g/dL (13.5-18.0); LYMPHOCYTES # (AUTO) 1.1 X10^3/uL (1.3-2.9); LYMPHOCYTES % (AUTO) 17.8 % (21.0-51.0); MEAN CORPUSCULAR HEMOGLOBIN 31.5 pg (27.0-34.0); MEAN CORPUSCULAR HGB CONC 33.9 g/dL (33.0-35.0); MEAN CORPUSCULAR VOLUME 92.9 fL (80.0-100.0); MEAN PLATELET VOLUME 8.4 fL (7.4-11.0); MONOCYTES # (AUTO) 0.3 x10^3/uL (0.3-0.8); MONOCYTES % (AUTO) 4.7 % (0.0-13.0); NEUTROPHILS # (AUTO) 4.7 x10^3/uL (2.2-4.8); NEUTROPHILS % (AUTO) 74.9 % (42.0-75.0); PLATELET COUNT 165 X10^3/uL (150.0-450.0); RED BLOOD COUNT 3.57 X10^6/uL (4.7-6.0); RED CELL DISTRIBUTION WIDTH 14.2 % (11.6-16.5); WHITE BLOOD COUNT 6.3 X10^3/uL (3.6-10.0)
[2023-09-25 06:47] LABS: ALANINE AMINOTRANSFERASE 27 Units/L (12-78); ALBUMIN 2.5 g/dL (3.4-5.0); ALKALINE PHOSPHATASE 124 Units/L (46-116); ASPARTATE AMINO TRANSFERASE 16 Units/L (15-37); BLOOD UREA NITROGEN 19 mg/dL (7-18); CARBON DIOXIDE 23.8 mmol/L (21-32); CHLORIDE 109 mmol/L (98-107); COR CA(FOR HYPOALB) 9.2 mg/dL (8.5-10.1); COR NA(FOR HYPERGLY) 144 mmol/L (136-145); CREATININE 1.32 mg/dL (0.70-1.30); GLUCOSE 196 mg/dL (65-99); POTASSIUM 4.4 mmol/L (3.5-5.1); SODIUM 142 mmol/L (136-145); TOTAL PROTEIN 5.9 g/dL (6.4-8.2); eGFR NON BLACK RACES 57 (>60)
[2023-09-25] MEDS ORDERED: FARXIGA PO SCH (11:00)
[2023-09-25] MEDS: NORVASC TAB 2.5 MG ONE (15:04)
[2023-09-25] MEDS: GLUCOPHAGE ONE (17:41)
[2023-09-26 05:53] LABS: BASOPHILS % (AUTO) 0.4 % (0.2-1.0); EOSINOPHILS # (AUTO) 0.2 x10^3/uL (0.0-0.2); EOSINOPHILS % (AUTO) 2.9 % (0.9-2.9); HEMATOCRIT 35.3 % (42.0-54.0); HEMOGLOBIN 11.7 g/dL (13.5-18.0); LYMPHOCYTES # (AUTO) 0.8 X10^3/uL (1.3-2.9); LYMPHOCYTES % (AUTO) 14.9 % (21.0-51.0); MEAN CORPUSCULAR HEMOGLOBIN 31.1 pg (27.0-34.0); MEAN CORPUSCULAR HGB CONC 33.2 g/dL (33.0-35.0); MEAN CORPUSCULAR VOLUME 93.7 fL (80.0-100.0); MEAN PLATELET VOLUME 8.7 fL (7.4-11.0); MONOCYTES # (AUTO) 0.4 x10^3/uL (0.3-0.8); MONOCYTES % (AUTO) 7.2 % (0.0-13.0); NEUTROPHILS # (AUTO) 4.3 x10^3/uL (2.2-4.8); NEUTROPHILS % (AUTO) 74.6 % (42.0-75.0); PLATELET COUNT 174 X10^3/uL (150.0-450.0); RED BLOOD COUNT 3.76 X10^6/uL (4.7-6.0); RED CELL DISTRIBUTION WIDTH 14.6 % (11.6-16.5); WHITE BLOOD COUNT 5.7 X10^3/uL (3.6-10.0)
[2023-09-26 06:23] LABS: ALBUMIN 2.6 g/dL (3.4-5.0); CALCIUM 8.4 mg/dL (8.5-10.1); CARBON DIOXIDE 23.2 mmol/L (21-32); COR CA(FOR HYPOALB) 9.5 mg/dL (8.5-10.1); CREATININE 1.5 mg/dL (0.70-1.30); TOTAL PROTEIN 6.1 g/dL (6.4-8.2)
[2023-09-26] MEDS: GLUCOPHAGE ONE ×2 (06:24→07:21)
[2023-09-26] MEDS ORDERED: NORVASC TAB 2.5 MG ONE (08:32)
[2023-09-26 10:54] VITALS: BP 171/72; PULSE 76; RESP 17; TEMP 98; O2SAT 93
--- NOTE | 2023-09-26 16:18 | W.DIS.FURT ---
Summary of Discharge Discharge Summary of Date Date of Exam: 09/26/23 Admission Date Date of Admission: 09/22/23 Admission Diagnosis Patient Problems (Updated 09/22/23 @ 19:46 by John Paul Ding) Poorly controlled diabetes mellitus (Acute) E11.65 Medical non-compliance (Acute) Z91.199 Hospital Course: Mr Almendarez is a 72y/o male with a PMH of CAD, HTN, Type 2 DM, Atrial fibrillation and HLD presented after having a fall at home. He also reported generalized weakness and unable to take care of himself. He presented covered in feces and urine. He was recently admitted for AMS and hypoglycemia. He has had recurrent ER visits for similar concerns. Today, he reported that he has not been taking his insulin or BP medications. EMS was called and patient's glucose was noted to be read as High on the glucometer. In the ER, patient has multiple lab abnormalities included elevated potassium, glucose and creatinine. His BP was also above 200 systolic. His glucose was 859. He was given regular insulin, fluids and IV metoprolol. Patient's BP improved. He was admitted for further evaluation and management.His labs were monitored daily and electrolytes were replaced as needed. Patient's insulin was stopped and he was started on oral hypoglycemics. He was started on metformin twice a day, Actos and Farxiga. This combination worked well for him and his glucose was well-controlled. Patient was ambulating in the room and in the hallway. Patient states he is able to take care of himself at home. He manages his own medications and meals. Patient was stable for discharge home with home health services. He will follow-up with PCP as scheduled. Vital Signs: Vital Signs (72 hours) 09/23/23 12:00 09/23/23 16:00 09/23/23 19:00 Temperature 97.9 F 98.0 F Pulse Rate [Left Brachial] 67 63 Respiratory Rate 17 18 Blood Pressure [Left Arm] 151/70 138/71 Blood Pressure [Right Arm] O2 Sat by Pulse Oximetry 100 96 Oxygen Delivery Method Room Air Room Air Room Air Oxygen Flow Rate FIO2% 09/23/23 20:00 09/23/23 21:00 09/24/23 00:00 Temperature 98.4 F 97.9 F Pulse Rate [Left Brachial] 69 59 L Respiratory Rate 17 16 Blood Pressure [Left Arm] 162/72 154/72 Blood Pressure [Right Arm] O2 Sat by Pulse Oximetry 98 98 Oxygen Delivery Method Room Air Nasal Cannula Room Air Oxygen Flow Rate 2 FIO2% 28 09/24/23 04:00 09/24/23 07:00 09/24/23 08:00 Temperature 98.2 F 97.9 F Pulse Rate [Left Brachial] 70 76 Respiratory Rate 20 18 Blood Pressure [Left Arm] 158/82 178/82 Blood Pressure [Right Arm] O2 Sat by Pulse Oximetry 97 91 L Oxygen Delivery Method Nasal Cannula Nasal Cannula Nasal Cannula Oxygen Flow Rate 2 FIO2% 28 09/24/23 07:00 09/24/23 12:00 09/24/23 16:00 Temperature 97.8 F 97.6 F Pulse Rate [Left Brachial] 67 66 Respiratory Rate 18 18 Blood Pressure [Left Arm] 177/81 Blood Pressure [Right Arm] 161/74 O2 Sat by Pulse Oximetry 94 L 94 L Oxygen Delivery Method Room Air Room Air Room Air Oxygen Flow Rate FIO2% 09/24/23 19:00 09/24/23 20:00 09/25/23 00:00 Temperature 98.3 F 98.3 F Pulse Rate [Left Brachial] 74 66 Respiratory Rate 18 19 Blood Pressure [Left Arm] Blood Pressure [Right Arm] 168/77 153/72 O2 Sat by Pulse Oximetry 96 93 L Oxygen Delivery Method Nasal Cannula Nasal Cannula Nasal Cannula Oxygen Flow Rate 2 2 2 FIO2% 09/25/23 04:00 09/25/23 08:00 09/25/23 07:50 Temperature 97.6 F 97.6 F Pulse Rate [Left Brachial] 71 68 Respiratory Rate 20 17 Blood Pressure [Left Arm] Blood Pressure [Right Arm] 177/82 168/81 O2 Sat by Pulse Oximetry 93 L 93 L Oxygen Delivery Method Nasal Cannula Nasal Cannula Nasal Cannula Oxygen Flow Rate 2 2 2 FIO2% 28 09/25/23 07:00 09/25/23 12:00 09/25/23 15:50 Temperature 97.8 F 98.6 F Pulse Rate [Left Brachial] 65 72 Respiratory Rate 18 17 Blood Pressure [Left Arm] Blood Pressure [Right Arm] 158/74 180/79 O2 Sat by Pulse Oximetry 97 94 L Oxygen Delivery Method Room Air Nasal Cannula Nasal Cannula Oxygen Flow Rate 2 2 FIO2% 09/24/23 20:45 09/25/23 20:45 09/25/23 19:00 Temperature Pulse Rate [Left Brachial] Respiratory Rate Blood Pressure [Left Arm] Blood Pressure [Right Arm] O2 Sat by Pulse Oximetry Oxygen Delivery Method Room Air Nasal Cannula Room Air Oxygen Flow Rate 2 2 FIO2% 28 28 09/25/23 20:00 09/26/23 00:00 09/26/23 04:00 Temperature 98.0 F 97.7 F 98.2 F Pulse Rate [Left Brachial] 78 68 75 Respiratory Rate 20 20 20 Blood Pressure [Left Arm] 170/73 Blood Pressure [Right Arm] 183/88 178/87 O2 Sat by Pulse Oximetry 97 95 97 Oxygen Delivery Method Nasal Cannula Nasal Cannula Room Air Oxygen Flow Rate 2 2 FIO2% Labs: Laboratory Last Values WBC 5.7 X10^3/uL (3.6-10.0) 09/26/23 05:32 RBC 3.76 X10^6/uL (4.7-6.0) L 09/26/23 05:32 Hgb 11.7 g/dL (13.5-18.0) L 09/26/23 05:32 Hct 35.3 % (42.0-54.0) L 09/26/23 05:32 MCV 93.7 fL (80.0-100.0) 09/26/23 05:32 MCH 31.1 pg (27.0-34.0) 09/26/23 05:32 MCHC 33.2 g/dL (33.0-35.0) 09/26/23 05:32 RDW 14.6 % (11.6-16.5) 09/26/23 05:32 Plt Count 174 X10^3/uL (150.0-450.0) 09/26/23 05:32 MPV 8.7 fL (7.4-11.0) 09/26/23 05:32 Neut % (Auto) 74.6 % (42.0-75.0) 09/26/23 05:32 Lymph % (Auto) 14.9 % (21.0-51.0) L 09/26/23 05:32 [place] % (Auto) 7.2 % (0.0-13.0) 09/26/23 05:32 Eos % (Auto) 2.9 % (0.9-2.9) 09/26/23 05:32 Baso % (Auto) 0.4 % (0.2-1.0) 09/26/23 05:32 Neut # (Auto) 4.3 x10^3/uL (2.2-4.8) 09/26/23 05:32 Lymph # (Auto) 0.8 X10^3/uL (1.3-2.9) L 09/26/23 05:32 [place] # (Auto) 0.4 x10^3/uL (0.3-0.8) 09/26/23 05:32 Eos # (Auto) 0.2 x10^3/uL (0.0-0.2) 09/26/23 05:32 Baso # (Auto) 0.0 X10^3/uL (0.0-0.1) 09/26/23 05:32 Absolute Nucleated RBC 0.0 /100WBC 09/26/23 05:32 Sodium 142 mmol/L (136-145) 09/26/23 05:32 Corrected Sodium 143 mmol/L (136-145) 09/26/23 05:32 Potassium 4.0 mmol/L (3.5-5.1) 09/26/23 05:32 Chloride 108 mmol/L (98-107) H 09/26/23 05:32 Carbon Dioxide 23.2 mmol/L (21-32) 09/26/23 05:32 BUN 23 mg/dL (7-18) H 09/26/23 05:32 Creatinine 1.50 mg/dL (0.70-1.30) H 09/26/23 05:32 Est GFR (MDRD) Af Amer 59 (>60) 09/26/23 05:32 Est GFR (MDRD) Non-Af 49 (>60) L 09/26/23 05:32 Glucose 135 mg/dL (65-99) H 09/26/23 05:32 POC Glucose (mg/dL) 154 mg/dL (65-99) H 09/26/23 05:38 Calcium 8.4 mg/dL (8.5-10.1) L 09/26/23 05:32 Corrected Calcium 9.5 mg/dL (8.5-10.1) 09/26/23 05:32 Magnesium 2.3 mg/dL (2.0-2.9) 09/22/23 09:02 Total Bilirubin 0.80 mg/dL (0.2-1.0) 09/26/23 05:32 AST 17 Units/L (15-37) 09/26/23 05:32 ALT 25 Units/L (12-78) 09/26/23 05:32 Alkaline Phosphatase 123 Units/L (46-116) H 09/26/23 05:32 Troponin I High Sens 38.1 ng/L (4.0-60.0) 09/22/23 09:02 Total Protein 6.1 g/dL (6.4-8.2) L 09/26/23 05:32 Albumin 2.6 g/dL (3.4-5.0) L 09/26/23 05:32 Globulin 3.5 g/dL (2.5-4.5) 09/26/23 05:32 Albumin/Globulin Ratio 0.7 Ratio (1.1-2.1) L 09/26/23 05:32 Lipase 23 Units/L (16-77) 09/22/23 09:02 Specimen Type Clean catch urine 09/22/23 09:27 Urine Color Straw (YELLOW) 09/22/23 09:27 Urine Appearance Clear (CLEAR) 09/22/23 09:27 Urine pH 7.0 (5.0 - 8.0) 09/22/23 09:27 Ur Specific [place] 1.010 (1.000-1.030) 09/22/23 09:27 Urine Protein 2+ (NEGATIVE) 09/22/23 09:27 Urine Glucose (UA) 4+ (NEGATIVE) 09/22/23 09:27 Urine Ketones 1+ (NEGATIVE) 09/22/23 09:27 Urine Blood 1+ (NEGATIVE) 09/22/23 09:27 Urine Nitrite Negative (NEGATIVE) 09/22/23 09:27 Urine Bilirubin Negative (NEGATIVE) 09/22/23 09:27 Urine Urobilinogen Normal (NORMAL) 09/22/23 09:27 Ur Leukocyte Esterase Negative (NEGATIVE) 09/22/23 09:27 Urine RBC 0-2 /HPF (0-3) 09/22/23 09:27 Urine WBC 0-2 /HPF (0-5) 09/22/23 09:27 Ur Squamous Epith Cells Negative /HPF (NEGATIVE) 09/22/23 09:27 Amorphous Sediment Trace /HPF (NEGATIVE) 09/22/23 09:27 Urine Bacteria Negative /HPF (NEGATIVE) 09/22/23 09:27 Ur Culture Indicated? No/not indicated 09/22/23 09:27 Acetone, Semi-Quant Negative (NEGATIVE) 09/22/23 09:02 Reason For Visit: POORLY CONTROLLED DIABETES, MEDICAL NON-COMPLIANCE Discharge Diagnosis All Active Problems (Updated 09/22/23 @ 19:46 by John Paul Ding) Hyperglycemia (Acute) Hyperkalemia (Acute) Hypoglycemia associated with diabetes (Acute) Acute renal failure superimposed on stage 3 chronic kidney disease (Acute) Poorly controlled diabetes mellitus (Acute) Medical non-compliance (Acute) Mitral regurgitation (Acute) Atrial fibrillation (Acute) Elevated troponin (Acute) Hypomagnesemia (Acute) Hypokalemia (Acute) Carotid stenosis (Acute) Hx of heart artery stent (Chronic) Hx of myocardial infarction (Chronic) Generalized weakness (Acute) Status post coronary artery bypass graft (Acute) Congestive heart failure (Acute) CAD (coronary artery disease) (Chronic) Ambien use disorder, mild (Acute) Altered mental state (Acute) Anemia (Acute) Pulmonary embolism (Acute) DM II (diabetes mellitus, type II), controlled (Chronic) Hypothermia (Acute) Hypertension (Acute) Hypoglycemia (Acute) Depression (Chronic) Anxiety (Chronic) Hypothyroidism (Chronic) Arthritis (Chronic) GERD (gastroesophageal reflux disease) (Chronic) Hyperlipidemia (Chronic) Cataracts, bilateral (Chronic) Plan of Treatment: Continue with present treatment and follow up plan. Pt is to keep follow up appointment as instructed and take medications as ordered. Discharge Medications Discharge Medications: fluoxetine [From Prozac] Allergy (Verified 09/22/23 07:39) CONTINUE taking the following medications potassium chloride 20 mEq tablet,extended release(part/cryst) 20 meq PO QDAY 09/22/23 [History] New Prescriptions buspirone 15 mg tablet 15 mg PO BID 30 days #60 tabs 09/26/23 [Rx] dapagliflozin propanediol 10 mg tablet (Farxiga) 10 mg PO QAM 30 days #30 tabs 09/26/23 [Rx] metformin 1,000 mg tablet 1,000 mg PO BIDWM 30 days #60 tabs 09/26/23 [Rx] pioglitazone 45 mg tablet 45 mg PO DAILY 30 days #30 tabs 09/26/23 [Rx] Discharge Disposition Discharge Disposition: Home with home health Discharge Condition: Stable Discharge Plan Discharge Plan Hospital Course: Mr Almendarez is a 72y/o male with a PMH of CAD, HTN, Type 2 DM, Atrial fibrillation and HLD presented after having a fall at home. He also reported generalized weakness and unable to take care of himself. He presented covered in feces and urine. He was recently admitted for AMS and hypoglycemia. He has had recurrent ER visits for similar concerns. Today, he reported that he has not been taking his insulin or BP medications. EMS was called and patient's glucose was noted to be read as High on the glucometer. In the ER, patient has multiple lab abnormalities included elevated potassium, glucose and creatinine. His BP was also above 200 systolic. His glucose was 859. He was given regular insulin, fluids and IV metoprolol. Patient's BP improved. He was admitted for further evaluation and management.His labs were monitored daily and electrolytes were replaced as needed. Patient's insulin was stopped and he was started on oral hypoglycemics. He was started on metformin twice a day, Actos and Farxiga. This combination worked well for him and his glucose was well-controlled. Patient was ambulating in the room and in the hallway. Patient states he is able to take care of himself at home. He manages his own medications and meals. Patient was stable for discharge home with home health services. He will follow-up with PCP as scheduled. Patient Disposition: SNF Condition: Stable Health Concerns: Post Hospitalization: new medications and changes needed to prevent readmission or further decline. Pt educated and given instructions on all concerns. Care Plan Goals: Problem: Altered Tissue Perfusion Goal: Adequate Tissue Perfusion Instructions: Follow provided instructions. Follow up with primary physician as directed. Contact primary care physician or report to the closest Emergency Room if condition worsens. Plan of Treatment: Continue with present treatment and follow up plan. Pt is to keep follow up appointment as instructed and take medications as ordered. Prescription drug monitoring program results: PDMP reviewed and no concerns identified Prescriptions: New pioglitazone 45 mg Tablet 45 mg PO DAILY 30 Days Qty: 30 0RF metformin 1,000 mg tablet 1,000 mg PO BIDWM 30 Days Qty: 60 0RF dapagliflozin propanediol [Farxiga] 10 mg tablet 10 mg PO QAM 30 Days Qty: 30 0RF Continued oxycodone 10 mg tablet 1 tab PO TID PRN tamsulosin 0.4 mg Capsule 0.4 mg PO QPM Qty: 30 3RF Rx Instructions: TAKE ONE CAPSULE AT BEDTIME zolpidem 5 mg tablet 5 mg PO QPM PRN losartan 50 mg Tablet 50 mg PO DAILY 30 Days Qty: 30 0RF Eliquis 5 mg Tablet 5 mg PO BID 30 Days Qty: 60 0RF atorvastatin 40 mg Tablet 40 mg PO HS 30 Days Qty: 30 0RF amlodipine 2.5 mg Tablet 2.5 mg PO DAILY 30 Days Qty: 30 0RF carvedilol 6.25 mg Tablet 6.25 mg PO BID 30 Days Qty: 60 0RF potassium chloride 20 mEq tablet,ER particles/crystals 20 meq PO QDAY Changed buspirone 15 mg tablet 15 mg PO BID 30 Days Qty: 60 0RF Discontinued insulin glargine [Lantus Solostar U-100 Insulin] 100 unit/mL (3 mL) insulin pen 9 unit subcut QPM Qty: 3 0RF Orders to Discharge Patient Discharge Orders: Discharge (Routine); Ordered 09/26/23 Ordered By: Desiree Nash Follow ups/Referrals Follow ups/Referrals: Derian Araiza [Primary Care Provider] -
== END 2023-09-26 11:10 | disposition home health service (06) ==
LOC: MED/SURG 07:37 → ER 07:37 → MED/SURG 11:58
PROVIDERS: ADMIT Internal Medicine; ATTEND Internal Medicine
DX: Z91.199 Patient's noncompliance with other medical treatment and regimen due to unspecified reason; I25.2 Old myocardial infarction; E87.5 Hyperkalemia; M25.561 Pain in right knee; I10 Essential (primary) hypertension; R53.1 Weakness; N17.8 Other acute kidney failure; N18.30 Chronic kidney disease, stage 3 unspecified; E78.5 Hyperlipidemia, unspecified; I25.10 Atherosclerotic heart disease of native coronary artery without angina pectoris; Z72.0 Tobacco use; M25.519 Pain in unspecified shoulder; E11.65 Type 2 diabetes mellitus with hyperglycemia; R26.89 Other abnormalities of gait and mobility; W18.39XA Other fall on same level, initial encounter; I48.20 Chronic atrial fibrillation, unspecified

== ENCOUNTER 2023-10-20 11:42 | Observation (INO) ==
--- NOTE | 2023-10-20 12:02 | DR.AMS ---
HPI Time Seen Time Seen by Provider: 10/20/23 11:59 PCP Primary Care Physician: Jose G Complaint Cheif Complaint Doctors Comments: 70-year-old male brought in by EMS for evaluation. Called for decreased responsiveness and confusion.. Sugar on the scene was 44, was given half amp of IV D50. Patient currently alert and doing better. Denies complaints of any pain, no fevers or chills, no URI symptoms. Denies bowel or bladder complaints. Has not been eating or drinking well. Has had some decreased urinary output. Patient states his medical provider is try to get him off his insulin, he is still taking 10 units of Lantus daily. Patient with generalized weakness. Has had swelling of both lower extremities over the past few days, no known trauma. Chief Complaint:: EMS was called out to patient due to difficulty waking and confusion. His home health nurse found him in this condition and called EMS. It was found on scene by EMS that his blood sugar was 44. An IV was established and 1/2 an amp of d50 was given. His blood sugar was then checked and his glucose was 140 on arrival. The patient states that he is a T1 diabetic and he has not taken insulin in the past couple of days. He states that he has ate very little during the past couple of days as well. He states that his doctor was trying to get him off a good bit of insulin that he was on, but wanted him to continue to take 10 of lantus. The patient states that he has not taken any Lantus the past couple of days either. Reviewed Nurses Notes Reviewed: Yes Source History Provided: Patient and EMS Mode of Arrival Mode of Arrival: Stretcher Timing Onset of Chief Complaint: 10/20/23 PMH PMH Past Medical History: Yes Past Medical History: CHF, COPD, Coronary Artery Disease, Diabetes, Dyslipidemia, Hypertension and SD Past Surgical History: Yes Surgical History: Appendectomy and CABG/Valve Surgery Family History History of Family Medical Conditions: Yes Family Medical History: Diabetes Mellitus, Cancer, SD, Coronary Artery Disease and Hypertension Social History Does patient currently use any type of tobacco product: Yes Have you used tobacco products in the last 12 months: Yes Type of Tobacco Use: Cigarettes Does any household member use tobacco: Yes Alcohol Use: None Do you use any recreational Drugs:: No Lives With: Family Lives Where: Home Infectious screening In the last 2 months have you had wt loss of >10#?: NO Have you had fever, night sweats or hemotysis?: No Have you traveled outside the country in the last 6 months?: No Isolation: Standard ROS Review of Systems Constitutional: Weakness and Loss of Appetite Eyes: No Symptoms Reported ENTM: No Symptoms Reported Respiratoy: No Symptoms Reported Cardiovascular: No Symptoms Reported Gastrointestinal/Abdominal: No Symptoms Reported Genitourinary: No Symptoms Reported Neurological: Weakness Musculoskeletal: No Symptoms Reported Integumentary: No Symptoms Reported Hematologic/Lymphatic: No Symptoms Reported Psychiatric: No Symptoms Reported All Other Systems: Reviewed and Negative PE Vitals Vital Signs: Temp Pulse Resp BP Pulse Ox O2 Del Method 10/20/23 15:00 56 L 10/20/23 15:00 180/90 10/20/23 14:45 57 L 87 L 10/20/23 14:30 187/92 10/20/23 14:30 57 L 96 10/20/23 14:15 56 L 10/20/23 14:00 58 L 10/20/23 14:00 171/83 10/20/23 13:54 56 L 10/20/23 13:54 184/88 10/20/23 13:45 55 L 10/20/23 13:30 53 L 10/20/23 13:15 54 L 10/20/23 13:00 56 L 10/20/23 13:00 185/89 10/20/23 12:45 58 L 10/20/23 12:30 58 L 10/20/23 12:30 188/90 10/20/23 12:15 60 10/20/23 12:03 57 L 98 10/20/23 11:48 97.6 F 58 L 18 181/88 98 Room Air General General Appearance: Alert and In No Apparent Distress Eyes Eye exam: PERRL and EOMI ENT ENT Exam: Normal Oropharynx and Mucous Membranes Dry Neck Neck Exam: Normal Inspection and Full ROM; negative Tenderness Respiratory Respiratory Exam: Normal Lung Sounds Bilat; negative Accessory Muscle Use or Respiratory Distress Cardiovascular Cardiovascular Exam: Regular Rate, Normal Rhythm and Normal Heart Sounds Abdominal Exam Abdominal Exam: Normal Bowel Sounds and Soft; negative Tenderness Extremities Extremities Exam: Normal Inspection and Edema (Bilateral lower extremities, 3+) Neurological Neurological Exam: Alert, Oriented X3 and CN II-XII Intact; negative Motor Sensory Deficit Skin Skin Exam: Warm and Dry Other Exam Other Exam: Marked decrease skin turgor COURSE Treatment Treatment: 72-year-old male with low blood sugar prior to arrival. Has been backed off his insulin, but reportedly still takes 10 units of Lantus per day. Patient alert on arrival after receiving IV D50 from EMS. Workup initiated.. CMP done lab reports low blood sugar 53. Bedside glucose checked and now down to 32. Patient given an amp of IV D50. Will change IV fluids to D5 normal saline. Chest x-ray shows probable pneumonia of the right lower lobe. Patient given IV Rocephin. Potassium slightly low at 3.3. CBC acceptable. Troponin normal. Will admit for recurrent hypoglycemia and pneumonia. Discussed with Dr. Nash, on-call for Dr. Araiza. Accepts the admission. ROR Labs Reviewed Laboratory Results Reviewed?: Yes 10/20/23 12:25 10/20/23 13:33 Laboratory: WBC 4.7 X10^3/uL (3.6-10.0) 10/20/23 12:25 RBC 4.13 X10^6/uL (4.7-6.0) L 10/20/23 12:25 Hgb 13.0 g/dL (13.5-18.0) L 10/20/23 12:25 Hct 39.1 % (42.0-54.0) L 10/20/23 12:25 MCV 94.7 fL (80.0-100.0) 10/20/23 12:25 MCH 31.6 pg (27.0-34.0) 10/20/23 12:25 MCHC 33.4 g/dL (33.0-35.0) 10/20/23 12:25 RDW 16.0 % (11.6-16.5) 10/20/23 12:25 Plt Count 176 X10^3/uL (150.0-450.0) 10/20/23 12:25 MPV 8.1 fL (7.4-11.0) 10/20/23 12:25 Neut % (Auto) 71.9 % (42.0-75.0) 10/20/23 12:25 Lymph % (Auto) 17.7 % (21.0-51.0) L 10/20/23 12:25 [place] % (Auto) 7.1 % (0.0-13.0) 10/20/23 12:25 Eos % (Auto) 2.8 % (0.9-2.9) 10/20/23 12:25 Baso % (Auto) 0.5 % (0.2-1.0) 10/20/23 12:25 Neut # (Auto) 3.4 x10^3/uL (2.2-4.8) 10/20/23 12:25 Lymph # (Auto) 0.8 X10^3/uL (1.3-2.9) L 10/20/23 12:25 [place] # (Auto) 0.3 x10^3/uL (0.3-0.8) 10/20/23 12:25 Eos # (Auto) 0.1 x10^3/uL (0.0-0.2) 10/20/23 12:25 Baso # (Auto) 0.0 X10^3/uL (0.0-0.1) 10/20/23 12:25 Absolute Nucleated RBC 0.1 /100WBC 10/20/23 12:25 Sodium 137 mmol/L (136-145) 10/20/23 12:25 Corrected Sodium TNP 10/20/23 12:25 Potassium 3.3 mmol/L (3.5-5.1) L 10/20/23 12:25 Chloride 99 mmol/L (98-107) 10/20/23 12:25 Carbon Dioxide 30.6 mmol/L (21-32) 10/20/23 12:25 BUN 20 mg/dL (7-18) H 10/20/23 12:25 Creatinine 1.49 mg/dL (0.70-1.30) H 10/20/23 12:25 Est GFR (MDRD) Af Amer 60 (>60) 10/20/23 12:25 Est GFR (MDRD) Non-Af 49 (>60) L 10/20/23 12:25 Glucose 153 mg/dL (65-99) H 10/20/23 13:33 POC Glucose (mg/dL) 67 mg/dL (65-99) 10/20/23 15:07 Calcium 9.5 mg/dL (8.5-10.1) 10/20/23 12:25 Corrected Calcium 10.1 mg/dL (8.5-10.1) 10/20/23 12:25 Total Bilirubin 1.10 mg/dL (0.2-1.0) H 10/20/23 12:25 AST 23 Units/L (15-37) 10/20/23 12:25 ALT 23 Units/L (12-78) 10/20/23 12:25 Alkaline Phosphatase 139 Units/L (46-116) H 10/20/23 12:25 Troponin I High Sens 27.4 ng/L (4.0-60.0) 10/20/23 12:25 Total Protein 7.8 g/dL (6.4-8.2) 10/20/23 12:25 Albumin 3.3 g/dL (3.4-5.0) L 10/20/23 12:25 Globulin 4.5 g/dL (2.5-4.5) 10/20/23 12:25 Albumin/Globulin Ratio 0.7 Ratio (1.1-2.1) L 10/20/23 12:25 Lipase 10 Units/L (16-77) L 10/20/23 12:25 XRAY XRAY Interpreted by: Both X-ray Results: EXAM: CHEST, 1 VIEW HISTORY: weakness; COMPARISON: Prior study or studies were utilized for comparison during interpretation with the most relevant dated 09/22/2023 TECHNIQUE: CHEST, 1 VIEW FINDINGS: Chest: Lines and tubes: Cardiac leads overlie the chest. Mediastinum: Median sternotomy wires are present. Cardiac shadow is normal in size. There is a valve prosthesis Pulmonary vessels: No pulmonary vascular congestion. Lung [place]: Patchy opacities are seen Pleura: No effusion. No pneumothorax. Bones and soft tissues: No acute osseous or soft tissue abnormality. IMPRESSION: 1. Patchy airspace opacities may indicate pneumonia in the proper clinical setting THIS IS AN ELECTRONICALLY VERIFIED FINAL REPORT 10/20/2023 1:03 PM - Electronically signed by Mick Irby MD EKG Rate: 60 [place]: Normal Rhythm: NSR ST: Nonsp Opioid Opioid Risk Tool Age (Jensen box if 16-45): No History of Preadolescent Sexual Abuse: No Total: 0 Total Score Risk Category: Low Risk Copyright: Jose CANO predicting aberrant behaviors Discharge Plan Diagnosis Discharge Problem: Hypoglycemia, Pneumonia Discharge Plan Patient Disposition: ADMITTED INPATIENT Condition: Stable Prescriptions: No Action oxycodone 10 mg tablet 1 tab PO TID PRN tamsulosin 0.4 mg Capsule 0.4 mg PO QPM Qty: 30 3RF Rx Instructions: TAKE ONE CAPSULE AT BEDTIME zolpidem 5 mg tablet 5 mg PO QPM PRN losartan 50 mg tablet 50 mg PO QDAY atorvastatin 40 mg tablet 40 mg PO QDAY carvedilol 6.25 mg tablet 6.25 mg PO BID amlodipine 2.5 mg tablet 2.5 mg PO QDAY buspirone 15 mg tablet 30 mg PO BID oxycodone 10 mg tablet 10 mg PO TID PRN potassium chloride 20 mEq tablet,ER particles/crystals 20 meq PO QDAY pioglitazone 45 mg Tablet 45 mg PO DAILY 30 Days Qty: 30 0RF metformin 1,000 mg tablet 1,000 mg PO BIDWM 30 Days Qty: 60 0RF buspirone 15 mg tablet 15 mg PO BID 30 Days Qty: 60 0RF dapagliflozin propanediol [Farxiga] 10 mg tablet 10 mg PO QAM 30 Days Qty: 30 0RF Health Concerns: Post Hospitalization: new medications and changes needed to prevent readmission or further decline. Pt educated and given instructions on all concerns. Plan of Treatment: Continue with present treatment and follow up plan. Pt is to keep follow up appointment as instructed and take medications as ordered. Orders to Discharge Patient Discharge Orders: Transfer (Routine); Ordered 10/20/23 Ordered By: Siddharth Martin
[2023-10-20] MEDS: NS 1,000 ML IV 1,000 ML IV ONE (12:11)
--- NOTE | 2023-10-20 12:22 | EKG ---
Test Reason : weakness Blood Pressure : */* mmHG Vent. Rate : 60 BPM Atrial Rate : 60 BPM P-R Int : 190 ms QRS Dur : 96 ms QT Int : 466 ms P-R-T Axes : 74 52 -45 degrees QTc Int : 466 ms Normal sinus rhythm Nonspecific ST and T wave abnormality Abnormal ECG When compared with ECG of 22-SEP-2023 08:27, premature ventricular complexes are no longer present Vent. rate has decreased BY 36 BPM QRS axis shifted right Borderline criteria for Lateral infarct are no longer present Nonspecific T wave abnormality now evident in Inferior leads Confirmed by Mookie Thompson MD ([id number]) on 10/20/2023 1:16:11 PM Referred By: Confirmed By: Mookie Thompson MD
[2023-10-20] MEDS: NS 500 ML IV 500 ML IV ONE ×3 (12:29→16:31)
[2023-10-20 12:39] LABS: BASOPHILS % (AUTO) 0.5 % (0.2-1.0); EOSINOPHILS # (AUTO) 0.1 x10^3/uL (0.0-0.2); EOSINOPHILS % (AUTO) 2.8 % (0.9-2.9); HEMATOCRIT 39.1 % (42.0-54.0); LYMPHOCYTES # (AUTO) 0.8 X10^3/uL (1.3-2.9); LYMPHOCYTES % (AUTO) 17.7 % (21.0-51.0); MEAN CORPUSCULAR HEMOGLOBIN 31.6 pg (27.0-34.0); MEAN CORPUSCULAR HGB CONC 33.4 g/dL (33.0-35.0); MEAN CORPUSCULAR VOLUME 94.7 fL (80.0-100.0); MEAN PLATELET VOLUME 8.1 fL (7.4-11.0); MONOCYTES # (AUTO) 0.3 x10^3/uL (0.3-0.8); MONOCYTES % (AUTO) 7.1 % (0.0-13.0); NEUTROPHILS # (AUTO) 3.4 x10^3/uL (2.2-4.8); NEUTROPHILS % (AUTO) 71.9 % (42.0-75.0); PLATELET COUNT 176 X10^3/uL (150.0-450.0); RED BLOOD COUNT 4.13 X10^6/uL (4.7-6.0); WHITE BLOOD COUNT 4.7 X10^3/uL (3.6-10.0)
[2023-10-20 12:51] LABS: ALANINE AMINOTRANSFERASE 23 Units/L (12-78); ALBUMIN 3.3 g/dL (3.4-5.0); ALKALINE PHOSPHATASE 139 Units/L (46-116); ASPARTATE AMINO TRANSFERASE 23 Units/L (15-37); BLOOD UREA NITROGEN 20 mg/dL (7-18); CALCIUM 9.5 mg/dL (8.5-10.1); CARBON DIOXIDE 30.6 mmol/L (21-32); CHLORIDE 99 mmol/L (98-107); COR CA(FOR HYPOALB) 10.1 mg/dL (8.5-10.1); CREATININE 1.49 mg/dL (0.70-1.30); GLUCOSE 53 mg/dL (65-99); LIPASE 10 Units/L (16-77); POTASSIUM 3.3 mmol/L (3.5-5.1); SODIUM 137 mmol/L (136-145); TOTAL PROTEIN 7.8 g/dL (6.4-8.2); eGFR NON BLACK RACES 49 (>60)
--- NOTE | 2023-10-20 13:07 | RAD ---
EXAM:CHEST, 1 VIEWHISTORY:weakness;COMPARISON:Prior study or studies were utilized for comparison during interpretation with the most relevant dated 09/22/2023TECHNIQUE:CHEST, 1 VIEWFINDINGS:Chest:Lines and tubes: Cardiac leads overlie the chest.Mediastinum: Median sternotomy wires are present. Cardiac shadow is normal in size. There is a valve prosthesisPulmonary vessels: No pulmonary vascular congestion.Lung [place]: Patchy opacities are seenPleura: No effusion. No pneumothorax.Bones and soft tissues: No acute osseous or soft tissue abnormality.IMPRESSION:1. Patchy airspace opacities may indicate pneumonia in the proper clinical settingTHIS IS AN ELECTRONICALLY VERIFIED FINAL REPORT10/20/2023 1:03 PM - Electronically signed by Mick Irby MD
[2023-10-20] MEDS: ROCEPHIN VIAL 1 GRAM IVP ONE (13:28)
[2023-10-20] MEDS: D50W ABBOJECT SYR IV ONE (13:28)
[2023-10-20] MEDS: APRESOLINE INJ 20 MG VIAL IVP ONE (16:08)
[2023-10-20] MEDS ORDERED: AMBIEN PO PRN (16:15)
[2023-10-20] MEDS: D50W ABBOJECT SYR ONE (16:31)
[2023-10-20] MEDS: NS 1,000 ML IV 1,000 ML ONE (16:31)
[2023-10-20] MEDS: D5 NS 1,000 ML IV 1,000 ML IV SCH (16:47)
[2023-10-20 17:16] LABS: BILIRUBIN,URINE NEGATIVE (NEGATIVE); BLOOD/HEMOGLOBIN,URINE NEGATIVE (NEGATIVE); GLUCOSE, URINE 3+ (NEGATIVE); KETONES,URINE NEGATIVE (NEGATIVE); LEUKOCYTE ESTERASE ,URINE NEGATIVE (NEGATIVE); NITRITES,URINE NEGATIVE (NEGATIVE); PROTEIN,URINE 2+ (NEGATIVE); UROBILINOGEN,URINE NORMAL (NORMAL)
[2023-10-20 17:39] LABS: APPEARANCE,URINE CLEAR (CLEAR); COLOR,URINE YELLOW (YELLOW)
[2023-10-20 17:40] LABS: RBC,URINE NONE SEEN /HPF (0-3)
[2023-10-20 17:41] LABS: BACTERIA,URINE TRACE /HPF (NEGATIVE); HYALINE CASTS, URINE FEW /LPF (NEGATIVE); SQUAMOUS EPITHELIAL CELL,UR RARE /HPF (NEGATIVE)
[2023-10-20] MEDS: DUONEB 0.5 MG/3 MG (3 mL) NEB SCH (20:00)
[2023-10-20] MEDS: FLOMAX PO SCH (20:35)
[2023-10-20] MEDS: COREG TAB 6.25 MG PO SCH (20:35)
[2023-10-20] MEDS: ELIQUIS PO SCH (20:35)
[2023-10-20] MEDS ORDERED: BUSPIRONE 15 MG PO SCH ×2 (21:00)
[2023-10-20] MEDS ORDERED: DUONEB 0.5 MG/3 MG (3 mL) NEB SCH (21:00)
[2023-10-20] MEDS: BUSPAR PO SCH (21:22)
[2023-10-21 06:16] LABS: BASOPHILS % (AUTO) 0.8 % (0.2-1.0); EOSINOPHILS # (AUTO) 0.1 x10^3/uL (0.0-0.2); EOSINOPHILS % (AUTO) 3.1 % (0.9-2.9); HEMATOCRIT 31.8 % (42.0-54.0); HEMOGLOBIN 10.7 g/dL (13.5-18.0); LYMPHOCYTES # (AUTO) 0.9 X10^3/uL (1.3-2.9); LYMPHOCYTES % (AUTO) 24.7 % (21.0-51.0); MEAN CORPUSCULAR HEMOGLOBIN 31.9 pg (27.0-34.0); MEAN CORPUSCULAR HGB CONC 33.8 g/dL (33.0-35.0); MEAN CORPUSCULAR VOLUME 94.4 fL (80.0-100.0); MEAN PLATELET VOLUME 8.1 fL (7.4-11.0); MONOCYTES # (AUTO) 0.3 x10^3/uL (0.3-0.8); MONOCYTES % (AUTO) 9.2 % (0.0-13.0); NEUTROPHILS # (AUTO) 2.1 x10^3/uL (2.2-4.8); NEUTROPHILS % (AUTO) 62.2 % (42.0-75.0); PLATELET COUNT 146 X10^3/uL (150.0-450.0); RED BLOOD COUNT 3.37 X10^6/uL (4.7-6.0); RED CELL DISTRIBUTION WIDTH 15.6 % (11.6-16.5); WHITE BLOOD COUNT 3.4 X10^3/uL (3.6-10.0)
[2023-10-21 06:30] LABS: ALANINE AMINOTRANSFERASE 15 Units/L (12-78); ALBUMIN 2.3 g/dL (3.4-5.0); ALKALINE PHOSPHATASE 99 Units/L (46-116); ASPARTATE AMINO TRANSFERASE 17 Units/L (15-37); BLOOD UREA NITROGEN 17 mg/dL (7-18); CARBON DIOXIDE 26.9 mmol/L (21-32); CHLORIDE 105 mmol/L (98-107); COR CA(FOR HYPOALB) 9.4 mg/dL (8.5-10.1); CREATININE 1.43 mg/dL (0.70-1.30); GLUCOSE 101 mg/dL (65-99); MAGNESIUM 1.9 mg/dL (2.0-2.9); POTASSIUM 3.2 mmol/L (3.5-5.1); SODIUM 140 mmol/L (136-145); TOTAL PROTEIN 5.7 g/dL (6.4-8.2); eGFR NON BLACK RACES 52 (>60)
[2023-10-21] MEDS ORDERED: CONSULT PHARMACY - POTASSIUM & MAGNESIUM XX SCH (07:00)
[2023-10-21 07:18] VITALS: BMI 21.2
[2023-10-21] MEDS: DUONEB 0.5 MG/3 MG (3 mL) NEB ONE (08:03)
[2023-10-21] MEDS: D5 NS + KCL 20 MEQ/L 1,000 ML with MAGNESIUM SULFATE 50% INJ VIAL 1 G IV SCH (08:50)
[2023-10-21] MEDS: ROCEPHIN VIAL 1 GRAM 1 G in NS 100 ML IV 100 ML IV SCH (08:53)
[2023-10-21] MEDS: COZAAR PO SCH (08:54)
[2023-10-21] MEDS: K-DUR TAB 20 MEQ PO SCH (08:54)
[2023-10-21] MEDS: NORVASC TAB 2.5 MG PO SCH (08:54)
[2023-10-21] MEDS: NORVASC TAB 2.5 MG ONE (08:55)
[2023-10-21] MEDS: LIPITOR TAB 40 MG PO SCH (08:55)
[2023-10-21] MEDS ORDERED: MAG-OX TAB PO SCH (10:00)
[2023-10-21] MEDS ORDERED: K-DUR TAB 20 MEQ PO SCH (10:00)
[2023-10-21] MEDS: SNACK - Diabetic Appropriate PO SCH (20:09)
[2023-10-21] MEDS: NS 1,000 ML IV 1,000 ML IV SCH (20:13)
[2023-10-21] MEDS: NovoLIN R (or HumuLIN R) SUBCUT PRN (20:15)
[2023-10-22 05:21] LABS: BASOPHILS % (AUTO) 0.6 % (0.2-1.0); EOSINOPHILS # (AUTO) 0.1 x10^3/uL (0.0-0.2); HEMATOCRIT 32.2 % (42.0-54.0); HEMOGLOBIN 10.9 g/dL (13.5-18.0); LYMPHOCYTES # (AUTO) 0.8 X10^3/uL (1.3-2.9); LYMPHOCYTES % (AUTO) 16.8 % (21.0-51.0); MEAN CORPUSCULAR HEMOGLOBIN 31.8 pg (27.0-34.0); MEAN CORPUSCULAR HGB CONC 33.7 g/dL (33.0-35.0); MEAN CORPUSCULAR VOLUME 94.5 fL (80.0-100.0); MEAN PLATELET VOLUME 8.3 fL (7.4-11.0); MONOCYTES # (AUTO) 0.4 x10^3/uL (0.3-0.8); MONOCYTES % (AUTO) 9.5 % (0.0-13.0); NEUTROPHILS # (AUTO) 3.2 x10^3/uL (2.2-4.8); NEUTROPHILS % (AUTO) 70.1 % (42.0-75.0); PLATELET COUNT 161 X10^3/uL (150.0-450.0); RED BLOOD COUNT 3.41 X10^6/uL (4.7-6.0); RED CELL DISTRIBUTION WIDTH 16.5 % (11.6-16.5); WHITE BLOOD COUNT 4.6 X10^3/uL (3.6-10.0)
[2023-10-22 05:35] LABS: ALANINE AMINOTRANSFERASE 14 Units/L (12-78); ALBUMIN 2.3 g/dL (3.4-5.0); ALKALINE PHOSPHATASE 106 Units/L (46-116); ASPARTATE AMINO TRANSFERASE 15 Units/L (15-37); BLOOD UREA NITROGEN 25 mg/dL (7-18); CALCIUM 7.9 mg/dL (8.5-10.1); CARBON DIOXIDE 23.9 mmol/L (21-32); CHLORIDE 106 mmol/L (98-107); COR CA(FOR HYPOALB) 9.3 mg/dL (8.5-10.1); CREATININE 1.83 mg/dL (0.70-1.30); POTASSIUM 3.2 mmol/L (3.5-5.1); SODIUM 139 mmol/L (136-145); TOTAL PROTEIN 5.7 g/dL (6.4-8.2); eGFR NON BLACK RACES 39 (>60)
[2023-10-22 05:50] LABS: GLUCOSE 40 mg/dL (65-99)
--- NOTE | 2023-10-22 06:30 | RAD ---
EXAM:CHEST, 1 VIEWHISTORY:pneumonia; HX: CAD, CHF, [place], HTN, A-FIB, COPD, EMPHYSEMA, DM SX: CABGCOMPARISON:10/20/2023FINDINGS:The trachea is midline. The cardiac silhouette is mildly enlarged. Changes of prior CABG surgery and prosthetic heart valve present. There is blunting of the costophrenic angles bilaterally due to small effusions. The bony thorax is unremarkable.IMPRESSION:Mild cardiomegaly.Small bilateral pleural effusions.THIS IS AN ELECTRONICALLY VERIFIED FINAL REPORT10/22/2023 6:26 AM - Electronically signed by Sacha Kramer MD
--- NOTE | 2023-10-22 08:21 | DR.H&P ---
H&P History & Physical for Day of: H&P Date: 10/21/23 Chief Complaint Chief Complaint: Altered mental status Weakness Hypoglycemia Allergies Allergies Allergy/AdvReac Type Severity Reaction Status Date / Time fluoxetine [From Prozac] Allergy Verified 10/20/23 14:59 History of Present Illness History of Present Illness: Pt is a 70-year-old male PMH of CAD, HTN, Type 2 DM, Atrial fibrillation and HLD after having confusion, weakness, and EMS noting patient hypoglycemic with a blood glucose level of 44. He was given half amp of IV D50 and in the ED alert and doing better. Denies complaints of any pain, no fevers or chills, no URI symptoms. Pt has been taking insulin at home. Labs/imaging: Wbc 3.4, Hgb 10.7, Plt 146, Na 140, K 3.2, Creatinine 1.43, Glucose 101, UA negative, AIT pending, CXR was obtained that revealed: Patchy airspace opacities may indicate pneumonia in the proper clinical setting. Pt was admitted for hypoglycemia and pneumonia. He was started on IVF, IV antibiotics Rocephin, and SSI. Pt home medications will be restarted. Otherwise, continue with current treatment plan. Continue to monitor and follow up labs/imaging in the morning. Past Medical History Past Medical History: CHF, COPD, Coronary Artery Disease, Diabetes, Dyslipidemia, Hypertension and PR Additional Medical History: PR 2012 Past Surgical History Surgical History: Angioplasty/Stents, Appendectomy and CABG/Valve Surgery Additional Surgical History: 7 CARDIAC STENTS Family History Family Medical History: Diabetes Mellitus, Cancer, PR, Coronary Artery Disease and Hypertension Social History Does patient currently use any type of tobacco product: Yes Have you used tobacco products in the last 12 months: Yes Type of Tobacco Use: Cigarettes Does any household member use tobacco: Yes Alcohol Use: None Drug Use: None Medications Home Medications: Home Medications Medication Instructions Recorded Confirmed Type oxycodone 10 mg tablet 1 tab PO TID PRN 07/17/22 10/20/23 History zolpidem 5 mg tablet 5 mg PO QPM PRN 08/06/22 10/20/23 History potassium chloride 20 mEq 20 meq PO QDAY 09/22/23 10/20/23 History tablet,extended release(part/cryst) amlodipine 2.5 mg tablet 2.5 mg PO QDAY 10/20/23 10/20/23 History apixaban 5 mg tablet (Eliquis) 5 mg PO BID 10/20/23 10/20/23 History atorvastatin 40 mg tablet 40 mg PO QDAY 10/20/23 10/20/23 History carvedilol 6.25 mg tablet 6.25 mg PO BID 10/20/23 10/20/23 History losartan 50 mg tablet 50 mg PO QDAY 10/20/23 10/20/23 History oxycodone 10 mg tablet 10 mg PO TID PRN 10/20/23 10/20/23 History Labs 10/22/23 04:22 10/22/23 04:22 Labs: Laboratory WBC 4.6 X10^3/uL (3.6-10.0) 10/22/23 04:22 RBC 3.41 X10^6/uL (4.7-6.0) L 10/22/23 04:22 Hgb 10.9 g/dL (13.5-18.0) L 10/22/23 04:22 Hct 32.2 % (42.0-54.0) L 10/22/23 04:22 MCV 94.5 fL (80.0-100.0) 10/22/23 04:22 MCH 31.8 pg (27.0-34.0) 10/22/23 04:22 MCHC 33.7 g/dL (33.0-35.0) 10/22/23 04:22 RDW 16.5 % (11.6-16.5) 10/22/23 04:22 Plt Count 161 X10^3/uL (150.0-450.0) 10/22/23 04:22 MPV 8.3 fL (7.4-11.0) 10/22/23 04:22 Neut % (Auto) 70.1 % (42.0-75.0) 10/22/23 04:22 Lymph % (Auto) 16.8 % (21.0-51.0) L 10/22/23 04:22 [place] % (Auto) 9.5 % (0.0-13.0) 10/22/23 04:22 Eos % (Auto) 3.0 % (0.9-2.9) H 10/22/23 04:22 Baso % (Auto) 0.6 % (0.2-1.0) 10/22/23 04:22 Neut # (Auto) 3.2 x10^3/uL (2.2-4.8) 10/22/23 04:22 Lymph # (Auto) 0.8 X10^3/uL (1.3-2.9) L 10/22/23 04:22 [place] # (Auto) 0.4 x10^3/uL (0.3-0.8) 10/22/23 04:22 Eos # (Auto) 0.1 x10^3/uL (0.0-0.2) 10/22/23 04:22 Baso # (Auto) 0.0 X10^3/uL (0.0-0.1) 10/22/23 04:22 Absolute Nucleated RBC 0.0 /100WBC 10/22/23 04:22 Sodium 139 mmol/L (136-145) 10/22/23 04:22 Corrected Sodium TNP 10/22/23 04:22 Potassium 3.2 mmol/L (3.5-5.1) L 10/22/23 04:22 Chloride 106 mmol/L (98-107) 10/22/23 04:22 Carbon Dioxide 23.9 mmol/L (21-32) 10/22/23 04:22 BUN 25 mg/dL (7-18) H 10/22/23 04:22 Creatinine 1.83 mg/dL (0.70-1.30) H 10/22/23 04:22 Est GFR (MDRD) Af Amer 47 (>60) L 10/22/23 04:22 Est GFR (MDRD) Non-Af 39 (>60) L 10/22/23 04:22 Glucose 40 mg/dL (65-99) L* 10/22/23 04:22 POC Glucose (mg/dL) 67 mg/dL (65-99) 10/22/23 05:10 Calcium 7.9 mg/dL (8.5-10.1) L 10/22/23 04:22 Corrected Calcium 9.3 mg/dL (8.5-10.1) 10/22/23 04:22 Magnesium 1.9 mg/dL (2.0-2.9) L 10/21/23 05:47 Total Bilirubin 0.50 mg/dL (0.2-1.0) 10/22/23 04:22 AST 15 Units/L (15-37) 10/22/23 04:22 ALT 14 Units/L (12-78) 10/22/23 04:22 Alkaline Phosphatase 106 Units/L (46-116) 10/22/23 04:22 Troponin I High Sens 27.4 ng/L (4.0-60.0) 10/20/23 12:25 Total Protein 5.7 g/dL (6.4-8.2) L 10/22/23 04:22 Albumin 2.3 g/dL (3.4-5.0) L 10/22/23 04:22 Globulin 3.4 g/dL (2.5-4.5) 10/22/23 04:22 Albumin/Globulin Ratio 0.7 Ratio (1.1-2.1) L 10/22/23 04:22 Lipase 10 Units/L (16-77) L 10/20/23 12:25 Specimen Type Clean catch urine 10/20/23 16:40 Urine Color Yellow (YELLOW) 10/20/23 16:40 Urine Appearance Clear (CLEAR) 10/20/23 16:40 Urine pH 8.0 (5.0 - 8.0) 10/20/23 16:40 Ur Specific [place] 1.010 (1.000-1.030) 10/20/23 16:40 Urine Protein 2+ (NEGATIVE) 10/20/23 16:40 Urine Glucose (UA) 3+ (NEGATIVE) 10/20/23 16:40 Urine Ketones Negative (NEGATIVE) 10/20/23 16:40 Urine Blood Negative (NEGATIVE) 10/20/23 16:40 Urine Nitrite Negative (NEGATIVE) 10/20/23 16:40 Urine Bilirubin Negative (NEGATIVE) 10/20/23 16:40 Urine Urobilinogen Normal (NORMAL) 10/20/23 16:40 Ur Leukocyte Esterase Negative (NEGATIVE) 10/20/23 16:40 Urine RBC None seen /HPF (0-3) 10/20/23 16:40 Urine WBC None seen /HPF (0-5) 10/20/23 16:40 Ur Squamous Epith Cells Rare /HPF (NEGATIVE) 10/20/23 16:40 Amorphous Sediment Trace /HPF (NEGATIVE) 10/20/23 16:40 Urine Bacteria Trace /HPF (NEGATIVE) 10/20/23 16:40 Hyaline Casts Few /LPF (NEGATIVE) 10/20/23 16:40 Urine Mucus Few /HPF (NEGATIVE) 10/20/23 16:40 Ur Culture Indicated? No/not indicated 10/20/23 16:40 Review of Systems Constitutional: Weakness Eyes: No Symptoms Reported ENT: No Symptoms Reported Respiratory: No Symptoms Reported Cardiovascular: No Symptoms Reported Gastrointestinal: No Symptoms Reported Genitourinary: No Symptoms Reported Musculoskeletal: No Symptoms Reported Skin: No Symptoms Reported Neurological: No Symptoms Reported Physical Exam Vital Signs: Vital Signs Temperature 97.7 F Pulse Rate [Right] 78 Respiratory Rate 20 Blood Pressure [Left Arm] 154/75 O2 Sat by Pulse Oximetry 94 Oriented: Normal Eyes: Normal Ear: Normal Nose: Normal Throat: Normal Respiratory: Clear Throughout Cardiovascular: Normal : Normal Auscultation: Bowel Sounds: Normal Palpation: Normal Tenderness: Normal Skin: Normal Musculoskeletal: Normal Psychiatric: Normal Mood Description: Calm and Appropriate Affect: Normal Speech Pattern: Clear and Appropriate Assessment/Plan (1) Acute alteration in mental status: Status: Acute (2) Hypoglycemia: Status: Acute (3) Pneumonia: Status: Acute Review H&P Reviewed: Yes Patient was examined?: Yes
[2023-10-22] MEDS ORDERED: NORVASC TAB 2.5 MG ONE (08:35)
[2023-10-22] MEDS ORDERED: ELIQUIS PO SCH (09:00)
[2023-10-22] MEDS ORDERED: HumaLOG SC PRN (09:58)
[2023-10-22] MEDS ORDERED: K-DUR TAB 20 MEQ PO SCH (10:00)
[2023-10-22] MEDS: CONSULT PHARMACY - POTASSIUM & MAGNESIUM XX SCH (10:19)
[2023-10-22] MEDS: KCL IV SCH (10:46)
[2023-10-22] MEDS: MAGNESIUM SULFATE IV SCH (10:46)
[2023-10-22] MEDS: D5 NS IV SCH (10:46)
--- NOTE | 2023-10-22 11:57 | PCM.PROG ---
Progress Note Progress Note for Day of Date of Exam: 10/22/23 Subjective Subjective: Patient seen at bedside, earlier this morning around 5AM, patient's glucose on the labs was 40. It was re-checked and it was 67 and patient was given a snack. Patient received sliding scale insulin for coverage as his glucose was 449. He has had recurrent admissions for hypoglycemia. Last a dmission, he was told to stop insulin and only take oral diabetes medicines. He states he followed up with PCP and was restarted on insulin. He reports normal appetite. Labs/imaging reviewed: -Hgb 10.9 K:3.2 BUN/Cr: 14/07.83 -CXR: small effusions Plan: Will DC insulin SSI. Resume metformin BID, monitor glucose. Add bedtime snack. Replace K as per protocol, continue hydration. Continue IV Rocephin, bronchodilators and IS. Continue home medications. PT/OT as tolerated. Monitor AM labs/imaging. Past Medical Family Social History Allergies: Allergies fluoxetine [From Prozac] Allergy (Verified 10/20/23 14:59) Vital Signs and I&O's Vital Signs: Vital Signs Temperature 97.9 F Temperature 97.7 F Pulse Rate [Right] 67 Pulse Rate [Right] 78 Pulse Rate 60 Respiratory Rate 18 Respiratory Rate 20 Blood Pressure [Right Arm] 123/58 Blood Pressure [Left Arm] 154/75 O2 Sat by Pulse Oximetry 60 O2 Sat by Pulse Oximetry 94 O2 Sat by Pulse Oximetry 94 Intake and Output: Intake & Output 10/19/23 10/20/23 10/21/23 10/22/23 23:59 23:59 23:59 23:59 Intake Total 1058 / 1058 1194 / 1194 440 / 440 Output Total 810 / 810 1000 / 1000 Balance 1058 / 1058 384 / 384 -560 / -560 Physical Exam Oriented: Normal Eyes: Normal Ear: Normal Nose: Normal Throat: Normal Respiratory: Generalized and Diminished Cardiovascular: Normal and Edema Auscultation: Bowel Sounds: Normal Tenderness: Normal Skin: Normal Musculoskeletal: Normal Psychiatric: Normal Mood Description: Calm and Appropriate Affect: Normal Speech Pattern: Clear and Appropriate Laboratory and Diagnostics 10/22/23 04:22 10/22/23 04:22 Labs: Laboratory WBC 4.6 X10^3/uL (3.6-10.0) 10/22/23 04:22 RBC 3.41 X10^6/uL (4.7-6.0) L 10/22/23 04:22 Hgb 10.9 g/dL (13.5-18.0) L 10/22/23 04:22 Hct 32.2 % (42.0-54.0) L 10/22/23 04:22 MCV 94.5 fL (80.0-100.0) 10/22/23 04:22 MCH 31.8 pg (27.0-34.0) 10/22/23 04:22 MCHC 33.7 g/dL (33.0-35.0) 10/22/23 04:22 RDW 16.5 % (11.6-16.5) 10/22/23 04:22 Plt Count 161 X10^3/uL (150.0-450.0) 10/22/23 04:22 MPV 8.3 fL (7.4-11.0) 10/22/23 04:22 Neut % (Auto) 70.1 % (42.0-75.0) 10/22/23 04:22 Lymph % (Auto) 16.8 % (21.0-51.0) L 10/22/23 04:22 [place] % (Auto) 9.5 % (0.0-13.0) 10/22/23 04:22 Eos % (Auto) 3.0 % (0.9-2.9) H 10/22/23 04:22 Baso % (Auto) 0.6 % (0.2-1.0) 10/22/23 04:22 Neut # (Auto) 3.2 x10^3/uL (2.2-4.8) 10/22/23 04:22 Lymph # (Auto) 0.8 X10^3/uL (1.3-2.9) L 10/22/23 04:22 [place] # (Auto) 0.4 x10^3/uL (0.3-0.8) 10/22/23 04:22 Eos # (Auto) 0.1 x10^3/uL (0.0-0.2) 10/22/23 04:22 Baso # (Auto) 0.0 X10^3/uL (0.0-0.1) 10/22/23 04:22 Absolute Nucleated RBC 0.0 /100WBC 10/22/23 04:22 Sodium 139 mmol/L (136-145) 10/22/23 04:22 Corrected Sodium TNP 10/22/23 04:22 Potassium 3.2 mmol/L (3.5-5.1) L 10/22/23 04:22 Chloride 106 mmol/L (98-107) 10/22/23 04:22 Carbon Dioxide 23.9 mmol/L (21-32) 10/22/23 04:22 BUN 25 mg/dL (7-18) H 10/22/23 04:22 Creatinine 1.83 mg/dL (0.70-1.30) H 10/22/23 04:22 Est GFR (MDRD) Af Amer 47 (>60) L 10/22/23 04:22 Est GFR (MDRD) Non-Af 39 (>60) L 10/22/23 04:22 Glucose 40 mg/dL (65-99) L* 10/22/23 04:22 POC Glucose (mg/dL) 238 mg/dL (65-99) H 10/22/23 11:07 Calcium 7.9 mg/dL (8.5-10.1) L 10/22/23 04:22 Corrected Calcium 9.3 mg/dL (8.5-10.1) 10/22/23 04:22 Magnesium 1.9 mg/dL (2.0-2.9) L 10/21/23 05:47 Total Bilirubin 0.50 mg/dL (0.2-1.0) 10/22/23 04:22 AST 15 Units/L (15-37) 10/22/23 04:22 ALT 14 Units/L (12-78) 10/22/23 04:22 Alkaline Phosphatase 106 Units/L (46-116) 10/22/23 04:22 Troponin I High Sens 27.4 ng/L (4.0-60.0) 10/20/23 12:25 Total Protein 5.7 g/dL (6.4-8.2) L 10/22/23 04:22 Albumin 2.3 g/dL (3.4-5.0) L 10/22/23 04:22 Globulin 3.4 g/dL (2.5-4.5) 10/22/23 04:22 Albumin/Globulin Ratio 0.7 Ratio (1.1-2.1) L 10/22/23 04:22 Lipase 10 Units/L (16-77) L 10/20/23 12:25 Specimen Type Clean catch urine 10/20/23 16:40 Urine Color Yellow (YELLOW) 10/20/23 16:40 Urine Appearance Clear (CLEAR) 10/20/23 16:40 Urine pH 8.0 (5.0 - 8.0) 10/20/23 16:40 Ur Specific [place] 1.010 (1.000-1.030) 10/20/23 16:40 Urine Protein 2+ (NEGATIVE) 10/20/23 16:40 Urine Glucose (UA) 3+ (NEGATIVE) 10/20/23 16:40 Urine Ketones Negative (NEGATIVE) 10/20/23 16:40 Urine Blood Negative (NEGATIVE) 10/20/23 16:40 Urine Nitrite Negative (NEGATIVE) 10/20/23 16:40 Urine Bilirubin Negative (NEGATIVE) 10/20/23 16:40 Urine Urobilinogen Normal (NORMAL) 10/20/23 16:40 Ur Leukocyte Esterase Negative (NEGATIVE) 10/20/23 16:40 Urine RBC None seen /HPF (0-3) 10/20/23 16:40 Urine WBC None seen /HPF (0-5) 10/20/23 16:40 Ur Squamous Epith Cells Rare /HPF (NEGATIVE) 10/20/23 16:40 Amorphous Sediment Trace /HPF (NEGATIVE) 10/20/23 16:40 Urine Bacteria Trace /HPF (NEGATIVE) 10/20/23 16:40 Hyaline Casts Few /LPF (NEGATIVE) 10/20/23 16:40 Urine Mucus Few /HPF (NEGATIVE) 10/20/23 16:40 Ur Culture Indicated? No/not indicated 10/20/23 16:40 Plan (1) Acute alteration in mental status: Status: Acute (2) Hypoglycemia: Status: Acute (3) Hypokalemia: Status: Acute (4) Hypomagnesemia: Status: Acute (5) Pneumonia: Status: Acute Qualifiers: Pneumonia type: due to unspecified organism Laterality: unspecified laterality Lung location: unspecified part of lung Qualified Code(s): J18.9 - Pneumonia, unspecified organism (6) CHF (congestive heart failure): Status: Acute Qualifiers: Heart failure chronicity: acute on chronic Heart failure type: combined systolic and diastolic Qualified Code(s): I50.43 - Acute on chronic combined systolic (congestive) and diastolic (congestive) heart failure (7) Atrial fibrillation: Status: Acute Qualifiers: Atrial fibrillation type: unspecified chronic Qualified Code(s): I48.20 - Chronic atrial fibrillation, unspecified (8) Generalized weakness: Status: Acute
[2023-10-22] MEDS: PATIENT'S HOME MEDICATION (Metformin 1,000 mg tablet) PO SCH (12:13)
[2023-10-22] MEDS: GLUCOPHAGE PO SCH (17:18)
[2023-10-22] MEDS: SNACK - Diabetic Appropriate PO SCH (19:24)
[2023-10-22] MEDS: NovoLIN R (or HumuLIN R) SUBCUT ONE (21:22)
[2023-10-23] MEDS ORDERED: GLUCOPHAGE ONE (05:28)
--- NOTE | 2023-10-23 05:53 | RAD ---
EXAM:CHEST, 1 VIEWHISTORY:PNEUMONIA; HX: CAD, CHF, MT, HTN, A-FIB, COPD, EMPHYSEMA, DM SX: CABGCOMPARISON:10/22/2023FINDINGS:The trachea is midline. The cardiac silhouette is mildly enlarged. 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 There is blunting of the costophrenic angles due to small effusions.. The bony thorax is unremarkable.IMPRESSION:Mild cardiomegaly with small bilateral pleural effusions.No significant change from previous 10/22/2023THIS IS AN ELECTRONICALLY VERIFIED FINAL REPORT10/23/2023 5:49 AM - Electronically signed by Sacha Kramer MD
[2023-10-23 06:21] LABS: BASOPHILS % (AUTO) 0.6 % (0.2-1.0); EOSINOPHILS # (AUTO) 0.1 x10^3/uL (0.0-0.2); EOSINOPHILS % (AUTO) 2.8 % (0.9-2.9); HEMATOCRIT 31.6 % (42.0-54.0); HEMOGLOBIN 10.7 g/dL (13.5-18.0); LYMPHOCYTES # (AUTO) 0.8 X10^3/uL (1.3-2.9); LYMPHOCYTES % (AUTO) 19.5 % (21.0-51.0); MEAN CORPUSCULAR HEMOGLOBIN 32.2 pg (27.0-34.0); MEAN CORPUSCULAR HGB CONC 33.7 g/dL (33.0-35.0); MEAN CORPUSCULAR VOLUME 95.3 fL (80.0-100.0); MEAN PLATELET VOLUME 8.2 fL (7.4-11.0); MONOCYTES # (AUTO) 0.4 x10^3/uL (0.3-0.8); MONOCYTES % (AUTO) 9.7 % (0.0-13.0); NEUTROPHILS # (AUTO) 2.9 x10^3/uL (2.2-4.8); NEUTROPHILS % (AUTO) 67.4 % (42.0-75.0); PLATELET COUNT 148 X10^3/uL (150.0-450.0); RED BLOOD COUNT 3.32 X10^6/uL (4.7-6.0); RED CELL DISTRIBUTION WIDTH 16.5 % (11.6-16.5); WHITE BLOOD COUNT 4.2 X10^3/uL (3.6-10.0)
[2023-10-23 06:36] LABS: ALBUMIN 2.3 g/dL (3.4-5.0); CALCIUM 7.8 mg/dL (8.5-10.1); CARBON DIOXIDE 21.5 mmol/L (21-32); COR CA(FOR HYPOALB) 9.2 mg/dL (8.5-10.1); CREATININE 1.71 mg/dL (0.70-1.30); MAGNESIUM 2.2 mg/dL (2.0-2.9); POTASSIUM 4.4 mmol/L (3.5-5.1); TOTAL PROTEIN 5.9 g/dL (6.4-8.2)
[2023-10-23] MEDS ORDERED: NORVASC TAB 2.5 MG ONE (08:27)
[2023-10-23] MEDS: ROXICODONE TAB 5 MG PO PRN (08:52)
[2023-10-23] MEDS: ACTOS PO SCH (10:33)
--- NOTE | 2023-10-23 11:25 | PCM.PROG ---
Progress Note Progress Note for Day of Date of Exam: 10/23/23 Subjective Subjective: Patient seen at bedside, no acute events overnight. He states he feels slightly better. He is wearing 2L as he was noted to have dyspnea this morning. He states he feels better after nebs. He did not have hypoglycemia, his glucose was noted to be in the 400s last night, did receive regular insulin 5 units. His glucose is 258 this morning. Labs/imaging reviewed: -Hgb 10.7 K:4.4 BUN/Cr: 23/1.71 -CXR: mild cardiomegaly, small b/l effusions -AIT : negative Plan: Will DC fluids, wean O2 as tolerated. Continue Rocephin and bronchodilators. Restart actos, continue metformin BID. Monitor glucose. Decrease buspar to 10 mg BID. Continue other home medications. PT/OT as tolerated. Monitor AM labs/imaging. Past Medical Family Social History Allergies: Allergies fluoxetine [From Prozac] Allergy (Verified 10/20/23 14:59) Vital Signs and I&O's Vital Signs: Vital Signs Temperature 98.1 F Temperature 97.8 F Pulse Rate [Right] 79 Pulse Rate [Right] 75 Pulse Rate 81 Pulse Rate 82 Respiratory Rate 20 Respiratory Rate 20 Respiratory Rate 20 Respiratory Rate 20 Blood Pressure [Right Arm] 172/84 Blood Pressure [Right Arm] 144/76 O2 Sat by Pulse Oximetry 97 O2 Sat by Pulse Oximetry 89 O2 Sat by Pulse Oximetry 88 O2 Sat by Pulse Oximetry 92 Intake and Output: Intake & Output 10/20/23 10/21/23 10/22/23 10/23/23 23:59 23:59 23:59 23:59 Intake Total 1058 / 1058 1194 / 1194 2400 / 2400 710 / 710 Output Total 810 / 810 2600 / 2600 400 / 400 Balance 1058 / 1058 384 / 384 -200 / -200 310 / 310 Physical Exam Oriented: Normal Eyes: Normal Ear: Normal Nose: Normal Throat: Normal Respiratory: Generalized and Diminished Cardiovascular: Normal and Edema Auscultation: Bowel Sounds: Normal Palpation: Normal Tenderness: Normal Skin: Normal Musculoskeletal: Normal Psychiatric: Normal Mood Description: Calm and Appropriate Affect: Normal Speech Pattern: Clear and Appropriate Laboratory and Diagnostics 10/23/23 06:08 10/23/23 06:08 Labs: Laboratory WBC 4.2 X10^3/uL (3.6-10.0) 10/23/23 06:08 RBC 3.32 X10^6/uL (4.7-6.0) L 10/23/23 06:08 Hgb 10.7 g/dL (13.5-18.0) L 10/23/23 06:08 Hct 31.6 % (42.0-54.0) L 10/23/23 06:08 MCV 95.3 fL (80.0-100.0) 10/23/23 06:08 MCH 32.2 pg (27.0-34.0) 10/23/23 06:08 MCHC 33.7 g/dL (33.0-35.0) 10/23/23 06:08 RDW 16.5 % (11.6-16.5) 10/23/23 06:08 Plt Count 148 X10^3/uL (150.0-450.0) L 10/23/23 06:08 MPV 8.2 fL (7.4-11.0) 10/23/23 06:08 Neut % (Auto) 67.4 % (42.0-75.0) 10/23/23 06:08 Lymph % (Auto) 19.5 % (21.0-51.0) L 10/23/23 06:08 [place] % (Auto) 9.7 % (0.0-13.0) 10/23/23 06:08 Eos % (Auto) 2.8 % (0.9-2.9) 10/23/23 06:08 Baso % (Auto) 0.6 % (0.2-1.0) 10/23/23 06:08 Neut # (Auto) 2.9 x10^3/uL (2.2-4.8) 10/23/23 06:08 Lymph # (Auto) 0.8 X10^3/uL (1.3-2.9) L 10/23/23 06:08 [place] # (Auto) 0.4 x10^3/uL (0.3-0.8) 10/23/23 06:08 Eos # (Auto) 0.1 x10^3/uL (0.0-0.2) 10/23/23 06:08 Baso # (Auto) 0.0 X10^3/uL (0.0-0.1) 10/23/23 06:08 Absolute Nucleated RBC 0.2 /100WBC 10/23/23 06:08 Sodium 137 mmol/L (136-145) 10/23/23 06:08 Corrected Sodium 141 mmol/L (136-145) 10/23/23 06:08 Potassium 4.4 mmol/L (3.5-5.1) 10/23/23 06:08 Chloride 107 mmol/L (98-107) 10/23/23 06:08 Carbon Dioxide 21.5 mmol/L (21-32) 10/23/23 06:08 BUN 23 mg/dL (7-18) H 10/23/23 06:08 Creatinine 1.71 mg/dL (0.70-1.30) H 10/23/23 06:08 Est GFR (MDRD) Af Amer 51 (>60) L 10/23/23 06:08 Est GFR (MDRD) Non-Af 42 (>60) L 10/23/23 06:08 Glucose 258 mg/dL (65-99) H 10/23/23 06:08 POC Glucose (mg/dL) 298 mg/dL (65-99) H 10/23/23 11:04 Calcium 7.8 mg/dL (8.5-10.1) L 10/23/23 06:08 Corrected Calcium 9.2 mg/dL (8.5-10.1) 10/23/23 06:08 Magnesium 2.2 mg/dL (2.0-2.9) 10/23/23 06:08 Total Bilirubin 0.50 mg/dL (0.2-1.0) 10/23/23 06:08 AST 15 Units/L (15-37) 10/23/23 06:08 ALT 15 Units/L (12-78) 10/23/23 06:08 Alkaline Phosphatase 122 Units/L (46-116) H 10/23/23 06:08 Troponin I High Sens 27.4 ng/L (4.0-60.0) 10/20/23 12:25 Total Protein 5.9 g/dL (6.4-8.2) L 10/23/23 06:08 Albumin 2.3 g/dL (3.4-5.0) L 10/23/23 06:08 Globulin 3.6 g/dL (2.5-4.5) 10/23/23 06:08 Albumin/Globulin Ratio 0.6 Ratio (1.1-2.1) L 10/23/23 06:08 Lipase 10 Units/L (16-77) L 10/20/23 12:25 Specimen Type Clean catch urine 10/20/23 16:40 Urine Color Yellow (YELLOW) 10/20/23 16:40 Urine Appearance Clear (CLEAR) 10/20/23 16:40 Urine pH 8.0 (5.0 - 8.0) 10/20/23 16:40 Ur Specific [place] 1.010 (1.000-1.030) 10/20/23 16:40 Urine Protein 2+ (NEGATIVE) 10/20/23 16:40 Urine Glucose (UA) 3+ (NEGATIVE) 10/20/23 16:40 Urine Ketones Negative (NEGATIVE) 10/20/23 16:40 Urine Blood Negative (NEGATIVE) 10/20/23 16:40 Urine Nitrite Negative (NEGATIVE) 10/20/23 16:40 Urine Bilirubin Negative (NEGATIVE) 10/20/23 16:40 Urine Urobilinogen Normal (NORMAL) 10/20/23 16:40 Ur Leukocyte Esterase Negative (NEGATIVE) 10/20/23 16:40 Urine RBC None seen /HPF (0-3) 10/20/23 16:40 Urine WBC None seen /HPF (0-5) 10/20/23 16:40 Ur Squamous Epith Cells Rare /HPF (NEGATIVE) 10/20/23 16:40 Amorphous Sediment Trace /HPF (NEGATIVE) 10/20/23 16:40 Urine Bacteria Trace /HPF (NEGATIVE) 10/20/23 16:40 Hyaline Casts Few /LPF (NEGATIVE) 10/20/23 16:40 Urine Mucus Few /HPF (NEGATIVE) 10/20/23 16:40 Ur Culture Indicated? No/not indicated 10/20/23 16:40 Plan (1) Acute alteration in mental status: Status: Acute (2) Hypoglycemia: Status: Acute (3) Hypokalemia: Status: Acute (4) Hypomagnesemia: Status: Acute (5) Pneumonia: Status: Acute Qualifiers: Laterality: unspecified laterality Lung location: unspecified part of lung Pneumonia type: due to unspecified organism Qualified Code(s): J18.9 - Pneumonia, unspecified organism (6) CHF (congestive heart failure): Status: Acute Qualifiers: Heart failure chronicity: acute on chronic Heart failure type: combined systolic and diastolic Qualified Code(s): I50.43 - Acute on chronic combined systolic (congestive) and diastolic (congestive) heart failure (7) Atrial fibrillation: Status: Acute Qualifiers: Atrial fibrillation type: unspecified chronic Qualified Code(s): I48.20 - Chronic atrial fibrillation, unspecified (8) Generalized weakness: Status: Acute
[2023-10-23] MEDS ORDERED: SNACK - Diabetic Appropriate PO SCH (20:00)
[2023-10-23] MEDS: BUSPAR PO SCH (20:45)
[2023-10-24 04:48] LABS: EOSINOPHILS # (AUTO) 0.1 x10^3/uL (0.0-0.2); RED BLOOD COUNT 3.21 X10^6/uL (4.7-6.0); WHITE BLOOD COUNT 4.3 X10^3/uL (3.6-10.0)
[2023-10-24 04:51] LABS: BASOPHILS % (AUTO) 0.4 % (0.2-1.0); EOSINOPHILS % (AUTO) 2.7 % (0.9-2.9); HEMATOCRIT 30.5 % (42.0-54.0); HEMOGLOBIN 10.3 g/dL (13.5-18.0); LYMPHOCYTES # (AUTO) 0.8 X10^3/uL (1.3-2.9); LYMPHOCYTES % (AUTO) 18.1 % (21.0-51.0); MEAN CORPUSCULAR HEMOGLOBIN 32.2 pg (27.0-34.0); MEAN CORPUSCULAR HGB CONC 33.9 g/dL (33.0-35.0); MEAN PLATELET VOLUME 8.2 fL (7.4-11.0); MONOCYTES # (AUTO) 0.4 x10^3/uL (0.3-0.8); MONOCYTES % (AUTO) 8.1 % (0.0-13.0); NEUTROPHILS # (AUTO) 3.1 x10^3/uL (2.2-4.8); NEUTROPHILS % (AUTO) 70.7 % (42.0-75.0); PLATELET COUNT 133 X10^3/uL (150.0-450.0)
[2023-10-24 04:56] LABS: ALBUMIN 2.3 g/dL (3.4-5.0); CALCIUM 7.9 mg/dL (8.5-10.1); CARBON DIOXIDE 21.2 mmol/L (21-32); COR CA(FOR HYPOALB) 9.3 mg/dL (8.5-10.1); CREATININE 1.57 mg/dL (0.70-1.30); POTASSIUM 4.4 mmol/L (3.5-5.1); TOTAL PROTEIN 5.7 g/dL (6.4-8.2)
[2023-10-24] MEDS: GLUCOPHAGE ONE ×3 (07:28)
[2023-10-24 08:07] VITALS: RESP 18
[2023-10-24] MEDS ORDERED: NORVASC TAB 2.5 MG ONE (08:16)
[2023-10-24] MEDS: FARXIGA PO SCH (10:15)
[2023-10-24 11:53] VITALS: BP 143/74; PULSE 76; TEMP 97.7; O2SAT 95
== END 2023-10-24 12:45 | disposition home health service (06) ==
LOC: MED/SURG 11:42 → ER 11:42 → MED/SURG 16:21
PROVIDERS: ADMIT Internal Medicine; ATTEND Internal Medicine
DX: I25.2 Old myocardial infarction; R41.82 Altered mental status, unspecified; J90 Pleural effusion, not elsewhere classified; Z79.01 Long term (current) use of anticoagulants; R06.02 Shortness of breath; Z99.81 Dependence on supplemental oxygen; Z59.87 Material hardship due to limited financial resources, not elsewhere classified; R26.89 Other abnormalities of gait and mobility; R53.1 Weakness; E11.649 Type 2 diabetes mellitus with hypoglycemia without coma; E87.6 Hypokalemia; E11.65 Type 2 diabetes mellitus with hyperglycemia; J44.9 Chronic obstructive pulmonary disease, unspecified; R60.0 Localized edema; I50.43 Acute on chronic combined systolic (congestive) and diastolic (congestive) heart failure; I11.0 Hypertensive heart disease with heart failure; I48.20 Chronic atrial fibrillation, unspecified; E78.5 Hyperlipidemia, unspecified; Z72.0 Tobacco use; J18.8 Other pneumonia, unspecified organism; R93.1 Abnormal findings on diagnostic imaging of heart and coronary circulation